=== PATIENT | male | born 1940 | race Caucasian/White ===

== ENCOUNTER → 2019-01-23 17:29 | Outpatient (CLI) | payer MEDICARE, OTHER, SELFPAY ==
--- NOTE | 2019-01-23 17:33 | DI.RAD.S_ITS ---
PROCEDURE: XR CHEST 2V INDICATIONS: cough TECHNIQUE: 2 views of the chest were acquired. COMPARISON: None. FINDINGS: Surgical changes and devices: None. Lungs and pleura: No acute consolidation. Scattered subsegmental atelectasis and/or scarring. No pleural effusions or pneumothorax. Mediastinum: Mediastinal contours are normal. Heart size is normal. Bones and chest wall: No suspicious bony abnormalities. Soft tissues appear unremarkable. IMPRESSION: No acute disease. Dictated by: Keyur Samano M.D. on 01/23/2019 at 17:52 Approved by: Keyur Samano M.D. on 01/23/2019 at 17:52
== END ==
PROVIDERS: PCP Internal Medicine; Visit Provider Physician Assistant
DX: R05 Cough (principal)
CPT/HCPCS: 71046

== ENCOUNTER → 2019-12-10 06:27 | Day surgery (SDC) | payer MEDICARE, OTHER, SELFPAY ==
[2019-12-10] VITALS (8 sets, daily range): BP systolic 114–172; BP diastolic 69–93; PULSE 61–81; RESP 10–18; TEMP 35.7–37.1; O2SAT 93–98; BMI 27.4
--- NOTE | 2019-12-10 | PATH_ITS ---
[facility] Accession Number: [id number] . 01 Material submitted: . neck - LEFT BLADDER NECK . 02 Diagnosis: Left Bladder Neck, Transurethral Resection: Invasive urothelial carcinoma, see Cancer Case Summary. . . CANCER CASE SUMMARY-URINARY BLADDER Procedure: TURP/TURBT. Tumor Site: Bladder neck. Histologic Type: Urothelial carcinoma, invasive. Histologic Grade: High grade. Tumor configuration: Solid/nodular. Muscularis Propria Presence: Muscularis propria present. Lymphovascular Invasion: Present. Tumor Extension: Tumor invades muscularis propria, and urothelial carcinoma invasive into prostatic stroma in prostatic chips. MRV 12/15/2019 1808 Local . 02 Comment: As part of routine director quality systems, Dr. Carter has reviewed this case and agrees with the diagnosis of invasive urothelial carcinoma with muscularis propria invasion, and presence of lymphovascular invasion. The finding of invasive urothelial carcinoma was reported to Dr. Epstein by Dr. Ojeda on 12/15/2019 at 3:15 p.m. . 02 Electronically signed: . Omkar Ojeda MD, PhD, Pathologist NPI- [id number] . 01 Gross description: . LEFT BLADDER NECK: Received in formalin are multiple fragment of underwood soft tissue measuring 3.0 x 2.0 x 0.5 cm. Specimen is submitted in its entirety in 2 cassettes. /[facility] 12/11/2019 0015 Local . 02 Microscopic: . A D2-40 immunohistochemical stain is performed to evaluate for lymphovascular invasion, and highlights lymphatic channels containing nests of neoplastic cells. A control stains shows appropriate reactivity. . * This test was developed and its performance characteristics determined by [employer]. It has not been cleared or approved by the U.S. Food and Drug Administration. The FDA has determined that such clearance or approval is not necessary. This test is used for clinical purposes. It should not be regarded as investigational or for research. . 02 Pathologist provided ICD-10: C67.5 . 02 CPT . 435347, [id number] Performed at: 01 [facility] [address] [id number] MD Marquis Pendleton MD Phone: [phone] Performed at: 02 [place] [id number] [place] [id number] MD Kathy Carter MD Phone: [phone]
[2019-12-10] MEDS: LACTATED RINGERS 1,000 ML 42 ML IV (07:45)
[2019-12-10] MEDS: CEFAZOLIN 2 GM/100 ML FROZ.PIGGY IV (07:46)
--- NOTE | 2019-12-10 07:46 | PM.PREOP ---
Pre-operative Note Interval Note History & Physical reviewed/Exam performed by Physician: Yes Changes to H&P: No H&P completed within 30 days and has changed as indicated here:: There are no changes to the history and physical examination of scanned document.
--- NOTE | 2019-12-10 08:12 | SUR.OPER ---
Lithotomy on padded OR bed, head on pillow, arms secured on padded arm boards at <90 degrees abduction. Legs secured in padded yellow fins stirrups.
[2019-12-10] MEDS: mitoMYcin 20 MG in WATER FOR INJECTION 20 ML 240 ML INTRAVESIC (08:22)
[2019-12-10] MEDS: BELLADONNA/OPIUM SUPPOSITORIES 1 EACH PR (08:25)
[2019-12-10] MEDS: HYDROCODONE/ACET 5/325 TABLET 1 TAB PO (08:59)
--- NOTE | 2019-12-10 10:09 | SUR.PHASEII ---
Dr norris contacted by phone for plavix intructions. per DR. norris patient to restart plavix on friday. patient and given those instructions verbally and written on discharge instructions.
--- NOTE | 2019-12-10 10:11 | SUR.PHASEII ---
pt and given detailed instructions on how to care for gunderson catheter. Written information given to both pt and . Pt states he is comfortable. Denies pain . at bedside. Pt requesting prescription for pain medication will talk to Dr. Evans when he is out of surgery.
--- NOTE | 2019-12-10 10:59 | SUR.PHASEII ---
Connected pt to bag and let it drain. Disposed of bag in chemo bin. Detailed catheter care given. Pt awaiting prescription for pain medication. Pt states he feels much better. No complaints at present time. at bedside. Pt states he feels much better.
--- NOTE | 2020-02-04 09:13 | P.OP_ITS ---
Operative Date/Time/Diagnoses Date of procedure: 12/10/19 Time of procedure: 10:00 Pre-op diagnosis: 1. Malignant neoplasm left bladder neck/prostate Post-op diagnosis: same Procedure & Clinicians Procedure: 1. Transurethral resection of bladder tumor. 2. Transurethral resection of prostate. 3. Installation mitomycin C (20 mg). Same procedure as scheduled: Yes Indications: 1. Malignant neoplasm at interface of left bladder neck and proximal prostatic fossa. Surgeon: Ritesh Epstein Click Yes if Unassisted: Yes Anesthesia Type: General Operative Notes Findings: 1. Malignant neoplasm at left bladder neck and proximal left prostatic fossa interface. Closure Type: not applicable Specimen(s): other (Urothelial neoplasm.) Applied: catheter (20 Cambodian Delcid catheter) Estimated Blood Loss (mL): 5 Blood products transfused: none Tourniquet time (min): 0 Procedure in detail: The patient was positioned supine and administered general anesthesia. He was then repositioned in semi lithotomy and the lower abdomen genitalia and groin were prepped and draped in sterile fashion. The resectoscope was then passed into the urethra under direct visualization with the findings as described above. The resectoscope was then fitted with the resection loop. Transurethral resection of the index tumor was then conducted at the posterior bladder neck prostatic fossa interface. The tissue was labeled as to the site of its procurement and submitted to pathology for routine gross and microscopic examination. Hemostasis was attained with electric cautery. The bladder was then filled partially and the resectoscope was removed. A 20 Camb[place] Delcid catheter was then inserted, and the balloon inflated to 10 cc. Bladder contents were then drained. A solution of 20 cc containing 20 mg mitomycin C were then instilled into the bladder via the catheter for anticipated to our postoperative retention. Patient was then repositioned supine, awakened and transferred to a gurney in stable condition. Complications: none Post-operative Condition: stable Disposition: PACU Plan for aftercare: Discharge home
== END | disposition home or self-care (01) ==
PROVIDERS: Referring Provider Specialist; Visit Provider Specialist
PROC: 0TBB8ZZ Excision of Bladder, Via Natural or Artificial Opening Endoscopic (ICD-10-PCS; CPT 52235; principal; 2019-12-10 07:45)
DX: C67.5 Malignant neoplasm of bladder neck (principal); I25.10 Atherosclerotic heart disease of native coronary artery without angina pectoris; I10 Essential (primary) hypertension; E78.5 Hyperlipidemia, unspecified; J44.9 Chronic obstructive pulmonary disease, unspecified
CPT/HCPCS: 52235; 87086; J0690; J2704; J3010; J9280

== ENCOUNTER → 2019-12-22 10:53 | Outpatient (CLI) | payer MEDICARE, OTHER, SELFPAY ==
[2019-12-22 11:52] LABS: BUN Creatinine Ratio 26.7 (6-22); Blood Urea Nitrogen 32 mg/dL (9-20); Calcium 10.1 mg/dL (8.4-10.2); Carbon Dioxide 29 mmol/L (22-32); Chloride 102 mmol/L (98-107); Estimated Glomerular Filt Rate 58.1 mL/min (>60); Glucose 115 mg/dL (80-110); HEMOLYSIS < 15 (0-50); Potassium 5.4 mmol/L (3.4-5.1); Sodium 141 mmol/L (137-145)
--- NOTE | 2019-12-22 12:10 | DI.CT.S_ITS ---
PROCEDURE: CT CHEST ABD PEL W CON INDICATIONS: Malignant neoplasm of bladder, unspecified TECHNIQUE: After the administration of oral and intravenous contrast, 5 mm thick sections acquired from the lung apices to the symphysis. 5 mm coronal and sagittal reformats were performed, with additional 7 mm coronal MIP reformats through the lungs. For radiation dose reduction, the following was used: automated exposure control, adjustment of mA and/or kV according to patient size. COMPARISON: [facility], CT, CT-IVP, 05/01/2012, 8:50. [facility], CT, IVP (ABD & PEL WWO CONTRAST), 04/10/2015, 9:15. FINDINGS: Image quality: Excellent. CHEST: Lungs and pleura: No acute airspace opacities. No pleural effusions or pneumothorax. Central and peripheral airways appear patent and normal in caliber. Mediastinum: Heart size is normal. No pericardial effusion. No mediastinal or hilar adenopathy by size criteria. Thoracic aorta and central pulmonary arteries are normal in size. Esophagus is normal in caliber. No hiatal hernia. Chest wall: No axillary or supraclavicular adenopathy by size criteria. Thyroid gland appears normal where well seen. ABDOMEN: Solid organs: Liver is normal in size and enhancement. Gallbladder appears normal. Biliary system is non dilated. Pancreas enhances normally. Spleen is normal in size and enhancement. No adrenal nodules. Kidneys demonstrate normal size and enhancement, with symmetric bilateral mild to moderate hydronephrosis and hydroureter extending into the pelvis. Peritoneum and bowel: Bowel loops demonstrate normal wall thickness and caliber. No free fluid or air. Nodes and vessels: No retroperitoneal or mesenteric adenopathy by size criteria. Aorta and inferior vena cava are well seen and the IVC is in size. The distal abdominal aorta contains a fusiform aneurysm with maximal AP and transverse dimensions of 4.9 x 4.7 cm. Prior maximal AP dimension of the aorta 04/10/15 was 4.3 cm. Miscellaneous: No ventral hernias. PELVIS: Genitourinary: Bladder wall morphology is somewhat lobulated, possibly associated with a neobladder augmentation. The bilateral hydroureter extends to this area of lobulation. No residual bladder mass is seen. Miscellaneous: No inguinal hernias or adenopathy. Extensive sigmoid diverticulosis, no definite acute diverticulitis. Bones: No suspicious bony lesions. No vertebral body compression fractures. IMPRESSION: 1. No metastatic disease seen. 2. Lobulation of the bladder margin posteriorly, with associated bilateral hydronephrosis and hydroureter that is mild to moderate in severity. The appearance may be secondary to neobladder augmentation or other operative intervention without a visualized mass as the underlying cause. 3. Abdominal aortic aneurysm has mildly worsened from the comparison CT scan 04/10/15 when maximal axial dimension of the distal aorta was 4.3 cm and now is 4.9 cm. 4. Extensive sigmoid diverticulosis, without acute diverticulitis. Dictated by: Juvenal Vaughn M.D. on 12/22/2019 at 15:29 Approved by: Juvenal Vaughn M.D. on 12/22/2019 at 15:52
== END ==
PROVIDERS: PCP Internal Medicine; Referring Provider Internal Medicine; Visit Provider Specialist
DX: C67.9 Malignant neoplasm of bladder, unspecified (principal); C61 Malignant neoplasm of prostate; N13.30 Unspecified hydronephrosis; I71.4 Abdominal aortic aneurysm, without rupture; K57.30 Diverticulosis of large intestine without perforation or abscess without bleeding
CPT/HCPCS: 36415; 71260; 74177; 80048; Q9967

== ENCOUNTER → 2019-12-23 10:52 | Outpatient (CLI) | payer MEDICARE, OTHER, SELFPAY ==
--- NOTE | 2019-12-23 10:56 | DI.NM.S_ITS ---
PROCEDURE: NM BONE SCAN WHOLE BODY RADIOPHARMACEUTICAL: 21.2 mCi Tc-99m MDP IV. INDICATIONS: Malignant neoplasm of bladder, unspecified TECHNIQUE: Delayed whole-body scintigrams were obtained approximately 3-4 hours after intravenous injection of radiotracer. Anterior and posterior views were acquired from vertex to feet. Additional left and right oblique views of the abdomen/pelvis were obtained. COMPARISON: [facility], CT, CT CHEST ABD PEL W CON, 12/22/2019, 12:05. FINDINGS: Bilateral hydronephrosis and inferior leads inferiorly to the bladder level, corresponding to the findings from CT scan in 12/22/19. There appears to have been some form of surgery at the bladder level, possibly with a bladder augmentation procedure, and subsequently bilateral hydronephrosis and hydroureter have been found. Etiology beyond is surgical intervention is not identified. No osseous metastatic disease is found related to prior report of bladder carcinoma. At the T9-T10 intervertebral region prominent anterior osteophytic spurring and degenerative disc disease is noted on CT scanning from yesterday, from the sagittal reformatio imaging. Currently the nuclear medicine bone scan shows a thin band of elevated isotope deposition exactly at that site. Degenerative osteoarthritic change and disc disease is noted at the low cervical spine. No area of marrow space metastasis is suspected. IMPRESSION: 1. The prior CT scanning from one day ago had shown prominent anterior projecting osteophytic spurring, at T9-T10, where the current bone scan shows a thin band of elevated isotope deposition. This does not represent evidence of a compression fracture or metastatic disease at that site with reference to the prior CT scan. 2. Through the axial and appendicular skeleton visualized no osseous metastatic disease is seen. Degenerative changes are relatively prominent at each shoulder and the low cervical spine. 3. The CT from one day ago has documented bilateral postoperative hydronephrosis and hydroureter, related to ureteral insertion into what appears to be a surgically modified bladder. Ureteral reimplantation frequently is associated with such findings and the degree of hydronephrosis and hydroureter acceptable would be best evaluated by the urology surgical staff. Dictated by: Juvenal Vaughn M.D. on 12/23/2019 at 16:49 Approved by: Juvenal Vaughn M.D. on 12/23/2019 at 16:56
--- NOTE | 2020-01-04 15:50 | ONC.MSW ---
Description: New Referral Navigation T/C Reason for Referral: Bladder Cancer Activity: Pt referred for newly diagnosed bladder cancer, Dr. Evans pt. Discussed the ongoing availability of assistance, support and resources through navigator, their current treatment/surgery schedule, and confirmed their appt. time for this , 01/05 at 2:00pm, 1:40pm check-in time. Pt is already scheduled for his next surgery for 01/16.
== END ==
PROVIDERS: PCP Internal Medicine; Referring Provider Specialist; Visit Provider Specialist
DX: C67.9 Malignant neoplasm of bladder, unspecified (principal); M47.812 Spondylosis without myelopathy or radiculopathy, cervical region; N13.30 Unspecified hydronephrosis
CPT/HCPCS: 78306; A9503

== ENCOUNTER → 2020-01-05 12:59 | Outpatient (CLI) | payer MEDICARE, OTHER, SELFPAY ==
--- NOTE | 2020-01-05 | DI.NM.S_ITS ---
PROCEDURE: NM RENAL FUNCTION W LASIX RADIOPHARMACEUTICAL: 9.7 mCi Tc-99m MAG3 IV and 40 mg furosemide IV. INDICATIONS: Malignant neoplasm of urinary organ, unspecified TECHNIQUE: The patient was hydrated orally before the examination was begun. After intravenous administration of Tc-99m MAG3, posterior abdominal radionuclide angiogram and sequential (1 minute each frame) renal images were obtained. A time-activity curve for each kidney was generated and analyzed. To evaluate for obstruction, the patient was given 40 mg furosemide via slow intravenous injection after the start of the examination. Sequential images were obtained for up to an additional 20 minutes. COMPARISON: [facility], CT, IVP (ABD & PEL WWO CONTRAST), 04/10/2015, 9:15. [facility], CT, CT CHEST ABD PEL W CON, 12/22/2019, 12:05. FINDINGS: Perfusion: There is normal vascular flow to both kidneys. Morphology: Both kidneys are normal in size and shape. Thecollecting systems are nondilated bilaterally. The ureters and bladder fill with tracer, and appear normal. Function: Both kidneys demonstrate delayed cortical tracer uptake, with peak activity > 15 minutes. The right kidney contributes 42.5% of total renal function. The left kidney contributes 57.5% of total renal function. Lasix stimulation: After diuretic administration, there is prompt clearance of tracer activity from the renal collecting systems in both kidneys. The half-time of emptying of tracer activity from the right pelvicaliceal system is <10 minutes. The half-time of emptying from the left pelvicaliceal system is <10 minutes. Normal emptying half-times are less than 10 minutes; borderline ranges are from 10 to 20 minutes. IMPRESSION: 1. Bilateral hydronephrosis and hydroureter but no renal obstructions. 2. Decreased renal function bilaterally. 3. Right kidney contributes 42.5% and left kidney 57.5% of total renal function. Dictated by: Kvng Garcia M.D. on 01/05/2020 at 14:55 Approved by: Kvng Garcia M.D. on 01/05/2020 at 17:27
== END ==
PROVIDERS: PCP Internal Medicine; Referring Provider Specialist; Visit Provider Specialist
DX: C68.9 Malignant neoplasm of urinary organ, unspecified (principal); N13.30 Unspecified hydronephrosis
CPT/HCPCS: 78708; A9562

== ENCOUNTER → 2020-01-06 13:30 | Oncology outpatient (ONC) | payer MEDICARE, OTHER, SELFPAY ==
[2020-01-06 14:31] VITALS: BP 117/68; PULSE 80; RESP 18; TEMP 36.9; O2SAT 94
--- NOTE | 2020-01-06 14:43 | P.CONONC_ITS ---
History of Present Illness - Data of Consult Patient: new to practice Consult date: 01/06/20 Requesting Physician: Lul Choi MD Primary Care Provider: Lul Choi MD - Consult Narrative Reason for consult: Muscle invasive urothelial carcinoma of the bladder Narrative: Balaji Delacruz is a 79 year old male. He presented with hematuria about in 2006. That prompted him to see followed by Dr. Galvez and then Dr. Lala, and then Dr. Hurst. Patient has had multiple trans urethral resection of the bladder tumor. The pathology has always been nonmuscle invasive. Patient also has had 2 courses of treatment with BCG. On 12/10/2019, patient underwent trans urethral resection of left bladder tumor. The pathology showed invasive urothelial carcinoma, located at bladder neck, high grade, lymphovascular invasion present, muscle invasion positive, prostate stroma invasion positive. He was treated with bladder infusion of chemotherapy (?mitomycin C) per patient. On 12/22/2019, patient underwent CT chest abdomen pelvis that showed no metastatic disease, lobulation of the bladder margin posteriorly with associated bilateral hydronephrosis and hydroureter that is [id number] in severity, abdominal aortic aneurysm and extensive sigmoid diverticulosis without diverticulitis. On December the , patient underwent renal function studies that showed bilateral hydronephrosis and hydroureter but no renal obstructions. Decreased renal function bilaterally. Patient also underwent bone scan on 12/23/2019, no bone metastasis was recorded. He denies any pain. He has appropriate energy. No SOB. No cp. No abd signs or symptoms. No blood in the urine. normal BM. Weight has been stable. CC: Theron Earl MD Home Medications and Allergies Home Medications Medication Instructions Recorded Confirmed Type Centrum Silver 1 tab PO DAILY #0 cap 06/25/13 12/10/19 History aspirin 81 mg PO QDAY #0 06/25/13 12/10/19 History clopidogrel [Plavix] 75 mg PO QDAY #0 tab 06/25/13 12/10/19 History lisinopril [Zestril] 2.5 mg PO QDAY #0 06/25/13 01/06/20 History metformin [Glucophage XR] 1,000 mg PO BID #0 06/25/13 01/06/20 History Lantus U-100 Insulin 30 unit SQ HS #0 11/12/16 01/06/20 History albuterol sulfate [Ventolin HFA] 2 puff INH Q4HP PRN #0 11/12/16 01/06/20 History atorvastatin [Lipitor] 40 mg PO HS #0 11/12/16 12/10/19 History finasteride 5 mg PO QDAY #0 11/12/16 01/06/20 History fluticasone propionate [Flonase 1 spray INTRANASAL QDAYP PRN #0 11/12/16 01/06/20 History Allergy Relief] ferrous sulfate 325 mg (65 mg 325 mg PO DAILY tab 01/23/19 12/10/19 History iron) tablet linagliptin 5 mg tablet 5 mg PO DAILY 01/23/19 01/06/20 History Allergies Allergy/AdvReac Type Severity Reaction Status Date / Time amoxicillin [AMOXICILLIN] Allergy Severe hives Verified 12/10/19 07:13 penicillin V [PENICILLIN V] Allergy Unknown RASH Verified 12/10/19 07:13 tuberculin,PPD,multi-puncture AdvReac Severe swelling, Verified 12/10/19 07:13 [TUBERCULIN,PPD,MULTI-PUNCTURE] redness, scab Medical History - Medical, Surgical, Family History Medical History: Medical History (Last Updated 12/08/19 @ 15:31 by Farida Downey RN) AAA (abdominal aortic aneurysm) Bladder cancer BPH (benign prostatic hyperplasia) CAD (coronary artery disease) COPD (chronic obstructive pulmonary disease) CVA (cerebral vascular accident) Onset Date: 2011 Diabetes Former smoker HLD (hyperlipidemia) HTN (hypertension) Left carotid artery occlusion Mild chronic anemia Peripheral neuropathy Surgical History: Surgical History (Last Updated 12/08/19 @ 15:31 by Farida Downey RN) History of colonoscopy History of surgery on arm Hx of bilateral cataract extraction Hx of cystoscopy Hx of transurethral destruction of bladder lesion - Social History Smoking Status: Former smoker Review of Systems - Patient Self-Reported Symptoms SR respiratory issues: Mucous SR Genitourinary issues: Frequent urination, Sexual difficulties SR Neuro issues: Numbness or tingling Exam Vital signs: Vital Signs Temp Pulse Resp BP Pulse Ox 01/06/20 14:31 98.4 F 80 18 117/68 94 Intake and Output 01/05/20 01/06/20 01/06/20 23:59 07:59 15:59 Other: Weight 93.3 kg Patient Weight 01/06/20 23:59 Weight 93.3 kg Narrative: ECOG 1 Gen: WDWN, NAD, pleasant and cooperative. HEENT: NCAT, EOMI, PERRLA, anicteric sclera. Neck: Supple, No palpable thyromegaly or lymphadenopathy. Respiratory: CTAB, no wheezes audible. No JVD Cardiovascular: RRR, S1 and S2 normal, no M/G/R. Abdomen: Soft, NTND, BS normal, no palpable organomegaly Extremities: No LE pitting edema. Lymphatic: no palpable lymph nodes in the neck, axillae, or groins. Neurological: AOx3, CN II-XII grossly intact. No focal motor or sensory deficit. Psychiatric: Normal affect, appropriate mood, no depression, no anxiety. Results - Labs Reviewed - Imaging Additional studies: Procedures Insertion of intraocular lens prosthesis at time of cataract extraction, one- stage (08/07/10) Other transurethral excision or destruction of lesion or tissue of bladder (06/25/13) Phacoemulsification and aspiration of cataract (08/07/10) Removal of implanted lens (07/24/10) Secondary insertion of intraocular lens prosthesis (07/24/10) Assessment and Plan (1) Urothelial carcinoma of bladder with invasion of muscle Overview: 79-year-old gentleman with previous history of apparently non-muscle invasive urothelial tumor status post multiple TURBTs and BCG treatments. Now most recent TURBT identified muscle invasive urothelial carcinoma of the bladder neck with prostate stroma invasion. Staging studies including bone scan and CT chest abdomen and pelvis did not show any apparent distant metastasis. Assessment: Today I reviewed the pathology results, and the imaging study results with the patient. I explained to the patient that he has a muscle invasive urothelial carcinoma the bladder without apparent evidence of distant metastasis. I talked about possible pelvic MRI to evaluate the pelvic and lymph nodes. I talked with him that the generally we would recommend pre-operative chemotherapy with united [place] containing agents. After the chemotherapy patient then will need radical cystectomy. Based on the surgical pathology findings, patient may need more chemotherapy. Other options including concurrent chemo-radiotherapy or radiation therapy alone. Patient has follow up appointment with Dr. Evans next Friday. Surgery has already been scheduled for 01/17/2020. I talked with the patient that I will seem him after the surgery. However if Dr. Evans thinks that the patient need preoperative chemotherapy, I will see the patient sooner. Plan: Visit with Dr. Evans as scheduled for next Friday RTC in one month
== END ==
PROVIDERS: Family Provider Internal Medicine; PCP Internal Medicine; Referring Provider Specialist; Visit Provider Internal Medicine Hematology & Oncology
DX: C67.5 Malignant neoplasm of bladder neck (principal); N40.0 Benign prostatic hyperplasia without lower urinary tract symptoms; I10 Essential (primary) hypertension; E11.9 Type 2 diabetes mellitus without complications; E78.5 Hyperlipidemia, unspecified; I65.22 Occlusion and stenosis of left carotid artery; I71.4 Abdominal aortic aneurysm, without rupture; I25.10 Atherosclerotic heart disease of native coronary artery without angina pectoris; J44.9 Chronic obstructive pulmonary disease, unspecified; D64.9 Anemia, unspecified; G62.9 Polyneuropathy, unspecified; Z79.84 Long term (current) use of oral hypoglycemic drugs; Z86.73 Personal history of transient ischemic attack (TIA), and cerebral infarction without residual deficits; Z87.891 Personal history of nicotine dependence
CPT/HCPCS: 99204; 99214

== ENCOUNTER → 2020-01-12 13:26 | Outpatient (CLI) | payer MEDICARE, OTHER, SELFPAY ==
--- NOTE | 2020-01-12 | DI.MRI.S_ITS ---
PROCEDURE: MR PELIS WO/W CON INDICATIONS: Malignant neoplasm of bladder, unspecified TECHNIQUE: Noncontrast coronal T1 spin echo and STIR, sagittal T1 spin echo with fat saturation and STIR, axial T1 spin echo and T2 fast spin echo with fat saturation. After the administration of contrast, axial/sagittal/coronal T1 spin echo with fat saturation through the pelvis. . COMPARISON: [facility], CT, CT CHEST ABD PEL W CON, 12/22/2019, 12:05. [facility], CT, CT-IVP, 05/01/2012, 8:50. [facility], CR, CHEST 2VW, 04/29/2012, 11:27. [facility], US, RENAL OR RETROPERITONEAL LIMIT, 07/10/2012, 12:56. [facility], CT, IVP (ABD & PEL WWO CONTRAST), 04/10/2015, 9:15. [facility], NM, NM BONE SCAN WHOLE BODY, 12/23/2019, 14:19. FINDINGS: Image quality: Excellent. Bones: The visualized bone marrow demonstrates normal signal on all sequences. The overlying cortex appears intact. No abnormal intraosseous enhancement. Soft tissues: No soft tissue masses are visualized. The scanned muscles demonstrate normal overall bulk and internal signal. Subcutaneous tissues appear normal as well. No abnormal soft tissue enhancement. The prostate gland appears diminutive, with a TURP defect configuration at its upper border. The clinical history provided indicates prior malignant bladder neoplasm, and the bladder area itself is distorted with bilateral hilar ureter extending to the bladder margin, and a waisting of the bladder morphology at its middle third, below the level of the ureteral insertions. At the ureteral insertions themselves, best seen on postcontrast fat-suppressed T1 imaging centered on series 34, image 113 and immediately above and below the ureters can be seen to taper to a normal caliber without polypoid or sessile mass impinging on their far distal margin. It is unclear whether the hydroureter and morphology of the bladder could represent a manifestation of post radiation fibrotic change, surgical intervention, and a discrete identifiable mass is not found as the cause. There is very slight asymmetric thickening of the midline and left posterior bladder wall, without surface irregularity, for example seen on axial postcontrast series 34 image 128 from approximately the 2:00 position to the 7:00 position. This is a subtle finding, and is not likely to represent a manifestation of sessile neoplasm by appearance. IMPRESSION: 1. Unusual morphology of the bladder margins, with a middle third waist narrowing the bladder lumen in that area. As noted, this might reflect prior bladder surgery related to a reported prior malignant neoplasm of bladder. 2. Bilateral hydronephrosis and hydroureter recently documented by CT scanning and nuclear medicine bone scanning is not associated with an identifiable mass at the bladder wall or the distal ureters. 3. The prostate gland itself morphologically is relatively small, and has a superior ureteral margin suggestive of TURP defect. 4. Throughout the pelvic node chains and marrow space no metastatic disease is found. 5. Distal abdominal aortic aneurysm, better seen by CT scanning 12/23/19, has not changed. Dictated by: Juvenal Vaughn M.D. on 01/14/2020 at 15:27 Approved by: Juvenal Vaughn M.D. on 01/14/2020 at 15:42
== END ==
PROVIDERS: Family Provider Internal Medicine; PCP Internal Medicine; Referring Provider Specialist; Visit Provider Specialist
DX: C67.9 Malignant neoplasm of bladder, unspecified (principal); D40.0 Neoplasm of uncertain behavior of prostate; I71.4 Abdominal aortic aneurysm, without rupture
CPT/HCPCS: 72197; A9579

== ENCOUNTER → 2020-05-02 10:20 | Outpatient (CLI) | payer MEDICARE, OTHER, SELFPAY ==
[2020-05-02 10:46] LABS: Add Manual Diff / Slide Review NO; Basophils Absolute Auto 0 /uL (0-100); Eosinophils Absolute Auto 200 /uL (0-450); Eosinophils Percent Auto 4.8 % (2-4); Hematocrit 27.2 % (41-53); Hemoglobin 9.1 g/dL (13.5-17.5); Lymphocytes Absolute Auto 400 /uL (1100-4500); Lymphocytes Percent Auto 7.9 % (25-40); Mean Corpuscular HGB Conc 33.4 % (30-36); Mean Corpuscular Hemoglobin 34.3 PG (26-34); Mean Corpuscular Volume 102.5 fL (80-100); Monocytes Absolute Auto 600 /uL (0-900); Monocytes Percent Auto 14.1 % (3-14); Neutrophils Absolute Auto 3300 /uL (1500-7000); Neutrophils Percent Auto 72.2 % (50-75); Platelet Count 394 X10^3/uL (150-400); Red Blood Cell Count 2.65 X10^6/uL (4.5-5.9); Red Cell Distribution Width 23.5 % (11.6-14.8); White Blood Cell Count 4.6 X10^3/uL (4.5-11.0)
[2020-05-02 10:58] LABS: BUN Creatinine Ratio 19.1 (6-22); Blood Urea Nitrogen 21 mg/dL (9-20); Calcium 9.3 mg/dL (8.4-10.2); Carbon Dioxide 24 mmol/L (22-32); Chloride 109 mmol/L (98-107); Estimated Glomerular Filt Rate > 60.0 mL/min (>60); Glucose 124 mg/dL (80-110); HEMOLYSIS < 15 (0-50); Potassium 4.9 mmol/L (3.4-5.1); Sodium 139 mmol/L (137-145)
[2020-05-02 11:03] LABS: Anisocytosis 2+
--- NOTE | 2020-05-02 11:35 | DI.CT.S_ITS ---
PROCEDURE: CT CHEST ABD PEL W CON INDICATIONS: prostate cancer TECHNIQUE: After the administration of oral and intravenous contrast, 5 mm thick sections acquired from the lung apices to the symphysis. 5 mm coronal and sagittal reformats were performed, with additional 7 mm coronal MIP reformats through the lungs. For radiation dose reduction, the following was used: automated exposure control, adjustment of mA and/or kV according to patient size. COMPARISON: [facility], CT, CT CHEST ABD PEL W CON, 12/22/2019, 12:05. FINDINGS: Image quality: Excellent. CHEST: Lungs and pleura: Moderate centrilobular emphysematous changes. No new nodules. No acute airspace opacities. No pleural effusions or pneumothorax. Mucus present in the trachea. Central and peripheral airways appear otherwise patent and normal in caliber. Mediastinum: Heart size is normal. Dense coronary artery calcification. No pericardial effusion. No mediastinal or hilar adenopathy by size criteria. Thoracic aorta and central pulmonary arteries are normal in size. Esophagus is normal in caliber. No hiatal hernia. Chest wall: Right chest MediPort. No axillary or supraclavicular adenopathy by size criteria. Thyroid gland is normal . ABDOMEN: Solid organs: Mild hepatic enlargement and left lobe hypertrophy. No focal liver lesions. Gallbladder is unremarkable . Biliary system is non dilated. Pancreas enhances normally. Spleen is normal in size and enhancement. The left adrenal gland contains a sub cm low-density nodule too small to characterize arising from the body. No right adrenal nodule.. Kidneys demonstrate normal size and enhancement. Mild bilateral hydronephrosis and proximal hydroureter. Mid to distal ureters are symmetrically enlarged to the level of the urinary bladder. No urinary calcifications. Peritoneum and bowel: The stomach and small bowel are filled with oral contrast. No evidence of bowel obstruction. Solid stool is present in the colon. There is extensive sigmoid diverticulosis. No free fluid or air. Nodes and vessels: No retroperitoneal or mesenteric adenopathy by size criteria. 4.9 x 5.0 cm partially thrombosed abdominal aortic aneurysm in the mid to distal portion. Miscellaneous: No ventral hernias. PELVIS: Genitourinary: The prostate gland is diminutive with possible surgical changes of TURP and morphologic change of the posterior left lateral diverticulum with mild urothelial enhancement. The urinary bladder overall is diminutive with wall thickening. Miscellaneous: No inguinal hernias or adenopathy. Bones: Diffuse demineralization. Ankylosis of sacroiliac joints. Prominent anterior bridging osteophytes in the thoracic and lumbar spine. There is superior endplate depression centrally of L3. This is new since the prior study. No suspicious bony lesions. No vertebral body compression fractures. IMPRESSION: 1. Moderate emphysema. 2. No metastatic disease in the chest. 3. Decreased severity of bilateral hydronephrosis with persistent hydroureter to the level of the urinary bladder. There may be a partially obstructing bladder diverticulum or other bladder outlet obstruction. 4. Mild hepatomegaly. 5. A 5 cm abdominal aortic aneurysm. Vascular consultation is recommended. 6. New central superior endplate compression fracture of L3 vertebral body, likely osteoporotic. 7. Severe diverticulosis without acute diverticulitis of the sigmoid colon. Dictated by: Tiffanie Sweet M.D. on 05/02/2020 at 17:04 Approved by: Tiffanie Sweet M.D. on 05/02/2020 at 17:20
[2020-05-02 23:32] LABS: Hemoglobin A1C% w Est Avg Glu 5.3 % (4.0-6.0)
== END ==
PROVIDERS: Family Provider Internal Medicine; PCP Internal Medicine; Referring Provider Specialist; Visit Provider Specialist
DX: C61 Malignant neoplasm of prostate (principal); N28.9 Disorder of kidney and ureter, unspecified; N13.30 Unspecified hydronephrosis; J43.9 Emphysema, unspecified; R16.0 Hepatomegaly, not elsewhere classified; I71.4 Abdominal aortic aneurysm, without rupture; K57.30 Diverticulosis of large intestine without perforation or abscess without bleeding; M48.56XA Collapsed vertebra, not elsewhere classified, lumbar region, initial encounter for fracture; I25.10 Atherosclerotic heart disease of native coronary artery without angina pectoris; Z95.828 Presence of other vascular implants and grafts; Z85.51 Personal history of malignant neoplasm of bladder
CPT/HCPCS: 36415; 71260; 74177; 80048; 83036; 85025; Q9967

== ENCOUNTER → 2020-05-15 11:43 | Outpatient (CLI) | payer MEDICARE, OTHER, SELFPAY ==
[2020-05-15 12:27] LABS: Appearance Urine UA CLEAR; Bilirubin Urine UA NEGATIVE (NEGATIVE); Color Urine UA YELLOW; Glucose Urine UA NEGATIVE (Negative); Ketones Urine UA NEGATIVE (NEGATIVE); Leukocyte Esterase Urine UA TRACE (NEGATIVE); Nitrite Urine UA POSITIVE (Negative); Occult Blood Urine UA 3+ (Negative); Protein Urine UA TRACE (Negative); Specific Gravity Urine UA 1.015 (1.000-1.035); Urobilinogen Urine UA 0.2 E.U./dL (0.2); pH Urine UA 5.5 (4.5-8.0)
[2020-05-15 12:33] LABS: Bacteria Urine None Seen
[2020-05-15 12:38] LABS: Culture Indicated Urine Specimen Cultured; RBC Urine 10-30/HPF (0-5/HPF); WBC Urine 5-10/HPF (0-5/HPF)
== END ==
PROVIDERS: Family Provider Internal Medicine; PCP Internal Medicine; Referring Provider Internal Medicine; Visit Provider Specialist
DX: R30.0 Dysuria (principal)
CPT/HCPCS: 81003; 81015; 87086

== ENCOUNTER → 2020-05-24 14:37 | Outpatient (CLI) | payer MEDICARE, OTHER, SELFPAY | PROVIDERS: Family Provider Internal Medicine; PCP Internal Medicine; Visit Provider Specialist | DX: N39.0 Urinary tract infection, site not specified (principal); N18.9 Chronic kidney disease, unspecified; R39.9 Unspecified symptoms and signs involving the genitourinary system; Z85.51 Personal history of malignant neoplasm of bladder | CPT/HCPCS: 52000; 81002; 87086; 99213 ==

== ENCOUNTER → 2020-08-01 12:28 | Outpatient (CLI) | payer MEDICARE, OTHER, SELFPAY ==
[2020-08-01 13:43] LABS: Alanine Aminotransferase 37 IU/L (<50); Albumin 4.1 g/dL (3.5-5.0); Albumin Globulin Ratio 1.5 (1.0-2.8); Alkaline Phosphatase 121 U/L (38-126); Aspartate Aminotransferase 40 IU/L (17-59); BUN Creatinine Ratio 23.4 (6-22); Bilirubin Total 0.5 mg/dL (0.2-1.3); Blood Urea Nitrogen 32 mg/dL (9-20); Calcium 9.4 mg/dL (8.4-10.2); Carbon Dioxide 25 mmol/L (22-32); Chloride 105 mmol/L (98-107); Estimated Glomerular Filt Rate 49.7 mL/min (>60); Globulin 2.7 g/dL (1.7-4.1); Glucose 92 mg/dL (80-110); HEMOLYSIS < 15 (0-50); Potassium 5.3 mmol/L (3.4-5.1); Sodium 138 mmol/L (137-145); Total Protein 6.8 g/dL (6.3-8.2)
--- NOTE | 2020-08-01 13:47 | DI.CT.S_ITS ---
PROCEDURE: CT CHEST ABD PEL W CON INDICATIONS: Malignant neoplasm of bladder, unspecified/ lab TECHNIQUE: After the administration of oral and intravenous contrast, 5 mm thick sections acquired from the lung apices to the symphysis. 5 mm coronal and sagittal reformats were performed, with additional 7 mm coronal MIP reformats through the lungs. For radiation dose reduction, the following was used: automated exposure control, adjustment of mA and/or kV according to patient size. COMPARISON: [facility], CT, CT CHEST ABD PEL W CON, 12/22/2019, 12:05. [facility], CT, IVP (ABD & PEL WWO CONTRAST), 04/10/2015, 9:15. [facility], CT, CT CHEST ABD PEL W CON, 05/02/2020, 11:34. FINDINGS: Image quality: Excellent. CHEST: Lungs and pleura: Moderate emphysematous change. Mild thickening along the right major fissure. Calcified granuloma. A few punctate pulmonary nodules. No acute airspace opacities. No pleural effusions or pneumothorax. Trace secretions or web in the lower trachea. Mediastinum: Right-sided port with the catheter tip at the cavoatrial junction. Heart size is normal. Coronary artery calcifications. No pericardial effusion. No mediastinal or hilar adenopathy by size criteria. Small mediastinal lymph nodes are unchanged. Thoracic aorta and central pulmonary arteries are normal in size. Esophagus is normal in caliber. No hiatal hernia. Chest wall: Bilateral gynecomastia. No axillary or supraclavicular adenopathy by size criteria. Thyroid gland is unremarkable. ABDOMEN: Solid organs: Liver is unchanged. No focal lesion. Gallbladder is unremarkable. Biliary system is non dilated. Pancreas enhances normally. Spleen is normal in size and enhancement. Thickening of the left adrenal gland, unchanged. Kidneys demonstrate normal size and enhancement, without hydronephrosis. Peritoneum and bowel: No small bowel obstruction. Colonic diverticulosis. Minimal stranding in the mesorectal fat, unchanged. The appendix is mildly dilated. There is air within the appendiceal lumen. Nodes and vessels: No retroperitoneal or mesenteric adenopathy by size criteria. Infrarenal abdominal aortic aneurysm measuring 4.9 cm, (5), unchanged, and more remotely 4 cm on 04/10/2015. Miscellaneous: No ventral hernias. PELVIS: Genitourinary: Bladder is mostly decompressed. There is mild diffuse thickening. Miscellaneous: No inguinal hernias or adenopathy. Bones: No suspicious bony lesions. Large anterior vertebral body osteophytes. L3 compression fracture unchanged. IMPRESSION: 1. Mildly diffuse thickening of the urinary bladder similar to the prior exam. No enlarged adenopathy. 2. Ureters are within normal limits. No hydronephrosis. 3. Stable L3 compression fracture. 4. A stable infrarenal abdominal aortic aneurysm measuring 4.9 cm. This is increased in size compared to 2015 where it measured 4 cm. 5. Moderate emphysematous change. 6. Diverticulosis. Dictated by: Luis Alberto Hernandez M.D. on 08/01/2020 at 16:21 Approved by: Luis Alberto Hernandez M.D. on 08/01/2020 at 16:44
== END ==
PROVIDERS: Family Provider Internal Medicine; PCP Internal Medicine; Referring Provider Internal Medicine; Visit Provider Internal Medicine Medical Oncology
DX: C67.8 Malignant neoplasm of overlapping sites of bladder (principal); I71.4 Abdominal aortic aneurysm, without rupture; K57.90 Diverticulosis of intestine, part unspecified, without perforation or abscess without bleeding; M48.56XS Collapsed vertebra, not elsewhere classified, lumbar region, sequela of fracture
CPT/HCPCS: 36415; 71260; 74177; 80053; Q9967

== ENCOUNTER → 2020-08-30 12:02 | Outpatient (CLI) | payer MEDICARE, OTHER, SELFPAY ==
[2020-08-30 14:51] LABS: Prostate Specific Antigen < 0.064 ng/mL (0.10-4.00)
== END ==
PROVIDERS: Family Provider Internal Medicine; PCP Internal Medicine; Referring Provider Specialist; Visit Provider Specialist
DX: R97.20 Elevated prostate specific antigen [PSA] (principal); R39.9 Unspecified symptoms and signs involving the genitourinary system; Z85.51 Personal history of malignant neoplasm of bladder
CPT/HCPCS: 36415; 51798; 52000; 81002; 84153; 99213

== ENCOUNTER → 2021-01-22 12:21 | Outpatient (CLI) | payer MEDICARE, OTHER, SELFPAY ==
[2021-01-22 13:22] LABS: Add Manual Diff / Slide Review NO; Basophils Absolute Auto 0 /uL (0-100); Basophils Percent Auto 0.7 % (0-2); Eosinophils Absolute Auto 200 /uL (0-450); Eosinophils Percent Auto 4.1 % (2-4); Hematocrit 33.6 % (41-53); Lymphocytes Absolute Auto 1000 /uL (1100-4500); Lymphocytes Percent Auto 18.4 % (25-40); Mean Corpuscular HGB Conc 32.7 % (30-36); Mean Corpuscular Hemoglobin 31.7 PG (26-34); Mean Corpuscular Volume 96.9 fL (80-100); Monocytes Absolute Auto 700 /uL (0-900); Monocytes Percent Auto 12.8 % (3-14); Neutrophils Absolute Auto 3600 /uL (1500-7000); Platelet Count 202 X10^3/uL (150-400); Red Blood Cell Count 3.47 X10^6/uL (4.5-5.9); White Blood Cell Count 5.5 X10^3/uL (4.5-11.0)
[2021-01-22 15:55] LABS: Alanine Aminotransferase 35 IU/L (<50); Albumin 4.2 g/dL (3.5-5.0); Albumin Globulin Ratio 1.6 (1.0-2.8); Alkaline Phosphatase 117 U/L (38-126); Aspartate Aminotransferase 62 IU/L (17-59); BUN Creatinine Ratio 27.7 (6-22); Bilirubin Total 0.5 mg/dL (0.2-1.3); Blood Urea Nitrogen 36 mg/dL (9-20); Calcium 9.7 mg/dL (8.4-10.2); Carbon Dioxide 27 mmol/L (22-32); Chloride 104 mmol/L (98-107); Estimated Glomerular Filt Rate 52.9 mL/min (>60); Globulin 2.7 g/dL (1.7-4.1); Glucose 111 mg/dL (80-110); HEMOLYSIS < 15 (0-50); Potassium 4.8 mmol/L (3.4-5.1); Sodium 140 mmol/L (137-145); Total Protein 6.9 g/dL (6.3-8.2)
== END ==
PROVIDERS: Family Provider Internal Medicine; PCP Internal Medicine; Referring Provider Internal Medicine; Visit Provider Internal Medicine
DX: C67.9 Malignant neoplasm of bladder, unspecified (principal)
CPT/HCPCS: 36415; 80053; 85025

== ENCOUNTER → 2021-01-23 09:52 | Outpatient (CLI) | payer MEDICARE, OTHER, SELFPAY ==
--- NOTE | 2021-01-23 10:58 | DI.CT.S_ITS ---
PROCEDURE: CT CHEST ABD PEL W CON INDICATIONS: Bladder cancer TECHNIQUE: After the administration of oral and intravenous contrast, 5 mm thick sections acquired from the lung apices to the symphysis. 5 mm coronal and sagittal reformats were performed, with additional 7 mm coronal MIP reformats through the lungs. For radiation dose reduction, the following was used: automated exposure control, adjustment of mA and/or kV according to patient size. COMPARISON: [facility], CT, IVP (ABD & PEL WWO CONTRAST), 04/10/2015, 9:15. [facility], CT, CT CHEST ABD PEL W CON, 12/22/2019, 12:05. [facility], CT, CT CHEST ABD PEL W CON, 08/01/2020, 13:48. [facility], CT, CT CHEST ABD PEL W CON, 05/02/2020, 11:34. FINDINGS: Image quality: Excellent. CHEST: Lungs and pleura: No acute airspace opacities. There is mild chronic appearing linear scarring within the lung parenchyma bilaterally. Centrilobular emphysema is present, best seen at the upper lungs. Longstanding smoking history is presumed. No pleural effusions or pneumothorax. Central and peripheral airways appear patent and normal in caliber. Mediastinum: Heart size is normal. No pericardial effusion. No mediastinal or hilar adenopathy by size criteria. Thoracic aorta and central pulmonary arteries are normal in size. Esophagus is normal in caliber. No hiatal hernia. Chest wall: No axillary or supraclavicular adenopathy by size criteria. Thyroid gland appears normal where well seen. Degenerative changes along the low cervical and thoracic spine appear chronic, with no evidence of osteolytic or blastic disease.. ABDOMEN: Solid organs: Liver is normal in size and enhancement. Gallbladder appears normal . Biliary system is non dilated. Pancreas enhances normally. Spleen is normal in size and enhancement. No adrenal nodules. Kidneys demonstrate normal size and enhancement, with only a small degree of stable appearing mild hydronephrosis and hydroureter, expected after neobladder formation or ureteral reimplantation. Peritoneum and bowel: Bowel loops demonstrate normal wall thickness and caliber. No free fluid or air. Nodes and vessels: No retroperitoneal or mesenteric adenopathy by size criteria. Aorta and inferior vena cava are normal in size. Miscellaneous: No ventral hernias. PELVIS: Genitourinary: Bladder morphology has not changed, with an appearance likely representing neobladder formation. Miscellaneous: No inguinal hernias or adenopathy. 5.2 cm mid to distal abdominal aortic aneurysm, fusiform, involving the origin of the inferior mesenteric artery area. Extensive diverticulosis without acute diverticulitis at this time. Bones: No suspicious bony lesions. No new vertebral body compression fractures in this patient with a superior L3 endplate mild impaction fracture previously. No osteolytic or blastic lesions are found.. IMPRESSION: 1. Centrilobular emphysema. Presumed longstanding smoking history. No pulmonary mass lesion found. 2. The kidneys and ureters appear free of evidence of neoplasm. Marcel small degree of stable appearing hydronephrosis and hydroureter is present, expected in this patient with presumed postsurgical change at the bladder level. 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 3. The morphology of the bladder suggest neobladder formation and there is no evidence of recurrent mass lesion in this region or immediately adjacent. No adenopathy is found, no osseous metastatic disease is seen. 4. Chronic superior endplate presumed osteoporotic or traumatic compression fracture, no sign of osteolytic or blastic lesion associated with this finding. 5. 5.2 cm maximal axial dimension mid to distal abdominal aortic aneurysm, which measured 4.3 cm in March of 2015. Given this enlargement over time yearly ultrasound screening for further enlargement of aortic aneurysm is recommended. Elective surgical consultation may be warranted. Dictated by: Juvenal Vaughn M.D. on 01/23/2021 at 14:39 Approved by: Juvenal Vaughn M.D. on 01/23/2021 at 14:55
== END ==
PROVIDERS: Family Provider Internal Medicine; PCP Internal Medicine; Referring Provider Internal Medicine; Visit Provider Internal Medicine
DX: C67.9 Malignant neoplasm of bladder, unspecified (principal); Z85.51 Personal history of malignant neoplasm of bladder
CPT/HCPCS: 71260; 74177; Q9967

== ENCOUNTER → 2021-07-23 11:19 | Outpatient (CLI) | payer MEDICARE, OTHER, SELFPAY ==
--- NOTE | 2021-07-23 | DI.CT.S_ITS ---
PROCEDURE: CT CHEST ABD PEL W CON INDICATIONS: Asymptomatic 81-year-old male with history of bladder cancer TECHNIQUE: After the administration of oral and intravenous contrast, axial sections acquired from the supraclavicular neck to the pubic symphysis. Coronal and sagittal reformats were performed. For radiation dose reduction, the following was used: automated exposure control, adjustment of mA and/or kV according to patient size. COMPARISON:[facility], MR, MR PELVIS WO/W CON, 01/12/2020, 14:21. [facility], CT, CT CHEST ABD PEL W CON, 01/23/2021, 10:49. FINDINGS: Chest: Cardiovascular: Heart size is normal. No evidence of pulmonary embolism, aortic aneurysm or dissection. Aortic atherosclerotic vascular calcification. Coronary artery vascular calcification noted. Lungs and pleural spaces: The lung obrien are clear without nodule, infiltrate or interstitial prominence. Pleural spaces show no effusion or pneumothorax. Apically predominant mild pulmonary emphysema noted. Lymph nodes: No mediastinal, hilar or axillary adenopathy. Mediastinum: Unremarkable. No hiatal hernia. Thyroid within normal limits. Chest Wall and Bones: Unremarkable. No acute fracture. Lower thoracic spine degenerative changes noted. No lytic or blastic lesion. Abdomen and Pelvis: Liver: Normal in size and attenuation. No contour deformity present. Biliary system: No calcified cholelithiasis or pericholecystic inflammation. No intra or extrahepatic bile duct dilatation. Pancreas: Unremarkable without mass or inflammation evident. Spleen: Normal in size and density. Adrenals: Normal morphology and density. Reproductive system: Atrophic prostate and probable TURP defect. Urinary system: Mild bilateral hydronephrosis and hydroureter is stable from the prior exams. No renal calculi present. Bladder is small shows multiple diverticula, similar in configuration to the prior exam. Gastrointestinal system: The bowel appears unremarkable with no evidence of bowel obstruction or inflammation. The stomach appears unremarkable. No findings to suggest acute appendicitis. Multiple diverticula arise from the sigmoid and left colon without evidence of diverticulitis. Peritoneal spaces: No intra- or retroperitoneal adenopathy. No free air. Small amount of free fluid noted in the pelvis, nonspecific. Vasculature: 4.9 cm infrarenal abdominal aortic aneurysm is similar prior exam. Atherosclerotic vascular calcification noted. Musculoskeletal: Normal bone mineralization. No acute fractures. Abdominal wall intact without evidence of ventral or inguinal hernias. Multilevel degenerative disc disease and arthropathy present in the lower lumbar spine. Large Schmorl's node noted in the superior endplate of L3, stable. IMPRESSION: 1. Stable exam. Mild bilateral hydronephrosis and hydroureter without obstructing lesion associated with stable small bladder diverticuli, unchanged from the prior exam. 2. Colonic diverticulosis without evidence of diverticulitis. 3. Infrarenal 4.9 cm abdominal aortic aneurysm, stable. 4. Pulmonary emphysema and thoracolumbar degenerative disc disease Approved by: Jerman Zhu M.D. on 07/23/2021 at 14:07
[2021-07-23 12:04] LABS: BUN Creatinine Ratio 22.6 (6-22); Blood Urea Nitrogen 26 mg/dL (9-20); Calcium 9.7 mg/dL (8.4-10.2); Carbon Dioxide 29 mmol/L (22-32); Chloride 103 mmol/L (98-107); Estimated Glomerular Filt Rate > 60.0 mL/min (>60); Glucose 101 mg/dL (80-110); HEMOLYSIS < 15 (0-50); Potassium 5.1 mmol/L (3.4-5.1); Sodium 139 mmol/L (137-145)
== END ==
PROVIDERS: Family Provider Internal Medicine; PCP Internal Medicine; Referring Provider Internal Medicine; Visit Provider Internal Medicine
DX: C67.9 Malignant neoplasm of bladder, unspecified (principal); N13.30 Unspecified hydronephrosis; N32.3 Diverticulum of bladder; K57.30 Diverticulosis of large intestine without perforation or abscess without bleeding; I71.4 Abdominal aortic aneurysm, without rupture; M51.35 Other intervertebral disc degeneration, thoracolumbar region; J43.9 Emphysema, unspecified
CPT/HCPCS: 36415; 71260; 74177; 80048

== ENCOUNTER → 2022-02-04 12:25 | Outpatient (CLI) | payer MEDICARE, OTHER, SELFPAY ==
[2022-02-04 13:08] LABS: Add Manual Diff / Slide Review NO; Basophils Absolute Auto 0 /uL (0-100); Basophils Percent Auto 0.6 % (0-2); Eosinophils Absolute Auto 200 /uL (0-450); Eosinophils Percent Auto 4.3 % (2-4); Hematocrit 34.3 % (41-53); Hemoglobin 11.7 g/dL (13.5-17.5); Lymphocytes Absolute Auto 1000 /uL (1100-4500); Lymphocytes Percent Auto 19.7 % (25-40); Mean Corpuscular HGB Conc 34.1 % (30-36); Mean Corpuscular Volume 96.7 fL (80-100); Monocytes Absolute Auto 600 /uL (0-900); Monocytes Percent Auto 11.2 % (3-14); Neutrophils Absolute Auto 3300 /uL (1500-7000); Neutrophils Percent Auto 64.2 % (50-75); Platelet Count 196 X10^3/uL (150-400); Red Blood Cell Count 3.55 X10^6/uL (4.5-5.9); Red Cell Distribution Width 15.1 % (11.6-14.8); White Blood Cell Count 5.1 X10^3/uL (4.5-11.0)
[2022-02-04 13:51] LABS: BUN Creatinine Ratio 19.7 (6-22); Blood Urea Nitrogen 24 mg/dL (9-20); Calcium 9.6 mg/dL (8.4-10.2); Carbon Dioxide 27 mmol/L (22-32); Chloride 105 mmol/L (98-107); Estimated Glomerular Filt Rate 59 mL/min (>60); Glucose 209 mg/dL (80-110); HEMOLYSIS < 15 (0-50); Potassium 4.7 mmol/L (3.4-5.1); Sodium 139 mmol/L (137-145)
== END ==
PROVIDERS: Family Provider Internal Medicine; PCP Internal Medicine; Referring Provider Internal Medicine; Visit Provider Internal Medicine
DX: C67.9 Malignant neoplasm of bladder, unspecified (principal)
CPT/HCPCS: 36415; 80048; 85025

== ENCOUNTER → 2022-02-06 09:20 | Outpatient (CLI) | payer MEDICARE, OTHER, SELFPAY ==
--- NOTE | 2022-02-06 | DI.CT.S_ITS ---
PROCEDURE: CT CHEST ABD PEL W CON INDICATIONS: Malignant neoplasm of bladder, unspecified TECHNIQUE: After the administration of oral and intravenous contrast, axial sections acquired from the supraclavicular neck to the pubic symphysis. Coronal and sagittal reformats were performed. For radiation dose reduction, the following was used: automated exposure control, adjustment of mA and/or kV according to patient size. COMPARISON:[facility], CT, CT CHEST ABD PEL W CON, 12/22/2019, 12:05. CT, CT CHEST ABD PEL W CON, 05/02/2020, 11:34. [facility], CT, CT CHEST ABD PEL W CON, 01/23/2021, 10:49. [facility], CT, CT CHEST ABD PEL W CON, 08/01/2020, 13:48. [facility], CT, CT CHEST ABD PEL W CON, 07/23/2021, 12:40. FINDINGS: Image quality: Excellent. CHEST: Lower Neck: No enlarged lymph nodes. Thyroid: Within normal limits. Axillae: No enlarged lymph nodes. Chest Wall: Unremarkable. There is gynecomastia. Lungs and Airways: Moderate to severe emphysema. Subpleural scars and atelectasis in right middle lobe and lingula. There is a calcified granuloma in the right upper lobe. No consolidation or suspicious nodules. Pleura: No pneumothorax or pleural effusions. Heart: Heart size is normal. No pericardial effusion. Severe coronary artery calcification. Thoracic Vessels: The aorta and pulmonary arteries demonstrate normal size. Mediastinum and Estela: No enlarged lymph nodes. Esophagus: No wall thickening. Small hiatal hernia. ABDOMEN: Liver: Normal size. Mild hepatic steatosis. Gallbladder: Unremarkable. Biliary ducts: Unremarkable. Pancreas: Unremarkable. Spleen: Unremarkable. Adrenal Glands: Bilateral adrenal thickening. Kidneys and Ureters: Kidneys are normal in size and demonstrate symmetrical enhancement. There is a 0.7 cm exophytic cortical nodule in the posterior cortex of the right kidney, unchanged in size and appearance. [id number] hydronephrosis bilaterall, unchanged. Stomach and Bowel: Stomach, small bowel loops, and colon are normal in caliber. There is gastric antral thickening. Diverticulosis without diverticulitis. Rectum is thickened concentrically. Peritoneum: No abnormal intraperitoneal fluid. No free air. Ventral Wall: No hernia. Abdominal Nodes: No retroperitoneal or mesenteric adenopathy by size criteria. Vessels: Infrarenal abdominal aortic aneurysm measuring 5.2 cm AP and 5.0 cm transverse, slightly enlarged since the last exam (previously 4.8 x 4.6 cm. Moderate to severe atherosclerotic calcifications are present PELVIS: Pelvic Organs: Unremarkable. Bladder: Bladder is irregular, suspicious for cystectomy and neobladder. Hydroureter is bilaterally to the level of UVJs. Central lucency in the prostatic urethra, likely related to TURP. Pelvic Nodes: No enlarged lymph nodes. Miscellaneous: Small fat containing inguinal hernias are seen. Bones: Stable chronic moderate compression fracture of L3. Degenerative changes are noted in thoracic and lumbar spine. IMPRESSION: 1. Irregular appearance of urinary bladder is likely related cystectomy and neobladder. Recommend clinical correlation. 2. Stable [id number] hydronephrosis and hydroureter bilaterally. 3. A 0.7 cm exophytic nodule in the posterior cortex of the right kidney, unchanged. 4. No definitive findings to suggest metastatic disease. 5. Diverticulosis without diverticulitis. 6. There is concentric thickening of the rectum. 7. Thickening of gastric antrum. 8. Infrarenal abdominal aortic aneurysm measuring 5.2 x 5.0 cm, slightly enlarged since the last exam. 9. Moderate atherosclerotic calcification of coronary artery and aorta. 10. Stable chronic compression fracture of L3. Dictated by: Kvng Garcia M.D. on 02/06/2022 at 15:11 Approved by: Kvng Garcia M.D. on 02/06/2022 at 15:26
== END ==
PROVIDERS: Family Provider Internal Medicine; PCP Internal Medicine; Referring Provider Internal Medicine; Visit Provider Internal Medicine
DX: C67.9 Malignant neoplasm of bladder, unspecified (principal); N13.30 Unspecified hydronephrosis; N28.9 Disorder of kidney and ureter, unspecified; K57.90 Diverticulosis of intestine, part unspecified, without perforation or abscess without bleeding; I71.4 Abdominal aortic aneurysm, without rupture; I25.10 Atherosclerotic heart disease of native coronary artery without angina pectoris; I70.0 Atherosclerosis of aorta; M48.56XS Collapsed vertebra, not elsewhere classified, lumbar region, sequela of fracture
CPT/HCPCS: 71260; 74177; Q9967

== ENCOUNTER → 2022-04-08 11:25 | Outpatient (CLI) | payer MEDICARE, OTHER, SELFPAY ==
[2022-04-08 12:34] LABS: Hemoglobin A1C% w Est Avg Glu 7.2 % (4.0-6.0)
[2022-04-08 12:40] LABS: Cholesterol 159 mg/dL (140-199); HDL Cholesterol 49 mg/dL (40-60); LDL Cholesterol Calculated 79 mg/dL (<100); Triglycerides 153 mg/dL (35-150)
[2022-04-08 13:09] LABS: TSH w/ Reflex to FT4 1.58 uIU/mL (0.47-4.68)
[2022-04-08 15:39] LABS: Creatinine Urine Random 59.1 mg/dL
[2022-04-08 15:44] LABS: Microalbumi Creatinin Ratio Ur 50.7 ug/mg CR (<30)
== END ==
PROVIDERS: Family Provider Internal Medicine; PCP Internal Medicine; Referring Provider Internal Medicine; Visit Provider Internal Medicine
DX: E11.42 Type 2 diabetes mellitus with diabetic polyneuropathy (principal); E78.2 Mixed hyperlipidemia
CPT/HCPCS: 36415; 80061; 82043; 82570; 83036; 84443

== ENCOUNTER → 2022-09-23 12:04 | Outpatient (CLI) | payer MEDICARE, OTHER, SELFPAY ==
[2022-09-23 13:36] LABS: Blood Urea Nitrogen 24 mg/dL (9-20); Calcium 9.2 mg/dL (8.4-10.2); Carbon Dioxide 27 mmol/L (22-32); Chloride 105 mmol/L (98-107); Estimated Glomerular Filt Rate 56 mL/min (>60); Glucose 114 mg/dL (80-110); HEMOLYSIS < 15 (0-50); Sodium 138 mmol/L (137-145)
[2022-09-24 17:58] LABS: Hemoglobin A1C% w Est Avg Glu 6.6 % (4.0-6.0)
== END ==
PROVIDERS: Family Provider Internal Medicine; PCP Internal Medicine; Referring Provider Internal Medicine; Visit Provider Internal Medicine
DX: E11.42 Type 2 diabetes mellitus with diabetic polyneuropathy (principal); I10 Essential (primary) hypertension
CPT/HCPCS: 36415; 80048; 83036

== ENCOUNTER → 2022-10-18 14:44 | Outpatient (CLI) | payer MEDICARE, OTHER, SELFPAY ==
[2022-10-18 17:12] LABS: Influenza A - CEPHEID Flu A NEGATIVE (NEGATIVE); Influenza B - CEPHEID Flu B NEGATIVE (NEGATIVE); Respiratory Syncytial Virus Negative (Negative)
[2022-10-18 17:26] LABS: COVID-19 CEPHEID 4-PLEX PCR Negative (Negative)
== END ==
PROVIDERS: Family Provider Internal Medicine; PCP Internal Medicine; Visit Provider Family Medicine
DX: J06.9 Acute upper respiratory infection, unspecified (principal); J44.9 Chronic obstructive pulmonary disease, unspecified
CPT/HCPCS: 0241U

== ENCOUNTER → 2023-01-06 13:15 | Outpatient (CLI) | payer MEDICARE, OTHER, SELFPAY ==
[2023-01-06 13:59] LABS: Add Manual Diff / Slide Review NO; Basophils Absolute Auto 0 /uL (0-100); Basophils Percent Auto 0.6 % (0-2); Eosinophils Absolute Auto 200 /uL (0-450); Eosinophils Percent Auto 3.1 % (2-4); Hemoglobin 11.2 g/dL (13.5-17.5); Lymphocytes Absolute Auto 1100 /uL (1100-4500); Lymphocytes Percent Auto 16.2 % (25-40); Mean Corpuscular HGB Conc 32.9 % (30-36); Mean Corpuscular Hemoglobin 32.3 PG (26-34); Mean Corpuscular Volume 98.1 fL (80-100); Monocytes Absolute Auto 700 /uL (0-900); Neutrophils Absolute Auto 4700 /uL (1500-7000); Neutrophils Percent Auto 69.1 % (50-75); Platelet Count 212 X10^3/uL (150-400); Red Blood Cell Count 3.47 X10^6/uL (4.5-5.9); Red Cell Distribution Width 15.5 % (11.6-14.8); White Blood Cell Count 6.8 X10^3/uL (4.5-11.0)
[2023-01-06 14:11] LABS: Alanine Aminotransferase 39 IU/L (<50); Albumin 4.1 g/dL (3.5-5.0); Albumin Globulin Ratio 1.4 (1.0-2.8); Alkaline Phosphatase 160 U/L (38-126); Aspartate Aminotransferase 44 IU/L (17-59); BUN Creatinine Ratio 23.4 (6-22); Bilirubin Total 0.8 mg/dL (0.2-1.3); Blood Urea Nitrogen 26 mg/dL (9-20); Calcium 9.4 mg/dL (8.4-10.2); Carbon Dioxide 28 mmol/L (22-32); Chloride 102 mmol/L (98-107); Estimated Glomerular Filt Rate > 60 mL/min (>60); Globulin 2.9 g/dL (1.7-4.1); Glucose 122 mg/dL (80-110); HEMOLYSIS < 15 (0-50); Potassium 4.9 mmol/L (3.4-5.1); Sodium 139 mmol/L (137-145)
== END ==
PROVIDERS: Family Provider Internal Medicine; PCP Internal Medicine; Referring Provider Internal Medicine; Visit Provider Internal Medicine
DX: Z85.51 Personal history of malignant neoplasm of bladder (principal)
CPT/HCPCS: 36415; 80053; 85025

== ENCOUNTER → 2023-01-07 11:43 | Outpatient (CLI) | payer MEDICARE, OTHER, SELFPAY ==
--- NOTE | 2023-01-07 11:47 | DI.CT.S_ITS ---
PROCEDURE: CT CHEST ABD PEL W CON INDICATIONS: R/O metastatic of history of bladder cancer. TECHNIQUE: After the administration of oral and intravenous contrast, axial sections acquired from the supraclavicular neck to the pubic symphysis. Coronal and sagittal reformats were performed. For radiation dose reduction, the following was used: automated exposure control, adjustment of mA and/or kV according to patient size. COMPARISON: [facility], CT, CT CHEST ABD PEL W CON, 07/23/2021, 12:40. [facility], CT, CT CHEST ABD PEL W CON, 02/06/2022, 10:15. FINDINGS: Image quality: Excellent. CHEST: Lower Neck: No enlarged lymph nodes. Thyroid: Within normal limits. Axillae: No enlarged lymph nodes. Chest Wall: Gynecomastia. Lungs and Airways: Patchy opacity at the right lower lobe, (5/273), new. Nodular opacity at the right lateral lung base. This could be more of the patchy opacity seen more medially. Right upper lobe calcified granuloma. Severe emphysematous change. Secretions in the upper trachea. Pleura: No pneumothorax or pleural effusions. Heart: Heart size is normal. Moderate calcified plaque at the aortic valve. Three-vessel coronary artery calcifications. No pericardial effusion. Thoracic Vessels: The aorta and pulmonary arteries demonstrate normal size. Mediastinum and Estela: No enlarged lymph nodes. Esophagus: No wall thickening. Small paraseptal varices. No hiatal hernia. ABDOMEN: Liver: Somewhat heterogeneous appearance. No focal lesion is seen. Concern for recannulization of the periumbilical vein. Gallbladder: Unremarkable. Biliary ducts: Unremarkable. Pancreas: Unremarkable. Spleen: Unremarkable. Adrenal Glands: Unremarkable. Kidneys and Ureters: Moderate bilateral hydronephrosis, unchanged. Obstruction at the level of the urinary bladder. Possible thickening adjacent to the right kidney is unchanged. Low-density cyst at the anterior right kidney is unchanged. Stomach and Bowel: Stomach is not distended. No small bowel obstruction. Extensive diverticulosis. The appendix is not dilated. Peritoneum: No abnormal intraperitoneal fluid. No free air. Ventral Wall: No hernia. Abdominal Nodes: No retroperitoneal or mesenteric adenopathy by size criteria. Vessels: Infrarenal abdominal aortic aneurysm measuring 5.1 cm, (3/37), previously 5.3 cm. Ectasia of the common iliac arteries. PELVIS: Pelvic Organs: Prior TURP. Bladder: Irregular appearance of the urinary bladder is unchanged. Pelvic Nodes: No enlarged lymph nodes. Miscellaneous: No inguinal hernias are seen. Bones: No suspicious lesion. IMPRESSION: 1. No metastatic disease identified. Stable appearance of the postoperative bladder. 2. Patchy opacity in the right lower lobe. Secretions in the upper trachea. Suspect pneumonia or aspiration pneumonia. 3. Moderate bilateral hydronephrosis. Level of obstruction at the urinary bladder. 4. Infrarenal AAA measuring 5.1 cm. 5. Small upper abdominal varices. Dictated by: Luis Alberto Hernandez M.D. on 01/07/2023 at 14:53 Approved by: Luis Alberto Hernandez M.D. on 01/07/2023 at 15:13
== END ==
PROVIDERS: Family Provider Internal Medicine; PCP Internal Medicine; Referring Provider Internal Medicine; Visit Provider Internal Medicine
DX: Z85.51 Personal history of malignant neoplasm of bladder (principal); Z08 Encounter for follow-up examination after completed treatment for malignant neoplasm; I71.40 Abdominal aortic aneurysm, without rupture, unspecified; N13.30 Unspecified hydronephrosis; I86.8 Varicose veins of other specified sites; N62 Hypertrophy of breast; I25.10 Atherosclerotic heart disease of native coronary artery without angina pectoris
CPT/HCPCS: 71260; 74177; Q9967

== ENCOUNTER → 2023-02-27 16:57 | Outpatient (CLI) | payer MEDICARE, OTHER, SELFPAY ==
[2023-02-27 19:37] LABS: BUN Creatinine Ratio 20.3 (6-22); Blood Urea Nitrogen 28 mg/dL (9-20); Calcium 9.5 mg/dL (8.4-10.2); Carbon Dioxide 25 mmol/L (22-32); Chloride 105 mmol/L (98-107); Estimated Glomerular Filt Rate 50 mL/min (>60); Glucose 106 mg/dL (80-110); HEMOLYSIS < 15 (0-50); Potassium 5.1 mmol/L (3.4-5.1); Sodium 139 mmol/L (137-145)
[2023-03-01 00:30] LABS: Labcorp Hemoglobin (Hb) A1c 6.4 % (4.8-5.6)
== END ==
PROVIDERS: Family Provider Internal Medicine; PCP Internal Medicine; Referring Provider Internal Medicine; Visit Provider Internal Medicine
DX: E11.42 Type 2 diabetes mellitus with diabetic polyneuropathy (principal)
CPT/HCPCS: 36415; 80048; 83036

== ENCOUNTER → 2023-06-02 15:13 | Outpatient (CLI) | payer MEDICARE, OTHER, SELFPAY ==
[2023-06-02 16:48] LABS: Appearance Urine UA TURBID; Bilirubin Urine UA NEGATIVE (NEGATIVE); Color Urine UA YELLOW; Glucose Urine UA NEGATIVE (Negative); Ketones Urine UA NEGATIVE (NEGATIVE); Leukocyte Esterase Urine UA 1+ (NEGATIVE); Nitrite Urine UA NEGATIVE (Negative); Occult Blood Urine UA 3+ (Negative); Protein Urine UA 3+ (Negative); Specific Gravity Urine UA 1.025 (1.000-1.035); pH Urine UA 5.5 (4.5-8.0)
[2023-06-02 16:57] LABS: RBC Urine >100/HPF (0-5/HPF); WBC Urine 10-30/HPF (0-5/HPF)
[2023-06-02 16:58] LABS: Bacteria Urine Many (>30); Culture Indicated Urine Specimen Cultured; Squamous Epithelial Cell Urine None Seen (0-5/HPF)
== END ==
PROVIDERS: Family Provider Internal Medicine; PCP Internal Medicine; Referring Provider Internal Medicine; Visit Provider Internal Medicine
DX: Z00.00 Encounter for general adult medical examination without abnormal findings (principal); R30.0 Dysuria; R35.0 Frequency of micturition
CPT/HCPCS: 81001; 87077; 87086

== ENCOUNTER 2023-06-02 22:19 | Inpatient (IN) | payer MEDICARE, OTHER, SELFPAY ==
[2023-06-02] VITALS (8 sets, daily range): BP systolic 101–142; BP diastolic 52–77; PULSE 104–142; RESP 21–29; TEMP 38.3; O2SAT 91–93; BMI 25.0
--- NOTE | 2023-06-02 22:22 | ED_ITS ---
HPI - General Adult General Chief complaint: Urogenital-Male Stated complaint: feels bad UTI dx this am on ABX Time Seen by Provider: 06/02/23 22:22 History of Present Illness HPI narrative: 83-year-old male former smoker is a DNR with history of cerebrovascular disease, COPD, AAA, hyperlipidemia, hypertension, type 2 diabetes, bladder cancer presents by EMS for evaluation of fever and chills and generally feeling unwell over the course of the day. He states he saw his primary care doctor earlier in the day was told he has a urinary tract infection and was started on an antibiot ic, which he can not remember. He denies headache, runny nose, sore throat or cough. He has no chest pain or shortness of breath. He has some nausea but denies any vomiting or diarrhea. He denies any other change in his medications or diet. He has a left eye cancer with recent skin graft on his lower lid without any pain, redness or drainage. Related Data Home Medications Medication Instructions Recorded Confirmed aspirin 81 mg tablet,delayed 81 mg PO QDAY ##0 06/25/13 05/22/23 release multivit with min-folic 1 tab PO DAILY #0 caps 06/25/13 05/22/23 acid-lutein 400 mcg-250 mcg chewable tablet (Centrum Silver) ferrous sulfate 325 mg (65 mg 325 mg PO DAILY 01/23/19 05/22/23 iron) tablet cholecalciferol (vitamin D3) 25 25 mcg PO DAILY 04/08/22 05/22/23 mcg (1,000 unit) capsule cyanocobalamin (vitamin B-12) 1,000 mcg PO DAILY 04/08/22 05/22/23 1,000 mcg tablet (Vitamin B-12) albuterol sulfate 90 mcg/actuation 2 inh inhalation Q4-6H PRN COPD 09/23/22 05/22/23 breath activated powder inhaler,sensor fluticasone 250 mcg-salmeterol 50 1 inh inhalation Q12H PRN 09/23/22 05/22/23 mcg/dose blistr powdr for inhalation (Advair Diskus) alpha lipoic acid 100 mg capsule 200 mg PO DAILY Neuropathy 02/27/23 05/22/23 Previous Rx's Medication Instructions Recorded lisinopril 2.5 mg tablet 2.5 mg PO DAILY #90 tabs 05/06/22 metformin 1,000 mg tablet 1,000 mg PO BID #180 tabs 05/06/22 clopidogrel 75 mg tablet (Plavix) 75 mg PO QDAY #90 tabs 06/17/22 gabapentin 300 mg capsule 600 mg PO DAILY #180 caps 09/23/22 finasteride 5 mg tablet 5 mg PO QDAY #90 tabs 05/30/23 atorvastatin 40 mg tablet (Lipitor) 40 mg PO HS #90 tabs 06/02/23 sulfamethoxazole 800 1 tab PO BID #14 tabs 06/02/23 mg-trimethoprim 160 mg tablet Allergies Allergy/AdvReac Type Severity Reaction Status Date / Time amoxicillin [AMOXICILLIN] Allergy Severe hives Verified 05/22/23 10:54 penicillin V [PENICILLIN V] Allergy Unknown RASH Verified 05/22/23 10:54 tuberculin,PPD,multi-puncture AdvReac Severe swelling, Verified 05/22/23 10:54 [TUBERCULIN,PPD,MULTI-PUNCTURE] redness, scab Review of Systems Review of Systems Narrative: GENERAL: See HPI HEENT: Denies sinus pain, ear pain, sore throat, difficulty swallowing, dizziness. RESPIRATORY: Denies dyspnea, cough, wheezing, hemoptysis, sputum. CARDIOVASCULAR: Denies chest pain, palpitations, orthopnea, edema, GASTROINTESTINAL: Denies nausea, vomiting, abdominal pain, diarrhea, constipation, melena. : Denies dysuria, frequency, incontinence, hematuria, urinary retention. MUSCULOSKELETAL: denies weakness, joint pain, or bony pain SKIN: Denies rash, skin lesions, or other NEUROLOGIC: Denies weakness, headache, numbness, change in speech, confusion, seizures, incoordination. PSYCHIATRIC: No concerning psychosocial issues. 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 Well-developed patient, in mild distress. HEAD: Atraumatic. Normocephalic. EYES: Pupils equal round and reactive. Extraocular motions intact. No scleral icterus. No injection or drainage. Left lower lid with sutures in place from recent skin graft, no swelling or redness, no drainage or dehiscence ENT: Nose without bleeding, purulent drainage. Throat without erythema, tonsillar hypertrophy or exudate. Airway patent. NECK: Trachea midline. Non tender CARDIOVASCULAR: Tachycardic and regular rhythm without murmurs, gallops, or rubs. RESPIRATORY: Clear to auscultation. Breath sounds equal bilaterally. No wheezes, rales, or rhonchi. GASTROINTESTINAL: Abdomen soft, non-tender, nondistended. EXTREMITIES: No edema or joint tenderness. BACK: Nontender without deformity or crepitance. No flank tenderness. NEURO: AOx3. SKIN: No rash or erythema of visible areas Initial Vital Signs Initial Vital Signs: Vital Signs Temperature 100.9 F H 06/02/23 22:25 Pulse Rate 142 H 06/02/23 22:25 Respiratory Rate 22 06/02/23 22:25 Blood Pressure 142/77 H 06/02/23 22:25 Pulse Oximetry 92 06/02/23 22:25 Oxygen Delivery Method Room Air 06/02/23 22:25 Procedures Central Line Placement Right IJ: Time Out Performed: Yes Patient Placed on Monitor/Pulse Ox: Yes MD Prep: mask, gown and gloves Central Line Prep: Chlorhexidine scrub and sterile drapes applied Local Anesthetic: lidocaine 2% Amount of anesthesia used (mL): 3 Ultrasound Used for Placement: Yes Central Line Lumen Inserted: triple Post Procedure: good blood return, all ports aspirated, flushed, capped, sterile dressing applied and line stabilization device Post Procedure X-Ray: tip of catheter in good position and no pneumothorax seen Patient Tolerated Procedure: Well Complications: none Additional Comments: prior attempt at [facility], patient experienced pain, perhaps due to proximity to skin graft site, had to abort when he was in desperate need of a urinal Course Orders Ordered: ED Orders 06/02/23 22:33 EKG-12 Lead Stat 06/02/23 22:43 Complete Blood Count AUTO DIFF Stat Comprehensive Metabolic Panel Stat Lactate (Lactic Acid) Stat Lipase Stat Magnesium Stat NT-proBNP (BNP-Adult 18+) Stat Procalcitonin Stat Troponin & CK Cardiac Panel Stat 06/02/23 22:50 Blood Culture Stat 06/02/23 23:03 Respiratory Panel (Film Array) Stat 06/02/23 23:16 Urinalysis and Microscopic Stat Urine Culture Stat 06/03/23 03:19 Chest [XR chest 1V] Stat NOREPINEPHRINE BITARTRATE/D5W (Levophed) 4 mg in 250 mls @ 31.468 mls/hr IV TITRATE SERAFIN; Protocol Last Admin: 06/03/23 03:43 Dose: 0.1 mcg/kg/min, 31.468 mls/hr Documented By: GC Discontinued Medications Acetaminophen (Acetaminophen 325 Mg Tablet) 975 mg PO NOW ONE Stop: 06/02/23 22:29 Last Admin: 06/02/23 22:54 Dose: 975 mg Documented By: DARLENE Furosemide (Furosemide 40 Mg/4 Ml Vial) 40 mg IV NOW ONE Stop: 06/03/23 00:25 Last Admin: 06/03/23 00:31 Dose: 40 mg Documented By: JUANA Sodium Chloride (Normal Saline 0.9%) 1,000 mls @ 1,000 mls/hr IV BOLUS ONE Stop: 06/02/23 23:22 Last Infusion: 06/02/23 23:55 Dose: 0 mls/hr Documented By: Admin: 06/02/23 22:55 Dose: 1,000 mls/hr Documented By: DARLENE Ceftriaxone Sodium 2,000 mg/ (Sodium Chloride) 100 mls @ 200 mls/hr IV NOW ONE Stop: 06/02/23 22:29 Last Infusion: 06/02/23 23:32 Dose: 0 mls/hr Documented By: Admin: 06/02/23 22:55 Dose: 200 mls/hr Documented By: DARLENE Magnesium Sulfate (Magnesium Sulfate) 2 gm in 50 mls @ 25 mls/hr IV NOW ONE Stop: 06/03/23 01:23 Last Infusion: 06/03/23 01:14 Dose: 0 mls/hr Documented By: JUANA Co-signed By: CHARLES Admin: 06/02/23 23:28 Dose: 25 mls/hr Documented By: JUANA Co-signed By: DARLENE Sodium Chloride (Normal Saline 0.9%) 2,328 mls @ 776 mls/hr 30 ml/kg infuse over 3 hr (2328 ml) IV NOW ONE Stop: 06/03/23 03:23 Last Infusion: 06/03/23 03:31 Dose: 0 mls/hr Documented By: Admin: 06/03/23 00:31 Dose: 776 mls/hr Documented By: JUANA Vital Signs Vital signs: Vital Signs - 8 hr 06/02/23 22:25 06/02/23 22:54 06/02/23 22:34 Temperature 100.9 F H 100.9 F H Pulse Rate 142 H 138 H Respiratory Rate 22 29 H Blood Pressure 142/77 H Pulse Oximetry 92 91 Oxygen Delivery Method Room Air 06/02/23 22:52 06/02/23 22:52 06/02/23 23:00 Temperature Pulse Rate 135 H Respiratory Rate 29 H Blood Pressure 135/66 118/55 L Pulse Oximetry 93 Oxygen Delivery Method Room Air 06/02/23 23:00 06/02/23 23:15 06/02/23 23:15 Temperature Pulse Rate 119 H 112 H Respiratory Rate 26 H 24 Blood Pressure 107/57 L Pulse Oximetry 92 92 Oxygen Delivery Method 06/02/23 23:30 06/02/23 23:30 06/02/23 23:45 Temperature Pulse Rate 108 H 104 H Respiratory Rate 21 21 Blood Pressure 108/58 L Pulse Oximetry 92 92 Oxygen Delivery Method 06/02/23 23:45 06/03/23 00:00 06/03/23 00:00 Temperature Pulse Rate 102 H Respiratory Rate 20 Blood Pressure 101/52 L 98/52 L Pulse Oximetry 91 Oxygen Delivery Method 06/03/23 00:15 06/03/23 00:15 06/03/23 00:16 Temperature Pulse Rate 98 H 99 H Respiratory Rate 18 22 Blood Pressure 81/43 L Pulse Oximetry 91 92 Oxygen Delivery Method 06/03/23 00:16 06/03/23 00:17 06/03/23 00:17 Temperature Pulse Rate 100 H Respiratory Rate 23 Blood Pressure 80/48 L 95/51 L Pulse Oximetry 92 Oxygen Delivery Method 06/03/23 00:30 06/03/23 00:30 06/03/23 00:45 Temperature Pulse Rate 95 H 95 H Respiratory Rate 17 16 Blood Pressure 85/48 L Pulse Oximetry 91 Oxygen Delivery Method 06/03/23 00:45 06/03/23 00:47 06/03/23 00:47 Temperature Pulse Rate 95 H Respiratory Rate 17 Blood Pressure 84/51 L 86/52 L Pulse Oximetry 91 Oxygen Delivery Method 06/03/23 00:49 06/03/23 00:49 06/03/23 00:50 Temperature Pulse Rate 97 H 96 H Respiratory Rate 17 17 Blood Pressure 89/50 L Pulse Oximetry 91 91 Oxygen Delivery Method 06/03/23 00:50 06/03/23 01:00 06/03/23 01:00 Temperature Pulse Rate 101 H Respiratory Rate 21 Blood Pressure 91/51 L 123/59 L Pulse Oximetry 94 Oxygen Delivery Method 06/03/23 01:15 06/03/23 01:15 06/03/23 01:30 Temperature Pulse Rate 96 H Respiratory Rate 17 Blood Pressure 94/55 L 92/50 L Pulse Oximetry 93 Oxygen Delivery Method 06/03/23 01:30 06/03/23 01:45 06/03/23 01:45 Temperature Pulse Rate 95 H 93 H Respiratory Rate 18 16 Blood Pressure 89/55 L Pulse Oximetry 93 93 Oxygen Delivery Method 06/03/23 02:00 06/03/23 02:30 06/03/23 03:00 Temperature Pulse Rate 96 H 91 H 91 H Respiratory Rate 26 H 16 14 Blood Pressure Pulse Oximetry 93 95 94 Oxygen Delivery Method 06/03/23 03:30 06/03/23 03:32 06/03/23 03:32 Temperature Pulse Rate 93 H 93 H Respiratory Rate 17 17 Blood Pressure 99/60 Pulse Oximetry 95 96 Oxygen Delivery Method 06/03/23 03:45 06/03/23 03:45 06/03/23 04:00 Temperature Pulse Rate 90 Respiratory Rate 15 Blood Pressure 115/69 118/69 Pulse Oximetry 96 Oxygen Delivery Method 06/03/23 04:00 06/03/23 02:00 Temperature 98.1 F Pulse Rate 86 Respiratory Rate 17 Blood Pressure Pulse Oximetry 95 Oxygen Delivery Method Medical Decision Making Lab Data 06/02/23 22:43 06/02/23 22:43 Labs: Lab Results 06/02/23 06/02/23 06/02/23 Range/Units 22:43 22:43 22:43 WBC 14.1 H (4.5-11.0) X10^3/uL RBC 3.54 L (4.5-5.9) X10^6/uL Hgb 11.5 L (13.5-17.5) g/dL Hct 34.4 L (41-53) % MCV 97.2 (80-100) fL MCH 32.5 (26-34) PG MCHC 33.5 (30-36) % RDW 15.1 H (11.6-14.8) % Plt Count 201 (150-400) X10^3/uL Neut % (Auto) 89.2 H (50-75) % Lymph % (Auto) 5.4 L (25-40) % [place] % (Auto) 4.4 (3-14) % Eos % (Auto) 0.7 L (2-4) % Baso % (Auto) 0.3 (0-2) % Neut # (Auto) 84720 H (3036-5667) /uL Lymph # (Auto) 800 L (5685-9526) /uL Bradley # (Auto) 600 (0-900) /uL Eos # (Auto) 100 (0-450) /uL Baso # (Auto) 0 (0-100) /uL Sodium 135 L (137-145) mmol/L Potassium 4.4 (3.4-5.1) mmol/L Chloride 101 (98-107) mmol/L Carbon Dioxide 20 L (22-32) mmol/L BUN 26 H (9-20) mg/dL Creatinine 1.10 (0.66-1.25) mg/dL Estimated GFR > 60 (>60) mL/min BUN/Creatinine Ratio 23.6 H (6-22) Glucose 207 H (80-110) mg/dL Lactate 3.7 H (0.7-2.1) mmol/L Calcium 9.1 (8.4-10.2) mg/dL Magnesium 0.8 L* (1.6-2.3) mg/dL Total Bilirubin 1.3 (0.2-1.3) mg/dL AST 58 (17-59) IU/L ALT 43 (<50) IU/L Alkaline Phosphatase 177 H (38-126) U/L Total Creatine Kinase 35 L (55-170) U/L Troponin I 0.039 H (0.01-0.034) ng/mL NT-Pro-B Natriuret Pep 3450 H (<450) pg/mL Total Protein 7.1 (6.3-8.2) g/dL Albumin 4.1 (3.5-5.0) g/dL Globulin 3.0 (1.7-4.1) g/dL Albumin/Globulin Ratio 1.4 (1.0-2.8) Lipase 76 (23-300) U/L Procalcitonin 0.21 (<0.5) ng/mL Urine Color Urine Appearance Urine pH (4.5-8.0) Ur Specific [place] (1.000-1.035) Urine Protein (Negative) Urine Glucose (UA) (Negative) g/dL Urine Ketones (NEGATIVE) Urine Occult Blood (Negative) Urine Nitrate (Negative) Urine Bilirubin (NEGATIVE) Urine Urobilinogen (0.2) E.U./dL Ur Leukocyte Esterase (NEGATIVE) Urine RBC (0-5/HPF) Urine WBC (0-5/HPF) Ur Squamous Epith Cells (0-5/HPF) Urine Bacteria (None) Ur Culture Indicated? Chlamy pneumoniae PCR (Not Detect) Adenovirus (PCR) (Not Detect) B. pertussis DNA (PCR) (Not Detecte) B.parapertussis DNA PCR (Not Detecte) Coronavirus OC43 (PCR) (Not Detect) Coronavirus HKU1 (PCR) (Not Detect) Coronavirus 229E (PCR) (Not Detect) SARS-CoV-2 (PCR) (Not Detecte) Coronavirus NL63 (PCR) (Not Detect) Human Metapneumovir PCR (Not Detect) Influenza Type A (PCR) (Not Detect) Influenza Type B (PCR) (Not Detect) M. pneumoniae (PCR) (Not Detect) Parainfluenza 1 (PCR) (Not Detect) Parainfluenza 2 (PCR) (Not Detect) Parainfluenza 3 (PCR) (Not Detect) Parainfluenza 4 (PCR) (Not Detect) RSV (PCR) (Not Detect) Entero/Rhino (PCR) (Not Detect) 06/02/23 06/02/23 06/03/23 Range/Units 23:03 23:16 00:59 WBC (4.5-11.0) X10^3/uL RBC (4.5-5.9) X10^6/uL Hgb (13.5-17.5) g/dL Hct (41-53) % MCV (80-100) fL MCH (26-34) PG MCHC (30-36) % RDW (11.6-14.8) % Plt Count (150-400) X10^3/uL Neut % (Auto) (50-75) % Lymph % (Auto) (25-40) % Bradley % (Auto) (3-14) % Eos % (Auto) (2-4) % Baso % (Auto) (0-2) % Neut # (Auto) (4461-1514) /uL Lymph # (Auto) (0766-4560) /uL Bradley # (Auto) (0-900) /uL Eos # (Auto) (0-450) /uL Baso # (Auto) (0-100) /uL Sodium (137-145) mmol/L Potassium (3.4-5.1) mmol/L Chloride (98-107) mmol/L Carbon Dioxide (22-32) mmol/L BUN (9-20) mg/dL Creatinine (0.66-1.25) mg/dL Estimated GFR (>60) mL/min BUN/Creatinine Ratio (6-22) Glucose (80-110) mg/dL Lactate 2.7 H (0.7-2.1) mmol/L Calcium (8.4-10.2) mg/dL Magnesium (1.6-2.3) mg/dL Total Bilirubin (0.2-1.3) mg/dL AST (17-59) IU/L ALT (<50) IU/L Alkaline Phosphatase (38-126) U/L Total Creatine Kinase (55-170) U/L Troponin I (0.01-0.034) ng/mL NT-Pro-B Natriuret Pep (<450) pg/mL Total Protein (6.3-8.2) g/dL Albumin (3.5-5.0) g/dL Globulin (1.7-4.1) g/dL Albumin/Globulin Ratio (1.0-2.8) Lipase (23-300) U/L Procalcitonin (<0.5) ng/mL Urine Color [place] Urine Appearance Sl cloudy Urine pH 5.5 (4.5-8.0) Ur Specific [place] 1.020 (1.000-1.035) Urine Protein 3+ H (Negative) Urine Glucose (UA) Negative (Negative) g/dL Urine Ketones Negative (NEGATIVE) Urine Occult Blood 3+ H (Negative) Urine Nitrate Positive H (Negative) Urine Bilirubin Negative (NEGATIVE) Urine Urobilinogen 2.0 H (0.2) E.U./dL Ur Leukocyte Esterase 2+ H (NEGATIVE) Urine RBC 10-30/hpf H (0-5/HPF) Urine WBC 30-100/hpf H (0-5/HPF) Ur Squamous Epith Cells None seen (0-5/HPF) Urine Bacteria Many (>30) H (None) Ur Culture Indicated? Specimen cultured Chlamy pneumoniae PCR Not detected (Not Detect) Adenovirus (PCR) Not detected (Not Detect) B. pertussis DNA (PCR) Not detected (Not Detecte) B.parapertussis DNA PCR Not detected (Not Detecte) Coronavirus OC43 (PCR) Not detected (Not Detect) Coronavirus HKU1 (PCR) Not detected (Not Detect) Coronavirus 229E (PCR) Not detected (Not Detect) SARS-CoV-2 (PCR) Not detected (Not Detecte) Coronavirus NL63 (PCR) Not detected (Not Detect) Human Metapneumovir PCR Not detected (Not Detect) Influenza Type A (PCR) Not detected (Not Detect) Influenza Type B (PCR) Not detected (Not Detect) M. pneumoniae (PCR) Not detected (Not Detect) Parainfluenza 1 (PCR) Not detected (Not Detect) Parainfluenza 2 (PCR) Not detected (Not Detect) Parainfluenza 3 (PCR) Not detected (Not Detect) Parainfluenza 4 (PCR) Not detected (Not Detect) RSV (PCR) Not detected (Not Detect) Entero/Rhino (PCR) Not detected (Not Detect) Urine Dip Bedside Urine Glucose Negative Bedside Urine Bilirubin + 1 Bedside Urine Ketone - Negative Urine Specific [place] 1.020 Bedside Urine Occult Blood +++ Bedside Urine pH 6.0 Bedside Urine Protein +++ 300 Bedside Urine Urobilinogen - Negative Bedside Urine Nitrite + Positive Bedside Urine Leukocytes +++ 500 Esterase Point of care testing: Urine Dip Bedside Urine Glucose Negative Bedside Urine Bilirubin + 1 Bedside Urine Ketone - Negative Urine Specific [place] 1.020 Bedside Urine Occult Blood +++ Bedside Urine pH 6.0 Bedside Urine Protein +++ 300 Bedside Urine Urobilinogen - Negative Bedside Urine Nitrite + Positive Bedside Urine Leukocytes +++ 500 Esterase MDM Narrative Medical decision making narrative: 83-year-old male presents stating he does not feel well, he states he was diagnosed with a UTI earlier today and has taken a few doses of antibiotics, he is found to be septic on arrival and septic pathway including IV fluids at 30 cc/kilogram of actual body weight, blood cultures, lactate, antibiotics ordered. Urine suspected as source and confirmed upon receipt of urine. He is found to have leukocytosis with left shift. Primary electrolytes and renal function at normal, initial lactate 3.7 which improved to 2.7 after initial round of treatments. Magnesium initially 0.8, upon receipt of this abnormal finding a magnesium rider 2 g is ordered over the visit BP became soft despite fluid administration, central line placed, levo started call to production planning supervisor child care associate teacher, happy to act as testing consultant call to hospitalist, happy to admit Discharge Plan Departure Patient Disposition: Admitted As Inpatient Clinical Impression: Septic shock, Acute UTI, Hypomagnesemia Admit Date/Time: 06/03/23 04:11 Admit Provider: Gerald Day
[2023-06-02 22:54] LABS: Add Manual Diff / Slide Review NO; Basophils Absolute Auto 0 /uL (0-100); Basophils Percent Auto 0.3 % (0-2); Eosinophils Absolute Auto 100 /uL (0-450); Eosinophils Percent Auto 0.7 % (2-4); Hematocrit 34.4 % (41-53); Hemoglobin 11.5 g/dL (13.5-17.5); Lymphocytes Absolute Auto 800 /uL (1100-4500); Lymphocytes Percent Auto 5.4 % (25-40); Mean Corpuscular HGB Conc 33.5 % (30-36); Mean Corpuscular Hemoglobin 32.5 PG (26-34); Mean Corpuscular Volume 97.2 fL (80-100); Monocytes Absolute Auto 600 /uL (0-900); Monocytes Percent Auto 4.4 % (3-14); Neutrophils Absolute Auto 12600 /uL (1500-7000); Neutrophils Percent Auto 89.2 % (50-75); Platelet Count 201 X10^3/uL (150-400); Red Blood Cell Count 3.54 X10^6/uL (4.5-5.9); Red Cell Distribution Width 15.1 % (11.6-14.8); White Blood Cell Count 14.1 X10^3/uL (4.5-11.0)
[2023-06-02] MEDS: ACETAMINOPHEN 325 MG TABLET 975 MG PO (22:54)
[2023-06-02] MEDS: SODIUM CHLORIDE 0.9% 1,000 ML 1000 ML IV (22:55)
[2023-06-02] MEDS: cefTRIAXone 2,000 MG in SODIUM CHLORIDE 0.9% 100 ML 200 MG IV (22:55)
[2023-06-02 23:03] LABS: Lactate (Lactic Acid) 3.7 mmol/L (0.7-2.1)
[2023-06-02 23:05] LABS: Alanine Aminotransferase 43 IU/L (<50); Albumin 4.1 g/dL (3.5-5.0); Albumin Globulin Ratio 1.4 (1.0-2.8); Alkaline Phosphatase 177 U/L (38-126); Aspartate Aminotransferase 58 IU/L (17-59); BUN Creatinine Ratio 23.6 (6-22); Bilirubin Total 1.3 mg/dL (0.2-1.3); Blood Urea Nitrogen 26 mg/dL (9-20); Calcium 9.1 mg/dL (8.4-10.2); Carbon Dioxide 20 mmol/L (22-32); Chloride 101 mmol/L (98-107); Creatine Kinase 35 U/L (55-170); Estimated Glomerular Filt Rate > 60 mL/min (>60); Glucose 207 mg/dL (80-110); HEMOLYSIS < 15 (0-50); Lipase 76 U/L (23-300); Potassium 4.4 mmol/L (3.4-5.1); Sodium 135 mmol/L (137-145); Total Protein 7.1 g/dL (6.3-8.2)
--- NOTE | 2023-06-02 23:11 | PC.NURSE ---
Patient was prescribed bactrim and pyridium from provider over the phone today.
[2023-06-02 23:16] LABS: NT-proBNP (BNP-Adult 18+) 3450 pg/mL (<450); Troponin I 0.039 ng/mL (0.01-0.034)
[2023-06-02 23:18] LABS: Magnesium 0.8 mg/dL (1.6-2.3)
[2023-06-02 23:21] LABS: Procalcitonin 0.21 ng/mL (<0.5)
[2023-06-02] MEDS: MAGNESIUM SULFATE 2 GM/50 ML PIGGYBACK IV (23:28)
[2023-06-02 23:34] LABS: Appearance Urine UA SL CLOUDY; Bilirubin Urine UA NEGATIVE (NEGATIVE); Color Urine UA ORANGE; Glucose Urine UA NEGATIVE (Negative); Ketones Urine UA NEGATIVE (NEGATIVE); Leukocyte Esterase Urine UA 2+ (NEGATIVE); Nitrite Urine UA POSITIVE (Negative); Occult Blood Urine UA 3+ (Negative); Protein Urine UA 3+ (Negative); pH Urine UA 5.5 (4.5-8.0)
[2023-06-02 23:48] LABS: Bacteria Urine Many (>30); Culture Indicated Urine Specimen Cultured; RBC Urine 10-30/HPF (0-5/HPF); Squamous Epithelial Cell Urine None Seen (0-5/HPF); WBC Urine 30-100/HPF (0-5/HPF)
[2023-06-03] VITALS (104 sets, daily range): BP systolic 80–162; BP diastolic 43–81; PULSE 75–102; RESP 14–35; TEMP 36.6–37; O2SAT 73–100; BMI 23.3
[2023-06-03 00:07] LABS: Adenovirus Not Detected (Not Detect); B. parapertussis Not Detected (Not Detecte); Bordetella pertussis Not Detected (Not Detecte); Chlamydophila pneumoniae Not Detected (Not Detect); Coronavirus 229E Not Detected (Not Detect); Coronavirus HKU1 Not Detected (Not Detect); Coronavirus NL 63 Not Detected (Not Detect); Coronavirus OC43 Not Detected (Not Detect); Human Metapneumovirus Not Detected (Not Detect); Human Rhinovirus/Enterovirus Not Detected (Not Detect); Influenza A Not Detected (Not Detect); Influenza B Not Detected (Not Detect); Mycoplasma pneumoniae Not Detected (Not Detect); Parainfluenza Virus 1 Not Detected (Not Detect); Parainfluenza Virus 2 Not Detected (Not Detect); Parainfluenza Virus 3 Not Detected (Not Detect); Parainfluenza Virus 4 Not Detected (Not Detect); Respiratory Syncytial Virus Not Detected (Not Detect); SARS- CoV-2 Not Detected (Not Detecte)
[2023-06-03] MEDS: SODIUM CHLORIDE 0.9% 2,328 ML 776 ML IV (00:31)
[2023-06-03] MEDS: FUROSEMIDE 40 MG/4 ML VIAL IV (00:31)
[2023-06-03 00:47] LABS: Reflexed Lactate in 2 Hours Y
[2023-06-03 01:19] LABS: Lactate 2HR (Lactic Acid Rflx) 2.7 mmol/L (0.7-2.1)
--- NOTE | 2023-06-03 03:19 | DI.RAD.S_ITS ---
PROCEDURE: XR CHEST 1V INDICATIONS: central line placement TECHNIQUE: One view of the chest was acquired. COMPARISON: [facility], CT, CT CHEST ABD PEL W CON, 01/07/2023, 13:30. FINDINGS: Surgical changes and devices: Right internal jugular catheter is seen with tip projecting over the superior vena cava. Surgical clips are seen in the right neck. Lungs and pleura: Lungs are clear. No pleural effusions or pneumothorax. Mediastinum: Mediastinal contours appear normal. Heart size is normal. Bones and chest wall: No suspicious bony lesions. Overlying soft tissues appear unremarkable. IMPRESSION: Right internal jugular catheter is seen in satisfactory position. There is no significant discrepancy when compared to the overnight preliminary report. Approved by: Anuel Chand M.D. on 06/03/2023 at 8:25
[2023-06-03] MEDS: NOREPINEPHRINE BITARTRATE/D5W 4 MG/250 ML PLAST..BAG 31.468 MG IV (03:43)
--- NOTE | 2023-06-03 05:06 | P.HP_ITS ---
History of Present Illness History of Present Illness Date Patient Seen: 06/03/23 Time Patient Seen: 05:06 Date of Onset of Symptoms: 06/02/23 Chief complaint: feels bad UTI dx this am on ABX Narrative: 84 y/o M presented to ED with fever and chills. He saw his PCP yesterday and was told he has UTI and given antibiotics but his chills worsened and he also developed nausea. In the ED he was found to have fever and subsequently became hypotensive which responded to ivf and levaphed and his condition improved. He was also found to have leukocytosis with left-shift and elevated lactic acid as well as abnormal U/a. There is no reported diarrhea or n/v or chest pain. 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 Surgical History H/O lithotripsy H/O transurethral resection of prostate H/O vasectomy History of colonoscopy History of surgery on arm Hx of bilateral cataract extraction Hx of cystoscopy Hx of transurethral destruction of bladder lesion Social History household members: spouse Smoking Status: Former smoker alcohol intake: current Meds Home Medications and Allergies Home Medications Medication Instructions Recorded Confirmed Type aspirin 81 mg tablet,delayed 81 mg PO QDAY ##0 06/25/13 05/22/23 History release multivit with min-folic 1 tab PO DAILY #0 caps 06/25/13 05/22/23 History acid-lutein 400 mcg-250 mcg chewable tablet (Centrum Silver) ferrous sulfate 325 mg (65 mg 325 mg PO DAILY 01/23/19 05/22/23 History iron) tablet cholecalciferol (vitamin D3) 25 25 mcg PO DAILY 04/08/22 05/22/23 History mcg (1,000 unit) capsule cyanocobalamin (vitamin B-12) 1,000 mcg PO DAILY 04/08/22 05/22/23 History 1,000 mcg tablet (Vitamin B-12) lisinopril 2.5 mg tablet 2.5 mg PO DAILY #90 tabs 05/06/22 05/22/23 Rx metformin 1,000 mg tablet 1,000 mg PO BID #180 tabs 05/06/22 05/22/23 Rx clopidogrel 75 mg tablet (Plavix) 75 mg PO QDAY #90 tabs 06/17/22 05/22/23 Rx albuterol sulfate 90 mcg/actuation 2 inh inhalation Q4-6H PRN COPD 09/23/22 05/22/23 History breath activated powder inhaler,sensor fluticasone 250 mcg-salmeterol 50 1 inh inhalation Q12H PRN 09/23/22 05/22/23 History mcg/dose blistr powdr for inhalation (Advair Diskus) gabapentin 300 mg capsule 600 mg PO DAILY #180 caps 09/23/22 05/22/23 Rx alpha lipoic acid 100 mg capsule 200 mg PO DAILY Neuropathy 02/27/23 05/22/23 History finasteride 5 mg tablet 5 mg PO QDAY #90 tabs 05/30/23 Rx atorvastatin 40 mg tablet (Lipitor) 40 mg PO HS #90 tabs 06/02/23 Rx sulfamethoxazole 800 1 tab PO BID #14 tabs 06/02/23 Rx mg-trimethoprim 160 mg tablet Allergies Allergy/AdvReac Type Severity Reaction Status Date / Time amoxicillin [AMOXICILLIN] Allergy Severe hives Verified 05/22/23 10:54 penicillin V [PENICILLIN V] Allergy Unknown RASH Verified 05/22/23 10:54 tuberculin,PPD,multi-puncture AdvReac Severe swelling, Verified 05/22/23 10:54 [TUBERCULIN,PPD,MULTI-PUNCTURE] redness, scab Review of Systems Constitutional Constitutional: Reports as per HPI Comments: negative except what was mentioned in the HPI Exam Vital Signs (past 8 hours): - 06/02/23 22:25 06/02/23 22:54 06/02/23 22:34 Temperature 100.9 F H 100.9 F H Pulse Rate 142 H 138 H Respiratory Rate 22 29 H Blood Pressure 142/77 H Pulse Oximetry 92 91 Oxygen Delivery Method Room Air 06/02/23 22:52 06/02/23 22:52 06/02/23 23:00 Temperature Pulse Rate 135 H Respiratory Rate 29 H Blood Pressure 135/66 118/55 L Pulse Oximetry 93 Oxygen Delivery Method Room Air 06/02/23 23:00 06/02/23 23:15 06/02/23 23:15 Temperature Pulse Rate 119 H 112 H Respiratory Rate 26 H 24 Blood Pressure 107/57 L Pulse Oximetry 92 92 Oxygen Delivery Method 06/02/23 23:30 06/02/23 23:30 06/02/23 23:45 Temperature Pulse Rate 108 H 104 H Respiratory Rate 21 21 Blood Pressure 108/58 L Pulse Oximetry 92 92 Oxygen Delivery Method 06/02/23 23:45 06/03/23 00:00 06/03/23 00:00 Temperature Pulse Rate 102 H Respiratory Rate 20 Blood Pressure 101/52 L 98/52 L Pulse Oximetry 91 Oxygen Delivery Method 06/03/23 00:15 06/03/23 00:15 06/03/23 00:16 Temperature Pulse Rate 98 H 99 H Respiratory Rate 18 22 Blood Pressure 81/43 L Pulse Oximetry 91 92 Oxygen Delivery Method 06/03/23 00:16 06/03/23 00:17 06/03/23 00:17 Temperature Pulse Rate 100 H Respiratory Rate 23 Blood Pressure 80/48 L 95/51 L Pulse Oximetry 92 Oxygen Delivery Method 06/03/23 00:30 06/03/23 00:30 06/03/23 00:45 Temperature Pulse Rate 95 H 95 H Respiratory Rate 17 16 Blood Pressure 85/48 L Pulse Oximetry 91 Oxygen Delivery Method 06/03/23 00:45 06/03/23 00:47 06/03/23 00:47 Temperature Pulse Rate 95 H Respiratory Rate 17 Blood Pressure 84/51 L 86/52 L Pulse Oximetry 91 Oxygen Delivery Method 06/03/23 00:49 06/03/23 00:49 06/03/23 00:50 Temperature Pulse Rate 97 H 96 H Respiratory Rate 17 17 Blood Pressure 89/50 L Pulse Oximetry 91 91 Oxygen Delivery Method 06/03/23 00:50 06/03/23 01:00 06/03/23 01:00 Temperature Pulse Rate 101 H Respiratory Rate 21 Blood Pressure 91/51 L 123/59 L Pulse Oximetry 94 Oxygen Delivery Method 06/03/23 01:15 06/03/23 01:15 06/03/23 01:30 Temperature Pulse Rate 96 H Respiratory Rate 17 Blood Pressure 94/55 L 92/50 L Pulse Oximetry 93 Oxygen Delivery Method 06/03/23 01:30 06/03/23 01:45 06/03/23 01:45 Temperature Pulse Rate 95 H 93 H Respiratory Rate 18 16 Blood Pressure 89/55 L Pulse Oximetry 93 93 Oxygen Delivery Method 06/03/23 02:00 06/03/23 02:30 06/03/23 03:00 Temperature Pulse Rate 96 H 91 H 91 H Respiratory Rate 26 H 16 14 Blood Pressure Pulse Oximetry 93 95 94 Oxygen Delivery Method 06/03/23 03:30 06/03/23 03:32 06/03/23 03:32 Temperature Pulse Rate 93 H 93 H Respiratory Rate 17 17 Blood Pressure 99/60 Pulse Oximetry 95 96 Oxygen Delivery Method 06/03/23 03:45 06/03/23 03:45 06/03/23 04:00 Temperature Pulse Rate 90 Respiratory Rate 15 Blood Pressure 115/69 118/69 Pulse Oximetry 96 Oxygen Delivery Method 06/03/23 04:00 Temperature Pulse Rate 86 Respiratory Rate 17 Blood Pressure Pulse Oximetry 95 Oxygen Delivery Method Oxygen Delivery Method Room Air Const General: comfortable Neck Neck: normal visual inspection Resp Effort & Inspection: normal respiratory effort Cardio Rate: regular rate Rhythm: regular rhythm GI Inspection: normal to inspection Neuro General: patient alert and patient oriented x3 Objective ECG Impression: no acute ischemic changes Labs 06/02/23 22:43 06/02/23 22:43 Labs: Laboratory Results - last 24 hr 06/02/23 06/02/23 06/02/23 22:43 22:43 22:43 WBC 14.1 H RBC 3.54 L Hgb 11.5 L Hct 34.4 L MCV 97.2 MCH 32.5 MCHC 33.5 RDW 15.1 H Plt Count 201 Neut % (Auto) 89.2 H Lymph % (Auto) 5.4 L [place] % (Auto) 4.4 Eos % (Auto) 0.7 L Baso % (Auto) 0.3 Neut # (Auto) 47737 H Lymph # (Auto) 800 L [place] # (Auto) 600 Eos # (Auto) 100 Baso # (Auto) 0 Sodium 135 L Potassium 4.4 Chloride 101 Carbon Dioxide 20 L BUN 26 H Creatinine 1.10 Estimated GFR > 60 BUN/Creatinine Ratio 23.6 H Glucose 207 H Lactate 3.7 H Calcium 9.1 Magnesium 0.8 L* Total Bilirubin 1.3 AST 58 ALT 43 Alkaline Phosphatase 177 H Total Creatine Kinase 35 L Troponin I 0.039 H NT-Pro-B Natriuret Pep 3450 H Total Protein 7.1 Albumin 4.1 Globulin 3.0 Albumin/Globulin Ratio 1.4 Lipase 76 Procalcitonin 0.21 Urine Color Urine Appearance Urine pH Ur Specific [place] Urine Protein Urine Glucose (UA) Urine Ketones Urine Occult Blood Urine Nitrate Urine Bilirubin Urine Urobilinogen Ur Leukocyte Esterase Urine RBC Urine WBC Ur Squamous Epith Cells Urine Bacteria Ur Culture Indicated? Chlamy pneumoniae PCR Adenovirus (PCR) B. pertussis DNA (PCR) B.parapertussis DNA PCR Coronavirus OC43 (PCR) Coronavirus HKU1 (PCR) Coronavirus 229E (PCR) SARS-CoV-2 (PCR) Coronavirus NL63 (PCR) Human Metapneumovir PCR Influenza Type A (PCR) Influenza Type B (PCR) M. pneumoniae (PCR) Parainfluenza 1 (PCR) Parainfluenza 2 (PCR) Parainfluenza 3 (PCR) Parainfluenza 4 (PCR) RSV (PCR) Entero/Rhino (PCR) 06/02/23 06/02/23 06/03/23 23:03 23:16 00:59 WBC RBC Hgb Hct MCV MCH MCHC RDW Plt Count Neut % (Auto) Lymph % (Auto) [place] % (Auto) Eos % (Auto) Baso % (Auto) Neut # (Auto) Lymph # (Auto) [place] # (Auto) Eos # (Auto) Baso # (Auto) Sodium Potassium Chloride Carbon Dioxide BUN Creatinine Estimated GFR BUN/Creatinine Ratio Glucose Lactate 2.7 H Calcium Magnesium Total Bilirubin AST ALT Alkaline Phosphatase Total Creatine Kinase Troponin I NT-Pro-B Natriuret Pep Total Protein Albumin Globulin Albumin/Globulin Ratio Lipase Procalcitonin Urine Color [place] Urine Appearance Sl cloudy Urine pH 5.5 Ur Specific [place] 1.020 Urine Protein 3+ H Urine Glucose (UA) Negative Urine Ketones Negative Urine Occult Blood 3+ H Urine Nitrate Positive H Urine Bilirubin Negative Urine Urobilinogen 2.0 H Ur Leukocyte Esterase 2+ H Urine RBC 10-30/hpf H Urine WBC 30-100/hpf H Ur Squamous Epith Cells None seen Urine Bacteria Many (>30) H Ur Culture Indicated? Specimen cultured Chlamy pneumoniae PCR Not detected Adenovirus (PCR) Not detected B. pertussis DNA (PCR) Not detected B.parapertussis DNA PCR Not detected Coronavirus OC43 (PCR) Not detected Coronavirus HKU1 (PCR) Not detected Coronavirus 229E (PCR) Not detected SARS-CoV-2 (PCR) Not detected Coronavirus NL63 (PCR) Not detected Human Metapneumovir PCR Not detected Influenza Type A (PCR) Not detected Influenza Type B (PCR) Not detected M. 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
[2023-06-03 05:49] LABS: Add Manual Diff / Slide Review NO; Basophils Absolute Auto 100 /uL (0-100); Basophils Percent Auto 0.5 % (0-2); Eosinophils Absolute Auto 0 /uL (0-450); Eosinophils Percent Auto 0.1 % (2-4); Hematocrit 32.5 % (41-53); Lymphocytes Absolute Auto 1100 /uL (1100-4500); Lymphocytes Percent Auto 5.4 % (25-40); Mean Corpuscular HGB Conc 33.8 % (30-36); Mean Corpuscular Hemoglobin 32.8 PG (26-34); Mean Corpuscular Volume 96.8 fL (80-100); Monocytes Absolute Auto 1600 /uL (0-900); Neutrophils Absolute Auto 17600 /uL (1500-7000); Platelet Count 207 X10^3/uL (150-400); Red Blood Cell Count 3.36 X10^6/uL (4.5-5.9); Red Cell Distribution Width 15.1 % (11.6-14.8); White Blood Cell Count 20.4 X10^3/uL (4.5-11.0)
[2023-06-03 05:53] LABS: Magnesium 1.5 mg/dL (1.6-2.3)
[2023-06-03 05:54] LABS: BUN Creatinine Ratio 21.8 (6-22); Blood Urea Nitrogen 26 mg/dL (9-20); Calcium 8.5 mg/dL (8.4-10.2); Carbon Dioxide 21 mmol/L (22-32); Chloride 104 mmol/L (98-107); Estimated Glomerular Filt Rate 60 mL/min (>60); Glucose 218 mg/dL (80-110); HEMOLYSIS < 15 (0-50); Potassium 4.1 mmol/L (3.4-5.1); Sodium 137 mmol/L (137-145)
[2023-06-03 06:05] LABS: NT-proBNP (BNP-Adult 18+) 8920 pg/mL (<450)
[2023-06-03 06:30] LABS: Troponin I 0.456 ng/mL (0.01-0.034)
[2023-06-03] MEDS: SODIUM CHLORIDE 0.9% 1,000 ML 75 ML IV (06:35)
[2023-06-03 07:04] LABS: MRSA (Nasal) PCR Not Detected (Not Detect)
--- NOTE | 2023-06-03 07:41 | DI.ECHO.S_ITS ---
[facility]---------+ [facility] +---------+ : : [address] [place] : : : : [id number] : : : : Phone: [phone]+ Echocardiogram Report + + :Name: SAV VAZQUEZ Study Date: 06/03/2023 Height: 72 in : :[facility] ReadingLocation: Weight: 171 lb : : Gender: Male BSA: 2.0 m2 : :: 1940 Age: 83 yrs BP: 122/59 mmHg: :Reason For Study: NSTEMI : :Ordering Physician: MARC, : :JAN Performed By: Oksana Spring : :Referring: JAN TRAN : + + Interpretation Summary The left ventricle is mildly dilated. Left ventricular ejection fraction is estimated to be 30%. There is moderate to severe global hypokinesis of the left ventricle. There is grade II-III diastolic dysfunction. The right ventricle is normal in size and function. The right ventricular systolic pressure is estimated to be at least 41 mmHg based on an estimated right atrial pressure of 15 mm Hg. The left atrium is borderline dilated. Right atrial size is normal. There is mild mitral regurgitation. There is mild to moderate aortic stenosis. There is no other significant valvular heart disease. The aortic root is normal size. Procedure: A two-dimensional transthoracic echocardiogram with color flow and Doppler was performed. The study quality was technically adequate. The patient had an echocardiogram, but there is no comparison study available. The patient was in sinus rhythm with heart rates between 86-93 bpm during the exam. Left Ventricle: The left ventricle is mildly dilated. Left ventricular ejection fraction is estimated to be 30%. There is moderate to severe global hypokinesis of the left ventricle. Right Ventricle: The right ventricle is normal in size and function. Atria: The left atrium is borderline dilated. Right atrial size is normal. There is no Doppler evidence for an interatrial shunt. Mitral Valve: There is mild mitral annular calcification. The mitral valve leaflets appear mildly thickened, but open well. There is mild mitral regurgitation. Aortic Valve: The aortic valve is mildly calcified. There is mild to moderate aortic stenosis. No aortic regurgitation is present. Tricuspid Valve: The tricuspid valve is normal in structure and function. There is mild tricuspid regurgitation. The right ventricular systolic pressure is estimated to be at least 41 mmHg based on an estimated right atrial pressure of 15 mm Hg. Pulmonic Valve: The pulmonic valve is not well visualized. There is no pulmonic valvular regurgitation. There is no other significant valvular heart disease. Great Vessels: The aortic root is normal size. The dimensions of the ascending aorta are normal. The IVC is dilated (diameter is greater than 2.1 cm) and it collapses less than 50% with a sniff. This suggests a high right atrial pressure of 15 mm Hg. Pericardium/ Pleura There is no pericardial effusion. There is no pleural effusion. MMode/2D Measurements & Calculations LVIDd: 5.8 cm LVOT diam: 2.0 cm LVIDs: 5.1 cm Ao root diam: 3.2 cm FS: 13.5 % asc Aorta Diam: 2.9 cm EPSS: 1.6 cm IVSd: 0.71 cm LVPWd: 0.68 cm LV cheng. diameter/BSA (cm/m^2): 2.9 LV sys. diameter/BSA (cm/m^2): 2.5 LA A2 area: 21.0 cm2 RA long axis: 5.3 cm LA A4 area: 25.0 cm2 RA area: 19.9 cm2 LA length (vol): 6.5 cm RA vol: 63.2 ml LA vol: 68.5 ml RA : 31.7 ml/m2 LA vol index: 34.3 ml/m2 IVC diam: 2.7 cm RVD1 (basal): 3.4 cm RVD2 (mid): 3.3 cm TAPSE: 2.2 cm Doppler Measurements & Calculations Ao V2 max: 253.4 cm/sec LVOT Max Gwyn: 89.8 cm/sec Ao V2 mean: 190.2 cm/sec LV V1 max P.2 mmHg Ao max P.7 mmHg LV V1 VTI: 14.3 cm Ao mean P.8 mmHg MILEY(I,D): 1.1 cm2 Ao V2 VTI: 41.3 cm MILEY(V,D): 1.1 cm2 sev ratio: 0.35 MILEY indexed to BSA (cm^2/m^2): 0.54 MV E max gwyn: 71.7 cm/sec TR max gwyn: 252.3 cm/sec MV A max gwyn: 37.5 cm/sec TR max P.8 mmHg MV E/A: 1.9 PA V2 max: 81.9 cm/sec Med Peak E' Gwyn: 3.2 cm/sec PA V2 mean: 59.6 cm/sec E/E' med: 22.3 PA mean P.5 mmHg Lat Peak E' Gwyn: 8.5 cm/sec PA pr(Accel): 36.2 mmHg E/E' lat: 8.5 E/e' average: 15.4 MV dec time: 0.18 sec SV(LVOT): 44.2 ml Reading Physician:03:03 PM
[2023-06-03 07:43] LABS: Reflexed Lactate in 2 Hours Y
--- NOTE | 2023-06-03 07:49 | PC.NURSE ---
0530: Pt admitted to Room 228 for UTI sepsis. Pt is alert and oriented follows commands, on room air. lungs clear. Pt with sepsis protocol followed with required Levophed gtt infusing. Nurse is able to start titrating gtt down. BP is stable at this time. Pt afebrile at this time. HOB must be elevated 45 degrees at all times for Lt eye surgery. Labs sent for repeat of Magnesium and lactate. Md notified of pt condition and admit to room.
[2023-06-03] MEDS: MAGNESIUM SULFATE 2 GM/50 ML PIGGYBACK IV ×2 (08:11→18:16)
[2023-06-03] MEDS: NOREPINEPHRINE BITARTRATE/D5W 4 MG/250 ML PLAST..BAG 7.313 MG IV (08:12)
[2023-06-03 08:19] LABS: Lactate 2HR (Lactic Acid Rflx) 2.4 mmol/L (0.7-2.1)
--- NOTE | 2023-06-03 08:19 | PM.CN.EICU ---
History of Present Illness Consult details IF CAMERA ACTIVATED, patient seen via real-time interactive audiovisual communication: Camera activated (sound malfunction, phone used for communication) Date Patient Seen: 06/03/23 Chief complaint: feels bad UTI dx this am on ABX Reason for consult: septic shock, requirng vasopresors Consent obtained for tele-nuclear engineer care: Yes Patient Location: ICU Provider location (State): [place] Other participants/roles: bedside RN Narrative: 83 yo M with h/o COPD, CVA, urothelial carcinoma of bladder neck, s/p TURBT/TURP in 2019 s/p chemo radiation. Recent surveillance cysto on 05/22/2023, with clear UA at that time. P/w to PCP feeling unwell- diagnosed with UTI started on oral ABX. Continued to have fever, chills nausea, and went to ED- Found to have UTI- + UA, elevated WBC, elevated LA - Still hypotensive after fluids, requiring levophed. Also noted to have elevated trop, despite non ischemic appearing EKG. Code status DNR, ok for vasopressors. 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 Surgical History H/O lithotripsy H/O transurethral resection of prostate H/O vasectomy History of colonoscopy History of surgery on arm Hx of bilateral cataract extraction Hx of cystoscopy Hx of transurethral destruction of bladder lesion Social History household members: spouse Smoking Status: Former smoker alcohol intake: former Current Medications Current Medications Medications: Home Medications aspirin 81 mg tablet,delayed release 81 mg PO QDAY ##0 06/25/13 [History Confirmed 05/22/23] multivit with min-folic acid-lutein 400 mcg-250 mcg chewable tablet (Centrum Silver) 1 tab PO DAILY #0 caps 06/25/13 [History Confirmed 05/22/23] ferrous sulfate 325 mg (65 mg iron) tablet 325 mg PO DAILY 01/23/19 [History Confirmed 05/22/23] cholecalciferol (vitamin D3) 25 mcg (1,000 unit) capsule 25 mcg PO DAILY 04/08/22 [History Confirmed 05/22/23] cyanocobalamin (vitamin B-12) 1,000 mcg tablet (Vitamin B-12) 1,000 mcg PO DAILY 04/08/22 [History Confirmed 05/22/23] lisinopril 2.5 mg tablet 2.5 mg PO DAILY #90 tabs 05/06/22 [Rx Confirmed 05/22/23] metformin 1,000 mg tablet 1,000 mg PO BID #180 tabs 05/06/22 [Rx Confirmed 05/22/23] clopidogrel 75 mg tablet (Plavix) 75 mg PO QDAY #90 tabs 06/17/22 [Rx Confirmed 05/22/23] albuterol sulfate 90 mcg/actuation breath activated powder inhaler,sensor 2 inh inhalation Q4-6H PRN COPD 09/23/22 [History Confirmed 05/22/23] fluticasone 250 mcg-salmeterol 50 mcg/dose blistr powdr for inhalation (Advair Diskus) 1 inh inhalation Q12H PRN 09/23/22 [History Confirmed 05/22/23] gabapentin 300 mg capsule 600 mg PO DAILY #180 caps 09/23/22 [Rx Confirmed 05/22/23] alpha lipoic acid 100 mg capsule 200 mg PO DAILY Neuropathy 02/27/23 [History Confirmed 05/22/23] finasteride 5 mg tablet 5 mg PO QDAY #90 tabs 05/30/23 [Rx] atorvastatin 40 mg tablet (Lipitor) 40 mg PO HS #90 tabs 06/02/23 [Rx] sulfamethoxazole 800 mg-trimethoprim 160 mg tablet 1 tab PO BID #14 tabs 06/02/23 [Rx] Visit Medications (administered) Generic Name Dose Route Start Last Admin Trade Name Freq PRN Reason Stop Dose Admin Sodium Chloride 1,000 mls @ 75 mls/hr 06/03/23 05:30 06/03/23 06:35 Normal Saline 0.9% IV 75 mls/hr CONT SERAFIN Administration NOREPINEPHRINE BITARTRATE/D5W 4 mg in 250 mls @ 29.25 mls/hr 06/03/23 06:36 06/03/23 08:12 Levophed IV 0.025 mcg/kg/min TITRATE SERAFIN 7.313 mls/hr Administration Protocol 0.1 MCG/KG/MIN Magnesium Sulfate 2 gm in 50 mls @ 25 mls/hr 06/03/23 07:24 06/03/23 08:11 Magnesium Sulfate IV 06/03/23 09:23 25 mls/hr NOW ONE Administration Review of Systems Constitutional Constitutional: Reports as per HPI Comments: negative except what was mentioned in the HPI Exam Vital Signs (past 8 hours): - 06/03/23 00:30 06/03/23 00:30 06/03/23 00:45 Temperature Pulse Rate 95 H 95 H Respiratory Rate 17 16 Blood Pressure 85/48 L Pulse Oximetry 91 Oxygen Delivery Method 06/03/23 00:45 06/03/23 00:47 06/03/23 00:47 Temperature Pulse Rate 95 H Respiratory Rate 17 Blood Pressure 84/51 L 86/52 L Pulse Oximetry 91 Oxygen Delivery Method 06/03/23 00:49 06/03/23 00:49 06/03/23 00:50 Temperature Pulse Rate 97 H 96 H Respiratory Rate 17 17 Blood Pressure 89/50 L Pulse Oximetry 91 91 Oxygen Delivery Method 06/03/23 00:50 06/03/23 01:00 06/03/23 01:00 Temperature Pulse Rate 101 H Respiratory Rate 21 Blood Pressure 91/51 L 123/59 L Pulse Oximetry 94 Oxygen Delivery Method 06/03/23 01:15 06/03/23 01:15 06/03/23 01:30 Temperature Pulse Rate 96 H Respiratory Rate 17 Blood Pressure 94/55 L 92/50 L Pulse Oximetry 93 Oxygen Delivery Method 06/03/23 01:30 06/03/23 01:45 06/03/23 01:45 Temperature Pulse Rate 95 H 93 H Respiratory Rate 18 16 Blood Pressure 89/55 L Pulse Oximetry 93 93 Oxygen Delivery Method 06/03/23 02:00 06/03/23 02:30 06/03/23 03:00 Temperature Pulse Rate 96 H 91 H 91 H Respiratory Rate 26 H 16 14 Blood Pressure Pulse Oximetry 93 95 94 Oxygen Delivery Method 06/03/23 03:30 06/03/23 03:32 06/03/23 03:32 Temperature Pulse Rate 93 H 93 H Respiratory Rate 17 17 Blood Pressure 99/60 Pulse Oximetry 95 96 Oxygen Delivery Method 06/03/23 03:45 06/03/23 03:45 06/03/23 04:00 Temperature Pulse Rate 90 Respiratory Rate 15 Blood Pressure 115/69 118/69 Pulse Oximetry 96 Oxygen Delivery Method 06/03/23 04:00 06/03/23 02:00 06/03/23 04:15 Temperature 98.1 F Pulse Rate 86 Respiratory Rate 17 Blood Pressure 132/71 Pulse Oximetry 95 Oxygen Delivery Method 06/03/23 04:15 06/03/23 04:30 06/03/23 04:31 Temperature Pulse Rate 86 93 H 88 Respiratory Rate 15 18 18 Blood Pressure Pulse Oximetry 95 93 94 Oxygen Delivery Method 06/03/23 04:31 06/03/23 04:45 06/03/23 04:45 Temperature Pulse Rate 87 Respiratory Rate 14 Blood Pressure 135/63 139/65 Pulse Oximetry 95 Oxygen Delivery Method 06/03/23 05:00 06/03/23 05:00 06/03/23 05:15 Temperature 98.3 F Pulse Rate 94 H Respiratory Rate 22 Blood Pressure 144/66 H Pulse Oximetry 94 Oxygen Delivery Method 06/03/23 05:22 06/03/23 05:15 06/03/23 05:15 Temperature 98.1 F Pulse Rate 91 H 96 H Respiratory Rate 17 Blood Pressure 161/73 H 161/73 H Pulse Oximetry 97 94 Oxygen Delivery Method 06/03/23 05:16 06/03/23 05:16 06/03/23 05:37 Temperature Pulse Rate 96 H 78 Respiratory Rate 15 Blood Pressure 154/73 H Pulse Oximetry 95 95 Oxygen Delivery Method 06/03/23 04:36 06/03/23 05:45 06/03/23 05:37 Temperature 98.1 F Pulse Rate Respiratory Rate Blood Pressure 106/63 Pulse Oximetry Oxygen Delivery Method Room Air 06/03/23 05:45 06/03/23 05:45 06/03/23 06:00 Temperature Pulse Rate 80 81 Respiratory Rate 21 19 Blood Pressure 123/63 Pulse Oximetry 95 95 Oxygen Delivery Method 06/03/23 06:00 06/03/23 06:15 06/03/23 06:15 Temperature Pulse Rate 80 Respiratory Rate 24 Blood Pressure 119/59 L 111/61 Pulse Oximetry 95 Oxygen Delivery Method 06/03/23 06:30 06/03/23 06:30 06/03/23 06:45 Temperature Pulse Rate 80 Respiratory Rate 19 Blood Pressure 124/60 119/69 Pulse Oximetry 95 Oxygen Delivery Method 06/03/23 06:45 06/03/23 06:57 06/03/23 05:30 Temperature Pulse Rate 80 75 90 Respiratory Rate 24 15 18 Blood Pressure Pulse Oximetry 95 94 96 Oxygen Delivery Method 06/03/23 07:00 06/03/23 07:00 06/03/23 07:15 Temperature Pulse Rate 75 81 Respiratory Rate 16 17 Blood Pressure 109/62 Pulse Oximetry 94 94 Oxygen Delivery Method 06/03/23 07:15 Temperature Pulse Rate Respiratory Rate Blood Pressure 117/69 Pulse Oximetry Oxygen Delivery Method Oxygen Delivery Method Room Air Narrative Exam Narrative: alert and oriented. No distress Resp Other: normal rate and effort Cardio Other: SR on tele Objective ECG Impression: Awaiting upload of EKG done in ED. Reviewed by ED MD, reported as non ischemic. Repeat EKG ordered Labs 06/03/23 05:30 06/03/23 05:30 Labs: Laboratory Results - last 24 hr 06/02/23 06/02/23 06/02/23 22:43 22:43 22:43 WBC 14.1 H RBC 3.54 L Hgb 11.5 L Hct 34.4 L MCV 97.2 MCH 32.5 MCHC 33.5 RDW 15.1 H Plt Count 201 Neut % (Auto) 89.2 H Lymph % (Auto) 5.4 L [place] % (Auto) 4.4 Eos % (Auto) 0.7 L Baso % (Auto) 0.3 Neut # (Auto) 19546 H Lymph # (Auto) 800 L [place] # (Auto) 600 Eos # (Auto) 100 Baso # (Auto) 0 Sodium 135 L Potassium 4.4 Chloride 101 Carbon Dioxide 20 L BUN 26 H Creatinine 1.10 Estimated GFR > 60 BUN/Creatinine Ratio 23.6 H Glucose 207 H Lactate 3.7 H Calcium 9.1 Magnesium 0.8 L* Total Bilirubin 1.3 AST 58 ALT 43 Alkaline Phosphatase 177 H Total Creatine Kinase 35 L Troponin I 0.039 H NT-Pro-B Natriuret Pep 3450 H Total Protein 7.1 Albumin 4.1 Globulin 3.0 Albumin/Globulin Ratio 1.4 Lipase 76 Procalcitonin 0.21 Urine Color Urine Appearance Urine pH Ur Specific Ward Urine Protein Urine Glucose (UA) Urine Ketones Urine Occult Blood Urine Nitrate Urine Bilirubin Urine Urobilinogen Ur Leukocyte Esterase Urine RBC Urine WBC Ur Squamous Epith Cells Urine Bacteria Ur Culture Indicated? Nasal Screen MRSA (PCR) Chlamy pneumoniae PCR Adenovirus (PCR) B. pertussis DNA (PCR) B.parapertussis DNA PCR Coronavirus OC43 (PCR) Coronavirus HKU1 (PCR) Coronavirus 229E (PCR) SARS-CoV-2 (PCR) Coronavirus NL63 (PCR) Human Metapneumovir PCR Influenza Type A (PCR) Influenza Type B (PCR) M. pneumoniae (PCR) Parainfluenza 1 (PCR) Parainfluenza 2 (PCR) Parainfluenza 3 (PCR) Parainfluenza 4 (PCR) RSV (PCR) Entero/Rhino (PCR) 06/02/23 06/02/23 06/03/23 23:03 23:16 00:59 WBC RBC Hgb Hct MCV MCH MCHC RDW Plt Count Neut % (Auto) Lymph % (Auto) [place] % (Auto) Eos % (Auto) Baso % (Auto) Neut # (Auto) Lymph # (Auto) [place] # (Auto) Eos # (Auto) Baso # (Auto) Sodium Potassium Chloride Carbon Dioxide BUN Creatinine Estimated GFR BUN/Creatinine Ratio Glucose Lactate 2.7 H Calcium Magnesium Total Bilirubin AST ALT Alkaline Phosphatase Total Creatine Kinase Troponin I NT-Pro-B Natriuret Pep Total Protein Albumin Globulin Albumin/Globulin Ratio Lipase Procalcitonin Urine Color Saunders Urine Appearance Sl cloudy Urine pH 5.5 Ur Specific Ward 1.020 Urine Protein 3+ H Urine Glucose (UA) Negative Urine Ketones Negative Urine Occult Blood 3+ H Urine Nitrate Positive H Urine Bilirubin Negative Urine Urobilinogen 2.0 H Ur Leukocyte Esterase 2+ H Urine RBC 10-30/hpf H Urine WBC 30-100/hpf H Ur Squamous Epith Cells None seen Urine Bacteria Many (>30) H Ur Culture Indicated? Specimen cultured Nasal Screen MRSA (PCR) Chlamy pneumoniae PCR Not detected Adenovirus (PCR) Not detected B. pertussis DNA (PCR) Not detected B.parapertussis DNA PCR Not detected Coronavirus OC43 (PCR) Not detected Coronavirus HKU1 (PCR) Not detected Coronavirus 229E (PCR) Not detected SARS-CoV-2 (PCR) Not detected Coronavirus NL63 (PCR) Not detected Human Metapneumovir PCR Not detected Influenza Type A (PCR) Not detected Influenza Type B (PCR) Not detected M. pneumoniae (PCR) Not detected Parainfluenza 1 (PCR) Not detected Parainfluenza 2 (PCR) Not detected Parainfluenza 3 (PCR) Not detected Parainfluenza 4 (PCR) Not detected RSV (PCR) Not detected Entero/Rhino (PCR) Not detected 06/03/23 06/03/23 06/03/23 05:15 05:30 05:30 WBC 20.4 H RBC 3.36 L Hgb 11.0 L Hct 32.5 L MCV 96.8 MCH 32.8 MCHC 33.8 RDW 15.1 H Plt Count 207 Neut % (Auto) 86.0 H Lymph % (Auto) 5.4 L [place] % (Auto) 8.0 Eos % (Auto) 0.1 L Baso % (Auto) 0.5 Neut # (Auto) 55908 H Lymph # (Auto) 1100 [place] # (Auto) 1600 H Eos # (Auto) 0 Baso # (Auto) 100 Sodium 137 Potassium 4.1 Chloride 104 Carbon Dioxide 21 L BUN 26 H Creatinine 1.19 Estimated GFR 60 BUN/Creatinine Ratio 21.8 Glucose 218 H Lactate Calcium 8.5 Magnesium Total Bilirubin AST ALT Alkaline Phosphatase Total Creatine Kinase Troponin I NT-Pro-B Natriuret Pep Total Protein Albumin Globulin Albumin/Globulin Ratio Lipase Procalcitonin Urine Color Urine Appearance Urine pH Ur Specific Ward Urine Protein Urine Glucose (UA) Urine Ketones Urine Occult Blood Urine Nitrate Urine Bilirubin Urine Urobilinogen Ur Leukocyte Esterase Urine RBC Urine WBC Ur Squamous Epith Cells Urine Bacteria Ur Culture Indicated? Nasal Screen MRSA (PCR) Not detected Chlamy pneumoniae PCR Adenovirus (PCR) B. pertussis DNA (PCR) B.parapertussis DNA PCR Coronavirus OC43 (PCR) Coronavirus HKU1 (PCR) Coronavirus 229E (PCR) SARS-CoV-2 (PCR) Coronavirus NL63 (PCR) Human Metapneumovir PCR Influenza Type A (PCR) Influenza Type B (PCR) M. pneumoniae (PCR) Parainfluenza 1 (PCR) Parainfluenza 2 (PCR) Parainfluenza 3 (PCR) Parainfluenza 4 (PCR) RSV (PCR) Entero/Rhino (PCR) 06/03/23 06/03/23 05:30 05:30 WBC RBC Hgb Hct MCV MCH MCHC RDW Plt Count Neut % (Auto) Lymph % (Auto) [place] % (Auto) Eos % (Auto) Baso % (Auto) Neut # (Auto) Lymph # (Auto) [place] # (Auto) Eos # (Auto) Baso # (Auto) Sodium Potassium Chloride Carbon Dioxide BUN Creatinine Estimated GFR BUN/Creatinine Ratio Glucose Lactate 3.0 H Calcium Magnesium 1.5 L Total Bilirubin AST ALT Alkaline Phosphatase Total Creatine Kinase Troponin I 0.456 H* NT-Pro-B Natriuret Pep 8920 H Total Protein Albumin Globulin Albumin/Globulin Ratio Lipase Procalcitonin Urine Color Urine Appearance Urine pH Ur Specific Ward Urine Protein Urine Glucose (UA) Urine Ketones Urine Occult Blood Urine Nitrate Urine Bilirubin Urine Urobilinogen Ur Leukocyte Esterase Urine RBC Urine WBC Ur Squamous Epith Cells Urine Bacteria Ur Culture Indicated? Nasal Screen MRSA (PCR) Chlamy pneumoniae PCR Adenovirus (PCR) B. pertussis DNA (PCR) B.parapertussis DNA PCR Coronavirus OC43 (PCR) Coronavirus HKU1 (PCR) Coronavirus 229E (PCR) SARS-CoV-2 (PCR) Coronavirus NL63 (PCR) Human Metapneumovir PCR Influenza Type A (PCR) Influenza Type B (PCR) M. pneumoniae (PCR) Parainfluenza 1 (PCR) Parainfluenza 2 (PCR) Parainfluenza 3 (PCR) Parainfluenza 4 (PCR) RSV (PCR) Entero/Rhino (PCR) Assessment & Plan Assessment and plan (1) Septic shock: Status: Acute (2) Acute UTI: Status: Acute (3) Hypomagnesemia: Status: Acute (4) Do not resuscitate: Status: Acute (5) Cerebrovascular disease: Status: Acute (6) COPD (chronic obstructive pulmonary disease): Qualifiers: COPD type: unspecified COPD Qualified Code(s): J44.9 - Chronic obstructive pulmonary disease, unspecified Status: Acute (7) Mixed hyperlipidemia: Status: Acute (8) AAA (abdominal aortic aneurysm): Qualifiers: Presence of rupture: without rupture Qualified Code(s): I71.4 - Abdominal aortic aneurysm, without rupture Status: Acute (9) BPH w urinary obs/LUTS: Status: Acute (10) Elevated troponin: Status: Acute Assessment & Plan narrative: Urinary tract infection with septic shock gram stain- gram negative bacilli MRSA swab negative Continue meropnem follow up blood, urine cx Continue levophed to maintain map >65 trend LA Elevated trop Likely demand in setting of septic shock will trend trop, obtain echo BNP elevated. if LA WNL, will hold additional iv fluids as patient is eating/drinking well and UOP has been robust Repeat EKG - initial EKG in ED reportedly non ischemic He denies any chest pain or SOB Hold antihypertensives Continue ASA/plavix, lipitor Continue inhalers for COPD Replace electrolytes repeat Mag this am after replacement monitor Cr, UOP DM, not on insulin at home. carb controlled diet goal bg <180, if uncontrolled will need SSI PPX: heparin SQ, pepcid Code status DNR Time Spent With Patient Time with patient: 30 to 49 minutes with 50% spent counseling/coordinating care (34 min critical care time.)
--- NOTE | 2023-06-03 08:56 | CM.DANOTE ---
Addendum entered by Michelle Hartman R.N. 06/03/23 15:31: Looked at labs, and today's notes from hospitalist. Notes positive blood cultures, PICC line will be placed. It is unclear as to how long he will need to be on IV abo, but went ahead and called Chad at [facility] and left a message. It is unclear as to if his secondary insurance would cover this. Faxed Chad over the referral so he can review. If his secondary provides no coverage, will most likely need to come in for infusions through his Medicare at the infusion clinic. Original Note: DCP: Case received, EMR reviewed and met with patient. Introduced self and role. Was able to obtain information regarding patient's baseline activity level at home prior to admission. DCP assessment completed with information currently available. Patient is an 83 year old male who admitted early this morning to the care of the hospitalist team. PCP: Dr. Choi. Payer: confirmed: Medicare/[employer]. Patient came to the hospital via ambulance secondary to having weakness, not feeling well. Notes indicated alyse patient had seen his PCP yesterday, and was told he had with UTI, took a few doses of ABO, was noted to be septic on arrival to the hospital, decreased blood pressure, central line was put in. Patient was diagnosed with sepsis, UTI. Met with patient in his room. Patient sitting up in bed, alert. Confirmed that he resides in [place] with spouse, Ruth. 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 P: DCP to continue to follow. Patient should be able to go home when deemed medically stable. Michelle Hartley RN/Market Research Coordinator Discharge Planning/Care Management CM Discharge Assessment Start: 06/03/23 08:55 Freq: Status: Active Protocol: Document 06/03/23 08:55 (Rec: 06/03/23 08:56 [id number]) Discharge Planning Assessment Assigned Comic Book Writer Michelle Hartman RN/Market Research Coordinator Advance Directives? Yes Advance Directives on File No History Provided By Patient,Medical Record Prior Living Arrangements House Household Members spouse Type of transporation used prior to Relies on Others admit Comment Patient is blind in left eye. Independent with ADL's Yes Is patient alert and oriented? Yes Caregiver for Another No Barriers to Discharge No Discharge Plan Home Transportation Arrangement Spouse Referrals Initiated None needed Whiteboard Updated in Patient Room with Yes name and ext. # of Comic Book Writer Review Status In Process Next Review Type Continued Stay Review
[2023-06-03] MEDS: MEROPENEM 2 GM in SODIUM CHLORIDE 0.9% 100 ML IV ×2 (09:03→16:21)
[2023-06-03] MEDS: HEPARIN 5,000 UNIT/ML VIAL 5000 UNIT SUBCUT ×2 (09:04→21:53)
[2023-06-03] MEDS: FAMOTIDINE 20 MG/2 ML VIAL IV (09:04)
[2023-06-03] MEDS: ASPIRIN EC 81 MG TABLET PO (09:04)
[2023-06-03] MEDS: CLOPIDOGREL 75 MG TABLET PO (09:04)
[2023-06-03] MEDS: BUDESONIDE 0.5 MG/2 ML NEB INH ×2 (10:05→20:38)
[2023-06-03] MEDS: ALBUTEROL 2.5 MG/3 ML NEB (ADULT) INH ×3 (10:05→20:38)
[2023-06-03 11:11] LABS: Lactate (Lactic Acid) 2.1 mmol/L (0.7-2.1)
[2023-06-03 11:29] LABS: Troponin I 0.592 ng/mL (0.01-0.034)
--- NOTE | 2023-06-03 12:02 | PC.NURSE ---
Addendum entered by Crhistine Arriaza R.N. 06/03/23 18:08: Spoke with tele-ICU regarding pt's updated lactate, troponin, electrolytes, fluid status, EKG, and echo results. Informed provider that 2G Mg was given this am and redraw Mg level was 2.0 after replenishment. Provider ordered another 2G Mg and verified that provider wanted the additional 2G. Addendum entered by Christine Arriaza R.N. 06/03/23 17:03: Called tele-ICU provider to update on recent lab results and Echo result. Phone went straight to voicemail. Left message. Addendum entered by Christine Arriaza R.N. 06/03/23 16:04: Spoke with provider about critical troponin at 1600 after receiving word from lab. Addendum entered by Christine Arriaza R.N. 06/03/23 13:08: RN received call back and reported critical lab result. Addendum entered by Christine Arriaza R.N. 06/03/23 13:06: Around 1300 received a critical lab result of Gram (-) bacilli blood cultures Pos for E. coli and ESBL. Called hospitalist's office, walked to office, walked around unit and called cell phone and was unable to reach provider to report critical result. Left message to call RN back. Addendum entered by Christine Arriaza R.N. 06/03/23 12:34: RN called tele-central supply technician provider at am shift change to report critical troponin lab and to ask about repeat lactates. At that time RN reported that norepinephrine was being weaned per protocol and patient's SBP and MAP. RN informed tele-central supply technician that [facility] blood glucose orders were in, but no insulin sliding scale orders were given. Provider said to trend blood glucose and a sliding scale may be added if blood sugars rise > 180. Blood glucose levels have been 160s for 0800 and 1200. Once SBP had been over 110/120 for over an hour (with MAP ove 65), RN turned off norepinephrine and informed provider at 0930 rounds. RN continued to monitor pt's BP. Mid morning, after receiving lactate result around 1135, RN informed provider that patient was eating and drinking and provider said to turn off NS while waiting for echo to result. Original Note: Received call from lab at 1135 for elevated troponin critical lab. Called tele-ICU provider to relay critical lab result. No new orders given - waiting for echocardiogram result.
[2023-06-03 12:51] LABS: CTX-M Resistance DETECTED (Not Detect); Enterococcus faecalis Not Detected (Not Detect); Enterococcus faecium Not Detected (Not Detect); IMP Resistance Not Detected (Not Detect); KPC Resistance Not Detected (Not Detect); NDM Resistance Not Detected (Not Detect); OXA-48-like Resistance Not Detected (Not Detect); VIM Resistance Not Detected (Not Detect); mcr-1 Resistance Not Detected (Not Detect)
[2023-06-03 12:52] LABS: Acinetobacter calcoa-baumannii Not Detected (Not Detect); Bacteroides fragilis Not Detected (Not Detect); Candida albicans Not Detected (Not Detect); Candida auris Not Detected (Not Detect); Candida glabrata Not Detected (Not Detect); Candida krusei Not Detected (Not Detect); Candida parapsilosis Not Detected (Not Detect); Candida tropicalis Not Detected (Not Detect); Cryptococcus neoformans/gatti Not Detected (Not Detect); Enterobacter cloacae complex Not Detected (Not Detect); Enterobacterales DETECTED (Not Detect); Haemophilus influenzae Not Detected (Not Detect); Klebsiella aerogenes Not Detected (Not Detect); Listeria monocytogenes Not Detected (Not Detect); Neisseria meningitidis Not Detected (Not Detect); Proteus species Not Detected (Not Detect); Pseudomonas aeruginosa Not Detected (Not Detect); Salmonella species Not Detected (Not Detect); Serratia marcescens Not Detected (Not Detect); Staphylococcus epidermidis Not Detected (Not Detect); Staphylococcus lugdunensis Not Detected (Not Detect); Staphylococcus species Not Detected (Not Detect); Stenotrophomonas maltophilia Not Detected (Not Detect); Streptococcus agalactiae (Gr B Not Detected (Not Detect); Streptococcus pneumonia Not Detected (Not Detect); Streptococcus pyogenes (Gr A) Not Detected (Not Detect); Streptococcus species Not Detected (Not Detect)
[2023-06-03 13:03] LABS: Reflexed Lactate in 2 Hours Y
--- NOTE | 2023-06-03 14:33 | PM.PN.1 ---
Subjective Subjective Interval history: He feels well. He has no pain. His says his mentation is back to normal. His levophed was just shut off by the RN. He has no chest pain or shortness of breath. Exam Vital Signs (past 8 hours): - 06/03/23 06:45 06/03/23 06:45 06/03/23 06:57 Temperature Pulse Rate 80 75 Respiratory Rate 24 15 Blood Pressure 119/69 Pulse Oximetry 95 94 Oxygen Delivery Method 06/03/23 07:00 06/03/23 07:00 06/03/23 07:15 Temperature Pulse Rate 75 81 Respiratory Rate 16 17 Blood Pressure 109/62 Pulse Oximetry 94 94 Oxygen Delivery Method 06/03/23 07:15 06/03/23 10:06 06/03/23 07:30 Temperature Pulse Rate 80 Respiratory Rate 20 Blood Pressure 117/69 116/64 Pulse Oximetry 98 Oxygen Delivery Method Room Air 06/03/23 07:30 06/03/23 07:45 06/03/23 07:45 Temperature Pulse Rate 78 85 Respiratory Rate 22 21 Blood Pressure 113/70 Pulse Oximetry 96 95 Oxygen Delivery Method 06/03/23 08:00 06/03/23 08:00 06/03/23 08:15 Temperature Pulse Rate 78 Respiratory Rate 15 Blood Pressure 114/73 112/73 Pulse Oximetry 97 Oxygen Delivery Method 06/03/23 08:15 06/03/23 08:30 06/03/23 08:30 Temperature Pulse Rate 79 82 Respiratory Rate 17 26 H Blood Pressure 124/75 Pulse Oximetry 97 95 Oxygen Delivery Method 06/03/23 08:45 06/03/23 08:45 06/03/23 09:00 Temperature Pulse Rate 87 Respiratory Rate 23 Blood Pressure 124/72 127/70 Pulse Oximetry 98 Oxygen Delivery Method 06/03/23 09:00 06/03/23 09:15 06/03/23 09:15 Temperature Pulse Rate 83 86 Respiratory Rate 19 19 Blood Pressure 148/81 H Pulse Oximetry 97 97 Oxygen Delivery Method 06/03/23 09:35 06/03/23 09:37 06/03/23 09:37 Temperature Pulse Rate 99 H 96 H Respiratory Rate 25 H Blood Pressure 115/64 Pulse Oximetry 92 92 Oxygen Delivery Method 06/03/23 09:45 06/03/23 09:45 06/03/23 10:00 Temperature Pulse Rate 84 Respiratory Rate 19 Blood Pressure 112/59 L 95/50 L Pulse Oximetry 97 Oxygen Delivery Method 06/03/23 10:00 06/03/23 07:00 06/03/23 10:15 Temperature Pulse Rate 93 H Respiratory Rate 25 H Blood Pressure 120/57 L Pulse Oximetry 83 L Oxygen Delivery Method Room Air 06/03/23 10:15 06/03/23 10:30 06/03/23 10:30 Temperature Pulse Rate 80 83 Respiratory Rate 20 19 Blood Pressure 116/58 L Pulse Oximetry 100 95 Oxygen Delivery Method 06/03/23 10:45 06/03/23 10:45 06/03/23 11:00 Temperature Pulse Rate 84 Respiratory Rate 23 Blood Pressure 122/59 L 124/63 Pulse Oximetry 95 Oxygen Delivery Method 06/03/23 11:00 06/03/23 10:48 06/03/23 13:16 Temperature Pulse Rate 85 81 Respiratory Rate 19 18 Blood Pressure Pulse Oximetry 96 97 Oxygen Delivery Method Room Air Room Air 06/03/23 11:15 06/03/23 11:15 06/03/23 11:30 Temperature Pulse Rate 91 H Respiratory Rate Blood Pressure 129/70 122/61 Pulse Oximetry 97 Oxygen Delivery Method 06/03/23 11:30 06/03/23 11:45 06/03/23 11:45 Temperature Pulse Rate 85 85 Respiratory Rate Blood Pressure 129/65 Pulse Oximetry 93 96 Oxygen Delivery Method 06/03/23 12:00 06/03/23 12:00 06/03/23 12:15 Temperature Pulse Rate 87 Respiratory Rate 20 Blood Pressure 129/70 112/60 Pulse Oximetry 97 Oxygen Delivery Method 06/03/23 12:15 06/03/23 12:30 06/03/23 12:30 Temperature Pulse Rate 80 79 Respiratory Rate 18 18 Blood Pressure 112/62 Pulse Oximetry 95 94 Oxygen Delivery Method 06/03/23 12:45 06/03/23 12:45 06/03/23 13:00 Temperature Pulse Rate 87 Respiratory Rate 19 Blood Pressure 125/66 126/71 Pulse Oximetry 95 Oxygen Delivery Method 06/03/23 13:00 06/03/23 13:15 06/03/23 13:15 Temperature 98.2 F Pulse Rate 89 81 Respiratory Rate 21 18 Blood Pressure 124/74 Pulse Oximetry 96 96 Oxygen Delivery Method Oxygen Delivery Method Room Air Narrative Exam Narrative: GEN: no acute distress, left eye swollen shut from recent OR CV: regular rate and rhythm, no murmurs PULM: clear bilaterally, no wheezes, rhonchi, rales ABD: soft, nontender, nondistended, no organomegaly EXT: warm and well perfused with no edema NEURO: awake, alert, oriented Objective Labs 06/03/23 05:30 06/03/23 05:30 Labs: Laboratory Results - last 24 hr 06/02/23 06/02/23 06/02/23 22:43 22:43 22:43 WBC 14.1 H RBC 3.54 L Hgb 11.5 L Hct 34.4 L MCV 97.2 MCH 32.5 MCHC 33.5 RDW 15.1 H Plt Count 201 Neut % (Auto) 89.2 H Lymph % (Auto) 5.4 L Gibson % (Auto) 4.4 Eos % (Auto) 0.7 L Baso % (Auto) 0.3 Neut # (Auto) 84621 H Lymph # (Auto) 800 L Gibson # (Auto) 600 Eos # (Auto) 100 Baso # (Auto) 0 Sodium 135 L Potassium 4.4 Chloride 101 Carbon Dioxide 20 L BUN 26 H Creatinine 1.10 Estimated GFR > 60 BUN/Creatinine Ratio 23.6 H Glucose 207 H Lactate 3.7 H Calcium 9.1 Magnesium 0.8 L* Total Bilirubin 1.3 AST 58 ALT 43 Alkaline Phosphatase 177 H Total Creatine Kinase 35 L Troponin I 0.039 H NT-Pro-B Natriuret Pep 3450 H Total Protein 7.1 Albumin 4.1 Globulin 3.0 Albumin/Globulin Ratio 1.4 Lipase 76 Procalcitonin 0.21 Urine Color Urine Appearance Urine pH Ur Specific [place] Urine Protein Urine Glucose (UA) Urine Ketones Urine Occult Blood Urine Nitrate Urine Bilirubin Urine Urobilinogen Ur Leukocyte Esterase Urine RBC Urine WBC Ur Squamous Epith Cells Urine Bacteria Ur Culture Indicated? Nasal Screen MRSA (PCR) A.calcoaceticus-baumannii cmplx PCR Chlamy pneumoniae PCR Adenovirus (PCR) Bacteroides fragilis B. pertussis DNA (PCR) B.parapertussis DNA PCR Herminia albicans (PCR) Herminia auris (PCR) C. glabrata (PCR) C. krusei (PCR) C. parapsilosis (PCR) C. tropicalis (PCR) Coronavirus OC43 (PCR) Coronavirus HKU1 (PCR) Coronavirus 229E (PCR) SARS-CoV-2 (PCR) Coronavirus NL63 (PCR) C. neoform/gattii (PCR) Enterobacterales (PCR) E. cloacae complex PCR Enterococc faecalis PCR Enterococc faecium PCR E. coli (PCR) H. influenzae (PCR) Human Metapneumovir PCR Influenza Type A (PCR) Influenza Type B (PCR) Klebsiella aerogenes (PCR) Klebsiella oxytoca PCR Klebsiella pneumoniae List. monocytogenes PCR M. pneumoniae (PCR) N. meningitidis (PCR) Parainfluenza 1 (PCR) Parainfluenza 2 (PCR) Parainfluenza 3 (PCR) Parainfluenza 4 (PCR) Proteus species (PCR) RSV (PCR) Entero/Rhino (PCR) Salmonella spp. (PCR) Serratia marcescens PCR Staphylococcus sp PCR Staph aureus (PCR) mcr-1 Colistin Res Gene PCR Staph epidermidis (PCR) Staph lugdunensis PCR S. maltophilia (PCR) Streptococcus sp PCR Group A Strep (PCR) Strep agalactiae (PCR) Strep pneumoniae (PCR) P. aeruginosa (PCR) blaIMP Car res Gene PCR KPC-Carbap Res Gene PCR blaNDM Car Res Gene PCR OXA-48 Carbapenem Resis Gene (PCR) blaVIM Car Res Gene PCR CTX-M Gene Resistance (PCR) 06/02/23 06/02/23 06/02/23 22:43 23:03 23:16 WBC RBC Hgb Hct MCV MCH MCHC RDW Plt Count Neut % (Auto) Lymph % (Auto) Gibson % (Auto) Eos % (Auto) Baso % (Auto) Neut # (Auto) Lymph # (Auto) Gibson # (Auto) Eos # (Auto) Baso # (Auto) Sodium Potassium Chloride Carbon Dioxide BUN Creatinine Estimated GFR BUN/Creatinine Ratio Glucose Lactate Calcium Magnesium Total Bilirubin AST ALT Alkaline Phosphatase Total Creatine Kinase Troponin I NT-Pro-B Natriuret Pep Total Protein Albumin Globulin Albumin/Globulin Ratio Lipase Procalcitonin Urine Color [place] Urine Appearance Sl cloudy Urine pH 5.5 Ur Specific [place] 1.020 Urine Protein 3+ H Urine Glucose (UA) Negative Urine Ketones Negative Urine Occult Blood 3+ H Urine Nitrate Positive H Urine Bilirubin Negative Urine Urobilinogen 2.0 H Ur Leukocyte Esterase 2+ H Urine RBC 10-30/hpf H Urine WBC 30-100/hpf H Ur Squamous Epith Cells None seen Urine Bacteria Many (>30) H Ur Culture Indicated? Specimen cultured Nasal Screen MRSA (PCR) A.calcoaceticus-baumannii cmplx PCR Not detected Chlamy pneumoniae PCR Not detected Adenovirus (PCR) Not detected Bacteroides fragilis Not detected B. pertussis DNA (PCR) Not detected B.parapertussis DNA PCR Not detected Herminia albicans (PCR) Not detected Herminia auris (PCR) Not detected C. glabrata (PCR) Not detected C. krusei (PCR) Not detected C. parapsilosis (PCR) Not detected C. tropicalis (PCR) Not detected Coronavirus OC43 (PCR) Not detected Coronavirus HKU1 (PCR) Not detected Coronavirus 229E (PCR) Not detected SARS-CoV-2 (PCR) Not detected Coronavirus NL63 (PCR) Not detected C. neoform/gattii (PCR) Not detected Enterobacterales (PCR) Detected H E. cloacae complex PCR Not detected Enterococc faecalis PCR Not detected Enterococc faecium PCR Not detected E. coli (PCR) Detected H H. influenzae (PCR) Not detected Human Metapneumovir PCR Not detected Influenza Type A (PCR) Not detected Influenza Type B (PCR) Not detected Klebsiella aerogenes (PCR) Not detected Klebsiella oxytoca PCR Not detected Klebsiella pneumoniae Not detected List. monocytogenes PCR Not detected M. pneumoniae (PCR) Not detected N. meningitidis (PCR) Not detected Parainfluenza 1 (PCR) Not detected Parainfluenza 2 (PCR) Not detected Parainfluenza 3 (PCR) Not detected Parainfluenza 4 (PCR) Not detected Proteus species (PCR) Not detected RSV (PCR) Not detected Entero/Rhino (PCR) Not detected Salmonella spp. (PCR) Not detected Serratia marcescens PCR Not detected Staphylococcus sp PCR Not detected Staph aureus (PCR) Not detected mcr-1 Colistin Res Gene PCR Not detected Staph epidermidis (PCR) Not detected Staph lugdunensis PCR Not detected S. maltophilia (PCR) Not detected Streptococcus sp PCR Not detected Group A Strep (PCR) Not detected Strep agalactiae (PCR) Not detected Strep pneumoniae (PCR) Not detected P. aeruginosa (PCR) Not detected blaIMP Car res Gene PCR Not detected KPC-Carbap Res Gene PCR Not detected blaNDM Car Res Gene PCR Not detected OXA-48 Carbapenem Resis Gene (PCR) Not detected blaVIM Car Res Gene PCR Not detected CTX-M Gene Resistance (PCR) Detected H 06/03/23 06/03/23 06/03/23 00:59 05:15 05:30 WBC 20.4 H RBC 3.36 L Hgb 11.0 L Hct 32.5 L MCV 96.8 MCH 32.8 MCHC 33.8 RDW 15.1 H Plt Count 207 Neut % (Auto) 86.0 H Lymph % (Auto) 5.4 L Gibson % (Auto) 8.0 Eos % (Auto) 0.1 L Baso % (Auto) 0.5 Neut # (Auto) 61788 H Lymph # (Auto) 1100 Gibson # (Auto) 1600 H Eos # (Auto) 0 Baso # (Auto) 100 Sodium Potassium Chloride Carbon Dioxide BUN Creatinine Estimated GFR BUN/Creatinine Ratio Glucose Lactate 2.7 H Calcium Magnesium Total Bilirubin AST ALT Alkaline Phosphatase Total Creatine Kinase Troponin I NT-Pro-B Natriuret Pep Total Protein Albumin Globulin Albumin/Globulin Ratio Lipase Procalcitonin Urine Color Urine Appearance Urine pH Ur Specific [place] Urine Protein Urine Glucose (UA) Urine Ketones Urine Occult Blood Urine Nitrate Urine Bilirubin Urine Urobilinogen Ur Leukocyte Esterase Urine RBC Urine WBC Ur Squamous Epith Cells Urine Bacteria Ur Culture Indicated? Nasal Screen MRSA (PCR) Not detected A.calcoaceticus-baumannii cmplx PCR Chlamy pneumoniae PCR Adenovirus (PCR) Bacteroides fragilis B. pertussis DNA (PCR) B.parapertussis DNA PCR Herminia albicans (PCR) Herminia auris (PCR) C. glabrata (PCR) C. krusei (PCR) C. parapsilosis (PCR) C. tropicalis (PCR) Coronavirus OC43 (PCR) Coronavirus HKU1 (PCR) Coronavirus 229E (PCR) SARS-CoV-2 (PCR) Coronavirus NL63 (PCR) C. neoform/gattii (PCR) Enterobacterales (PCR) E. cloacae complex PCR Enterococc faecalis PCR Enterococc faecium PCR E. coli (PCR) H. influenzae (PCR) Human Metapneumovir PCR Influenza Type A (PCR) Influenza Type B (PCR) Klebsiella aerogenes (PCR) Klebsiella oxytoca PCR Klebsiella pneumoniae List. monocytogenes PCR M. pneumoniae (PCR) N. meningitidis (PCR) Parainfluenza 1 (PCR) Parainfluenza 2 (PCR) Parainfluenza 3 (PCR) Parainfluenza 4 (PCR) Proteus species (PCR) RSV (PCR) Entero/Rhino (PCR) Salmonella spp. (PCR) Serratia marcescens PCR Staphylococcus sp PCR Staph aureus (PCR) mcr-1 Colistin Res Gene PCR Staph epidermidis (PCR) Staph lugdunensis PCR S. maltophilia (PCR) Streptococcus sp PCR Group A Strep (PCR) Strep agalactiae (PCR) Strep pneumoniae (PCR) P. aeruginosa (PCR) blaIMP Car res Gene PCR KPC-Carbap Res Gene PCR blaNDM Car Res Gene PCR OXA-48 Carbapenem Resis Gene (PCR) blaVIM Car Res Gene PCR CTX-M Gene Resistance (PCR) 06/03/23 06/03/23 06/03/23 05:30 05:30 05:30 WBC RBC Hgb Hct MCV MCH MCHC RDW Plt Count Neut % (Auto) Lymph % (Auto) [place] % (Auto) Eos % (Auto) Baso % (Auto) Neut # (Auto) Lymph # (Auto) Gibson # (Auto) Eos # (Auto) Baso # (Auto) Sodium 137 Potassium 4.1 Chloride 104 Carbon Dioxide 21 L BUN 26 H Creatinine 1.19 Estimated GFR 60 BUN/Creatinine Ratio 21.8 Glucose 218 H Lactate 3.0 H Calcium 8.5 Magnesium 1.5 L Total Bilirubin AST ALT Alkaline Phosphatase Total Creatine Kinase Troponin I 0.456 H* NT-Pro-B Natriuret Pep 8920 H Total Protein Albumin Globulin Albumin/Globulin Ratio Lipase Procalcitonin Urine Color Urine Appearance Urine pH Ur Specific [place] Urine Protein Urine Glucose (UA) Urine Ketones Urine Occult Blood Urine Nitrate Urine Bilirubin Urine Urobilinogen Ur Leukocyte Esterase Urine RBC Urine WBC Ur Squamous Epith Cells Urine Bacteria Ur Culture Indicated? Nasal Screen MRSA (PCR) A.calcoaceticus-baumannii cmplx PCR Chlamy pneumoniae PCR Adenovirus (PCR) Bacteroides fragilis B. pertussis DNA (PCR) B.parapertussis DNA PCR Herminia albicans (PCR) Herminia auris (PCR) C. glabrata (PCR) C. krusei (PCR) C. parapsilosis (PCR) C. tropicalis (PCR) Coronavirus OC43 (PCR) Coronavirus HKU1 (PCR) Coronavirus 229E (PCR) SARS-CoV-2 (PCR) Coronavirus NL63 (PCR) C. neoform/gattii (PCR) Enterobacterales (PCR) E. cloacae complex PCR Enterococc faecalis PCR Enterococc faecium PCR E. coli (PCR) H. influenzae (PCR) Human Metapneumovir PCR Influenza Type A (PCR) Influenza Type B (PCR) Klebsiella aerogenes (PCR) Klebsiella oxytoca PCR Klebsiella pneumoniae List. monocytogenes PCR M. pneumoniae (PCR) N. meningitidis (PCR) Parainfluenza 1 (PCR) Parainfluenza 2 (PCR) Parainfluenza 3 (PCR) Parainfluenza 4 (PCR) Proteus species (PCR) RSV (PCR) Entero/Rhino (PCR) Salmonella spp. (PCR) Serratia marcescens PCR Staphylococcus sp PCR Staph aureus (PCR) mcr-1 Colistin Res Gene PCR Staph epidermidis (PCR) Staph lugdunensis PCR S. maltophilia (PCR) Streptococcus sp PCR Group A Strep (PCR) Strep agalactiae (PCR) Strep pneumoniae (PCR) P. aeruginosa (PCR) blaIMP Car res Gene PCR KPC-Carbap Res Gene PCR blaNDM Car Res Gene PCR OXA-48 Carbapenem Resis Gene (PCR) blaVIM Car Res Gene PCR CTX-M Gene Resistance (PCR) 06/03/23 06/03/23 06/03/23 08:00 11:03 11:03 WBC RBC Hgb Hct MCV MCH MCHC RDW Plt Count Neut % (Auto) Lymph % (Auto) [place] % (Auto) Eos % (Auto) Baso % (Auto) Neut # (Auto) Lymph # (Auto) [place] # (Auto) Eos # (Auto) Baso # (Auto) Sodium Potassium Chloride Carbon Dioxide BUN Creatinine Estimated GFR BUN/Creatinine Ratio Glucose Lactate 2.4 H Calcium Magnesium 2.0 Total Bilirubin AST ALT Alkaline Phosphatase Total Creatine Kinase Troponin I 0.592 H* NT-Pro-B Natriuret Pep Total Protein Albumin Globulin Albumin/Globulin Ratio Lipase Procalcitonin Urine Color Urine Appearance Urine pH Ur Specific [place] Urine Protein Urine Glucose (UA) Urine Ketones Urine Occult Blood Urine Nitrate Urine Bilirubin Urine Urobilinogen Ur Leukocyte Esterase Urine RBC Urine WBC Ur Squamous Epith Cells Urine Bacteria Ur Culture Indicated? Nasal Screen MRSA (PCR) A.calcoaceticus-baumannii cmplx PCR Chlamy pneumoniae PCR Adenovirus (PCR) Bacteroides fragilis B. pertussis DNA (PCR) B.parapertussis DNA PCR Herminia albicans (PCR) Herminia auris (PCR) C. glabrata (PCR) C. krusei (PCR) C. parapsilosis (PCR) C. tropicalis (PCR) Coronavirus OC43 (PCR) Coronavirus HKU1 (PCR) Coronavirus 229E (PCR) SARS-CoV-2 (PCR) Coronavirus NL63 (PCR) C. neoform/gattii (PCR) Enterobacterales (PCR) E. cloacae complex PCR Enterococc faecalis PCR Enterococc faecium PCR E. coli (PCR) H. influenzae (PCR) Human Metapneumovir PCR Influenza Type A (PCR) Influenza Type B (PCR) Klebsiella aerogenes (PCR) Klebsiella oxytoca PCR Klebsiella pneumoniae List. monocytogenes PCR M. pneumoniae (PCR) N. meningitidis (PCR) Parainfluenza 1 (PCR) Parainfluenza 2 (PCR) Parainfluenza 3 (PCR) Parainfluenza 4 (PCR) Proteus species (PCR) RSV (PCR) Entero/Rhino (PCR) Salmonella spp. (PCR) Serratia marcescens PCR Staphylococcus sp PCR Staph aureus (PCR) mcr-1 Colistin Res Gene PCR Staph epidermidis (PCR) Staph lugdunensis PCR S. maltophilia (PCR) Streptococcus sp PCR Group A Strep (PCR) Strep agalactiae (PCR) Strep pneumoniae (PCR) P. aeruginosa (PCR) blaIMP Car res Gene PCR KPC-Carbap Res Gene PCR blaNDM Car Res Gene PCR OXA-48 Carbapenem Resis Gene (PCR) blaVIM Car Res Gene PCR CTX-M Gene Resistance (PCR) 06/03/23 11:03 WBC RBC Hgb Hct MCV MCH MCHC RDW Plt Count Neut % (Auto) Lymph % (Auto) [place] % (Auto) Eos % (Auto) Baso % (Auto) Neut # (Auto) Lymph # (Auto) Gibson # (Auto) Eos # (Auto) Baso # (Auto) Sodium Potassium Chloride Carbon Dioxide BUN Creatinine Estimated GFR BUN/Creatinine Ratio Glucose Lactate 2.1 Calcium Magnesium Total Bilirubin AST ALT Alkaline Phosphatase Total Creatine Kinase Troponin I NT-Pro-B Natriuret Pep Total Protein Albumin Globulin Albumin/Globulin Ratio Lipase Procalcitonin Urine Color Urine Appearance Urine pH Ur Specific [place] Urine Protein Urine Glucose (UA) Urine Ketones Urine Occult Blood Urine Nitrate Urine Bilirubin Urine Urobilinogen Ur Leukocyte Esterase Urine RBC Urine WBC Ur Squamous Epith Cells Urine Bacteria Ur Culture Indicated? Nasal Screen MRSA (PCR) A.calcoaceticus-baumannii cmplx PCR Chlamy pneumoniae PCR Adenovirus (PCR) Bacteroides fragilis B. pertussis DNA (PCR) B.parapertussis DNA PCR Herminia albicans (PCR) Herminia auris (PCR) C. glabrata (PCR) C. krusei (PCR) C. parapsilosis (PCR) C. tropicalis (PCR) Coronavirus OC43 (PCR) Coronavirus HKU1 (PCR) Coronavirus 229E (PCR) SARS-CoV-2 (PCR) Coronavirus NL63 (PCR) C. neoform/gattii (PCR) Enterobacterales (PCR) E. cloacae complex PCR Enterococc faecalis PCR Enterococc faecium PCR E. coli (PCR) H. influenzae (PCR) Human Metapneumovir PCR Influenza Type A (PCR) Influenza Type B (PCR) Klebsiella aerogenes (PCR) Klebsiella oxytoca PCR Klebsiella pneumoniae List. monocytogenes PCR M. pneumoniae (PCR) N. meningitidis (PCR) Parainfluenza 1 (PCR) Parainfluenza 2 (PCR) Parainfluenza 3 (PCR) Parainfluenza 4 (PCR) Proteus species (PCR) RSV (PCR) Entero/Rhino (PCR) Salmonella spp. (PCR) Serratia marcescens PCR Staphylococcus sp PCR Staph aureus (PCR) mcr-1 Colistin Res Gene PCR Staph epidermidis (PCR) Staph lugdunensis PCR S. maltophilia (PCR) Streptococcus sp PCR Group A Strep (PCR) Strep agalactiae (PCR) Strep pneumoniae (PCR) P. aeruginosa (PCR) blaIMP Car res Gene PCR KPC-Carbap Res Gene PCR blaNDM Car Res Gene PCR OXA-48 Carbapenem Resis Gene (PCR) blaVIM Car Res Gene PCR CTX-M Gene Resistance (PCR) PFSH Medical History AAA (abdominal aortic aneurysm) BPH (benign prostatic hyperplasia) BPH w urinary obs/LUTS Cerebrovascular disease COPD (chronic obstructive pulmonary disease) Do not resuscitate Essential hypertension Former smoker History of malignant neoplasm of bladder History of urinary calculi Hx: UTI (urinary tract infection) Left carotid artery occlusion Mild chronic anemia Mixed hyperlipidemia Neoplasm of uncertain behavior of prostate Peripheral neuropathy Polyneuropathy, unspecified 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 Septic shock from ESBL UTI/bacteremia with history of BPH and bladder cancer -patient with positive urine, and blood cultures -PCR concerning for positive expression of ESBL gene -for now continue on IV meropenem -will repeat one blood culture today -for now has access through CVL, but once clinically improved may need PICC for IV abx 2. Cardiac demand ischemia -troponin elevated, but no chest pain or shortness of breath -suspect secondary to septic shock -already on antiplatelet agents due to hx of CVA -for now will not order heparin -ordered for ECHO, if concerning can consider heparin and/or stress test for further evaluation -trend trop to peak 3. HIstory of COPD -home meds ordered, not in exacerbation 4. Hypomagnesemia -resolved with IV mag CODE: DNR Quality VTE Deep Vein Thrombosis/Pulmonary Embolism Present on Admission: No
[2023-06-03 15:13] LABS: Add Manual Diff / Slide Review NO; Basophils Absolute Auto 0 /uL (0-100); Basophils Percent Auto 0.2 % (0-2); Eosinophils Absolute Auto 0 /uL (0-450); Eosinophils Percent Auto 0.1 % (2-4); Hemoglobin 10.2 g/dL (13.5-17.5); Lymphocytes Absolute Auto 500 /uL (1100-4500); Lymphocytes Percent Auto 3.6 % (25-40); Mean Corpuscular HGB Conc 34.1 % (30-36); Mean Corpuscular Hemoglobin 33.1 PG (26-34); Monocytes Absolute Auto 1300 /uL (0-900); Monocytes Percent Auto 8.8 % (3-14); Neutrophils Absolute Auto 12900 /uL (1500-7000); Neutrophils Percent Auto 87.3 % (50-75); Platelet Count 148 X10^3/uL (150-400); Red Blood Cell Count 3.09 X10^6/uL (4.5-5.9); Red Cell Distribution Width 15.3 % (11.6-14.8); White Blood Cell Count 14.8 X10^3/uL (4.5-11.0)
[2023-06-03 15:28] LABS: Lactate 2HR (Lactic Acid Rflx) 2.7 mmol/L (0.7-2.1)
[2023-06-03 15:29] LABS: BUN Creatinine Ratio 22.1 (6-22); Blood Urea Nitrogen 27 mg/dL (9-20); Calcium 8.3 mg/dL (8.4-10.2); Carbon Dioxide 22 mmol/L (22-32); Chloride 103 mmol/L (98-107); Estimated Glomerular Filt Rate 58 mL/min (>60); Glucose 221 mg/dL (80-110); HEMOLYSIS < 15 (0-50); Potassium 3.7 mmol/L (3.4-5.1); Sodium 135 mmol/L (137-145)
[2023-06-03 15:54] LABS: Troponin I 0.705 ng/mL (0.01-0.034)
[2023-06-03] MEDS: SODIUM CHLORIDE 0.9% 500 ML 1000 ML IV (18:16)
[2023-06-03] MEDS: ATORVASTATIN 20 MG TABLET 40 MG PO (21:53)
[2023-06-03] MEDS: ACETAMINOPHEN 325 MG TABLET 650 MG PO (21:54)
[2023-06-03 22:28] LABS: Lactate (Lactic Acid) 1.9 mmol/L (0.7-2.1)
[2023-06-03 22:42] LABS: Troponin I 0.692 ng/mL (0.01-0.034)
[2023-06-04] VITALS (31 sets, daily range): BP systolic 118–154; BP diastolic 58–98; PULSE 65–104; RESP 14–33; TEMP 36.2–37; O2SAT 91–97
[2023-06-04] MEDS: MEROPENEM 2 GM in SODIUM CHLORIDE 0.9% 100 ML IV ×4 (00:20→23:15)
[2023-06-04 05:30] LABS: Hemoglobin 9.5 g/dL (13.5-17.5); Mean Corpuscular HGB Conc 33.7 % (30-36); Mean Corpuscular Hemoglobin 32.7 PG (26-34); Mean Corpuscular Volume 96.9 fL (80-100); Platelet Count 126 X10^3/uL (150-400); Red Blood Cell Count 2.89 X10^6/uL (4.5-5.9); Red Cell Distribution Width 14.8 % (11.6-14.8); White Blood Cell Count 11.6 X10^3/uL (4.5-11.0)
[2023-06-04 05:38] LABS: BUN Creatinine Ratio 24.3 (6-22); Blood Urea Nitrogen 27 mg/dL (9-20); Carbon Dioxide 26 mmol/L (22-32); Chloride 103 mmol/L (98-107); Estimated Glomerular Filt Rate > 60 mL/min (>60); Glucose 169 mg/dL (80-110); HEMOLYSIS < 15 (0-50); Sodium 135 mmol/L (137-145)
[2023-06-04 05:48] LABS: NT-proBNP (BNP-Adult 18+) 16700 pg/mL (<450)
[2023-06-04 06:00] LABS: Troponin I 0.951 ng/mL (0.01-0.034)
[2023-06-04 06:41] LABS: Magnesium 2.2 mg/dL (1.6-2.3)
[2023-06-04] MEDS: BUDESONIDE 0.5 MG/2 ML NEB INH ×2 (08:23→19:32)
[2023-06-04] MEDS: ALBUTEROL 2.5 MG/3 ML NEB (ADULT) INH ×4 (08:23→19:31)
[2023-06-04] MEDS: FAMOTIDINE 20 MG/2 ML VIAL IV (08:39)
[2023-06-04] MEDS: CLOPIDOGREL 75 MG TABLET PO (08:39)
[2023-06-04] MEDS: HEPARIN 5,000 UNIT/ML VIAL 5000 UNIT SUBCUT (08:39)
[2023-06-04] MEDS: ASPIRIN EC 81 MG TABLET PO (08:39)
--- NOTE | 2023-06-04 09:41 | PM.PN.EICU ---
Subjective Subjective IF CAMERA ACTIVATED, patient seen via real-time interactive audiovisual communication: Camera activated Consent obtained for tele-territory business manager care: Yes Patient Location: ICU Provider location (State): [place] Other participants/roles: Bedside RN, ICU charge nurse, Hospitalist (over the phone) Interval history: The patient was examined using two-way interactive audiovisual equipment. 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 Initial 12 lead EKG with no acute ischemic changes per ED. While in the ED, became hypotensive despite receiving IV fluid resuscitation, required to be started on vasopressors and admitted to ICU for further management. Code status is DNR but OK with vasopressors. Past 24 hours / Subjective: While in the ICU, required low-dose norepinephrine gtt. to maintain MAP>65.? On RA. Per RN, the Levophed has just been turned off.? Mental status intact.? More stable from respiratory and hemodynamic standpoint.?Tolerating PO diet. Has decent urine output. Denies any fever, chills, nausea/vomiting, chest pain, shortness of breath. Most recent Labs / Imaging: WBC down to 11.6, Hb 9.5, Platelets 126, Sodium 135, Glu 169, uptrending Trop 0.951, elevated NT-Pro-BNP of 16,700, Lactic acid down to 1.9.? TTE 06/03/2023: LVEF 30%, moderate to severe global hypokinesis of the LV, grade III diastolic CHF, RVSP 41 mmHg. CXR: Lungs clear with no pleural effusion or pneumothorax. Blood cultures x 2 and Urine culture on admission (06/02) with gram negative bacilli. Currently on Meropenem. ASSESSMENT: # Septic shock, presumed source UTI.? Urine culture positive for gram-negative bacilli # Bacteremia with gram-negative bacilli # Elevated troponin, demand ischemia (from sepsis) vs ACS (moderate to severe global hypokinesis on TTE) # HFrEF (TTE with LVEF 30%).? Most likely acute.? No known history of CHF # Lactic acidosis, from poor tissue perfusion due to septic shock.? Now improving. # H/o COPD, not in exacerbation. 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 Now weaned off vasopressors.? Hemodynamically more stable. - Lactate down to 1.9.? Has adequate urine output.? Mentation intact.? Continue monitor markers of tissue perfusion ?(lactate clearance, base deficit, mental status, urine out). - Continue broad-spectrum IV antibiotics of meropenem pending final cultures.? Repeat blood cultures pending and so far negative. - Would avoid any further IV fluid resuscitation as patient appears to be in CHF/fluid overload (elevated NT-Pro-BNP of 16,700, TTE with LVEF 30%). - If becomes hypotensive again, would avoid crystalloid boluses and restart vasopressors (Norepinephrine) instead to keep MAP > 65. ? - Given his current hemodynamic stability, recommend to start gentle diuresis (Lasix 40 g IV daily and adjust the dose as needed).? Goal to keep net fluid balance -500 cc to -1 L/day.? Monitor strict input output and daily weight. -Although elevated troponin are more likely to be from demand ischemia, his uptrending troponin, TTE findings of new onset CHF and moderate to severe global hypokinesis of LV are concerning for ACS.? Strongly recommend to consult cardiology and initiate heparin drip pending further evaluation. C/w DAPT (aspirin, plavix) and statins. I personally called primary hospitalist and communicated my recommendations to him. - Respiratory status stable.? Noted COPD exacerbation.? Continue DuoNebs every 2 hours as needed for wheezing/shortness of breath. ICU Bundle: # FEN: Heart Healthy diet, # Glucose: fairly controlled. C/w Accu checks before meals and at bedtime and SSI. BG goal 140-180 # Prophylaxis: Heparin subcu + SCDs for DVT prophylaxis, Pepcid for stress ulcer prophylaxis # Lines/tubes: PIV, Delcid, Right IJ CVC # CODE STATUS: DNR but OK with vasopressors. # Disposition: Remains in ICU Above plan was discussed with a rounding team including () hospitalist, and bedside RN during tele-ICU multidisciplinary rounds this morning.? We will continue to follow.? Please call us if you have any additional questions. Current Medications Current Medications Medications: Home Medications aspirin 81 mg tablet,delayed release 81 mg PO QDAY ##0 06/25/13 [History Confirmed 06/03/23] multivit with min-folic acid-lutein 400 mcg-250 mcg chewable tablet (Centrum Silver) 1 tab PO DAILY #0 caps 06/25/13 [History Confirmed 06/03/23] ferrous sulfate 325 mg (65 mg iron) tablet 325 mg PO DAILY 01/23/19 [History Confirmed 06/03/23] cholecalciferol (vitamin D3) 25 mcg (1,000 unit) capsule 25 mcg PO DAILY 04/08/22 [History Confirmed 06/03/23] cyanocobalamin (vitamin B-12) 1,000 mcg tablet (Vitamin B-12) 1,000 mcg PO DAILY 04/08/22 [History Confirmed 06/03/23] lisinopril 2.5 mg tablet 2.5 mg PO DAILY #90 tabs 05/06/22 [Rx Confirmed 06/03/23] metformin 1,000 mg tablet 1,000 mg PO BID #180 tabs 05/06/22 [Rx Confirmed 06/03/23] clopidogrel 75 mg tablet (Plavix) 75 mg PO QDAY #90 tabs 06/17/22 [Rx Confirmed 06/03/23] albuterol sulfate 90 mcg/actuation breath activated powder inhaler,sensor 2 inh inhalation Q4-6H PRN COPD 09/23/22 [History Confirmed 06/03/23] fluticasone 250 mcg-salmeterol 50 mcg/dose blistr powdr for inhalation (Advair Diskus) 1 inh inhalation Q12H PRN Shortness Of Breath Or Wheezing 09/23/22 [History Confirmed 06/03/23] gabapentin 300 mg capsule 600 mg PO DAILY #180 caps 09/23/22 [Rx Confirmed 06/03/23] alpha lipoic acid 100 mg capsule 200 mg PO BID Neuropathy 02/27/23 [History Confirmed 06/03/23] finasteride 5 mg tablet 5 mg PO QDAY #90 tabs 05/30/23 [Rx Confirmed 06/03/23] atorvastatin 40 mg tablet (Lipitor) 40 mg PO HS #90 tabs 06/02/23 [Rx Confirmed 06/03/23] diphenhydramine 25 mg-acetaminophen 500 mg tablet (Tylenol PM Extra Strength) 2 tab DAILY 06/03/23 [History Confirmed 06/03/23] erythromycin 5 mg/gram (0.5 %) eye ointment mg ophthalmic (eye) 3XD eye surgery 06/03/23 [History] Visit Medications (administered) Generic Name Dose Route Start Last Admin Trade Name Freq PRN Reason Stop Dose Admin Acetaminophen 650 mg 06/03/23 05:22 06/03/23 21:54 Acetaminophen 325 Mg Tablet PO 650 mg Q6H PRN Administration Fever/Mild Pain (1-3) Albuterol 2.5 mg 06/03/23 09:00 06/04/23 08:23 Albuterol 2.5 Mg/3 Ml Neb (Adult) INH 2.5 mg Q4HRWA SERAFIN Administration Aspirin 81 mg 06/03/23 09:00 06/04/23 08:39 Aspirin Ec 81 Mg Tablet PO 81 mg DAILY SERAFIN Administration Atorvastatin Calcium 40 mg 06/03/23 21:00 06/03/23 21:53 Atorvastatin 20 Mg Tablet PO 40 mg BEDTIME SERAFIN Administration Budesonide 0.5 mg 06/03/23 08:00 06/04/23 08:23 Budesonide 0.5 Mg/2 Ml Neb INH 0.5 mg RTBID SERAFIN Administration Clopidogrel Bisulfate 75 mg 06/03/23 09:00 06/04/23 08:39 Clopidogrel 75 Mg Tablet PO 75 mg DAILY SERAFIN Administration Famotidine 20 mg 06/04/23 09:00 06/04/23 08:39 Famotidine 20 Mg/2 Ml Vial IV 20 mg DAILY SERAFIN Administration Heparin Sodium (Porcine) 5,000 unit 06/03/23 09:00 06/04/23 08:39 Heparin 5,000 Unit/Ml Vial SUBCUT 5,000 unit BID SERAFIN Administration Sodium Chloride 1,000 mls @ 75 mls/hr 06/03/23 05:30 06/03/23 12:00 Normal Saline 0.9% IV 0 mls/hr CONT SERAFIN Infusion NOREPINEPHRINE BITARTRATE/D5W 4 mg in 250 mls @ 29.25 mls/hr 06/03/23 06:36 06/03/23 09:05 Levophed IV 0 mcg/kg/min TITRATE SERAFIN 0 mls/hr Titration Protocol 0.1 MCG/KG/MIN Meropenem 2 gm/ Sodium 100 mls @ 200 mls/hr 06/03/23 08:00 06/04/23 09:23 Chloride IV 200 mls/hr Q8H SERAFIN Administration Objective Imaging Echo: Radiologist's impression: TTE 06/03/2023: LVEF 30%, moderate to severe global hypokinesis of the LV, grade III diastolic CHF, RVSP 41 mmHg. Chest x-ray: Radiologist's impression: CXR: Lungs clear with no pleural effusion or pneumothorax. Labs 06/04/23 05:15 06/04/23 05:15 Labs: Laboratory Results - last 24 hr 06/02/23 06/03/23 06/03/23 22:43 11:03 11:03 WBC RBC Hgb Hct MCV MCH MCHC RDW Plt Count Neut % (Auto) Lymph % (Auto) Randall % (Auto) Eos % (Auto) Baso % (Auto) Neut # (Auto) Lymph # (Auto) Randall # (Auto) Eos # (Auto) Baso # (Auto) Sodium Potassium Chloride Carbon Dioxide BUN Creatinine Estimated GFR BUN/Creatinine Ratio Glucose Lactate Calcium Magnesium 2.0 Troponin I 0.592 H* NT-Pro-B Natriuret Pep A.calcoaceticus-baumannii cmplx PCR Not detected Bacteroides fragilis Not detected Herminia albicans (PCR) Not detected Herminia auris (PCR) Not detected C. glabrata (PCR) Not detected C. krusei (PCR) Not detected C. parapsilosis (PCR) Not detected C. tropicalis (PCR) Not detected C. neoform/gattii (PCR) Not detected Enterobacterales (PCR) Detected H E. cloacae complex PCR Not detected Enterococc faecalis PCR Not detected Enterococc faecium PCR Not detected E. coli (PCR) Detected H H. influenzae (PCR) Not detected Klebsiella aerogenes (PCR) Not detected Klebsiella oxytoca PCR Not detected Klebsiella pneumoniae Not detected List. monocytogenes PCR Not detected N. meningitidis (PCR) Not detected Proteus species (PCR) Not detected Salmonella spp. (PCR) Not detected Serratia marcescens PCR Not detected Staphylococcus sp PCR Not detected Staph aureus (PCR) Not detected mcr-1 Colistin Res Gene PCR Not detected Staph epidermidis (PCR) Not detected Staph lugdunensis PCR Not detected S. maltophilia (PCR) Not detected Streptococcus sp PCR Not detected Group A Strep (PCR) Not detected Strep agalactiae (PCR) Not detected Strep pneumoniae (PCR) Not detected P. aeruginosa (PCR) Not detected blaIMP Car res Gene PCR Not detected KPC-Carbap Res Gene PCR Not detected blaNDM Car Res Gene PCR Not detected OXA-48 Carbapenem Resis Gene (PCR) Not detected blaVIM Car Res Gene PCR Not detected CTX-M Gene Resistance (PCR) Detected H 06/03/23 06/03/23 06/03/23 11:03 14:55 14:55 WBC RBC Hgb Hct MCV MCH MCHC RDW Plt Count Neut % (Auto) Lymph % (Auto) Randall % (Auto) Eos % (Auto) Baso % (Auto) Neut # (Auto) Lymph # (Auto) Randall # (Auto) Eos # (Auto) Baso # (Auto) Sodium Potassium Chloride Carbon Dioxide BUN Creatinine Estimated GFR BUN/Creatinine Ratio Glucose Lactate 2.1 2.7 H Calcium Magnesium Troponin I 0.705 H* NT-Pro-B Natriuret Pep A.calcoaceticus-baumannii cmplx PCR Bacteroides fragilis Herminia albicans (PCR) Herminia auris (PCR) C. glabrata (PCR) C. krusei (PCR) C. parapsilosis (PCR) C. tropicalis (PCR) C. neoform/gattii (PCR) Enterobacterales (PCR) E. cloacae complex PCR Enterococc faecalis PCR Enterococc faecium PCR E. coli (PCR) H. influenzae (PCR) Klebsiella aerogenes (PCR) Klebsiella oxytoca PCR Klebsiella pneumoniae List. monocytogenes PCR N. meningitidis (PCR) Proteus species (PCR) Salmonella spp. (PCR) Serratia marcescens PCR Staphylococcus sp PCR Staph aureus (PCR) mcr-1 Colistin Res Gene PCR Staph epidermidis (PCR) Staph lugdunensis PCR S. maltophilia (PCR) Streptococcus sp PCR Group A Strep (PCR) Strep agalactiae (PCR) Strep pneumoniae (PCR) P. aeruginosa (PCR) blaIMP Car res Gene PCR KPC-Carbap Res Gene PCR blaNDM Car Res Gene PCR OXA-48 Carbapenem Resis Gene (PCR) blaVIM Car Res Gene PCR CTX-M Gene Resistance (PCR) 06/03/23 06/03/23 06/03/23 14:55 14:55 22:13 WBC 14.8 H RBC 3.09 L Hgb 10.2 L Hct 30.0 L MCV 97.0 MCH 33.1 MCHC 34.1 RDW 15.3 H Plt Count 148 L Neut % (Auto) 87.3 H Lymph % (Auto) 3.6 L Randall % (Auto) 8.8 Eos % (Auto) 0.1 L Baso % (Auto) 0.2 Neut # (Auto) 98830 H Lymph # (Auto) 500 L Randall # (Auto) 1300 H Eos # (Auto) 0 Baso # (Auto) 0 Sodium 135 L Potassium 3.7 Chloride 103 Carbon Dioxide 22 BUN 27 H Creatinine 1.22 Estimated GFR 58 L BUN/Creatinine Ratio 22.1 H Glucose 221 H Lactate 1.9 Calcium 8.3 L Magnesium Troponin I NT-Pro-B Natriuret Pep A.calcoaceticus-baumannii cmplx PCR Bacteroides fragilis Herminia albicans (PCR) Herminia auris (PCR) C. glabrata (PCR) C. krusei (PCR) C. parapsilosis (PCR) C. tropicalis (PCR) C. neoform/gattii (PCR) Enterobacterales (PCR) E. cloacae complex PCR Enterococc faecalis PCR Enterococc faecium PCR E. coli (PCR) H. influenzae (PCR) Klebsiella aerogenes (PCR) Klebsiella oxytoca PCR Klebsiella pneumoniae List. monocytogenes PCR N. meningitidis (PCR) Proteus species (PCR) Salmonella spp. (PCR) Serratia marcescens PCR Staphylococcus sp PCR Staph aureus (PCR) mcr-1 Colistin Res Gene PCR Staph epidermidis (PCR) Staph lugdunensis PCR S. maltophilia (PCR) Streptococcus sp PCR Group A Strep (PCR) Strep agalactiae (PCR) Strep pneumoniae (PCR) P. aeruginosa (PCR) blaIMP Car res Gene PCR KPC-Carbap Res Gene PCR blaNDM Car Res Gene PCR OXA-48 Carbapenem Resis Gene (PCR) blaVIM Car Res Gene PCR CTX-M Gene Resistance (PCR) 06/03/23 06/04/23 06/04/23 22:13 05:10 05:15 WBC RBC Hgb Hct MCV MCH MCHC RDW Plt Count Neut % (Auto) Lymph % (Auto) Randall % (Auto) Eos % (Auto) Baso % (Auto) Neut # (Auto) Lymph # (Auto) Randall # (Auto) Eos # (Auto) Baso # (Auto) Sodium Potassium Chloride Carbon Dioxide BUN Creatinine Estimated GFR BUN/Creatinine Ratio Glucose Lactate Calcium Magnesium 2.2 Troponin I 0.692 H* NT-Pro-B Natriuret Pep 45155 H A.calcoaceticus-baumannii cmplx PCR Bacteroides fragilis Herminia albicans (PCR) Herminia auris (PCR) C. glabrata (PCR) C. krusei (PCR) C. parapsilosis (PCR) C. tropicalis (PCR) C. neoform/gattii (PCR) Enterobacterales (PCR) E. cloacae complex PCR Enterococc faecalis PCR Enterococc faecium PCR E. coli (PCR) H. influenzae (PCR) Klebsiella aerogenes (PCR) Klebsiella oxytoca PCR Klebsiella pneumoniae List. monocytogenes PCR N. meningitidis (PCR) Proteus species (PCR) Salmonella spp. (PCR) Serratia marcescens PCR Staphylococcus sp PCR Staph aureus (PCR) mcr-1 Colistin Res Gene PCR Staph epidermidis (PCR) Staph lugdunensis PCR S. maltophilia (PCR) Streptococcus sp PCR Group A Strep (PCR) Strep agalactiae (PCR) Strep pneumoniae (PCR) P. aeruginosa (PCR) blaIMP Car res Gene PCR KPC-Carbap Res Gene PCR blaNDM Car Res Gene PCR OXA-48 Carbapenem Resis Gene (PCR) blaVIM Car Res Gene PCR CTX-M Gene Resistance (PCR) 06/04/23 06/04/23 05:15 05:15 WBC 11.6 H RBC 2.89 L Hgb 9.5 L Hct 28.0 L MCV 96.9 MCH 32.7 MCHC 33.7 RDW 14.8 Plt Count 126 L Neut % (Auto) Lymph % (Auto) Randall % (Auto) Eos % (Auto) Baso % (Auto) Neut # (Auto) Lymph # (Auto) Randall # (Auto) Eos # (Auto) Baso # (Auto) Sodium 135 L Potassium 4.0 Chloride 103 Carbon Dioxide 26 BUN 27 H Creatinine 1.11 Estimated GFR > 60 BUN/Creatinine Ratio 24.3 H Glucose 169 H Lactate Calcium 8.0 L Magnesium Troponin I 0.951 H* NT-Pro-B Natriuret Pep A.calcoaceticus-baumannii cmplx PCR Bacteroides fragilis Herminia albicans (PCR) Herminia auris (PCR) C. glabrata (PCR) C. krusei (PCR) C. parapsilosis (PCR) C. tropicalis (PCR) C. neoform/gattii (PCR) Enterobacterales (PCR) E. cloacae complex PCR Enterococc faecalis PCR Enterococc faecium PCR E. coli (PCR) H. influenzae (PCR) Klebsiella aerogenes (PCR) Klebsiella oxytoca PCR Klebsiella pneumoniae List. monocytogenes PCR N. meningitidis (PCR) Proteus species (PCR) Salmonella spp. (PCR) Serratia marcescens PCR Staphylococcus sp PCR Staph aureus (PCR) mcr-1 Colistin Res Gene PCR Staph epidermidis (PCR) Staph lugdunensis PCR S. maltophilia (PCR) Streptococcus sp PCR Group A Strep (PCR) Strep agalactiae (PCR) Strep pneumoniae (PCR) P. aeruginosa (PCR) blaIMP Car res Gene PCR KPC-Carbap Res Gene PCR blaNDM Car Res Gene PCR OXA-48 Carbapenem Resis Gene (PCR) blaVIM Car Res Gene PCR CTX-M Gene Resistance (PCR) Exam Vital Signs (past 8 hours): - 06/04/23 02:00 06/04/23 02:00 06/04/23 02:00 Temperature Pulse Rate 73 Respiratory Rate 17 Blood Pressure 129/60 Pulse Oximetry 95 Oxygen Delivery Method Nasal Cannula Oxygen Flow Rate 2 06/04/23 03:00 06/04/23 03:00 06/04/23 03:59 Temperature Pulse Rate 69 Respiratory Rate 15 Blood Pressure 123/58 L Pulse Oximetry 96 Oxygen Delivery Method Oxygen Flow Rate 2 2 06/04/23 04:00 06/04/23 04:00 06/04/23 05:00 Temperature 97.4 F L Pulse Rate 68 Respiratory Rate 15 Blood Pressure 126/66 118/58 L Pulse Oximetry 96 Oxygen Delivery Method Oxygen Flow Rate 0 06/04/23 05:00 06/04/23 05:59 06/04/23 06:00 Temperature Pulse Rate 65 Respiratory Rate 14 Blood Pressure 131/65 Pulse Oximetry 96 Oxygen Delivery Method Nasal Cannula Oxygen Flow Rate 0 06/04/23 06:00 06/04/23 08:23 Temperature Pulse Rate 65 84 Respiratory Rate 15 14 Blood Pressure Pulse Oximetry 96 96 Oxygen Delivery Method Room Air Oxygen Flow Rate 2 Oxygen Delivery Method Room Air Oxygen Flow Rate 2 Narrative Exam Narrative: Sitting up comfortably in chair at bedside, Awake, oreinted x 3, in no distress. Speaking in full sentences. On RA. Family is at bedside. Chest Other: Not using accessory muscles. Cardio Other: NSR on the monitor. Neuro Other: No gross focal deficits. Moving all extremities spontaneously and purposefully. Quality TeleICU VTE Deep Vein Thrombosis/Pulmonary Embolism Present on Admission: No Stress Ulcer Stress ulcer prophylaxis: yes and on full treatment dose
[2023-06-04] MEDS: HEPARIN 5,000 UNIT/ML VIAL 4000 UNIT IV (10:54)
[2023-06-04] MEDS: HEPARIN DRIP 25,000 UNIT/500 ML IV.SOLN 18.72 UNIT IV (10:54)
[2023-06-04 11:53] LABS: PTT Partial Thromboplastin Tim 35 SECONDS (26-36)
--- NOTE | 2023-06-04 14:53 | PM.PN.1 ---
Subjective Subjective Interval history: The patient feels better. No chest pain or dyspnea. Exam Vital Signs (past 8 hours): - 06/05/23 12:28 06/05/23 12:45 Temperature 98.6 F Pulse Rate 77 Respiratory Rate 16 Blood Pressure 91/47 L 124/67 Pulse Oximetry 93 Oxygen Flow Rate 0 Fraction of Inspired Oxygen 21 SaO2/FiO2 Ratio 442 Oxygen Delivery Method Room Air Oxygen Flow Rate 0 Narrative Exam Narrative: NAD, alert Lungs clear Heart regular and no murmur Abdomen soft No leg edema Objective Labs 06/05/23 19:57 06/05/23 19:57 Labs: Laboratory Results - last 24 hr 06/04/23 06/04/23 06/04/23 10:51 16:32 22:40 Hgb Hct Plt Count APTT 35 89 H* D 76 H* Troponin I 06/05/23 06/05/23 06/05/23 04:30 04:30 04:30 Hgb 10.2 L Hct 29.7 L Plt Count 143 L APTT 63 H D Troponin I 1.890 H* 06/05/23 06/05/23 06/05/23 10:46 10:46 16:42 Hgb Hct Plt Count APTT 59 H Troponin I 1.950 H* 1.330 H* PFSH Medical History AAA (abdominal aortic aneurysm) BPH (benign prostatic hyperplasia) BPH w urinary obs/LUTS Cerebrovascular disease COPD (chronic obstructive pulmonary disease) Do not resuscitate Essential hypertension Former smoker History of malignant neoplasm of bladder History of urinary calculi Hx: UTI (urinary tract infection) Left carotid artery occlusion Mild chronic anemia Mixed hyperlipidemia Neoplasm of uncertain behavior of prostate Peripheral neuropathy Polyneuropathy, unspecified 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 Septic shock, POA and resolved. 2. UTI and ESBL bacteremia. 3. Demand ischemia vs NSTEMI. 4. Acute vs chronic systolic heart failure, POA andd stable. 5. H/O bladder CA. Stable. Plan: -Cont Ertapenem for 14 days. -plan for home IV Abx. -continue cardiac medications and add heparin drip for 48 hours. Time Spent With Patient Time with patient: 30 to 49 minutes with 50% spent counseling/coordinating care Quality VTE Deep Vein Thrombosis/Pulmonary Embolism Present on Admission: No
--- NOTE | 2023-06-04 16:38 | CM.DPC ---
Addendum entered by TEGAN Jean 06/04/23 16:42: Edit: provider not consulting ID for patient. Provider is waiting to see on patient's needs for d/c. SL Original Note: DCP Continued: CROZER reviewed EMR. From Chad at [facility], wanted to know what kind of line/what provider following/d/c timeline. Per provider in rounds, likely d/c in 48 hours or so. Provider consulting ID for more information on d/c needs. Plan: pending if patient needs home infusion solutions. Home with when stable. CM team will continue to follow closely/follow up with home infusion needs. TEGAN Jean
--- NOTE | 2023-06-04 16:54 | PC.NURSE ---
Unable to pass PICC line in the left arm. Mechanical occlusion to upper left arm. Dr. Hagen aware and midline placed with no problems.
[2023-06-04 17:35] LABS: PTT Partial Thromboplastin Tim 89 SECONDS (26-36)
--- NOTE | 2023-06-04 21:00 | P.ICUMDRN_ITS ---
- Date Patient Seen: 06/04/23 :: This patient was seen via real time interactive two-way audiovisual telecommunic ation. Note: NO acute issues. Started on heparin gtt per ACS protocol. Lactate cleared this morning. Remains off levophed for over 24 hours. D/w bedside RN.
[2023-06-04] MEDS: ACETAMINOPHEN 325 MG TABLET 650 MG PO (21:47)
[2023-06-04] MEDS: ATORVASTATIN 20 MG TABLET 40 MG PO (21:47)
[2023-06-04 23:03] LABS: PTT Partial Thromboplastin Tim 76 SECONDS (26-36)
[2023-06-05] VITALS (27 sets, daily range): BP systolic 91–195; BP diastolic 47–116; PULSE 39–104; RESP 15–26; TEMP 36.4–37.3; O2SAT 90–100
[2023-06-05 05:03] LABS: Hematocrit 29.7 % (41-53); Hemoglobin 10.2 g/dL (13.5-17.5); Platelet Count 143 X10^3/uL (150-400)
[2023-06-05 05:12] LABS: PTT Partial Thromboplastin Tim 63 SECONDS (26-36)
[2023-06-05] MEDS: CLOPIDOGREL 75 MG TABLET PO (08:26)
[2023-06-05] MEDS: FAMOTIDINE 20 MG/2 ML VIAL IV (08:26)
[2023-06-05] MEDS: ASPIRIN EC 81 MG TABLET PO (08:26)
[2023-06-05] MEDS: MEROPENEM 2 GM in SODIUM CHLORIDE 0.9% 100 ML IV ×2 (08:41→16:19)
--- NOTE | 2023-06-05 08:49 | DI.CT.S_ITS ---
PROCEDURE: CT KIDNEY URETER BLADDER (KUB) INDICATIONS: ESBL UTI and bacteremia, rule out stones/urinary pathology TECHNIQUE: Axial sections were acquired from the lung bases to the pubic symphysis. Coronal and sagittal reformats were performed. For radiation dose reduction, the following was used: automated exposure control, adjustment of mA and/or kV according to patient size. COMPARISON: [facility], CT, CT CHEST ABD PEL W CON, 01/07/2023, 13:30. FINDINGS: Image quality: Excellent. Lung bases: Trace effusions. Heart: Low attenuation of the blood pool relative to the interventricular septum. URINARY: Right Kidney: No stones . Moderate pelvocaliectasis. Right Ureter: Moderate ureterectasis. Left Kidney: No stones. Moderate pelvocaliectasis. Left Ureter: Moderate ureterectasis. Bladder: Between the bladder and the prostate, there is a thick-walled collection measuring 3.8 x 2.4 centimeter (series 2, image 84). On the sagittal view, this appears to be connected to the urinary bladder (series 5, image 45). Findings are unchanged from prior. ABDOMEN: Liver: Nodular contour. Gallbladder: Trace fat stranding around the gallbladder. Biliary ducts: Unremarkable. Pancreas: Unremarkable. Spleen: Unremarkable. Adrenal Glands: Unremarkable. Stomach and Bowel: Stomach, small bowel loops, and colon are unremarkable. Colonic diverticulosis without evidence of diverticulitis. Peritoneum: No abnormal intraperitoneal fluid. No free air. Ventral Wall: No hernia. Abdominal Nodes: No enlarged retroperitoneal or mesenteric lymph nodes. Vessels: Stable infrarenal aortic aneurysm measuring 5.3 centimeter PELVIS: Pelvic Organs: Unremarkable. Pelvic Nodes: Unremarkable. Miscellaneous: No inguinal hernias are seen. Bones: Unremarkable. IMPRESSION: Stable postoperative changes of the urinary bladder, with a thick-walled collection between the urinary bladder and prostate, probably representing a diverticulum or simply representing posttreatment change. Stable moderate ureterectasis and pelvocaliectasis. This finding can be seen in the setting of chronic outlet obstruction. Low attenuation of the blood pool relative to the interventricular septum, suggestive of anemia. Trace fat stranding around the gallbladder. Gallbladder pathology such as cholecystitis is not entirely excluded given this appearance. Consider right upper quadrant ultrasound if there is pain within this region. Stable infrarenal aortic aneurysm measuring 5.3 centimeters. Recommend vascular surgery referral if not already performed. Dictated by: Luke Mora M.D. on 06/05/2023 at 10:24 Approved by: Luke Mora M.D. on 06/05/2023 at 10:30
[2023-06-05] MEDS: ALBUTEROL 2.5 MG/3 ML NEB (ADULT) INH (10:19)
--- NOTE | 2023-06-05 10:28 | PT-IP ANOTE ---
PT order is put in today. Pt is still on heparin drip until the a.m. of 06/06/23. Will hold PT until he is taken off the drip and will make sure that H&H and INR are stable before initiating PT evaluation/OOB with PT.
[2023-06-05 11:09] LABS: PTT Partial Thromboplastin Tim 59 SECONDS (26-36)
[2023-06-05] MEDS: INSULIN LISPRO 100 UNIT/ML 3ML VIAL SUBCUT ×2 (13:05→17:31)
--- NOTE | 2023-06-05 16:10 | CM.DPC ---
DCP Continued: PRINCIPAL SYSTEMS ENGINEER reviewed EMR. Per provider, patient will be here until at least Friday. tropes uptrending. PRINCIPAL SYSTEMS ENGINEER spoke with Leann at [facility]. Updated her on questions. Leann asked if they could get verbal order from hospitalist today. [facility] nurse will come to hospital Friday to do teaching. Leann confirmed his secondary insurance will cover the infusion. Unable to meet with patient today due to triaging needs. Plan: home when stable. [facility] will likely open tomorrow in hospital with patient. CM team will continue to follow closely. TEGAN Jean
--- NOTE | 2023-06-05 17:10 | PM.PN.1 ---
Subjective Subjective Interval history: Patient feels well and has no complaints. [employer] BI ADMINISTRATOR arranging home IV abx. CT KUB without stones. Exam Vital Signs (past 8 hours): - 06/05/23 10:19 06/05/23 12:28 06/05/23 12:45 Temperature 98.6 F Pulse Rate 78 77 Respiratory Rate 16 16 Blood Pressure 91/47 L 124/67 Pulse Oximetry 93 93 Oxygen Delivery Method Room Air Oxygen Flow Rate 0 0 Fraction of Inspired Oxygen 21 Fraction of Inspired Oxygen 21 SaO2/FiO2 Ratio 442 Oxygen Delivery Method Room Air Oxygen Flow Rate 0 Narrative Exam Narrative: GEN: no acute distress, left eye sewn shut from recent eye surgery CV: regular rate and rhythm, no murmurs PULM: clear bilaterally, no wheezes, rhonchi, rales ABD: soft, nontender, nondistended, no organomegaly EXT: warm and well perfused with no edema NEURO: awake, alert, oriented Objective Labs 06/05/23 04:30 06/04/23 05:15 Labs: Laboratory Results - last 24 hr 06/04/23 06/04/23 06/04/23 10:51 16:32 22:40 Hgb Hct Plt Count APTT 35 89 H* D 76 H* Troponin I 06/05/23 06/05/23 06/05/23 04:30 04:30 04:30 Hgb 10.2 L Hct 29.7 L Plt Count 143 L APTT 63 H D Troponin I 1.890 H* 06/05/23 06/05/23 10:46 10:46 Hgb Hct Plt Count APTT 59 H Troponin I 1.950 H* [facility] Medical History AAA (abdominal aortic aneurysm) BPH (benign prostatic hyperplasia) BPH w urinary obs/LUTS Cerebrovascular disease COPD (chronic obstructive pulmonary disease) Do not resuscitate Essential hypertension Former smoker History of malignant neoplasm of bladder History of urinary calculi Hx: UTI (urinary tract infection) Left carotid artery occlusion Mild chronic anemia Mixed hyperlipidemia Neoplasm of uncertain behavior of prostate Peripheral neuropathy Polyneuropathy, unspecified 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 Septic shock from ESBL UTI/bacteremia with history of BPH and bladder cancer -patient with positive urine, and blood cultures -PCR concerning for positive expression of ESBL gene -for now continue on IV meropenem -repeat BC negative -CT KUB without kidney or bladder stones -has PICC, arranging home IV abx -plan for 1g ertapenem daily for 2 weeks 2. Cardiac demand ischemia -troponin elevated, but no chest pain or shortness of breath -suspect secondary to septic shock -already on antiplatelet agents due to hx of CVA -on heparin drip x48 hours -Echo with EF 30%, mod-severe global hypokinesis of LV -trend trop to peak 3. History of COPD -home meds ordered, not in exacerbation 4. Hypomagnesemia -resolved with IV mag CODE: DNR Dispo: Home with IV abx on 06/06. Quality VTE Deep Vein Thrombosis/Pulmonary Embolism Present on Admission: No
[2023-06-05] MEDS: HEPARIN DRIP 25,000 UNIT/500 ML IV.SOLN 15.7 UNIT IV (18:12)
[2023-06-05] MEDS: AMIODARONE 150 MG/100 ML PIGGYBACK 600 MG IV (20:15)
[2023-06-05] MEDS: AMIODARONE 360 MG/200 ML PIGGYBACK 33.3 MG IV (20:15)
[2023-06-05 20:18] LABS: Add Manual Diff / Slide Review NO; Basophils Absolute Auto 0 /uL (0-100); Basophils Percent Auto 0.5 % (0-2); Eosinophils Absolute Auto 0 /uL (0-450); Hematocrit 30.7 % (41-53); Hemoglobin 10.4 g/dL (13.5-17.5); Lymphocytes Absolute Auto 500 /uL (1100-4500); Lymphocytes Percent Auto 7.7 % (25-40); Mean Corpuscular HGB Conc 34.1 % (30-36); Monocytes Absolute Auto 600 /uL (0-900); Monocytes Percent Auto 9.1 % (3-14); Neutrophils Absolute Auto 5100 /uL (1500-7000); Neutrophils Percent Auto 82.7 % (50-75); Platelet Count 154 X10^3/uL (150-400); Red Blood Cell Count 3.16 X10^6/uL (4.5-5.9); Red Cell Distribution Width 15.1 % (11.6-14.8); White Blood Cell Count 6.2 X10^3/uL (4.5-11.0)
[2023-06-05 20:27] LABS: Alanine Aminotransferase 132 IU/L (<50); Albumin 3.5 g/dL (3.5-5.0); Albumin Globulin Ratio 1.2 (1.0-2.8); Alkaline Phosphatase 288 U/L (38-126); Aspartate Aminotransferase 251 IU/L (17-59); BUN Creatinine Ratio 22.4 (6-22); Bilirubin Total 1.1 mg/dL (0.2-1.3); Blood Urea Nitrogen 28 mg/dL (9-20); Calcium 8.5 mg/dL (8.4-10.2); Carbon Dioxide 25 mmol/L (22-32); Chloride 100 mmol/L (98-107); Creatine Kinase 102 U/L (55-170); Estimated Glomerular Filt Rate 56 mL/min (>60); Glucose 172 mg/dL (80-110); HEMOLYSIS < 15 (0-50); Magnesium 1.8 mg/dL (1.6-2.3); Potassium 4.3 mmol/L (3.4-5.1); Sodium 132 mmol/L (137-145); Total Protein 6.5 g/dL (6.3-8.2)
--- NOTE | 2023-06-05 20:51 | PM.PN.EICU ---
Subjective Subjective IF CAMERA ACTIVATED, patient seen via real-time interactive audiovisual communication: Camera activated Consent obtained for tele-friction paint machine tender care: Yes Patient Location: ICU Provider location (State): [place] Other participants/roles: RAJANI Bernal Interval history: Patient is well-known to tele-ICU service. Called by Dr. Day as he was called by ICU nurses due to possible VT. Chart reviewed; including my partners's note (Dr. Morgan/Abby/Laina). Camera activated and spoke w/ RAJANI Bernal. 83 y.o. male with the following active issues: 1) ESBL E.coli UTI/septic shock (shock has resolved) 2) NSTEMI probably due to diagnosis #1 w/ peak troponin - I of 1.95 3) [place] [address] Patient was downgraded to acute care status 06/05. Tonight, he started having ventricular ectopy after change of shift; last serum Mg+2 and K+ reviewed and they were acceptable. Multiple ECGs reviewed by me over camera --> intermittent NSR vs. atrial arrhythmia w/ intermittently wide complex rhythms about 4-6 beats in length on rhythm strip. Patient is hemodynamically stable, on RA and denies palpitations/angina. Amiodarone bolus/infusion protocol initiated; repeat labs are pending. Current Medications Current Medications Medications: Home Medications aspirin 81 mg tablet,delayed release 81 mg PO QDAY ##0 06/25/13 [History Confirmed 06/03/23] multivit with min-folic acid-lutein 400 mcg-250 mcg chewable tablet (Centrum Silver) 1 tab PO DAILY #0 caps 06/25/13 [History Confirmed 06/03/23] ferrous sulfate 325 mg (65 mg iron) tablet 325 mg PO DAILY 01/23/19 [History Confirmed 06/03/23] cholecalciferol (vitamin D3) 25 mcg (1,000 unit) capsule 25 mcg PO DAILY 04/08/22 [History Confirmed 06/03/23] cyanocobalamin (vitamin B-12) 1,000 mcg tablet (Vitamin B-12) 1,000 mcg PO DAILY 04/08/22 [History Confirmed 06/03/23] lisinopril 2.5 mg tablet 2.5 mg PO DAILY #90 tabs 05/06/22 [Rx Confirmed 06/03/23] metformin 1,000 mg tablet 1,000 mg PO BID #180 tabs 05/06/22 [Rx Confirmed 06/03/23] clopidogrel 75 mg tablet (Plavix) 75 mg PO QDAY #90 tabs 06/17/22 [Rx Confirmed 06/03/23] albuterol sulfate 90 mcg/actuation breath activated powder inhaler,sensor 2 inh inhalation Q4-6H PRN COPD 09/23/22 [History Confirmed 06/03/23] fluticasone 250 mcg-salmeterol 50 mcg/dose blistr powdr for inhalation (Advair Diskus) 1 inh inhalation Q12H PRN Shortness Of Breath Or Wheezing 09/23/22 [History Confirmed 06/03/23] gabapentin 300 mg capsule 600 mg PO DAILY #180 caps 09/23/22 [Rx Confirmed 06/03/23] alpha lipoic acid 100 mg capsule 200 mg PO BID Neuropathy 02/27/23 [History Confirmed 06/03/23] finasteride 5 mg tablet 5 mg PO QDAY #90 tabs 05/30/23 [Rx Confirmed 06/03/23] atorvastatin 40 mg tablet (Lipitor) 40 mg PO HS #90 tabs 06/02/23 [Rx Confirmed 06/03/23] diphenhydramine 25 mg-acetaminophen 500 mg tablet (Tylenol PM Extra Strength) 2 tab DAILY 06/03/23 [History Confirmed 06/03/23] erythromycin 5 mg/gram (0.5 %) eye ointment mg ophthalmic (eye) 3XD eye surgery 06/03/23 [History] Visit Medications (administered) Generic Name Dose Route Start Last Admin Trade Name Freq PRN Reason Stop Dose Admin Acetaminophen 650 mg 06/03/23 05:22 06/04/23 21:47 Acetaminophen 325 Mg Tablet PO 650 mg Q6H PRN Administration Fever/Mild Pain (1-3) Aspirin 81 mg 06/03/23 09:00 06/05/23 08:26 Aspirin Ec 81 Mg Tablet PO 81 mg DAILY SERAFIN Administration Atorvastatin Calcium 40 mg 06/03/23 21:00 06/04/23 21:47 Atorvastatin 20 Mg Tablet PO 40 mg BEDTIME SERAFIN Administration Budesonide 0.5 mg 06/03/23 08:00 06/05/23 19:04 Budesonide 0.5 Mg/2 Ml Neb INH Not Given RTBID SERAFIN Clopidogrel Bisulfate 75 mg 06/03/23 09:00 06/05/23 08:26 Clopidogrel 75 Mg Tablet PO 75 mg DAILY SERAFIN Administration Sodium Chloride 1,000 mls @ 75 mls/hr 06/03/23 05:30 06/03/23 12:00 Normal Saline 0.9% IV 0 mls/hr CONT SERAFIN Infusion Meropenem 2 gm/ Sodium 100 mls @ 200 mls/hr 06/03/23 08:00 06/05/23 20:26 Chloride IV Infused Q8H SERAFIN Infusion Heparin Sodium/Dextrose 25,000 unit in 500 mls @ 18.72 mls/hr 06/04/23 10:30 06/05/23 18:12 Heparin Drip IV 06/06/23 10:29 10.06 units/kg/hr CONT SERAFIN 15.7 mls/hr Administration Protocol 12 UNITS/KG/HR Amiodarone HCl/Dextrose 360 mg in 200 mls @ 33.333 mls/hr 06/05/23 20:00 06/05/23 20:29 Nexterone IV 06/06/23 01:59 33.3 ml/hr NOW ONE 33.3 mls/hr Administration Protocol Insulin Human Lispro 0 unit 06/05/23 12:54 06/05/23 17:31 Insulin Lispro 100 Unit/Ml 3ml Vial SUBCUT 1 unit ACHS [facility] Administration Protocol Objective Labs 06/05/23 19:57 06/05/23 19:57 Labs: Laboratory Results - last 24 hr 06/04/23 06/04/23 06/04/23 10:51 16:32 22:40 WBC RBC Hgb Hct MCV MCH MCHC RDW Plt Count Neut % (Auto) Lymph % (Auto) [place] % (Auto) Eos % (Auto) Baso % (Auto) Neut # (Auto) Lymph # (Auto) [place] # (Auto) Eos # (Auto) Baso # (Auto) APTT 35 89 H* D 76 H* Sodium Potassium Chloride Carbon Dioxide BUN Creatinine Estimated GFR BUN/Creatinine Ratio Glucose Calcium Magnesium Total Bilirubin AST ALT Alkaline Phosphatase Total Creatine Kinase Troponin I Total Protein Albumin Globulin Albumin/Globulin Ratio 06/05/23 06/05/23 06/05/23 04:30 04:30 04:30 WBC RBC Hgb 10.2 L Hct 29.7 L MCV MCH MCHC RDW Plt Count 143 L Neut % (Auto) Lymph % (Auto) [place] % (Auto) Eos % (Auto) Baso % (Auto) Neut # (Auto) Lymph # (Auto) [place] # (Auto) Eos # (Auto) Baso # (Auto) APTT 63 H D Sodium Potassium Chloride Carbon Dioxide BUN Creatinine Estimated GFR BUN/Creatinine Ratio Glucose Calcium Magnesium Total Bilirubin AST ALT Alkaline Phosphatase Total Creatine Kinase Troponin I 1.890 H* Total Protein Albumin Globulin Albumin/Globulin Ratio 06/05/23 06/05/23 06/05/23 10:46 10:46 16:42 WBC RBC Hgb Hct MCV MCH MCHC RDW Plt Count Neut % (Auto) Lymph % (Auto) [place] % (Auto) Eos % (Auto) Baso % (Auto) Neut # (Auto) Lymph # (Auto) [place] # (Auto) Eos # (Auto) Baso # (Auto) APTT 59 H Sodium Potassium Chloride Carbon Dioxide BUN Creatinine Estimated GFR BUN/Creatinine Ratio Glucose Calcium Magnesium Total Bilirubin AST ALT Alkaline Phosphatase Total Creatine Kinase Troponin I 1.950 H* 1.330 H* Total Protein Albumin Globulin Albumin/Globulin Ratio 06/05/23 06/05/23 19:57 19:57 WBC 6.2 RBC 3.16 L Hgb 10.4 L Hct 30.7 L MCV 97.0 MCH 33.0 MCHC 34.1 RDW 15.1 H Plt Count 154 Neut % (Auto) 82.7 H Lymph % (Auto) 7.7 L [place] % (Auto) 9.1 Eos % (Auto) 0.0 L Baso % (Auto) 0.5 Neut # (Auto) 5100 Lymph # (Auto) 500 L [place] # (Auto) 600 Eos # (Auto) 0 Baso # (Auto) 0 APTT Sodium 132 L Potassium 4.3 Chloride 100 Carbon Dioxide 25 BUN 28 H Creatinine 1.25 Estimated GFR 56 L BUN/Creatinine Ratio 22.4 H Glucose 172 H Calcium 8.5 Magnesium 1.8 Total Bilirubin 1.1 AST 251 H ALT 132 H Alkaline Phosphatase 288 H D Total Creatine Kinase 102 Troponin I 1.350 H* Total Protein 6.5 Albumin 3.5 Globulin 3.0 Albumin/Globulin Ratio 1.2 Exam Vital Signs (past 8 hours): Fraction of Inspired Oxygen 21 SaO2/FiO2 Ratio 442 Oxygen Delivery Method Room Air Oxygen Flow Rate 0 Const General: cooperative and comfortable Resp Effort & Inspection: normal respiratory effort and able to speak in complete sentences Cardio Rate: tachycardic Rhythm: other (see HPI discussion on ECGs) Neuro General: patient alert, patient awake and moves all extremities Quality TeleICU VTE Deep Vein Thrombosis/Pulmonary Embolism Present on Admission: No Assessment & Plan Assessment and plan (1) NSTEMI (non-ST elevated myocardial infarction): Status: Acute Plan: -Continue IV heparin/ASA/Plavix -Cardiology consult when feasible (2) NSVT (nonsustained ventricular tachycardia): Status: Acute Plan: -See problem #3 (3) Tachycardia: Problem details: Unsure whether this is NSVT or atrial fibrillation w/ aberrancy Status: Acute Plan: -Continue amiodarone -Follow up on troponins, serum electrolytes (4) Atrial fibrillation: Qualifiers: Atrial fibrillation type: unspecified Qualified Code(s): I48.91 - Unspecified atrial fibrillation Status: Acute Plan: -See problem #3 (5) Infection due to ESBL-producing Escherichia coli: Status: Acute Plan: -Continue meropenem (6) Heart failure with reduced ejection fraction: Status: Acute Plan: -Currently on RA; consider diuresis in AM if labs reassuring and no further adverse clinical events overnight Time Spent With Patient Time with patient: less than 30 minutes
[2023-06-05] MEDS: ATORVASTATIN 20 MG TABLET 40 MG PO (22:10)
[2023-06-05] MEDS: MAGNESIUM SULFATE 2 GM/50 ML PIGGYBACK IV (22:45)
[2023-06-06] VITALS (30 sets, daily range): BP systolic 100–137; BP diastolic 56–81; PULSE 48–88; RESP 16–18; TEMP 36.6; O2SAT 88–98
[2023-06-06] MEDS: MEROPENEM 2 GM in SODIUM CHLORIDE 0.9% 100 ML IV ×2 (01:07→07:36)
[2023-06-06] MEDS: AMIODARONE 360 MG/200 ML PIGGYBACK 16.7 MG IV (01:48)
--- NOTE | 2023-06-06 04:33 | PC.NURSE ---
1929- Patient noted to have intermitted runs of VTach. Patient asymptomatic. Reported to Sabrina GERARD. Tele [employer] notified. Labs drawn and EKG done. Orders rec. to start Amiodarone gtt and EICU consulted. Amiodarone started per protocol. Patient upgraded to ICU status. Will monitor.
[2023-06-06 05:10] LABS: Add Manual Diff / Slide Review NO; Basophils Absolute Auto 0 /uL (0-100); Basophils Percent Auto 0.8 % (0-2); Eosinophils Absolute Auto 0 /uL (0-450); Eosinophils Percent Auto 0.1 % (2-4); Hematocrit 28.3 % (41-53); Hemoglobin 9.8 g/dL (13.5-17.5); Lymphocytes Absolute Auto 600 /uL (1100-4500); Lymphocytes Percent Auto 12.5 % (25-40); Mean Corpuscular HGB Conc 34.8 % (30-36); Mean Corpuscular Hemoglobin 33.5 PG (26-34); Mean Corpuscular Volume 96.4 fL (80-100); Monocytes Absolute Auto 600 /uL (0-900); Monocytes Percent Auto 12.3 % (3-14); Neutrophils Absolute Auto 3600 /uL (1500-7000); Neutrophils Percent Auto 74.3 % (50-75); Platelet Count 140 X10^3/uL (150-400); Red Blood Cell Count 2.94 X10^6/uL (4.5-5.9); Red Cell Distribution Width 14.9 % (11.6-14.8); White Blood Cell Count 4.9 X10^3/uL (4.5-11.0)
[2023-06-06 05:25] LABS: BUN Creatinine Ratio 22.2 (6-22); Blood Urea Nitrogen 28 mg/dL (9-20); Calcium 8.2 mg/dL (8.4-10.2); Carbon Dioxide 26 mmol/L (22-32); Chloride 101 mmol/L (98-107); Estimated Glomerular Filt Rate 56 mL/min (>60); Glucose 155 mg/dL (80-110); HEMOLYSIS < 15 (0-50); Potassium 3.9 mmol/L (3.4-5.1); Sodium 133 mmol/L (137-145)
[2023-06-06 05:27] LABS: Albumin 3.2 g/dL (3.5-5.0); BUN Creatinine Ratio 22.2 (6-22); Blood Urea Nitrogen 28 mg/dL (9-20); Calcium 8.1 mg/dL (8.4-10.2); Carbon Dioxide 25 mmol/L (22-32); Chloride 100 mmol/L (98-107); Estimated Glomerular Filt Rate 56 mL/min (>60); Glucose 155 mg/dL (80-110); HEMOLYSIS < 15 (0-50); Magnesium 2.3 mg/dL (1.6-2.3); Phosphorous 2.5 mg/dL (2.3-3.7); Potassium 3.8 mmol/L (3.4-5.1); Sodium 134 mmol/L (137-145)
[2023-06-06 05:46] LABS: PTT Partial Thromboplastin Tim 83 SECONDS (26-36)
[2023-06-06] MEDS: ASPIRIN EC 81 MG TABLET PO (08:22)
[2023-06-06] MEDS: FAMOTIDINE 20 MG TABLET PO (08:22)
[2023-06-06] MEDS: INSULIN LISPRO 100 UNIT/ML 3ML VIAL SUBCUT ×4 (08:22→20:56)
[2023-06-06] MEDS: CLOPIDOGREL 75 MG TABLET PO (08:22)
--- NOTE | 2023-06-06 09:53 | P.TELICUPN_ITS ---
Subjective Subjective IF CAMERA ACTIVATED, patient seen via real-time interactive audiovisual communication: Camera activated Consent obtained for tele-building associate care: Yes Patient Location: ICU Provider location (State): Other participants/roles: RN & pharmacist Interval history: 83 y.o. male with the following active issues: 1) ESBL E.coli UTI/septic shock (shock has resolved) 2) NSTEMI probably due to diagnosis #1 w/ peak troponin - I of 1.95 3) [place]/ [place] [address] Patient was transferred back to ICU for having ventricular ectopy VS AFib with aberrancy , started on Amiodaron drip, currently in NSR vs. atrial arrhythmia w/ intermittently wide complex rhythms about 4-6 beats in length on rhythm strip.? Patient is hemodynamically stable, on RA and denies palpitations/angina. (1) NSTEMI (non-ST elevated myocardial infarction): ?Status:?Acute ?Plan: -Continue IV heparin x 48 hr /ASA/Plavix -Cardiology consult for further work up (2) NSVT (nonsustained ventricular tachycardia): ?Status:?Acute ?Plan: -See problem #3 (3) Tachycardia: ?Problem details: NSVT vs atrial fibrillation w/ aberrancy ?Status:?Acute ?Plan: -Continue amiodarone -Follow up on troponins, serum electrolytes (4) Atrial fibrillation: ?Qualifiers: ?Atrial fibrillation type:?unspecified? Qualified Code(s):?I48.91 - Unspecified atrial fibrillation ?Status:?Acute ?Plan: - Given the history of afib & high Chads score, After 48 hr may switch to Eliquis and Plavix if no CI for AC (5) Infection due to ESBL-producing Escherichia coli: ?Status:?Acute ?Plan: -Continue ertapenem (6) Heart failure with reduced ejection fraction: ?Status:?Acute ?Plan: -Currently on RA; combined systolic & diastolic HF, consider starting Lasix 40 mg daily PO - BMP daily, Keep K 4 & Mg 2 - Cardiology consult Current Medications Current Medications Medications: Home Medications aspirin 81 mg tablet,delayed release 81 mg PO QDAY ##0 06/25/13 [History Confirmed 06/03/23] multivit with min-folic acid-lutein 400 mcg-250 mcg chewable tablet (Centrum Silver) 1 tab PO DAILY #0 caps 06/25/13 [History Confirmed 06/03/23] ferrous sulfate 325 mg (65 mg iron) tablet 325 mg PO DAILY 01/23/19 [History Confirmed 06/03/23] cholecalciferol (vitamin D3) 25 mcg (1,000 unit) capsule 25 mcg PO DAILY 04/08/22 [History Confirmed 06/03/23] cyanocobalamin (vitamin B-12) 1,000 mcg tablet (Vitamin B-12) 1,000 mcg PO DAILY 04/08/22 [History Confirmed 06/03/23] lisinopril 2.5 mg tablet 2.5 mg PO DAILY #90 tabs 05/06/22 [Rx Confirmed 06/03/23] metformin 1,000 mg tablet 1,000 mg PO BID #180 tabs 05/06/22 [Rx Confirmed 06/03/23] clopidogrel 75 mg tablet (Plavix) 75 mg PO QDAY #90 tabs 06/17/22 [Rx Confirmed 06/03/23] albuterol sulfate 90 mcg/actuation breath activated powder inhaler,sensor 2 inh inhalation Q4-6H PRN COPD 09/23/22 [History Confirmed 06/03/23] fluticasone 250 mcg-salmeterol 50 mcg/dose blistr powdr for inhalation (Advair Diskus) 1 inh inhalation Q12H PRN Shortness Of Breath Or Wheezing 09/23/22 [History Confirmed 06/03/23] gabapentin 300 mg capsule 600 mg PO DAILY #180 caps 09/23/22 [Rx Confirmed 06/03/23] alpha lipoic acid 100 mg capsule 200 mg PO BID Neuropathy 02/27/23 [History Confirmed 06/03/23] finasteride 5 mg tablet 5 mg PO QDAY #90 tabs 05/30/23 [Rx Confirmed 06/03/23] atorvastatin 40 mg tablet (Lipitor) 40 mg PO HS #90 tabs 06/02/23 [Rx Confirmed 06/03/23] diphenhydramine 25 mg-acetaminophen 500 mg tablet (Tylenol PM Extra Strength) 2 tab DAILY 06/03/23 [History Confirmed 06/03/23] erythromycin 5 mg/gram (0.5 %) eye ointment mg ophthalmic (eye) 3XD eye surgery 06/03/23 [History] Visit Medications (administered) Generic Name Dose Route Start Last Admin Trade Name Fito PRN Reason Stop Dose Admin Acetaminophen 650 mg 06/03/23 05:22 06/04/23 21:47 Acetaminophen 325 Mg Tablet PO 650 mg Q6H PRN Administration Fever/Mild Pain (1-3) Aspirin 81 mg 06/03/23 09:00 06/06/23 08:22 Aspirin Ec 81 Mg Tablet PO 81 mg DAILY SERAFIN Administration Atorvastatin Calcium 40 mg 06/03/23 21:00 06/05/23 22:10 Atorvastatin 20 Mg Tablet PO 40 mg BEDTIME SERAFIN Administration Budesonide 0.5 mg 06/03/23 08:00 06/05/23 19:04 Budesonide 0.5 Mg/2 Ml Neb INH Not Given RTBID SERAFIN Clopidogrel Bisulfate 75 mg 06/03/23 09:00 06/06/23 08:22 Clopidogrel 75 Mg Tablet PO 75 mg DAILY SERAFIN Administration Famotidine 20 mg 06/06/23 09:00 06/06/23 08:22 Famotidine 20 Mg Tablet PO 20 mg DAILY SERAFIN Administration Sodium Chloride 1,000 mls @ 75 mls/hr 06/03/23 05:30 06/03/23 12:00 Normal Saline 0.9% IV 0 mls/hr CONT SERAFIN Infusion Heparin Sodium/Dextrose 25,000 unit in 500 mls @ 18.72 mls/hr 06/04/23 10:30 06/05/23 18:12 Heparin Drip IV 06/06/23 10:29 10.06 units/kg/hr CONT SERAFIN 15.7 mls/hr Administration Protocol 12 UNITS/KG/HR Amiodarone HCl/Dextrose 360 mg in 200 mls @ 16.7 mls/hr 06/06/23 02:00 06/06/23 01:48 Nexterone IV 06/06/23 13:59 16.7 ml/hr CONT SERAFIN 16.7 mls/hr Administration Protocol Insulin Human Lispro 0 unit 06/05/23 12:54 06/06/23 08:22 Insulin Lispro 100 Unit/Ml 3ml Vial SUBCUT 1 unit ACHS SERAFIN Administration Protocol Objective Labs 06/06/23 04:20 06/06/23 04:20 Labs: Laboratory Results - last 24 hr 06/05/23 06/05/23 06/05/23 10:46 10:46 16:42 WBC RBC Hgb Hct MCV MCH MCHC RDW Plt Count Neut % (Auto) Lymph % (Auto) [place] % (Auto) Eos % (Auto) Baso % (Auto) Neut # (Auto) Lymph # (Auto) [place] # (Auto) Eos # (Auto) Baso # (Auto) APTT 59 H Sodium Potassium Chloride Carbon Dioxide BUN Creatinine Estimated GFR BUN/Creatinine Ratio Glucose Calcium Phosphorus Magnesium Total Bilirubin AST ALT Alkaline Phosphatase Total Creatine Kinase Troponin I 1.950 H* 1.330 H* Total Protein Albumin Globulin Albumin/Globulin Ratio 06/05/23 06/05/23 06/06/23 19:57 19:57 04:20 WBC 6.2 4.9 RBC 3.16 L 2.94 L Hgb 10.4 L 9.8 L Hct 30.7 L 28.3 L MCV 97.0 96.4 MCH 33.0 33.5 MCHC 34.1 34.8 RDW 15.1 H 14.9 H Plt Count 154 140 L Neut % (Auto) 82.7 H 74.3 Lymph % (Auto) 7.7 L 12.5 L [place] % (Auto) 9.1 12.3 Eos % (Auto) 0.0 L 0.1 L Baso % (Auto) 0.5 0.8 Neut # (Auto) 5100 3600 Lymph # (Auto) 500 L 600 L [place] # (Auto) 600 600 Eos # (Auto) 0 0 Baso # (Auto) 0 0 APTT Sodium 132 L Potassium 4.3 Chloride 100 Carbon Dioxide 25 BUN 28 H Creatinine 1.25 Estimated GFR 56 L BUN/Creatinine Ratio 22.4 H Glucose 172 H Calcium 8.5 Phosphorus Magnesium 1.8 Total Bilirubin 1.1 AST 251 H ALT 132 H Alkaline Phosphatase 288 H D Total Creatine Kinase 102 Troponin I 1.350 H* Total Protein 6.5 Albumin 3.5 Globulin 3.0 Albumin/Globulin Ratio 1.2 06/06/23 06/06/23 06/06/23 04:20 04:20 04:20 WBC RBC Hgb Hct MCV MCH MCHC RDW Plt Count Neut % (Auto) Lymph % (Auto) [place] % (Auto) Eos % (Auto) Baso % (Auto) Neut # (Auto) Lymph # (Auto) [place] # (Auto) Eos # (Auto) Baso # (Auto) APTT 83 H* D Sodium 133 L 134 L Potassium 3.9 3.8 Chloride 101 100 Carbon Dioxide 26 25 BUN 28 H 28 H Creatinine 1.26 H 1.26 H Estimated GFR 56 L 56 L BUN/Creatinine Ratio 22.2 H 22.2 H Glucose 155 H 155 H Calcium 8.2 L 8.1 L Phosphorus 2.5 Magnesium 2.3 Total Bilirubin AST ALT Alkaline Phosphatase Total Creatine Kinase Troponin I Total Protein Albumin 3.2 L Globulin Albumin/Globulin Ratio Exam Vital Signs (past 8 hours): - 06/06/23 02:00 06/06/23 02:00 06/06/23 03:00 Temperature Pulse Rate 81 Respiratory Rate Blood Pressure 132/81 114/65 Pulse Oximetry 97 Oxygen Delivery Method Oxygen Flow Rate 06/06/23 03:00 06/06/23 04:00 06/06/23 04:00 Temperature Pulse Rate 76 76 Respiratory Rate Blood Pressure 116/71 Pulse Oximetry 92 97 Oxygen Delivery Method Oxygen Flow Rate 06/06/23 05:00 06/06/23 05:00 06/06/23 06:00 Temperature Pulse Rate 75 Respiratory Rate Blood Pressure 121/71 113/68 Pulse Oximetry 98 Oxygen Delivery Method Oxygen Flow Rate 06/06/23 06:00 06/06/23 07:00 06/06/23 08:47 Temperature 98 F Pulse Rate 71 76 Respiratory Rate 18 Blood Pressure 121/71 Pulse Oximetry 98 98 Oxygen Delivery Method Room Air Oxygen Flow Rate 0 06/06/23 07:00 06/06/23 07:00 06/06/23 08:00 Temperature Pulse Rate 76 Respiratory Rate Blood Pressure 122/69 121/71 Pulse Oximetry 98 Oxygen Delivery Method Oxygen Flow Rate 06/06/23 08:00 Temperature Pulse Rate 74 Respiratory Rate Blood Pressure Pulse Oximetry 97 Oxygen Delivery Method Oxygen Flow Rate Fraction of Inspired Oxygen 21 SaO2/FiO2 Ratio 442 Oxygen Delivery Method Room Air Oxygen Flow Rate 0 Quality TeleICU VTE Deep Vein Thrombosis/Pulmonary Embolism Present on Admission: No
[2023-06-06] MEDS: BUDESONIDE 0.5 MG/2 ML NEB INH ×3 (10:04→19:50)
--- NOTE | 2023-06-06 10:35 | PT-IP ANOTE ---
Pt on hold from PT yesterday. Per hospitalist during interdisciplinary rounds meeting: Pt continues to have episodes for v-tach and is receiving amiodarone and PT to hold at this time per hospitalist.
[2023-06-06] MEDS: FUROSEMIDE 40 MG TABLET PO (10:38)
[2023-06-06 12:54] LABS: PTT Partial Thromboplastin Tim 65 SECONDS (26-36)
[2023-06-06] MEDS: AMIODARONE 180 MG/100 ML PIGGYBACK 16.7 MG IV (13:07)
--- NOTE | 2023-06-06 14:57 | CM.DPC ---
DCP Cont: Per MD, pt had a run of VTACH and now currently to have two doses of Amio drip with plan of transition to orals on Sat and then likely can d/c on Sat if remains medically stable. DAYO called [facility] and updated on above and faxed midline insertion note, MD orders/script, progress note to review. [facility] confirms plan is if pt discharges Sat to get his IV-Abx dose at the hospital and then [facility] RN will meet at pt's home and provide supplies, teaching, and next IV-Abx dose on Friday. Plan: SW to follow closely with pt/spouse if medically stable to d/c tomorrow Sat after IV-Abx dose and update [facility] so they can meet in pt's home on Fri for next abx dose and will need to fax d/c summary to [facility] at discharge. Emely Blackman MSW
[2023-06-06] MEDS: ERTAPENEM 1 GM in SODIUM CHLORIDE 0.9% 100 ML IV (15:17)
--- NOTE | 2023-06-06 17:20 | PM.PN.1 ---
Subjective Subjective Interval history: Patient overnight at runs of [facility] so moved to ICU and placed on amio drip. HR now stable in 80's. Patient otherwise feels fine. at bedside and questions were answered. Exam Vital Signs (past 8 hours): - 06/06/23 10:14 06/06/23 10:00 06/06/23 10:00 Temperature Pulse Rate 80 83 Respiratory Rate 16 Blood Pressure 104/57 L Pulse Oximetry 97 96 Oxygen Delivery Method Room Air Fraction of Inspired Oxygen 21 06/06/23 11:00 06/06/23 11:00 06/06/23 12:00 Temperature Pulse Rate 78 Respiratory Rate Blood Pressure 100/60 137/69 Pulse Oximetry 96 Oxygen Delivery Method Fraction of Inspired Oxygen 06/06/23 12:00 06/06/23 13:00 06/06/23 13:00 Temperature 98 F Pulse Rate 78 77 Respiratory Rate 18 Blood Pressure 117/61 Pulse Oximetry 97 96 Oxygen Delivery Method Fraction of Inspired Oxygen 06/06/23 11:55 06/06/23 14:00 06/06/23 14:00 Temperature Pulse Rate 78 Respiratory Rate Blood Pressure 112/59 L Pulse Oximetry 96 Oxygen Delivery Method Room Air Fraction of Inspired Oxygen 06/06/23 15:00 06/06/23 15:00 06/06/23 15:00 Temperature Pulse Rate 77 Respiratory Rate Blood Pressure 116/70 Pulse Oximetry 96 Oxygen Delivery Method Room Air Fraction of Inspired Oxygen 06/06/23 16:04 06/06/23 16:05 06/06/23 16:05 Temperature 98 F Pulse Rate 74 83 Respiratory Rate 18 Blood Pressure 129/72 Pulse Oximetry 88 L 98 Oxygen Delivery Method Fraction of Inspired Oxygen Fraction of Inspired Oxygen 21 SaO2/FiO2 Ratio 461 Oxygen Delivery Method Room Air Oxygen Flow Rate 0 Narrative Exam Narrative: GEN: no acute distress, left eye sewn shut from recent eye surgery CV: regular rate and rhythm, no murmurs PULM: clear bilaterally, no wheezes, rhonchi, rales ABD: soft, nontender, nondistended, no organomegaly EXT: warm and well perfused with no edema NEURO: awake, alert, oriented Objective Labs 06/06/23 04:20 06/06/23 04:20 Labs: Laboratory Results - last 24 hr 06/05/23 06/05/23 06/05/23 16:42 19:57 19:57 WBC 6.2 RBC 3.16 L Hgb 10.4 L Hct 30.7 L MCV 97.0 MCH 33.0 MCHC 34.1 RDW 15.1 H Plt Count 154 Neut % (Auto) 82.7 H Lymph % (Auto) 7.7 L Sutter % (Auto) 9.1 Eos % (Auto) 0.0 L Baso % (Auto) 0.5 Neut # (Auto) 5100 Lymph # (Auto) 500 L Sutter # (Auto) 600 Eos # (Auto) 0 Baso # (Auto) 0 APTT Sodium 132 L Potassium 4.3 Chloride 100 Carbon Dioxide 25 BUN 28 H Creatinine 1.25 Estimated GFR 56 L BUN/Creatinine Ratio 22.4 H Glucose 172 H Calcium 8.5 Phosphorus Magnesium 1.8 Total Bilirubin 1.1 AST 251 H ALT 132 H Alkaline Phosphatase 288 H D Total Creatine Kinase 102 Troponin I 1.330 H* 1.350 H* Total Protein 6.5 Albumin 3.5 Globulin 3.0 Albumin/Globulin Ratio 1.2 06/06/23 06/06/23 06/06/23 04:20 04:20 04:20 WBC 4.9 RBC 2.94 L Hgb 9.8 L Hct 28.3 L MCV 96.4 MCH 33.5 MCHC 34.8 RDW 14.9 H Plt Count 140 L Neut % (Auto) 74.3 Lymph % (Auto) 12.5 L Sutter % (Auto) 12.3 Eos % (Auto) 0.1 L Baso % (Auto) 0.8 Neut # (Auto) 3600 Lymph # (Auto) 600 L Sutter # (Auto) 600 Eos # (Auto) 0 Baso # (Auto) 0 APTT Sodium 133 L 134 L Potassium 3.9 3.8 Chloride 101 100 Carbon Dioxide 26 25 BUN 28 H 28 H Creatinine 1.26 H 1.26 H Estimated GFR 56 L 56 L BUN/Creatinine Ratio 22.2 H 22.2 H Glucose 155 H 155 H Calcium 8.2 L 8.1 L Phosphorus 2.5 Magnesium 2.3 Total Bilirubin AST ALT Alkaline Phosphatase Total Creatine Kinase Troponin I Total Protein Albumin 3.2 L Globulin Albumin/Globulin Ratio 06/06/23 06/06/23 04:20 12:35 WBC RBC Hgb Hct MCV MCH MCHC RDW Plt Count Neut % (Auto) Lymph % (Auto) Sutter % (Auto) Eos % (Auto) Baso % (Auto) Neut # (Auto) Lymph # (Auto) Sutter # (Auto) Eos # (Auto) Baso # (Auto) APTT 83 H* D 65 H D Sodium Potassium Chloride Carbon Dioxide BUN Creatinine Estimated GFR BUN/Creatinine Ratio Glucose Calcium Phosphorus Magnesium Total Bilirubin AST ALT Alkaline Phosphatase Total Creatine Kinase Troponin I Total Protein Albumin Globulin Albumin/Globulin Ratio PFSH Medical History AAA (abdominal aortic aneurysm) BPH (benign prostatic hyperplasia) BPH w urinary obs/LUTS Cerebrovascular disease COPD (chronic obstructive pulmonary disease) Do not resuscitate Essential hypertension Former smoker History of malignant neoplasm of bladder History of urinary calculi Hx: UTI (urinary tract infection) Left carotid artery occlusion Mild chronic anemia Mixed hyperlipidemia Neoplasm of uncertain behavior of prostate Peripheral neuropathy Polyneuropathy, unspecified 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 Septic shock from ESBL UTI/bacteremia with history of BPH and bladder cancer -patient with positive urine, and blood cultures -PCR concerning for positive expression of ESBL gene -changed to ertapenem from meropenem -repeat BC negative -CT KUB without kidney or bladder stones -has PICC, home IV abx already arranged. Will f/u with Dr. Ram ID in clinic. -plan for 1g ertapenem daily for 2 weeks 2. Cardiac demand ischemia -troponin elevated, but no chest pain or shortness of breath -suspect secondary to septic shock -already on antiplatelet agents due to hx of CVA -on heparin drip x48 hours to finish on -Echo with EF 30%, mod-severe global hypokinesis of LV -trended trop to peak and now downtrending -outpatient cardiology referral placed to [facility] 3. History of COPD -home meds ordered, not in exacerbation 4. Hypomagnesemia -resolved with IV mag 5. VTach -overnight on 06/06 had runs of VT, placed on amio drip -continue 24 hour infusion then transition to po amio -f/u with cards as above CODE: DNR Dispo: Home with IV abx on 06/07 pending no recurrent VT. Quality VTE Deep Vein Thrombosis/Pulmonary Embolism Present on Admission: No
[2023-06-06] MEDS: AMIODARONE 200 MG TABLET 400 MG PO (19:12)
--- NOTE | 2023-06-06 20:11 | PM.ICURNDS ---
- :: This patient was seen via real time interactive two-way audiovisual telecommunication. Note: Patient was evaluated by two way audio-visual pathway. He was transferred back to ICU for having ventricular ectopy vs AFib with aberrancy, was started on Amiodaron drip, currently in NSR.? Patient is hemodynamically stable, on RA and denies palpitations/angina. Amiodarone gtt now discontinued. He is on Heparin gtt and heparin subcu. Requested RN to discontinue heparin subcu.
[2023-06-06] MEDS: ATORVASTATIN 20 MG TABLET 40 MG PO (20:56)
[2023-06-07] VITALS (11 sets, daily range): BP systolic 112–119; BP diastolic 62–80; PULSE 67–79; O2SAT 95–97
[2023-06-07 04:28] LABS: PTT Partial Thromboplastin Tim 56 SECONDS (26-36)
[2023-06-07 04:29] LABS: Blood Urea Nitrogen 31 mg/dL (9-20); Calcium 8.3 mg/dL (8.4-10.2); Carbon Dioxide 31 mmol/L (22-32); Chloride 98 mmol/L (98-107); Estimated Glomerular Filt Rate 49 mL/min (>60); Glucose 142 mg/dL (80-110); HEMOLYSIS < 15 (0-50); Potassium 3.4 mmol/L (3.4-5.1); Sodium 134 mmol/L (137-145)
[2023-06-07 04:48] LABS: Hematocrit 30.4 % (41-53); Hemoglobin 10.4 g/dL (13.5-17.5); Mean Corpuscular HGB Conc 34.3 % (30-36); Mean Corpuscular Hemoglobin 32.9 PG (26-34); Platelet Count 146 X10^3/uL (150-400); Red Blood Cell Count 3.17 X10^6/uL (4.5-5.9); Red Cell Distribution Width 14.9 % (11.6-14.8); White Blood Cell Count 5.7 X10^3/uL (4.5-11.0)
[2023-06-07 05:00] LABS: Add Manual Diff / Slide Review YES
[2023-06-07 05:20] LABS: Neutrophils Absolute Manual 4218 /uL (3000-5900); Total Cells Counted 100
[2023-06-07 05:21] LABS: RBC Morphology Normal Morphology
[2023-06-07] MEDS: CLOPIDOGREL 75 MG TABLET PO (08:01)
[2023-06-07] MEDS: AMIODARONE 200 MG TABLET 400 MG PO (08:01)
[2023-06-07] MEDS: FUROSEMIDE 40 MG TABLET PO (08:01)
[2023-06-07] MEDS: FAMOTIDINE 20 MG TABLET PO (08:01)
[2023-06-07] MEDS: POTASSIUM CHLORIDE 20 MEQ TAB 40 MEQ PO (08:01)
[2023-06-07] MEDS: ASPIRIN EC 81 MG TABLET PO (08:01)
[2023-06-07] MEDS: HEPARIN 5,000 UNIT/ML VIAL 5000 UNIT SUBCUT (08:02)
[2023-06-07] MEDS: INSULIN LISPRO 100 UNIT/ML 3ML VIAL SUBCUT (08:02)
[2023-06-07] MEDS: ERTAPENEM 1 GM in SODIUM CHLORIDE 0.9% 100 ML IV (09:48)
--- NOTE | 2023-06-07 10:42 | PT.IIE ---
Current Diagnoses Sepsis, unspecified organism (06/03/23) Other bacterial infections of unspecified site (06/03/23) Mixed hyperlipidemia (06/03/23) Hypomagnesemia (06/03/23) Non-ST elevation (NSTEMI) myocardial infarction (06/03/23) Other ventricular tachycardia (06/03/23) Unspecified atrial fibrillation (06/03/23) Unspecified systolic (congestive) heart failure (06/03/23) Cerebrovascular disease, unspecified (06/03/23) Abdominal aortic aneurysm, without rupture (06/03/23) Chronic obstructive pulmonary disease, unspecified (06/03/23) Other obstructive and reflux uropathy (06/03/23) Urinary tract infection, site not specified (06/03/23) Benign prostatic hyperplasia with lower urinary tract symptoms (06/03/23) Tachycardia, unspecified (06/03/23) Severe sepsis with septic shock (06/03/23) Other specified abnormalities of plasma proteins (06/03/23) Extended spectrum beta lactamase (ESBL) resistance (06/03/23) Do not resuscitate (06/03/23) Surgical History (Last Reviewed 06/03/23 @ 08:20 by Emmie Marina MD) H/O lithotripsy H/O transurethral resection of prostate H/O vasectomy History of colonoscopy History of surgery on arm Hx of bilateral cataract extraction Hx of cystoscopy Hx of transurethral destruction of bladder lesion Medical History (Last Reviewed 06/03/23 @ 08:20 by Emmie Marina MD) AAA (abdominal aortic aneurysm) BPH (benign prostatic hyperplasia) BPH w urinary obs/LUTS Cerebrovascular disease COPD (chronic obstructive pulmonary disease) Do not resuscitate Essential hypertension Former smoker History of malignant neoplasm of bladder History of urinary calculi Hx: UTI (urinary tract infection) Left carotid artery occlusion Mild chronic anemia Mixed hyperlipidemia Neoplasm of uncertain behavior of prostate Peripheral neuropathy Polyneuropathy, unspecified 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 Physical Therapy Inpatient Evaluation/Re-Eval M1 PT/OT-IP Prior Functional Status Start: 06/07/23 10:45 Freq: NEEDED Status: Active Protocol: Document 06/07/23 10:42 DLM (Rec: 06/07/23 11:12 DLM [id number]) Medical Review Prior Functional Status Medical History Reviewed Yes Diet/Fluid Consistency Regular Communication left eye sewn closed from procedure Mobility and Gait Independent without a device, ambulates community distances, active Activities of Daily Living and IADL's Independent Social History Household Members spouse Living Arrangements House Number of Floors (Floors) One Floor Number of Stairs To Enter/Railing? 5 with rail Home Environment Standard Height Toilet Home Equipment Front Wheel Walker,Raised Toilet Seat w/Armrests,Shower Seat with Backrest,Grab Bars In Shower Employment Status Retired Additional Social History Comment His picked up equipment from [employer] yesterday M2 PT-IP Current Condition Start: 06/07/23 10:45 Freq: NEEDED Status: Active Protocol: Document 06/07/23 10:42 DLM (Rec: 06/07/23 11:10 DLM [id number]) Physical Therapy Current Condition Current Condition Evaluation Date 06/07/23 Treatment Diagnosis weakness, impaired gait, Septic Onset Date 06/03/23 M3 PT-IP Subjective Start: 06/07/23 10:45 Freq: NEEDED Status: Active Protocol: Document 06/07/23 10:42 DLM (Rec: 06/07/23 11:10 DLM [id number]) Subjective Physical Therapy Visit Type Type Initial Evaluation Visit Start Time 10:15 Visit Stop Time 10:42 Total Visit Minutes 27 Number of ENTERPRISE INTEGRATION DEVELOPER Visits 0 Physical Therapy Visit Comments Patient Comments He reports he feels better and is ready to go home. His is able to assist him at home . His picked up equipment at [employer] yesterday to help at home at discharge. Patient Goals Discharge home Therapy Pain Assessment Pain When Pain Assessed During Mobility Pain Present Pain Present Denied Pain M4 PT-IP Mobility and Gait Start: 06/07/23 10:45 Freq: NEEDED Status: Active Protocol: Document 06/07/23 10:42 DLM (Rec: 06/07/23 11:10 DLM [id number]) PT-Bed Mobility Assessment Rolling Level of Assist Independent Supine to Sit Supine to Sit Independent Scooting Scooting to Edge of Bed Independent PT-Transfer Assessment Sit to and From Stand Sit to and from Stand Independent,Use of Upper Extremities Equipment Transfer Assistive Device Gait Belt,Front Wheeled Walker Transfers Transfer Destination Bed,Chair Transfer Technique Stand Step Pivot Transfer Ability Level of Assist Standby Assistance,Use of Upper Extremities Comments Mobility Comments slow pace gettting up but functional, decreased standing balance that he manages with UE support on the FWW or IV pole Gait Assessment Gait Gait Assistance Required: Standby Assistance Distance (Feet) 100 Assistive Devices Assistive Device Gait Belt,Front Wheeled Walker Gait Deviations General Gait Pattern Decreased Stride Length Factors Limiting Gait Function Factors Limiting Gait Function Decreased Activity Tolerance, Poor Balance Comments Gait Comments he is not safe taking steps without UE support, he used either the IV pole or the FWW, recommend he use the FWW for home Stair Climbing Assessment Comments Stair Climbing Comments pt declined the need to do stair training PT-Balance Assessment Sitting Balance and Reactions Static Sitting Balance Ability Normal Dynamic Sitting Balance Ability Good Standing Balance and Reactions Static Standing Balance Ability Fair Dynamic Standing Balance Ability Fair Device Used better with FWW Balance Tests Single Limb Standing unable Romberg unsteady Tandem Standing unable M5 PT-IP Objective Assessments Start: 06/07/23 10:45 Freq: NEEDED Status: Active Protocol: Document 06/07/23 10:42 DLM (Rec: 06/07/23 11:10 [facility] [id number]) Orientation Orientation/Cognition Level of Alertness Alert Orientation Name,Age,Birthday,Month,Date, Year,Day of Week,Place, Situation Language Function Ability No Deficits Noted Safety Awareness Understands Safety Issues Memory Description No Deficits Noted Comments left eye sewn closed Gross Range of Motion Upper Extremity ROM Assessment Right Impaired Impairments right shoulder elevation to 90 degrees which pt reports is baseline Lower Extremity ROM Assessment Within Functional Limits Strength Upper Extremity Strength Assessment Within Functional Limits Lower Extremity Strength Assessment Within Functional Limits Coordination Assessment Gross Coordination Gross Coordination WNL Sensation Assessment Sensation Gross Sensation Right LE Impaired,Left LE Impaired Sensation Description Numbness Comments Sensation Comments hx of neuropathy in his feet, pt reports no changes from baseline Muscle Tone Muscle Tone WNL Yes M6 PT-IP Treatment Start: 06/07/23 10:45 Freq: NEEDED Status: Active Protocol: Document 06/07/23 10:42 DLM (Rec: 06/07/23 11:10 DL [id number]) Physical Therapy Treatment Education Education Provided Safety Other Treatments Other Treatment Performed educated pt and his in safety issues to decrease fall risks including use of FWW at discharge and slowly increasing his activity level at home. M7 PT-IP Assessment and Plan Start: 08/19/23 10:45 Freq: NEEDED Status: Active Protocol: Document 06/07/23 10:42 DLM (Rec: 06/07/23 11:10 DL [id number]) PT Summary Assessment and Plan Potential Rehabilitation Potential Good Status of Condition at Evaluation Evolving Summary Impairments Balance,Transfers,Gait, Activity Tolerance Assessment Summary Balaji is alert and resting in bed today. He reports feeling better. His got equipment to use at home from [employer]. Pt presents with decreased standing balance and decreased activity tolerance today. No light-headedness with activity only fatigue. He will need a FWW for gait to manage his fall risks. He tolerated gait in the dhaliwal and sitting up in the recliner today. He could benefit from home health PT to progress his activity tolerance and balance training. His is able to assist him at discharge. Pt appears safe to discharge home when he is medically cleared. Will continue physical therapy while he is hospitalized to help in his functional recovery. Goals Bed Mobility Goal Independent Transfer Goal Independent,Front Wheeled Walker Gait Goal Independent,Front Wheel Walker Gait Distance 200 feet Other Goals Up/down 5 steps with rail and SBA Days to Meet Goals 2 Frequency of Treatment Frequency Of Treatment Once a Day Treatment Plan Physical Therapy Treatment Plan Bed Mobility Training,Transfer Training,Gait Training, Therapeutic Exercise,Balance Retraining,Discharge Planning, Neuromuscular Re-ed Other Recommendations and Next Treatment continue PT if pt stays in the [facility], safe to go home with his when medically cleared Precautions Other Precautions left eye sewn closed at this time Recommendations To Nursing Amount of Assist Needed Standby Assistance Discharge Recommendations PT Discharge Recommendations Home with Assistance,Home Health Other Discharge Recommendations pt should use FWW for gait at home Transportation Needs at Discharge Private Vehicle
--- NOTE | 2023-06-07 15:43 | CM.DPC ---
DCP Continued: Per provider in rounds, patient will d/c home today with spouse and home infusions. SEC ACCOUNTANT reviewed EMR. SEC ACCOUNTANT spoke with Nadir, pharmacist at [facility]. He reports they have everything they need except a d/c summary. SEC ACCOUNTANT agreed to fax as soon as available. Not available as of 1549. Plan: patient will d/c home today with family and home infusions. CM team will fax d/c summary when available. CM team will continue to follow as needed. TEGAN Jean
--- NOTE | 2023-06-08 18:37 | P.DS_ITS ---
History of Present Illness History of Present Illness Date Patient Seen: 06/03/23 Time Patient Seen: 05:06 Date of Onset of Symptoms: 06/02/23 Chief complaint: feels bad UTI dx this am on ABX Narrative: 84 y/o M presented to ED with fever and chills. He saw his PCP yesterday and was told he has UTI and given antibiotics but his chills worsened and he also developed nausea. In the ED he was found to have fever and subsequently became hypotensive which responded to ivf and levaphed and his condition improved. He was also found to have leukocytosis with left-shift and elevated lactic acid as well as abnormal U/a. There is no reported diarrhea or n/v or chest pain. Discharge Providers Provider Date of admission: 06/03/23 04:11 Discharge Date: 06/07/23 Primary care physician: Lul Choi MD Consults: 06/03/23 07:48 Consult to Tele-ruby on rails web developer Routine Comment: Consulting Provider: [employer] Reason for consultation: Administrative Project Coordinator services 06/05/23 10:21 Consult to Physical Therapy Evaluate & Treat Comment: Physician Instructions: Evaluate and Treat Discharge provider: Eliezer Guadalupe MD Summary Hospital Course Discharge Diagnosis: 1. Septic shock from ESBL UTI/bacteremia 2. BPH 3. History of bladder cancer 4. Cardiac demand ischemia 5. Ventricular tachycardia 6. COPD Hospital Course: Mr. Delacruz was admitted with septic shock from what ultimately resulted as an ESBL UTI and bacteremia. He was placed on meropenem and he improved and came off pressors. He is planned to be on antibiotics through June 16, for a 2 week course. He was referred to infectious disease clinic. He has also found to have cardiac demand ischemia secondary to septic shock. He additionally had runs of ventricular tachycardia and was placed on amiodarone with resolution and is discharged to follow up with cardiology. He should follow up with his PCP within 1-2 weeks. Exam Vital Signs (past 8 hours): Fraction of Inspired Oxygen 21 SaO2/FiO2 Ratio 461 Oxygen Delivery Method Room Air Oxygen Flow Rate 0 Narrative Exam Narrative: GEN: no acute distress, left eye sewn shut from recent eye surgery CV: regular rate and rhythm, no murmurs PULM: clear bilaterally, no wheezes, rhonchi, rales ABD: soft, nontender, nondistended, no organomegaly EXT: warm and well perfused with no edema NEURO: awake, alert, oriented Objective Labs 06/07/23 03:55 06/07/23 03:55 PFSH Medical History AAA (abdominal aortic aneurysm) BPH (benign prostatic hyperplasia) BPH w urinary obs/LUTS Cerebrovascular disease COPD (chronic obstructive pulmonary disease) Do not resuscitate Essential hypertension Former smoker History of malignant neoplasm of bladder History of urinary calculi Hx: UTI (urinary tract infection) Left carotid artery occlusion Mild chronic anemia Mixed hyperlipidemia Neoplasm of uncertain behavior of prostate Peripheral neuropathy Polyneuropathy, unspecified 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 Delacruz was admitted with a urinary infection that also get into his blood. He should be on IV antibiotics for a total of 2 weeks through June 16. He also has a weak heart, possibly from the infec tion, and was started on new meds to protect his heart. He should follow up with cardiology, and had a referral sent. He also had a referral to infectious disease specialist for his infection. Discharge orders & Medications Prescriptions: New amiodarone 200 mg Tablet 200 mg PO BIDWM Qty: 60 0RF ertapenem 1 gram Recon Soln 1 g IV Q24H Qty: 10 0RF metoprolol succinate 25 mg tablet extended release 24 hr 12.5 mg PO DAILY Qty: 30 0RF lisinopril 2.5 mg tablet 2.5 mg PO DAILY Qty: 30 0RF Continued ferrous sulfate 325 mg (65 mg iron) tablet 325 mg PO DAILY aspirin 81 MG tablet,delayed release (DR/EC) 81 mg PO QDAY Qty: 0 Centrum Silver 400-250 mcg Tablet,Chewable 1 tab PO DAILY Qty: 0 lisinopril 2.5 mg tablet 2.5 mg PO DAILY Qty: 90 4RF metformin 1,000 mg tablet 1,000 mg PO BID Qty: 180 4RF clopidogrel [Plavix] 75 mg tablet 75 mg PO QDAY Qty: 90 3RF finasteride 5 mg tablet 5 mg PO QDAY Qty: 90 3RF atorvastatin [Lipitor] 40 mg tablet 40 mg PO HS Qty: 90 3RF albuterol sulfate 90 mcg/actuation aero powdr breath act w/sensor 2 inh inhalation Q4-6H PRN (Reason: COPD) gabapentin 300 mg capsule 600 mg PO DAILY Qty: 180 3RF cholecalciferol (vitamin D3) 25 mcg (1,000 unit) capsule 25 mcg PO DAILY cyanocobalamin (vitamin B-12) [Vitamin B-12] 1,000 mcg tablet 1,000 mcg PO DAILY fluticasone propion-salmeterol [Advair Diskus] 250-50 mcg/dose blister with device 1 inh inhalation Q12H PRN (Reason: Shortness Of Breath Or Wheezing) Rx Instructions: Wixela alpha lipoic acid 100 mg capsule 200 mg PO BID diphenhydramine-acetaminophen [Tylenol PM Extra Strength] 25-500 mg Tablet 2 tab DAILY erythromycin 5 mg/gram (0.5 %) Ointment OPHTHALMIC (EYE) 3XD Rx Instructions: apply small amount to the eyelid three times daily after surgery Follow up/Referrals: Lul Choi MD [Primary Care Provider] - 1 Week (admitted to hospital esbl uti/bacteremia, 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 Discharge Date/Time: 06/07/23 11:30 Quality VTE Deep Vein Thrombosis/Pulmonary Embolism Present on Admission: No
== END 2023-06-07 11:30 | disposition home or self-care (01) | DRG 871 ==
LOC: ED 23:04 → AC 06-03 04:12 → ICU 06-03 05:11
PROVIDERS: Anesthesiology Critical Care Medicine; Family Medicine; Hospitalist; Internal Medicine; Internal Medicine Pulmonary Disease; Student in an Organized Health Care Education/Training Program; Admitting Provider Hospitalist; Emergency Provider Emergency Medicine; Family Provider Internal Medicine; PCP Internal Medicine; Referring Provider Emergency Medicine; Visit Provider Hospitalist
DX: A41.51 Sepsis due to Escherichia coli [E. coli] (principal); R65.21 Severe sepsis with septic shock; N39.0 Urinary tract infection, site not specified; I24.8 Other forms of acute ischemic heart disease; I47.20 Ventricular tachycardia, unspecified; J44.9 Chronic obstructive pulmonary disease, unspecified; E83.42 Hypomagnesemia; I48.91 Unspecified atrial fibrillation; N40.0 Benign prostatic hyperplasia without lower urinary tract symptoms; E11.9 Type 2 diabetes mellitus without complications; E78.2 Mixed hyperlipidemia; B96.20 Unspecified Escherichia coli [E. coli] as the cause of diseases classified elsewhere; I10 Essential (primary) hypertension; Z86.73 Personal history of transient ischemic attack (TIA), and cerebral infarction without residual deficits; Z79.84 Long term (current) use of oral hypoglycemic drugs; Z87.891 Personal history of nicotine dependence; Z66 Do not resuscitate; Z79.02 Long term (current) use of antithrombotics/antiplatelets; Z85.51 Personal history of malignant neoplasm of bladder
CPT/HCPCS: 36415; 36556; 36592; 71045; 74176; 80048; 80053; 80069; 81001; 81003; 82550; 82962; 83605; 83690; 83735; 83880; 84145; 84484; 85007; 85014; 85018; 85025; 85027; 85049; 85730; 87040; 87077; 87086; 87154; 87186; 87633; 87797; 93005; 93306; 94618; 94640; 96365; 96366; 96367; 97162; 99232; 99233; 99284; 99285; 99291; A9270; J0282; J0696; J1335; J1644; J1815; J1940; J2185; J3475; J7613

== ENCOUNTER → 2023-06-11 10:56 | Outpatient (CLI) | payer MEDICARE, OTHER, SELFPAY ==
[2023-06-03 04:36] VITALS: BMI 23.3
[2023-06-11 13:30] LABS: Appearance Urine UA SL CLOUDY; Bilirubin Urine UA NEGATIVE (NEGATIVE); Color Urine UA YELLOW; Glucose Urine UA NEGATIVE (Negative); Ketones Urine UA NEGATIVE (NEGATIVE); Leukocyte Esterase Urine UA TRACE (NEGATIVE); Nitrite Urine UA NEGATIVE (Negative); Occult Blood Urine UA NEGATIVE (Negative); Protein Urine UA TRACE (Negative); Urobilinogen Urine UA 0.2 E.U./dL (0.2)
[2023-06-11 13:41] LABS: Bacteria Urine None Seen; Culture Indicated Urine Specimen Cultured; RBC Urine None Seen (0-5/HPF); Squamous Epithelial Cell Urine 0-1 /HPF (0-5/HPF); WBC Urine 1-5/HPF (0-5/HPF)
[2023-06-11 15:03] LABS: Creatinine Urine Random 83.4 mg/dL
[2023-06-11 15:06] LABS: Microalbumin Urine Random 10.6 mg/dL (0-1.6)
== END ==
PROVIDERS: Family Provider Internal Medicine; PCP Internal Medicine; Visit Provider Internal Medicine
DX: I10 Essential (primary) hypertension (principal); A41.9 Sepsis, unspecified organism; N39.0 Urinary tract infection, site not specified
CPT/HCPCS: 81001; 82043; 82570; 87086

== ENCOUNTER → 2023-06-13 12:11 | Outpatient (CLI) | payer MEDICARE, OTHER, SELFPAY ==
[2023-06-03 04:36] VITALS: BMI 23.3
[2023-06-13 12:55] LABS: Hematocrit 28.6 % (41-53); Hemoglobin 9.9 g/dL (13.5-17.5); Mean Corpuscular HGB Conc 34.6 % (30-36); Mean Corpuscular Hemoglobin 33.9 PG (26-34); Mean Corpuscular Volume 97.9 fL (80-100); Platelet Count 274 X10^3/uL (150-400); Red Blood Cell Count 2.92 X10^6/uL (4.5-5.9); White Blood Cell Count 9.3 X10^3/uL (4.5-11.0)
[2023-06-13 13:48] LABS: Alanine Aminotransferase 102 IU/L (<50); Albumin 3.5 g/dL (3.5-5.0); Albumin Globulin Ratio 1.3 (1.0-2.8); Alkaline Phosphatase 298 U/L (38-126); Aspartate Aminotransferase 94 IU/L (17-59); BUN Creatinine Ratio 19.4 (6-22); Bilirubin Total 0.8 mg/dL (0.2-1.3); Blood Urea Nitrogen 27 mg/dL (9-20); Calcium 8.9 mg/dL (8.4-10.2); Carbon Dioxide 27 mmol/L (22-32); Chloride 102 mmol/L (98-107); Cholesterol 116 mg/dL (140-199); Estimated Glomerular Filt Rate 50 mL/min (>60); Globulin 2.7 g/dL (1.7-4.1); Glucose 97 mg/dL (80-110); HDL Cholesterol 35 mg/dL (40-60); HEMOLYSIS < 15 (0-50); LDL Cholesterol Calculated 51 mg/dL (<100); Sodium 137 mmol/L (137-145); Total Protein 6.2 g/dL (6.3-8.2); Triglycerides 150 mg/dL (35-150)
[2023-06-13 13:50] LABS: Potassium 5.6 mmol/L (3.4-5.1)
== END ==
PROVIDERS: Family Provider Internal Medicine; PCP Internal Medicine; Referring Provider Internal Medicine; Visit Provider Internal Medicine
DX: E11.42 Type 2 diabetes mellitus with diabetic polyneuropathy (principal); A49.8 Other bacterial infections of unspecified site; I50.20 Unspecified systolic (congestive) heart failure; Z16.12 Extended spectrum beta lactamase (ESBL) resistance
CPT/HCPCS: 36415; 80053; 80061; 85027

== ENCOUNTER 2023-06-17 13:54 | Emergency (ER) | payer MEDICARE, OTHER, SELFPAY ==
[2023-06-03 04:36] VITALS: BMI 23.3
[2023-06-17] VITALS (19 sets, daily range): BP systolic 136–183; BP diastolic 65–98; PULSE 61–78; RESP 13–24; TEMP 36.6; O2SAT 93–99; BMI 23.7
--- NOTE | 2023-06-17 14:15 | DI.RAD.S_ITS ---
PROCEDURE: XR HIP W PEL IF DONE LT 2V INDICATIONS: fall with injury TECHNIQUE: AP pelvis with lateral view(s) of the left hip(s). COMPARISON: None. FINDINGS: Bones: No fractures or dislocations. Pelvic ring appears intact. No suspicious bony lesions. Soft tissues: The visualized bowel gas pattern is normal. No suspicious soft tissue calcifications. IMPRESSION: No acute osseous abnormality. If clinical symptoms persist or clinical suspicion for pathology is high, consider cross-sectional imaging such as CT or MRI for further evaluation. Dictated by: Kvng Garcia M.D. on 06/17/2023 at 15:11 Approved by: Kvng Garcia M.D. on 06/17/2023 at 15:13
--- NOTE | 2023-06-17 14:22 | DI.RAD.S_ITS ---
PROCEDURE: XR CHEST 1V INDICATIONS: AMS TECHNIQUE: One view of the chest was acquired. COMPARISON: [facility], CR, XR CHEST 1V, 06/03/2023, 3:13. FINDINGS: Surgical changes and devices: Surgical clips in the right lower neck. Lungs and pleura: Lungs are clear. No pleural effusions or pneumothorax. Mediastinum: Mediastinal contours appear normal. Heart size is normal. Bones and chest wall: No suspicious bony lesions. Overlying soft tissues appear unremarkable. IMPRESSION: No acute cardiopulmonary disease. Dictated by: Kvng Garcia M.D. on 06/17/2023 at 15:09 Approved by: Kvng Garcia M.D. on 06/17/2023 at 15:10
--- NOTE | 2023-06-17 14:29 | ED.LOWEXIN ---
HPI - Extremity Injury (Lower) <Jenniffer Beal MD - Last Filed: 06/22/23 07:04> General Chief Complaint: Extremity Injury, Lower Stated Complaint: Poss hip fx Time Seen by Provider: 06/17/23 14:14 Source: patient and family Mode of arrival: Ambulatory History of Present Illness HPI Narrative: 83-year-old male with history of heart failure on amiodarone, recent sepsis secondary to ESBL E coli UTI, completed IV antibiotics (Merrem) presents by home from private vehicle for fatigue, confusion, generalized weakness. History obtained from patient and at bedside. states that patient was discharged from the hospital 06/08 and he seems to have gradually worsened. He was previously walking with with a cane, however he now has to walk with a walker and does not trust the patient to ambulate on his own due to his weaknes. Patient did fall several days ago onto his L hip. He says he doesn't think he hit his head but isn't sure. Related Data Home Medications Medication Instructions Recorded Confirmed aspirin 81 mg tablet,delayed 81 mg PO QDAY ##0 06/25/13 06/19/23 release multivit with min-folic 1 tab PO DAILY #0 caps 06/25/13 06/19/23 acid-lutein 400 mcg-250 mcg chewable tablet (Centrum Silver) ferrous sulfate 325 mg (65 mg 325 mg PO DAILY 01/23/19 06/19/23 iron) tablet cholecalciferol (vitamin D3) 25 25 mcg PO DAILY 04/08/22 06/19/23 mcg (1,000 unit) capsule cyanocobalamin (vitamin B-12) 1,000 mcg PO DAILY 04/08/22 06/19/23 1,000 mcg tablet (Vitamin B-12) albuterol sulfate 90 mcg/actuation 2 inh inhalation Q4-6H PRN COPD 09/23/22 06/19/23 breath activated powder inhaler,sensor fluticasone 250 mcg-salmeterol 50 1 inh inhalation Q12H PRN 09/23/22 06/19/23 mcg/dose blistr powdr for Shortness Of Breath Or Wheezing inhalation (Advair Diskus) alpha lipoic acid 100 mg capsule 200 mg PO BID Neuropathy 02/27/23 06/19/23 diphenhydramine 25 2 tab DAILY 06/03/23 06/19/23 mg-acetaminophen 500 mg tablet (Tylenol PM Extra Strength) erythromycin 5 mg/gram (0.5 %) eye mg ophthalmic (eye) 3XD eye surgery 06/03/23 06/19/23 ointment Previous Rx's Medication Instructions Recorded metformin 1,000 mg tablet 1,000 mg PO BID #180 tabs 05/06/22 clopidogrel 75 mg tablet (Plavix) 75 mg PO QDAY #90 tabs 06/17/22 gabapentin 300 mg capsule 600 mg PO DAILY #180 caps 09/23/22 finasteride 5 mg tablet 5 mg PO QDAY #90 tabs 05/30/23 atorvastatin 40 mg tablet (Lipitor) 40 mg PO HS #90 tabs 06/02/23 ertapenem 1 gram solution for 1 g IV Q24H #10 ea 06/07/23 injection lisinopril 2.5 mg tablet 2.5 mg PO DAILY #30 tabs 06/07/23 metoprolol succinate 25 mg 12.5 mg PO DAILY #30 tabs 06/07/23 tablet,extended release 24 hr Disabled Parking Permit 1 ea Not Applicable DAILY #1 ea 06/11/23 amiodarone 200 mg tablet 100 mg PO DAILY #60 tabs 06/16/23 Allergies Allergy/AdvReac Type Severity Reaction Status Date / Time amoxicillin [AMOXICILLIN] Allergy Severe hives Verified 06/19/23 07:52 penicillin V [PENICILLIN V] Allergy Unknown RASH Verified 06/19/23 07:52 tuberculin,PPD,multi-puncture AdvReac Severe swelling, Verified 06/19/23 07:52 [TUBERCULIN,PPD,MULTI-PUNCTURE] redness, scab Patient History <Jenniffer Beal MD - Last Filed: 06/22/23 07:04> Medical History AAA (abdominal aortic aneurysm) BPH (benign prostatic hyperplasia) BPH w urinary obs/LUTS Cerebrovascular disease COPD (chronic obstructive pulmonary disease) Do not resuscitate Essential hypertension Former smoker History of malignant neoplasm of bladder History of urinary calculi Hx: UTI (urinary tract infection) Left carotid artery occlusion Mild chronic anemia Mixed hyperlipidemia Neoplasm of uncertain behavior of prostate Peripheral neuropathy Polyneuropathy, unspecified 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 Surgical History H/O lithotripsy H/O transurethral resection of prostate H/O vasectomy History of colonoscopy History of surgery on arm Hx of bilateral cataract extraction Hx of cystoscopy Hx of transurethral destruction of bladder lesion Social History household members: spouse Smoking Status: Former smoker alcohol intake: former Smoking Status: Former smoker alcohol intake frequency: holidays/special occasions only Substance Use Type: does not use Exam <Jenniffer Beal MD - Last Filed: 06/22/23 07:04> Initial Vital Signs Initial Vital Signs: Vital Signs Temperature 97.8 F 06/17/23 14:03 Pulse Rate 61 06/17/23 14:03 Respiratory Rate 18 06/17/23 14:03 Blood Pressure 136/66 06/17/23 14:03 Pulse Oximetry 99 06/17/23 14:03 Oxygen Delivery Method Room Air 06/17/23 14:03 <Eliseo Nixon DO - Last Filed: 06/17/23 18:36> Initial Vital Signs Initial Vital Signs: Vital Signs Temperature 97.8 F 06/17/23 14:03 Pulse Rate 61 06/17/23 14:03 Respiratory Rate 18 06/17/23 14:03 Blood Pressure 136/66 06/17/23 14:03 Pulse Oximetry 99 06/17/23 14:03 Oxygen Delivery Method Room Air 06/17/23 14:03 Course <Jenniffer Beal MD - Last Filed: 06/22/23 07:04> Orders Ordered: ED Orders 06/17/23 14:15 XR hip w pel if done LT 2V Stat 06/17/23 14:22 XR chest 1V Stat 06/17/23 14:38 CT head/brain wo con Stat 06/17/23 15:13 ABG [Arterial Blood Gas] Stat 06/17/23 15:19 Ammonia (NH3) Stat CBC Auto Diff [Complete Blood Count AUTO DIFF] Stat PT [Prothrombin Time INR] Stat PTT Partial Thromboplastin Ruddy Stat TSH [Thyroid Stimulating Hormone] Stat 06/17/23 15:45 Covid-19 + FLU A/B + RSV - PCR Stat 06/17/23 15:56 CMP [Comprehensive Metabolic Panel] Stat Magnesium Stat Troponin & CK Cardiac Panel Stat 06/17/23 16:09 Consult to [facility] Curator Of Education Stat Vital Signs Vital signs: Vital Signs - 8 hr 06/17/23 14:03 06/17/23 14:17 06/17/23 14:17 Temperature 97.8 F Pulse Rate 61 67 Respiratory Rate 18 Blood Pressure 136/66 148/65 H Pulse Oximetry 99 95 Oxygen Delivery Method Room Air 06/17/23 14:39 06/17/23 14:40 06/17/23 14:40 Temperature Pulse Rate 67 67 Respiratory Rate 20 14 Blood Pressure 158/71 H Pulse Oximetry 93 97 Oxygen Delivery Method 06/17/23 15:00 06/17/23 15:28 06/17/23 15:28 Temperature Pulse Rate 63 61 Respiratory Rate 15 16 Blood Pressure 174/82 H Pulse Oximetry 97 97 Oxygen Delivery Method 06/17/23 15:30 06/17/23 15:30 06/17/23 16:00 Temperature Pulse Rate 63 65 Respiratory Rate 15 13 Blood Pressure 151/69 H Pulse Oximetry 97 97 Oxygen Delivery Method 06/17/23 16:01 06/17/23 16:01 06/17/23 16:30 Temperature Pulse Rate 65 72 Respiratory Rate 18 20 Blood Pressure 183/75 H Pulse Oximetry 96 95 Oxygen Delivery Method 06/17/23 16:31 06/17/23 16:31 06/17/23 17:00 Temperature Pulse Rate 67 Respiratory Rate 24 Blood Pressure 160/98 H 174/77 H Pulse Oximetry 95 Oxygen Delivery Method 06/17/23 17:00 06/17/23 17:30 06/17/23 17:31 Temperature Pulse Rate 62 67 68 Respiratory Rate 15 18 Blood Pressure Pulse Oximetry 94 97 96 Oxygen Delivery Method <Eliseo Nixon, DO - Last Filed: 06/17/23 18:36> Orders Ordered: ED Orders 06/17/23 14:15 XR hip w pel if done LT 2V Stat 06/17/23 14:22 XR chest 1V Stat 06/17/23 14:38 CT head/brain wo con Stat 06/17/23 15:13 ABG [Arterial Blood Gas] Stat 06/17/23 15:19 Ammonia (NH3) Stat CBC Auto Diff [Complete Blood Count AUTO DIFF] Stat PT [Prothrombin Time INR] Stat PTT Partial Thromboplastin Ruddy Stat TSH [Thyroid Stimulating Hormone] Stat 06/17/23 15:45 Covid-19 + FLU A/B + RSV - PCR Stat 06/17/23 15:56 CMP [Comprehensive Metabolic Panel] Stat Magnesium Stat Troponin & CK Cardiac Panel Stat 06/17/23 16:09 Consult to [employer] - Curator Of Education Stat Vital Signs Vital signs: Vital Signs - 8 hr 06/17/23 14:03 06/17/23 14:17 06/17/23 14:17 Temperature 97.8 F Pulse Rate 61 67 Respiratory Rate 18 Blood Pressure 136/66 148/65 H Pulse Oximetry 99 95 Oxygen Delivery Method Room Air 06/17/23 14:39 06/17/23 14:40 06/17/23 14:40 Temperature Pulse Rate 67 67 Respiratory Rate 20 14 Blood Pressure 158/71 H Pulse Oximetry 93 97 Oxygen Delivery Method 06/17/23 15:00 06/17/23 15:28 06/17/23 15:28 Temperature Pulse Rate 63 61 Respiratory Rate 15 16 Blood Pressure 174/82 H Pulse Oximetry 97 97 Oxygen Delivery Method 06/17/23 15:30 06/17/23 15:30 06/17/23 16:00 Temperature Pulse Rate 63 65 Respiratory Rate 15 13 Blood Pressure 151/69 H Pulse Oximetry 97 97 Oxygen Delivery Method 06/17/23 16:01 06/17/23 16:01 06/17/23 16:30 Temperature Pulse Rate 65 72 Respiratory Rate 18 20 Blood Pressure 183/75 H Pulse Oximetry 96 95 Oxygen Delivery Method 06/17/23 16:31 06/17/23 16:31 06/17/23 17:00 Temperature Pulse Rate 67 Respiratory Rate 24 Blood Pressure 160/98 H 174/77 H Pulse Oximetry 95 Oxygen Delivery Method 06/17/23 17:00 06/17/23 17:30 06/17/23 17:31 Temperature Pulse Rate 62 67 68 Respiratory Rate 15 18 Blood Pressure Pulse Oximetry 94 97 96 Oxygen Delivery Method MDM - Extremity Injury (Lower) <Jenniffer Beal MD - Last Filed: 06/22/23 07:04> Lab Data 06/17/23 15:19 06/17/23 15:56 Labs: Lab Results 06/17/23 06/17/23 06/17/23 Range/Units 15:13 15:19 15:19 WBC 10.2 (4.5-11.0) X10^3/uL RBC 3.13 L (4.5-5.9) X10^6/uL Hgb 10.3 L (13.5-17.5) g/dL Hct 30.9 L (41-53) % MCV 98.7 (80-100) fL MCH 33.0 (26-34) PG MCHC 33.4 (30-36) % RDW 15.5 H (11.6-14.8) % Plt Count 289 (150-400) X10^3/uL Neut % (Auto) 73.7 (50-75) % Lymph % (Auto) 12.5 L (25-40) % [place] % (Auto) 8.7 (3-14) % Eos % (Auto) 4.4 H (2-4) % Baso % (Auto) 0.7 (0-2) % Neut # (Auto) 7500 H (4665-2103) /uL Lymph # (Auto) 1300 (3535-4899) /uL [place] # (Auto) 900 (0-900) /uL Eos # (Auto) 400 (0-450) /uL Baso # (Auto) 100 (0-100) /uL PT (10.1-12.7) SECONDS INR (0.9-1.3) APTT (26-36) SECONDS ABG pH 7.44 (7.35-7.45) ABG pCO2 42.0 (35-45) mmHg ABG pO2 72 L (80-100) mmHg ABG HCO3 29 H (23-27) mmol/L ABG Total CO2 30 H (23-27) mmol/L ABG O2 Saturation 95 (95-100) % ABG Base Excess 4.0 H (-2-3) mmol/L FiO2 21 Sodium (137-145) mmol/L Potassium (3.4-5.1) mmol/L Chloride (98-107) mmol/L Carbon Dioxide (22-32) mmol/L BUN (9-20) mg/dL Creatinine (0.66-1.25) mg/dL Estimated GFR (>60) mL/min BUN/Creatinine Ratio (6-22) Glucose (80-110) mg/dL Calcium (8.4-10.2) mg/dL Magnesium (1.6-2.3) mg/dL Total Bilirubin (0.2-1.3) mg/dL AST (17-59) IU/L ALT (<50) IU/L Alkaline Phosphatase (38-126) U/L Ammonia < 9 L (9-30) umol/L Total Creatine Kinase (55-170) U/L Troponin I (0.01-0.034) ng/mL Total Protein (6.3-8.2) g/dL Albumin (3.5-5.0) g/dL Globulin (1.7-4.1) g/dL Albumin/Globulin Ratio (1.0-2.8) TSH (0.47-4.68) uIU/mL SARS-CoV-2 (PCR) (Negative) Influenza A (RT-PCR) (NEGATIVE) Influenza B (RT-PCR) (NEGATIVE) RSV (PCR) (Negative) 06/17/23 06/17/23 06/17/23 Range/Units 15:19 15:19 15:45 WBC (4.5-11.0) X10^3/uL RBC (4.5-5.9) X10^6/uL Hgb (13.5-17.5) g/dL Hct (41-53) % MCV (80-100) fL MCH (26-34) PG MCHC (30-36) % RDW (11.6-14.8) % Plt Count (150-400) X10^3/uL Neut % (Auto) (50-75) % Lymph % (Auto) (25-40) % [place] % (Auto) (3-14) % Eos % (Auto) (2-4) % Baso % (Auto) (0-2) % Neut # (Auto) (7425-5928) /uL Lymph # (Auto) (3155-7166) /uL [place] # (Auto) (0-900) /uL Eos # (Auto) (0-450) /uL Baso # (Auto) (0-100) /uL PT 13.2 H (10.1-12.7) SECONDS INR 1.2 (0.9-1.3) APTT 27 (26-36) SECONDS ABG pH (7.35-7.45) ABG pCO2 (35-45) mmHg ABG pO2 (80-100) mmHg ABG HCO3 (23-27) mmol/L ABG Total CO2 (23-27) mmol/L ABG O2 Saturation (95-100) % ABG Base Excess (-2-3) mmol/L FiO2 Sodium (137-145) mmol/L Potassium (3.4-5.1) mmol/L Chloride (98-107) mmol/L Carbon Dioxide (22-32) mmol/L BUN (9-20) mg/dL Creatinine (0.66-1.25) mg/dL Estimated GFR (>60) mL/min BUN/Creatinine Ratio (6-22) Glucose (80-110) mg/dL Calcium (8.4-10.2) mg/dL Magnesium (1.6-2.3) mg/dL Total Bilirubin (0.2-1.3) mg/dL AST (17-59) IU/L ALT (<50) IU/L Alkaline Phosphatase (38-126) U/L Ammonia (9-30) umol/L Total Creatine Kinase (55-170) U/L Troponin I (0.01-0.034) ng/mL Total Protein (6.3-8.2) g/dL Albumin (3.5-5.0) g/dL Globulin (1.7-4.1) g/dL Albumin/Globulin Ratio (1.0-2.8) TSH 2.64 (0.47-4.68) uIU/mL SARS-CoV-2 (PCR) Negative (Negative) Influenza A (RT-PCR) Flu a negative (NEGATIVE) Influenza B (RT-PCR) Flu b negative (NEGATIVE) RSV (PCR) Negative (Negative) 06/17/23 Range/Units 15:56 WBC (4.5-11.0) X10^3/uL RBC (4.5-5.9) X10^6/uL Hgb (13.5-17.5) g/dL Hct (41-53) % MCV (80-100) fL MCH (26-34) PG MCHC (30-36) % RDW (11.6-14.8) % Plt Count (150-400) X10^3/uL Neut % (Auto) (50-75) % Lymph % (Auto) (25-40) % [place] % (Auto) (3-14) % Eos % (Auto) (2-4) % Baso % (Auto) (0-2) % Neut # (Auto) (6393-2275) /uL Lymph # (Auto) (9769-9298) /uL [place] # (Auto) (0-900) /uL Eos # (Auto) (0-450) /uL Baso # (Auto) (0-100) /uL PT (10.1-12.7) SECONDS INR (0.9-1.3) APTT (26-36) SECONDS ABG pH (7.35-7.45) ABG pCO2 (35-45) mmHg ABG pO2 (80-100) mmHg ABG HCO3 (23-27) mmol/L ABG Total CO2 (23-27) mmol/L ABG O2 Saturation (95-100) % ABG Base Excess (-2-3) mmol/L FiO2 Sodium 140 (137-145) mmol/L Potassium 4.8 (3.4-5.1) mmol/L Chloride 106 (98-107) mmol/L Carbon Dioxide 27 (22-32) mmol/L BUN 21 H (9-20) mg/dL Creatinine 1.23 (0.66-1.25) mg/dL Estimated GFR 58 L (>60) mL/min BUN/Creatinine Ratio 17.1 (6-22) Glucose 88 (80-110) mg/dL Calcium 8.6 (8.4-10.2) mg/dL Magnesium 1.3 L (1.6-2.3) mg/dL Total Bilirubin 0.7 (0.2-1.3) mg/dL AST 50 (17-59) IU/L ALT 55 H (<50) IU/L Alkaline Phosphatase 232 H (38-126) U/L Ammonia (9-30) umol/L Total Creatine Kinase 112 (55-170) U/L Troponin I 0.031 (0.01-0.034) ng/mL Total Protein 5.9 L (6.3-8.2) g/dL Albumin 3.2 L (3.5-5.0) g/dL Globulin 2.7 (1.7-4.1) g/dL Albumin/Globulin Ratio 1.2 (1.0-2.8) TSH (0.47-4.68) uIU/mL SARS-CoV-2 (PCR) (Negative) Influenza A (RT-PCR) (NEGATIVE) Influenza B (RT-PCR) (NEGATIVE) RSV (PCR) (Negative) Urine Dip Bedside Urine Glucose Negative Bedside Urine Bilirubin - Negative Bedside Urine Ketone - Negative Urine Specific [place] 1.015 Bedside Urine Occult Blood - Negative Bedside Urine pH 6.0 Bedside Urine Protein - Negative Bedside Urine Urobilinogen - Negative Bedside Urine Nitrite - Negative Bedside Urine Leukocytes - Negative Esterase <Eliseo Nixon DO - Last Filed: 06/17/23 18:36> Lab Data Labs: Lab Results 06/17/23 06/17/23 06/17/23 Range/Units 15:13 15:19 15:19 WBC 10.2 (4.5-11.0) X10^3/uL RBC 3.13 L (4.5-5.9) X10^6/uL Hgb 10.3 L (13.5-17.5) g/dL Hct 30.9 L (41-53) % MCV 98.7 (80-100) fL MCH 33.0 (26-34) PG MCHC 33.4 (30-36) % RDW 15.5 H (11.6-14.8) % Plt Count 289 (150-400) X10^3/uL Neut % (Auto) 73.7 (50-75) % Lymph % (Auto) 12.5 L (25-40) % [place] % (Auto) 8.7 (3-14) % Eos % (Auto) 4.4 H (2-4) % Baso % (Auto) 0.7 (0-2) % Neut # (Auto) 7500 H (7620-8654) /uL Lymph # (Auto) 1300 (6815-6260) /uL [place] # (Auto) 900 (0-900) /uL Eos # (Auto) 400 (0-450) /uL Baso # (Auto) 100 (0-100) /uL PT (10.1-12.7) SECONDS INR (0.9-1.3) APTT (26-36) SECONDS ABG pH 7.44 (7.35-7.45) ABG pCO2 42.0 (35-45) mmHg ABG pO2 72 L (80-100) mmHg ABG HCO3 29 H (23-27) mmol/L ABG Total CO2 30 H (23-27) mmol/L ABG O2 Saturation 95 (95-100) % ABG Base Excess 4.0 H (-2-3) mmol/L FiO2 21 Sodium (137-145) mmol/L Potassium (3.4-5.1) mmol/L Chloride (98-107) mmol/L Carbon Dioxide (22-32) mmol/L BUN (9-20) mg/dL Creatinine (0.66-1.25) mg/dL Estimated GFR (>60) mL/min BUN/Creatinine Ratio (6-22) Glucose (80-110) mg/dL Calcium (8.4-10.2) mg/dL Magnesium (1.6-2.3) mg/dL Total Bilirubin (0.2-1.3) mg/dL AST (17-59) IU/L ALT (<50) IU/L Alkaline Phosphatase (38-126) U/L Ammonia < 9 L (9-30) umol/L Total Creatine Kinase (55-170) U/L Troponin I (0.01-0.034) ng/mL Total Protein (6.3-8.2) g/dL Albumin (3.5-5.0) g/dL Globulin (1.7-4.1) g/dL Albumin/Globulin Ratio (1.0-2.8) TSH (0.47-4.68) uIU/mL SARS-CoV-2 (PCR) (Negative) Influenza A (RT-PCR) (NEGATIVE) Influenza B (RT-PCR) (NEGATIVE) RSV (PCR) (Negative) 06/17/23 06/17/23 06/17/23 Range/Units 15:19 15:19 15:45 WBC (4.5-11.0) X10^3/uL RBC (4.5-5.9) X10^6/uL Hgb (13.5-17.5) g/dL Hct (41-53) % MCV (80-100) fL MCH (26-34) PG MCHC (30-36) % RDW (11.6-14.8) % Plt Count (150-400) X10^3/uL Neut % (Auto) (50-75) % Lymph % (Auto) (25-40) % [place] % (Auto) (3-14) % Eos % (Auto) (2-4) % Baso % (Auto) (0-2) % Neut # (Auto) (0221-2924) /uL Lymph # (Auto) (0098-8826) /uL [place] # (Auto) (0-900) /uL Eos # (Auto) (0-450) /uL Baso # (Auto) (0-100) /uL PT 13.2 H (10.1-12.7) SECONDS INR 1.2 (0.9-1.3) APTT 27 (26-36) SECONDS ABG pH (7.35-7.45) ABG pCO2 (35-45) mmHg ABG pO2 (80-100) mmHg ABG HCO3 (23-27) mmol/L ABG Total CO2 (23-27) mmol/L ABG O2 Saturation (95-100) % ABG Base Excess (-2-3) mmol/L FiO2 Sodium (137-145) mmol/L Potassium (3.4-5.1) mmol/L Chloride (98-107) mmol/L Carbon Dioxide (22-32) mmol/L BUN (9-20) mg/dL Creatinine (0.66-1.25) mg/dL Estimated GFR (>60) mL/min BUN/Creatinine Ratio (6-22) Glucose (80-110) mg/dL Calcium (8.4-10.2) mg/dL Magnesium (1.6-2.3) mg/dL Total Bilirubin (0.2-1.3) mg/dL AST (17-59) IU/L ALT (<50) IU/L Alkaline Phosphatase (38-126) U/L Ammonia (9-30) umol/L Total Creatine Kinase (55-170) U/L Troponin I (0.01-0.034) ng/mL Total Protein (6.3-8.2) g/dL Albumin (3.5-5.0) g/dL Globulin (1.7-4.1) g/dL Albumin/Globulin Ratio (1.0-2.8) TSH 2.64 (0.47-4.68) uIU/mL SARS-CoV-2 (PCR) Negative (Negative) Influenza A (RT-PCR) Flu a negative (NEGATIVE) Influenza B (RT-PCR) Flu b negative (NEGATIVE) RSV (PCR) Negative (Negative) 06/17/23 Range/Units 15:56 WBC (4.5-11.0) X10^3/uL RBC (4.5-5.9) X10^6/uL Hgb (13.5-17.5) g/dL Hct (41-53) % MCV (80-100) fL MCH (26-34) PG MCHC (30-36) % RDW (11.6-14.8) % Plt Count (150-400) X10^3/uL Neut % (Auto) (50-75) % Lymph % (Auto) (25-40) % [place] % (Auto) (3-14) % Eos % (Auto) (2-4) % Baso % (Auto) (0-2) % Neut # (Auto) (5679-7547) /uL Lymph # (Auto) (6726-7129) /uL [place] # (Auto) (0-900) /uL Eos # (Auto) (0-450) /uL Baso # (Auto) (0-100) /uL PT (10.1-12.7) SECONDS INR (0.9-1.3) APTT (26-36) SECONDS ABG pH (7.35-7.45) ABG pCO2 (35-45) mmHg ABG pO2 (80-100) mmHg ABG HCO3 (23-27) mmol/L ABG Total CO2 (23-27) mmol/L ABG O2 Saturation (95-100) % ABG Base Excess (-2-3) mmol/L FiO2 Sodium 140 (137-145) mmol/L Potassium 4.8 (3.4-5.1) mmol/L Chloride 106 (98-107) mmol/L Carbon Dioxide 27 (22-32) mmol/L BUN 21 H (9-20) mg/dL Creatinine 1.23 (0.66-1.25) mg/dL Estimated GFR 58 L (>60) mL/min BUN/Creatinine Ratio 17.1 (6-22) Glucose 88 (80-110) mg/dL Calcium 8.6 (8.4-10.2) mg/dL Magnesium 1.3 L (1.6-2.3) mg/dL Total Bilirubin 0.7 (0.2-1.3) mg/dL AST 50 (17-59) IU/L ALT 55 H (<50) IU/L Alkaline Phosphatase 232 H (38-126) U/L Ammonia (9-30) umol/L Total Creatine Kinase 112 (55-170) U/L Troponin I 0.031 (0.01-0.034) ng/mL Total Protein 5.9 L (6.3-8.2) g/dL Albumin 3.2 L (3.5-5.0) g/dL Globulin 2.7 (1.7-4.1) g/dL Albumin/Globulin Ratio 1.2 (1.0-2.8) TSH (0.47-4.68) uIU/mL SARS-CoV-2 (PCR) (Negative) Influenza A (RT-PCR) (NEGATIVE) Influenza B (RT-PCR) (NEGATIVE) RSV (PCR) (Negative) Urine Dip Bedside Urine Glucose Negative Bedside Urine Bilirubin - Negative Bedside Urine Ketone - Negative Urine Specific [place] 1.015 Bedside Urine Occult Blood - Negative Bedside Urine pH 6.0 Bedside Urine Protein - Negative Bedside Urine Urobilinogen - Negative Bedside Urine Nitrite - Negative Bedside Urine Leukocytes - Negative Esterase MDM Narrative Medical decision making narrative: Dr nixon: Received turned over from Dr Bela. I did review the patient's history and physical exam and workup up to this point. His workup here is fairly unremarkable. I have very low suspicion that there is any new infection. All of his radiologic studies are relatively unremarkable. He ambulated here in the emergency department with a walker. He has home health already ordered by his primary doctor but this is yet to be set up. It appears that the patient has been having hallucinations at home as well. The patient actually denies having hallucinations. He is alert oriented x3 here in the ER. I would a long discussion with the family regarding his symptoms. He is a follow-up with primary provider in the middle of next month. Will discharge patient home to follow-up with his primary doctor. Family was given return precautions. Discharge Plan Departure Patient Disposition: Home Clinical Impression: Weakness, Hallucinations Instructions: How to Prevent Falls Activity Restrictions/Additional Instructions: Continue to take all of your medications as directed. I do recommend you contact your primary doctor for a follow-up. Return to the emergency department for new or worsening symptoms. Prescriptions: No Action ferrous sulfate 325 mg (65 mg iron) tablet 325 mg PO DAILY aspirin 81 MG tablet,delayed release (DR/EC) 81 mg PO QDAY Qty: 0 Centrum Silver 400-250 mcg Tablet,Chewable 1 tab PO DAILY Qty: 0 metformin 1,000 mg tablet 1,000 mg PO BID Qty: 180 4RF clopidogrel [Plavix] 75 mg tablet 75 mg PO QDAY Qty: 90 3RF finasteride 5 mg tablet 5 mg PO QDAY Qty: 90 3RF atorvastatin [Lipitor] 40 mg tablet 40 mg PO HS Qty: 90 3RF amiodarone 200 mg tablet 100 mg PO DAILY Qty: 60 0RF albuterol sulfate 90 mcg/actuation aero powdr breath act w/sensor 2 inh inhalation Q4-6H PRN (Reason: COPD) gabapentin 300 mg capsule 600 mg PO DAILY Qty: 180 3RF cholecalciferol (vitamin D3) 25 mcg (1,000 unit) capsule 25 mcg PO DAILY cyanocobalamin (vitamin B-12) [Vitamin B-12] 1,000 mcg tablet 1,000 mcg PO DAILY fluticasone propion-salmeterol [Advair Diskus] 250-50 mcg/dose blister with device 1 inh inhalation Q12H PRN (Reason: Shortness Of Breath Or Wheezing) Rx Instructions: Wixela alpha lipoic acid 100 mg capsule 200 mg PO BID Disabled Parking Permit 1 ea Not Applicable DAILY Qty: 1 0RF diphenhydramine-acetaminophen [Tylenol PM Extra Strength] 25-500 mg Tablet 2 tab DAILY erythromycin 5 mg/gram (0.5 %) Ointment OPHTHALMIC (EYE) 3XD Rx Instructions: apply small amount to the eyelid three times daily after surgery ertapenem 1 gram Recon Soln 1 g IV Q24H Qty: 10 0RF metoprolol succinate 25 mg tablet extended release 24 hr 12.5 mg PO DAILY Qty: 30 0RF Hold Instructions: due to hypotension lisinopril 2.5 mg tablet 2.5 mg PO DAILY Qty: 30 0RF Referrals: Lul Choi MD [Primary Care Provider] - Stand Alone Forms: Patient Portal/API
--- NOTE | 2023-06-17 14:38 | DI.CT.S_ITS ---
PROCEDURE: CT HEAD/BRAIN WO CON INDICATIONS: AMS TECHNIQUE: Noncontrast 4.5 mm thick angled axial sections acquired from the foramen magnum to the vertex, with coronal and sagittal reformats. For radiation dose reduction, the following was used: automated exposure control, adjustment of mA and/or kV according to patient size. COMPARISON: [facility], MR, STROKE PROTOCOL (PNL), 09/30/2012, 23:17. [facility], CR, XR CHEST 1V, 06/17/2023, 14:31. [facility], CR, XR HIP W PEL IF DONE LT 2V, 06/17/2023, 14:21. [facility], CT, BRAIN W/O CONTRAST, 09/30/2012, 18:42. FINDINGS: Image quality: Excellent. CSF spaces: Basal cisterns are patent. No extra-axial fluid collections. The ventricles are symmetric in size and shape. Brain: No intracranial bleeds or masses. There is cerebral volume loss for age, with resultant ventricular and sulcal prominence. There are periventricular and deep white matter chronic small vessel ischemic changes. There is intracranial internal carotid artery atherosclerosis. Skull and face: Calvarium and visualized facial bones appear intact, without suspicious lesions. Sinuses: Visualized sinuses and mastoids are clear. IMPRESSION: Noncontrast head CT within normal limits for age, without a cause of the patient's presenting history identified. Dictated by: Anup Holland M.D. on 06/17/2023 at 13:44 Approved by: Anup Holland M.D. on 06/17/2023 at 13:46
[2023-06-17 15:36] LABS: Fractionated Inspired Oxygen 21; HCO3 ABG 29 mmol/L (23-27); Oxygen Saturation ABG 95 % (95-100); PO2 ABG 72 mmHg (80-100); TCO2 ABG 30 mmol/L (23-27); pH ABG 7.44 (7.35-7.45)
[2023-06-17 15:40] LABS: Add Manual Diff / Slide Review NO; Basophils Absolute Auto 100 /uL (0-100); Basophils Percent Auto 0.7 % (0-2); Eosinophils Absolute Auto 400 /uL (0-450); Eosinophils Percent Auto 4.4 % (2-4); Hematocrit 30.9 % (41-53); Hemoglobin 10.3 g/dL (13.5-17.5); Lymphocytes Absolute Auto 1300 /uL (1100-4500); Lymphocytes Percent Auto 12.5 % (25-40); Mean Corpuscular HGB Conc 33.4 % (30-36); Mean Corpuscular Volume 98.7 fL (80-100); Monocytes Absolute Auto 900 /uL (0-900); Monocytes Percent Auto 8.7 % (3-14); Neutrophils Absolute Auto 7500 /uL (1500-7000); Neutrophils Percent Auto 73.7 % (50-75); Platelet Count 289 X10^3/uL (150-400); Red Blood Cell Count 3.13 X10^6/uL (4.5-5.9); Red Cell Distribution Width 15.5 % (11.6-14.8); White Blood Cell Count 10.2 X10^3/uL (4.5-11.0)
[2023-06-17 15:42] LABS: INR 1.2 (0.9-1.3); Prothrombin Time 13.2 SECONDS (10.1-12.7)
[2023-06-17 15:44] LABS: PTT Partial Thromboplastin Tim 27 SECONDS (26-36)
[2023-06-17 15:50] LABS: Ammonia (NH3) < 9 umol/L (9-30)
--- NOTE | 2023-06-17 16:21 | PC.NURSE ---
pt states that he has been having slurred speech and hallucinations for a few days. pt also reports that he knows the hallucinations are not real. pt has recent hx of inpt hospital stay and fall.
[2023-06-17 16:22] LABS: Thyroid Stimulating Hormone 2.64 uIU/mL (0.47-4.68)
[2023-06-17 17:06] LABS: Influenza A - CEPHEID Flu A NEGATIVE (NEGATIVE); Influenza B - CEPHEID Flu B NEGATIVE (NEGATIVE); Respiratory Syncytial Virus Negative (Negative)
[2023-06-17 17:11] LABS: COVID-19 CEPHEID 4-PLEX PCR Negative (Negative)
[2023-06-17 17:12] LABS: Troponin I 0.031 ng/mL (0.01-0.034)
[2023-06-17 17:20] LABS: Alanine Aminotransferase 55 IU/L (<50); Albumin 3.2 g/dL (3.5-5.0); Albumin Globulin Ratio 1.2 (1.0-2.8); Alkaline Phosphatase 232 U/L (38-126); Aspartate Aminotransferase 50 IU/L (17-59); BUN Creatinine Ratio 17.1 (6-22); Bilirubin Total 0.7 mg/dL (0.2-1.3); Blood Urea Nitrogen 21 mg/dL (9-20); Calcium 8.6 mg/dL (8.4-10.2); Carbon Dioxide 27 mmol/L (22-32); Chloride 106 mmol/L (98-107); Creatine Kinase 112 U/L (55-170); Estimated Glomerular Filt Rate 58 mL/min (>60); Globulin 2.7 g/dL (1.7-4.1); Glucose 88 mg/dL (80-110); Magnesium 1.3 mg/dL (1.6-2.3); Potassium 4.8 mmol/L (3.4-5.1); Sodium 140 mmol/L (137-145); Total Protein 5.9 g/dL (6.3-8.2)
[2023-06-17 17:22] LABS: HEMOLYSIS < 15 (0-50)
--- NOTE | 2023-06-17 18:49 | CM.SWNOTE ---
ED JIG GRINDER Note Patient is 83 y/o male who presents to ED via POV with spouse due to concern for GLF on Friday and recent hallucinations. Patient had recent ICU stay due to Sepsis from 06/03/23-06/07/23 and was d/c with infusion solutions. Patient had recent PCP visit on 06/11/23 and was referred to Adriana PORTER. Patient has R and Medicare Insurance, Patient's PCP is Dr. Choi. JIG GRINDER is informed about patient's Adriana PORTER referral but services have not started. It is reported that patient's PICC line was removed yesterday by infusion solutions. JIG GRINDER calls Adriana PORTER regarding patient's presentation to the ED and faxes clinicals from this visit, requesting expedited HH services. JIG GRINDER reviews this with spouse, who indicates appreciation. Patient ambulates with FWW with stand by assist as needed but ambulates independently. ED provider reports he contacted PCP regarding patient's ED presentation. Plan: patient to d/c to home upon medical clearance with spouse, Adriana PORTER to f/u with patient. Patient has upcoming PCP appt next month.
== END 2023-06-17 18:53 | disposition home or self-care (01) ==
PROVIDERS: Emergency Medicine; Emergency Provider Emergency Medicine; Family Provider Internal Medicine; PCP Internal Medicine
DX: R44.3 Hallucinations, unspecified (principal); R53.1 Weakness; S79.912A Unspecified injury of left hip, initial encounter; R41.82 Altered mental status, unspecified; W19.XXXA Unspecified fall, initial encounter; Z79.899 Other long term (current) drug therapy; Z20.822 Contact with and (suspected) exposure to COVID-19
CPT/HCPCS: 0241U; 36415; 36600; 70450; 71045; 73502; 80053; 81003; 82140; 82550; 82805; 83735; 84443; 84484; 85025; 85610; 85730; 99284

== ENCOUNTER → 2023-08-05 12:25 | Outpatient (CLI) | payer MEDICARE, OTHER, SELFPAY ==
[2023-06-30 10:14] VITALS: BMI 23.3
[2023-08-05 13:21] LABS: BUN Creatinine Ratio 23.7 (6-22); Blood Urea Nitrogen 33 mg/dL (9-20); Calcium 10.1 mg/dL (8.4-10.2); Carbon Dioxide 26 mmol/L (22-32); Chloride 106 mmol/L (98-107); Estimated Glomerular Filt Rate 50 mL/min (>60); Glucose 85 mg/dL (80-110); HEMOLYSIS < 15 (0-50); Potassium 5.1 mmol/L (3.4-5.1); Sodium 141 mmol/L (137-145)
[2023-08-05 13:40] LABS: Hemoglobin A1C% w Est Avg Glu 6.4 % (4.0-6.0)
== END ==
PROVIDERS: Family Provider Internal Medicine; PCP Internal Medicine; Referring Provider Internal Medicine; Visit Provider Internal Medicine
DX: E11.42 Type 2 diabetes mellitus with diabetic polyneuropathy (principal); I10 Essential (primary) hypertension
CPT/HCPCS: 36415; 80048; 83036

== ENCOUNTER → 2023-08-26 11:37 | Outpatient (CLI) | payer MEDICARE, OTHER, SELFPAY ==
[2023-06-30 10:14] VITALS: BMI 23.3
[2023-08-26 13:00] LABS: Add Manual Diff / Slide Review NO; Basophils Absolute Auto 0 /uL (0-100); Basophils Percent Auto 0.8 % (0-2); Eosinophils Absolute Auto 200 /uL (0-450); Hemoglobin 11.1 g/dL (13.5-17.5); Lymphocytes Absolute Auto 900 /uL (1100-4500); Lymphocytes Percent Auto 15.7 % (25-40); Mean Corpuscular HGB Conc 33.6 % (30-36); Mean Corpuscular Volume 98.2 fL (80-100); Monocytes Absolute Auto 700 /uL (0-900); Monocytes Percent Auto 12.2 % (3-14); Neutrophils Absolute Auto 3700 /uL (1500-7000); Neutrophils Percent Auto 67.3 % (50-75); Platelet Count 199 X10^3/uL (150-400); Red Blood Cell Count 3.36 X10^6/uL (4.5-5.9); Red Cell Distribution Width 16.2 % (11.6-14.8); White Blood Cell Count 5.5 X10^3/uL (4.5-11.0)
[2023-08-26 13:35] LABS: BUN Creatinine Ratio 24.4 (6-22); Blood Urea Nitrogen 33 mg/dL (9-20); Calcium 9.9 mg/dL (8.4-10.2); Carbon Dioxide 26 mmol/L (22-32); Chloride 106 mmol/L (98-107); Estimated Glomerular Filt Rate 51 mL/min (>60); Glucose 111 mg/dL (80-110); HEMOLYSIS < 15 (0-50); Potassium 5.1 mmol/L (3.4-5.1); Sodium 138 mmol/L (137-145)
== END ==
PROVIDERS: Family Provider Internal Medicine; PCP Internal Medicine; Referring Provider Internal Medicine; Visit Provider Internal Medicine
DX: I71.43 Infrarenal abdominal aortic aneurysm, without rupture (principal)
CPT/HCPCS: 36415; 80048; 85025

== ENCOUNTER → 2023-11-18 12:56 | Outpatient (CLI) | payer MEDICARE, OTHER, SELFPAY ==
[2023-06-30 10:14] VITALS: BMI 23.3
[2023-11-18 13:55] LABS: Appearance Urine UA CLEAR; Bilirubin Urine UA NEGATIVE (NEGATIVE); Color Urine UA YELLOW; Glucose Urine UA 3+ g/dL (Negative); Ketones Urine UA TRACE (NEGATIVE); Leukocyte Esterase Urine UA NEGATIVE (NEGATIVE); Nitrite Urine UA NEGATIVE (Negative); Occult Blood Urine UA NEGATIVE (Negative); Protein Urine UA NEGATIVE (Negative); Specific Gravity Urine UA 1.015 (1.000-1.035); Urobilinogen Urine UA 0.2 E.U./dL (0.2)
[2023-11-18 14:11] LABS: Bacteria Urine None Seen; Culture Indicated Urine Cult Not Indicated; RBC Urine None Seen (0-5/HPF); Squamous Epithelial Cell Urine 1-5 /HPF (0-5/HPF); Urine Volume 10mL (spun); WBC Urine 0-1/HPF (0-5/HPF)
== END ==
PROVIDERS: Family Provider Internal Medicine; PCP Internal Medicine; Referring Provider Specialist; Visit Provider Specialist
DX: Z87.440 Personal history of urinary (tract) infections (principal); N40.1 Benign prostatic hyperplasia with lower urinary tract symptoms; N13.8 Other obstructive and reflux uropathy
CPT/HCPCS: 81001

== ENCOUNTER → 2024-01-15 10:35 | Outpatient (CLI) | payer MEDICARE, OTHER, SELFPAY ==
[2023-06-30 10:14] VITALS: BMI 23.3
[2024-01-15 11:44] LABS: Hematocrit 37.1 % (41-53); Hemoglobin 12.2 g/dL (13.5-17.5); Mean Corpuscular Hemoglobin 33.2 PG (26-34); Mean Corpuscular Volume 100.5 fL (80-100); Platelet Count 180 X10^3/uL (150-400); Red Blood Cell Count 3.69 X10^6/uL (4.5-5.9); Red Cell Distribution Width 15.8 % (11.6-14.8); White Blood Cell Count 6.3 X10^3/uL (4.5-11.0)
[2024-01-15 12:15] LABS: Aspartate Aminotransferase 43 IU/L (17-59); BUN Creatinine Ratio 26.6 (6-22); Blood Urea Nitrogen 29 mg/dL (9-20); Carbon Dioxide 26 mmol/L (22-32); Chloride 106 mmol/L (98-107); Cholesterol 158 mg/dL (140-199); Estimated Glomerular Filt Rate > 60 mL/min (>60); Glucose 177 mg/dL (80-110); HDL Cholesterol 49 mg/dL (40-60); LDL Cholesterol Calculated 73 mg/dL (<100); Potassium 4.7 mmol/L (3.4-5.1); Sodium 140 mmol/L (137-145); Triglycerides 178 mg/dL (35-150)
[2024-01-15 12:20] LABS: HEMOLYSIS < 15 (0-50)
[2024-01-15 19:19] LABS: Hemoglobin A1C% w Est Avg Glu 6.5 % (4.0-6.0)
[2024-01-16 01:44] LABS: Prostate Specific Antigen < 0.064 ng/mL (0.10-4.00)
== END ==
PROVIDERS: Family Provider Internal Medicine; PCP Internal Medicine; Referring Provider Internal Medicine; Visit Provider Internal Medicine
DX: E78.2 Mixed hyperlipidemia (principal); E11.42 Type 2 diabetes mellitus with diabetic polyneuropathy; N40.1 Benign prostatic hyperplasia with lower urinary tract symptoms; N13.8 Other obstructive and reflux uropathy; I50.20 Unspecified systolic (congestive) heart failure
CPT/HCPCS: 36415; 80048; 80061; 83036; 84153; 84450; 85027

== ENCOUNTER → 2024-01-27 13:03 | Outpatient (CLI) | payer MEDICARE, OTHER, SELFPAY ==
[2023-06-30 10:14] VITALS: BMI 23.3
[2024-01-27 13:22] LABS: Appearance Urine UA CLEAR; Bilirubin Urine UA NEGATIVE (NEGATIVE); Color Urine UA YELLOW; Glucose Urine UA 3+ g/dL (Negative); Ketones Urine UA NEGATIVE (NEGATIVE); Leukocyte Esterase Urine UA 1+ (NEGATIVE); Nitrite Urine UA POSITIVE (Negative); Occult Blood Urine UA 3+ (Negative); Protein Urine UA 2+ (Negative); Specific Gravity Urine UA 1.015 (1.000-1.035); Urobilinogen Urine UA 0.2 E.U./dL (0.2); pH Urine UA 5.5 (4.5-8.0)
[2024-01-27 13:45] LABS: Bacteria Urine Few (2-10); Culture Indicated Urine Specimen Cultured; RBC Urine >100/HPF (0-5/HPF); Squamous Epithelial Cell Urine None Seen (0-5/HPF); Urine Volume 10mL (spun); WBC Urine 10-30/HPF (0-5/HPF)
== END ==
PROVIDERS: Family Provider Internal Medicine; PCP Internal Medicine; Visit Provider Nurse Practitioner Family
DX: N30.00 Acute cystitis without hematuria (principal)
CPT/HCPCS: 81001; 87077; 87086; 87186

== ENCOUNTER → 2024-02-09 12:42 | Outpatient (CLI) | payer MEDICARE, OTHER, SELFPAY ==
[2023-06-30 10:14] VITALS: BMI 23.3
[2024-02-09 13:05] LABS: Appearance Urine UA SL CLOUDY
[2024-02-09 13:22] LABS: Color Urine UA ORANGE
[2024-02-09 13:24] LABS: Bacteria Urine Few (2-10); RBC Urine 1-5/HPF (0-5/HPF); Squamous Epithelial Cell Urine None Seen (0-5/HPF); Urine Volume 10mL (spun); WBC Urine >100/HPF (0-5/HPF)
== END ==
PROVIDERS: Family Provider Internal Medicine; PCP Internal Medicine; Visit Provider Nurse Practitioner Family
DX: Z87.440 Personal history of urinary (tract) infections (principal)
CPT/HCPCS: 81001; 87077; 87086; 87186

== ENCOUNTER → 2024-04-23 12:49 | Outpatient (CLI) | payer MEDICARE, OTHER, SELFPAY ==
[2023-06-30 10:14] VITALS: BMI 23.3
--- NOTE | 2024-04-23 12:52 | DI.CT.S_ITS ---
PROCEDURE: CT ANGIO ABDOMEN PELVIS INDICATIONS: Infrarenal abdominal aortic aneurysm, without rupture TECHNIQUE: Non-contrast 3 mm thick sections acquired from the diaphragm to the symphysis. After the administration of intravenous contrast, 2.5 mm thick sections acquired from the diaphragm to the symphysis during the arterial and venous phases. 10 mm maximum intensity projection (MIP) reformats were acquired of the arterial phase images. For radiation dose reduction, the following was used: automated exposure control. COMPARISON: [facility], CT, CT CHEST ABD PEL W CON, 02/06/2022, 10:15. FINDINGS: Image Quality: Diagnostic. Abdominal aorta: Infrarenal abdominal aortic aneurysm measures 5.7 x 5.6 cm (), previously Marked calcified and noncalcified atherosclerotic plaque. Bilateral iliac vasculature is patent with [id number] atherosclerotic calcification. Bilateral common femoral and visualized proximal superficial and profundus femoral vasculature is patent with no high-grade stenosis and mild to moderate atherosclerotic plaque. Mesenteric arteries: Celiac artery and SMA origins are patent with no high-grade stenosis. LISA origin is patent with moderate stenosis (). [id number] atherosclerotic calcification. Renal arteries: Patent without hemodynamically significant stenosis. Cwep-[id number] atherosclerotic calcification. OTHER: Lower Chest: No suspicious pulmonary nodule or consolidation. Bilateral lower lobe atelectasis. Partially visualized coronary vessel calcifications. Liver: No arterially enhancing mass. Nodular liver contour. Gallbladder: No radiopaque gallstones or wall thickening. Biliary ducts: No biliary dilation. Pancreas: No ductal dilation. Spleen: Size is within normal limits. Adrenal Glands: No adrenal nodules. Kidneys and Ureters: Bilateral kidneys are atrophic with areas of cortical thinning. No hydronephrosis. No solid mass. Bilateral subcentimeter cortical hypodensities are too small to characterize, statistically cysts. No complex renal cystic lesion which requires follow up. Stomach and Bowel: No hiatal hernia. Stomach is decompressed, limiting evaluation, but appears grossly normal. Small and large bowel is normal in caliber, without obstruction. Extensive sigmoid and colonic diverticulosis, without diverticulitis. Circumferential wall thickening in the rectum with mild perirectal soft tissue stranding. Peritoneum: No abnormal intraperitoneal fluid. No free air. Ventral Wall: No hernia. Abdominal Nodes: No retroperitoneal or mesenteric adenopathy by size criteria. Vessels: Inferior vena cava is normal in size. Paraesophageal venous collaterals (4/18). PELVIS: Pelvic Organs: Postsurgical changes of the prostate. Bladder: Multiple bladder diverticuli. Pelvic Nodes: No enlarged lymph nodes. Miscellaneous: Small bilateral fat containing inguinal hernias. Bones: No aggressive osseous abnormality. No acute fracture. Diffuse osseous demineralization. Severe multilevel degenerative changes of the spine. IMPRESSION: Dictated by: Shilpa Morales M.D. on 04/23/2024 at 16:24 Approved by: Shilpa Morales M.D. on 04/24/2024 at 14:35
[2024-04-23 13:25] LABS: Estimated Glomerular Filt Rate > 60 mL/min (>60)
== END ==
LOC: CT 12:51
PROVIDERS: Radiology Diagnostic Radiology; Family Provider Internal Medicine; PCP Internal Medicine; Referring Provider Surgery; Visit Provider Surgery
DX: I71.43 Infrarenal abdominal aortic aneurysm, without rupture (principal); K57.30 Diverticulosis of large intestine without perforation or abscess without bleeding; N32.3 Diverticulum of bladder; N13.4 Hydroureter; K40.20 Bilateral inguinal hernia, without obstruction or gangrene, not specified as recurrent
CPT/HCPCS: 36415; 74174; 82565; Q9967

== ENCOUNTER → 2024-07-26 14:22 | Outpatient (CLI) | payer MEDICARE, OTHER, SELFPAY ==
[2023-06-30 10:14] VITALS: BMI 23.3
[2024-07-26 15:43] LABS: Hemoglobin A1C% w Est Avg Glu 6.1 % (4.0-6.0)
[2024-07-26 15:47] LABS: Hematocrit 32.1 % (41-53); Hemoglobin 10.8 g/dL (13.5-17.5); Mean Corpuscular HGB Conc 33.4 % (30-36); Mean Corpuscular Hemoglobin 33.8 PG (26-34); Mean Corpuscular Volume 101.2 fL (80-100); Platelet Count 188 X10^3/uL (150-400); Red Blood Cell Count 3.18 X10^6/uL (4.5-5.9); Red Cell Distribution Width 16.1 % (11.6-14.8)
[2024-07-26 15:58] LABS: Alanine Aminotransferase 52 IU/L (<50); Albumin 3.6 g/dL (3.5-5.0); Albumin Globulin Ratio 1.3 (1.0-2.8); Alkaline Phosphatase 203 U/L (38-126); Aspartate Aminotransferase 67 IU/L (17-59); BUN Creatinine Ratio 27.8 (6-22); Bilirubin Total 0.8 mg/dL (0.2-1.3); Blood Urea Nitrogen 32 mg/dL (9-20); Calcium 9.8 mg/dL (8.4-10.2); Carbon Dioxide 25 mmol/L (22-32); Chloride 106 mmol/L (98-107); Cholesterol 141 mg/dL (140-199); Estimated Glomerular Filt Rate > 60 mL/min (>60); Globulin 2.8 g/dL (1.7-4.1); Glucose 128 mg/dL (80-110); HDL Cholesterol 43 mg/dL (40-60); HEMOLYSIS < 15 (0-50); LDL Cholesterol Calculated 61 mg/dL (<100); Potassium 4.9 mmol/L (3.4-5.1); Sodium 137 mmol/L (137-145); Total Protein 6.4 g/dL (6.3-8.2); Triglycerides 187 mg/dL (35-150)
== END ==
PROVIDERS: Family Provider Internal Medicine; PCP Internal Medicine; Referring Provider Internal Medicine; Visit Provider Internal Medicine
DX: E78.2 Mixed hyperlipidemia (principal); E11.42 Type 2 diabetes mellitus with diabetic polyneuropathy; I10 Essential (primary) hypertension
CPT/HCPCS: 36415; 80053; 80061; 83036; 85027

== ENCOUNTER 2024-08-29 11:43 | Inpatient (IN) | payer MEDICARE, OTHER, SELFPAY ==
[2023-06-30 10:14] VITALS: BMI 23.3
[2024-08-29] VITALS (18 sets, daily range): BP systolic 116–170; BP diastolic 60–88; PULSE 65–84; RESP 15–18; TEMP 36.6–36.8; O2SAT 91–100; BMI 23.7
--- NOTE | 2024-08-29 11:53 | EKG_ITS ---
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
--- NOTE | 2024-08-29 11:53 | ED.WEAKNESS ---
HPI - Weakness General Chief complaint: Weakness Stated complaint: Weakness, COVID+ Time Seen by Provider: 08/29/24 11:53 History of Present Illness HPI Narrative: Patient is an 84-year-old male with history of coronary artery disease including 2 stents last 1 in 2022, ventricular tachycardia, congestive heart failure followed by Dr. Nava, diabetes, peripheral neuropathy, hypertension hyperlipidemia and AAA with stent in May 2024 presents today with increasing weakness diarrhea. He is force that he has known COVID he tested positive 5 days ago. Says every time he eats he has a lot of diarrhea he is generally feeling weak. He is decreased appetite and oral intake secondary to diarrhea. No significant abdominal pain. Denies any sort of shortness of breath. He was noted to be 90% on room air but is in no respiratory distress. He denies any chest pain. He is reporting of some sacral pain. He says he fell many weeks ago and still has not quite recovered. His also has COVID but is covering well. Related Data Home Medications Medication Instructions Recorded Confirmed aspirin 81 mg tablet,delayed 81 mg PO QDAY ##0 06/25/13 07/26/24 release multivit with min-folic 1 tab PO DAILY #0 caps 06/25/13 07/26/24 acid-lutein 400 mcg-250 mcg chewable tablet (Centrum Silver) ferrous sulfate 325 mg (65 mg 325 mg PO DAILY 01/23/19 07/26/24 iron) tablet cholecalciferol (vitamin D3) 25 25 mcg PO DAILY 04/08/22 07/26/24 mcg (1,000 unit) capsule cyanocobalamin (vitamin B-12) 1,000 mcg PO DAILY 04/08/22 07/26/24 1,000 mcg tablet (Vitamin B-12) alpha lipoic acid 100 mg capsule 200 mg PO BID Neuropathy 02/27/23 07/26/24 empagliflozin 10 mg tablet 10 mg PO DAILY 07/07/23 07/26/24 (Jardiance) metoprolol succinate 25 mg 25 mg PO DAILY 01/15/24 07/26/24 tablet,extended release 24 hr Previous Rx's Medication Instructions Recorded Disabled Parking Permit 1 ea Not Applicable DAILY #1 ea 06/11/23 metformin 1,000 mg tablet 1,000 mg PO BID #180 tabs 08/21/23 gabapentin 300 mg capsule 600 mg (2 x 300 mg) PO DAILY #180 11/17/23 caps fluticasone 250 mcg-salmeterol 50 1 inh inhalation Q12H PRN 01/29/24 mcg/dose blistr powdr for Shortness Of Breath Or Wheezing inhalation (Advair Diskus) #60 ea atorvastatin 40 mg tablet (Lipitor) 40 mg PO HS #90 tabs 05/10/24 finasteride 5 mg tablet 5 mg PO QDAY #90 tabs 05/10/24 clopidogrel 75 mg tablet (Plavix) 75 mg PO QDAY #90 tabs 06/28/24 albuterol sulfate 90 mcg/actuation 2 puff PO Q4-6H PRN for wheezing 08/23/24 aerosol inhaler #18 grams benzonatate 200 mg capsule 200 mg PO TID PRN cough #30 caps 08/27/24 Allergies Allergy/AdvReac Type Severity Reaction Status Date / Time fosfomycin Allergy Severe Rash Verified 07/26/24 13:57 tuberculin,PPD,multi-puncture AdvReac Severe swelling, Verified 07/26/24 13:57 [TUBERCULIN,PPD,MULTI-PUNCTURE] redness, scab ertapenem AdvReac Intermediate hallucinati Verified 07/26/24 13:57 ons Patient History Medical History Osteoarthritis of left hip Recurrent UTI History of recurrent UTI (urinary tract infection) Candidal balanitis Coronary artery disease Do not resuscitate Cerebrovascular disease BPH w urinary obs/LUTS Polyneuropathy, unspecified Primary osteoarthritis involving multiple joints Mixed hyperlipidemia Essential hypertension 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 History of urinary calculi Neoplasm of uncertain behavior of prostate Mild chronic anemia BPH (benign prostatic hyperplasia) AAA (abdominal aortic aneurysm) Left carotid artery occlusion Former smoker COPD (chronic obstructive pulmonary disease) Peripheral neuropathy Surgical History H/O vasectomy H/O transurethral resection of prostate H/O lithotripsy History of surgery on arm History of colonoscopy Hx of bilateral cataract extraction Hx of cystoscopy Hx of transurethral destruction of bladder lesion Social History household members: spouse Smoking Status: Former smoker alcohol intake: former Smoking Status: Former smoker alcohol intake frequency: holidays/special occasions only Substance Use Type: does not use Exam Initial Vital Signs Initial Vital Signs: Vital Signs Blood Pressure 128/60 08/29/24 11:45 GENERAL: Alert 84-year-old male and in no acute distress. HEENT: Head atraumatic,EOMI, pupils reactive, face symmetric, moist mucous membranes CARDIOVASCULAR: Regular rate and rhythm without murmurs, rubs or gallops. RESPIRATORY: Breath sounds equal bilaterally, no wheezes rales or rhonchi. ABDOMEN: Soft, nontender. Normoactive bowel sounds all 4 quadrants. No guarding or rebound. EXTREMITIES: Normal range of motion, no clubbing or edema. Neurovascularly intact pelvis stable no hip pain mild tenderness over sacrum NEUROLOGICAL: Alert and oriented x4.Normal gait and speech. SKIN: Warm, dry, no laceration, no petechiae, no rashes or lesions. Course Orders Ordered: ED Orders 08/29/24 11:50 Complete Blood Count AUTO DIFF Stat Comprehensive Metabolic Panel Stat D Dimer Stat Lactate (Lactic Acid) Stat Lipase Stat NT-proBNP (BNP-Adult 18+) Stat PTT Partial Thromboplastin Ruddy Stat Prothrombin Time INR Stat Troponin & CK Cardiac Panel Stat 08/29/24 12:02 XR chest 1V Stat EKG-12 Lead Stat 08/29/24 13:23 CT angio chest PE protocol Stat Discontinued Medications Dexamethasone (Dexamethasone 10 Mg/Ml Vial) 6 mg IV NOW ONE Stop: 08/29/24 14:48 Last Admin: 08/29/24 14:54 Dose: 6 mg Documented By: MPO Remdesivir 200 mg/ Sodium (Chloride) 250 mls @ 250 mls/hr IV NOW ONE Stop: 08/29/24 15:46 Vital Signs Vital signs: Vital Signs - 8 hr 08/29/24 11:45 08/29/24 11:46 08/29/24 11:53 Temperature 98 F Pulse Rate 71 69 Respiratory Rate 16 Blood Pressure 128/60 128/60 Pulse Oximetry 91 100 Oxygen Delivery Method Nasal Cannula Room Air Oxygen Flow Rate 2 08/29/24 12:00 08/29/24 12:00 08/29/24 12:30 Temperature Pulse Rate 70 Respiratory Rate Blood Pressure 119/61 132/60 Pulse Oximetry 96 Oxygen Delivery Method Oxygen Flow Rate 08/29/24 12:30 08/29/24 13:00 08/29/24 13:01 Temperature Pulse Rate 67 65 69 Respiratory Rate Blood Pressure Pulse Oximetry 99 97 97 Oxygen Delivery Method Oxygen Flow Rate 08/29/24 13:01 08/29/24 13:30 08/29/24 13:31 Temperature Pulse Rate 70 79 Respiratory Rate Blood Pressure 157/67 H Pulse Oximetry 91 91 Oxygen Delivery Method Oxygen Flow Rate 08/29/24 13:31 08/29/24 14:03 08/29/24 14:04 Temperature Pulse Rate 84 Respiratory Rate Blood Pressure 164/67 H 116/65 Pulse Oximetry 92 Oxygen Delivery Method Oxygen Flow Rate 08/29/24 14:04 08/29/24 14:05 08/29/24 14:05 Temperature Pulse Rate 84 82 Respiratory Rate Blood Pressure 129/76 Pulse Oximetry 93 94 Oxygen Delivery Method Nasal Cannula Oxygen Flow Rate 1 08/29/24 14:06 08/29/24 14:06 08/29/24 14:30 Temperature Pulse Rate 81 69 Respiratory Rate 15 Blood Pressure 162/78 H Pulse Oximetry 92 98 Oxygen Delivery Method Oxygen Flow Rate MDM - Weakness Lab Data 08/29/24 11:50 08/29/24 11:50 Labs: Lab Results 08/29/24 Range/Units 11:50 WBC 6.7 (4.5-11.0) X10^3/uL RBC 3.37 L (4.5-5.9) X10^6/uL Hgb 11.2 L (13.5-17.5) g/dL Hct 34.0 L (41-53) % MCV 100.8 H (80-100) fL MCH 33.2 (26-34) PG MCHC 32.9 (30-36) % RDW 15.2 H (11.6-14.8) % Plt Count 219 (150-400) X10^3/uL Neut % (Auto) 77.5 H (50-75) % Lymph % (Auto) 11.6 L (25-40) % [place] % (Auto) 10.6 (3-14) % Eos % (Auto) 0.1 L (2-4) % Baso % (Auto) 0.2 (0-2) % Neut # (Auto) 5200 (0693-7862) /uL Lymph # (Auto) 800 L (4274-3553) /uL [place] # (Auto) 700 (0-900) /uL Eos # (Auto) 0 (0-450) /uL Baso # (Auto) 0 (0-100) /uL PT 12.1 (9.4-12.5) SECONDS INR 1.1 (0.9-1.3) APTT 35 (25.1-36.5) SECONDS D-Dimer 1907 H (<500) ng/ml Sodium 137 (137-145) mmol/L Potassium 4.1 (3.4-5.1) mmol/L Chloride 106 (98-107) mmol/L Carbon Dioxide 24 (22-32) mmol/L BUN 26 H (9-20) mg/dL Creatinine 1.05 (0.66-1.25) mg/dL Estimated GFR > 60 (>60) mL/min BUN/Creatinine Ratio 24.8 H (6-22) Glucose 142 H (80-110) mg/dL Lactate 1.3 (0.7-2.1) mmol/L Calcium 9.0 (8.4-10.2) mg/dL Total Bilirubin 0.7 (0.2-1.3) mg/dL AST 44 (17-59) IU/L ALT 32 (<50) IU/L Alkaline Phosphatase 220 H (38-126) U/L Total Creatine Kinase 26 L (55-170) U/L Troponin I 0.015 (0.01-0.034) ng/mL NT-Pro-B Natriuret Pep 879 H (<450) pg/mL Total Protein 6.4 (6.3-8.2) g/dL Albumin 3.6 (3.5-5.0) g/dL Globulin 2.8 (1.7-4.1) g/dL Albumin/Globulin Ratio 1.3 (1.0-2.8) Lipase 56 (23-300) U/L Imaging Data Chest x-ray: Radiologist Impression: PROCEDURE: XR CHEST 1V INDICATIONS: chest pain TECHNIQUE: One view of the chest was acquired. COMPARISON: [facility], , XR CHEST 1V, 06/17/2023, 14:31. [facility], , XR CHEST 1V, 06/03/2023, 3:13. FINDINGS: Surgical changes and devices: None. Lungs and pleura: Lungs are clear. No pleural effusions or pneumothorax. Mediastinum: Mediastinal contours appear normal. Heart size is normal. Bones and chest wall: No suspicious bony lesions. Overlying soft tissues appear unremarkable. IMPRESSION: No acute cardiopulmonary abnormality is seen. Dictated by: Gris Lacey M.D. on 08/29/2024 at 11:57 CT scan - chest: Radiologist Impression: PROCEDURE: CT ANGIO CHEST PE PROTOCOL INDICATIONS: covid hypoxia hi dimer TECHNIQUE: After the administration of intravenous contrast, 2 mm thick sections acquired from the pulmonary apices to the posterior costophrenic angles. 3-dimensional maximum intensity projection (MIP) coronal and sagittal reformats were then acquired through the thorax. For radiation dose reduction, the following was used: automated exposure control, adjustment of mA and/or kV according to patient size. COMPARISON: None. FINDINGS: Image quality: Diagnostic. Pulmonary arteries: Pulmonary arteries are normal in size, and demonstrate no intraluminal filling defects to suggest central pulmonary embolism. Lower Neck: No enlarged lymph nodes. Thyroid: No thyroid nodules which require sonographic follow up, per consensus guidelines. Axillae: No enlarged lymph nodes. Chest Wall: Unremarkable. Bones: Unremarkable. Lungs and Pleura: No pneumothorax or pleural effusions. There is mild consolidation within the right middle lobe and dependently within the right lower lobe. There is no significant interlobular septal thickening and no effusion. Heart: Heart size is normal. No pericardial effusion. Thoracic Vessels: No aortic aneurysm. Mediastinum and Estela: No enlarged lymph nodes. Esophagus: No wall thickening. No hiatal hernia. Upper Abdomen: Visible portions of the upper abdomen show bilateral hydronephrosis without other acute abnormality. IMPRESSION: No pulmonary embolus. Small pulmonary consolidations consistent with the given history of covid infection. Dictated by: Gris Lacey M.D. on 08/29/2024 at 13:17 ECG Data Attestation: I personally reviewed and interpreted this ECG as follows: Prior ECG tracings: available for review Interpretation: Normal sinus rhythm rate 72 NE interval 164 QRS 1 8 QTC 431 PVC noted no ischemia, improved from prior MDM Narrative Medical decision making narrative: MDM CC: Weakness diarrhea Complicating co-morbidities: Coronary artery disease with stent,AAA also with repair, diabetes Data collected from: Daughter and EMS Medical records reviewed: Prior PCP note Differential considered: Dehydration COVID pulmonary embolism Exam documented above, pertinent findings include: Generally weak evidence of fluid overload no respiratory distress abdomen is soft Lab Test results independently reviewed as above. Pertinent findings: D-dimer 1907 CBC WBC is 6.7 hemoglobin 11.2 hematocrit 34, no leukocytosis or anemia CMP 137 potassium 4.1 chloride 106 carbon dioxide 24 BUN 26 creatinine 1.05, creatinine is stable from previous no significant electrolyte abnormality Troponin is negative Independently reviewed EKG as above: PVC no ischemia improved from prior Imaging studies independently reviewed: No pneumonia or pulmonary embolism found on CT or chest x-ray CT does show small pulmonary consolidations consistent with COVID infection Consultations: Dr. Hieu christine for remdesivir and dexamethasone Treatments: 500 cc bolus from EMS Re-evaluations: While lying in bed oxygen level did go to 90%. He then stood up and oxygen level dropped to 85%. Discussion: Patient is a 84-year-old male with positive home COVID test presenting today with increasing weakness. He was having some diarrhea he has not eating or drinking much due to diarrhea. Blood work does not show any significant evidence of dehydration although he apparently had some positive orthostatics initially. He is requiring 1-2 L of oxygen for some mild hypoxia. No evidence pulmonary embolism or pneumonia. Discharge Plan Departure Patient Disposition: Admitted As Inpatient Clinical Impression: COVID-19, Oxygen desaturation, Osteoarthritis of left hip Admit Date/Time: 08/29/24 14:48 Admit Provider: Dung Hagen
--- NOTE | 2024-08-29 12:02 | DI.RAD.S_ITS ---
PROCEDURE: XR CHEST 1V INDICATIONS: chest pain TECHNIQUE: One view of the chest was acquired. COMPARISON: [facility], CR, XR CHEST 1V, 06/17/2023, 14:31. [facility], CR, XR CHEST 1V, 06/03/2023, 3:13. FINDINGS: Surgical changes and devices: None. Lungs and pleura: Lungs are clear. No pleural effusions or pneumothorax. Mediastinum: Mediastinal contours appear normal. Heart size is normal. Bones and chest wall: No suspicious bony lesions. Overlying soft tissues appear unremarkable. IMPRESSION: No acute cardiopulmonary abnormality is seen. Dictated by: Gris Laecy M.D. on 08/29/2024 at 11:57 Approved by: Gris Lacey M.D. on 08/29/2024 at 11:57
[2024-08-29 12:32] LABS: Add Manual Diff / Slide Review NO; Basophils Absolute Auto 0 /uL (0-100); Basophils Percent Auto 0.2 % (0-2); Eosinophils Absolute Auto 0 /uL (0-450); Eosinophils Percent Auto 0.1 % (2-4); Hemoglobin 11.2 g/dL (13.5-17.5); Lymphocytes Absolute Auto 800 /uL (1100-4500); Lymphocytes Percent Auto 11.6 % (25-40); Mean Corpuscular HGB Conc 32.9 % (30-36); Mean Corpuscular Hemoglobin 33.2 PG (26-34); Mean Corpuscular Volume 100.8 fL (80-100); Monocytes Absolute Auto 700 /uL (0-900); Monocytes Percent Auto 10.6 % (3-14); Neutrophils Absolute Auto 5200 /uL (1500-7000); Neutrophils Percent Auto 77.5 % (50-75); Platelet Count 219 X10^3/uL (150-400); Red Blood Cell Count 3.37 X10^6/uL (4.5-5.9); Red Cell Distribution Width 15.2 % (11.6-14.8); White Blood Cell Count 6.7 X10^3/uL (4.5-11.0)
[2024-08-29 12:33] LABS: INR 1.1 (0.9-1.3); Prothrombin Time 12.1 SECONDS (9.4-12.5)
[2024-08-29 12:35] LABS: D Dimer 1907 ng/ml (<500)
[2024-08-29 12:36] LABS: PTT Partial Thromboplastin Tim 35 SECONDS (25.1-36.5)
[2024-08-29 12:37] LABS: Alanine Aminotransferase 32 IU/L (<50); Albumin 3.6 g/dL (3.5-5.0); Albumin Globulin Ratio 1.3 (1.0-2.8); Alkaline Phosphatase 220 U/L (38-126); Aspartate Aminotransferase 44 IU/L (17-59); BUN Creatinine Ratio 24.8 (6-22); Bilirubin Total 0.7 mg/dL (0.2-1.3); Blood Urea Nitrogen 26 mg/dL (9-20); Carbon Dioxide 24 mmol/L (22-32); Chloride 106 mmol/L (98-107); Creatine Kinase 26 U/L (55-170); Estimated Glomerular Filt Rate > 60 mL/min (>60); Globulin 2.8 g/dL (1.7-4.1); Glucose 142 mg/dL (80-110); HEMOLYSIS < 15 (0-50); Lactate (Lactic Acid) 1.3 mmol/L (0.7-2.1); Lipase 56 U/L (23-300); Potassium 4.1 mmol/L (3.4-5.1); Sodium 137 mmol/L (137-145); Total Protein 6.4 g/dL (6.3-8.2)
[2024-08-29 12:49] LABS: Troponin I 0.015 ng/mL (0.01-0.034)
[2024-08-29 13:12] LABS: NT-proBNP (BNP-Adult 18+) 879 pg/mL (<450)
--- NOTE | 2024-08-29 13:23 | DI.CT.S_ITS ---
PROCEDURE: CT ANGIO CHEST PE PROTOCOL INDICATIONS: covid hypoxia hi dimer TECHNIQUE: After the administration of intravenous contrast, 2 mm thick sections acquired from the pulmonary apices to the posterior costophrenic angles. 3-dimensional maximum intensity projection (MIP) coronal and sagittal reformats were then acquired through the thorax. For radiation dose reduction, the following was used: automated exposure control, adjustment of mA and/or kV according to patient size. COMPARISON: None. FINDINGS: Image quality: Diagnostic. Pulmonary arteries: Pulmonary arteries are normal in size, and demonstrate no intraluminal filling defects to suggest central pulmonary embolism. Lower Neck: No enlarged lymph nodes. Thyroid: No thyroid nodules which require sonographic follow up, per consensus guidelines. Axillae: No enlarged lymph nodes. Chest Wall: Unremarkable. Bones: Unremarkable. Lungs and Pleura: No pneumothorax or pleural effusions. There is mild consolidation within the right middle lobe and dependently within the right lower lobe. There is no significant interlobular septal thickening and no effusion. Heart: Heart size is normal. No pericardial effusion. Thoracic Vessels: No aortic aneurysm. Mediastinum and Estela: No enlarged lymph nodes. Esophagus: No wall thickening. No hiatal hernia. Upper Abdomen: Visible portions of the upper abdomen show bilateral hydronephrosis without other acute abnormality. IMPRESSION: No pulmonary embolus. Small pulmonary consolidations consistent with the given history of covid infection. Dictated by: Gris Lacey M.D. on 08/29/2024 at 13:17 Approved by: Gris Lacey M.D. on 08/29/2024 at 13:21
--- NOTE | 2024-08-29 14:14 | PC.NURSE ---
RN assisted pt with urinal. Prior to standing orthostatic vital signs obtained and WNL, during that time of standing pts O2 saturations fell to 85%. Pt did not report any symptoms. Pt placed back on 2L NC and O2>90%. Dr. Alvarez updated.
[2024-08-29] MEDS: DEXAMETHASONE 10 MG/ML VIAL 6 MG IV (14:54)
[2024-08-29] MEDS: REMDESIVIR 200 MG in SODIUM CHLORIDE 0.9% 250 ML 250 MG IV (16:12)
--- NOTE | 2024-08-29 16:22 | PM.HP.1 ---
History of Present Illness History of Present Illness Date Patient Seen: 08/29/24 Time Patient Seen: 16:22 Chief complaint: Weakness, COVID+ Narrative: The patient was a 58-year-old male who presents with upper respiratory symptoms including rhinorrhea, and a cough. He was also had nausea, anorexia, and diarrhea for about 1 week. He was found to be COVID positive and hypoxemic in the emergency department. He was started on dexamethasone and remdesivir. He was DNR, this is well established. I discussed this with him in his daughter. The patient denies any fevers, or chills in the last several days but did have these about a week ago. He lives in [place] with his . 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 He does have a history of CAD and multiple stents, ventricular tachycardia, congestive heart failure, diabetes mellitus 2, hypertension, hyperlipidemia, and peripheral neuropathy as well as a AAA and aortic stenting. He denies recent chest pain or new symptoms with his legs. He does have a chronic, progressive neuropathy of his hands and feet. 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 History of urinary calculi Neoplasm of uncertain behavior of prostate Mild chronic anemia BPH (benign prostatic hyperplasia) AAA (abdominal aortic aneurysm) Left carotid artery occlusion Former smoker COPD (chronic obstructive pulmonary disease) Peripheral neuropathy Surgical History H/O vasectomy H/O transurethral resection of prostate H/O lithotripsy History of surgery on arm History of colonoscopy Hx of bilateral cataract extraction Hx of cystoscopy Hx of transurethral destruction of bladder lesion Social History household members: spouse Smoking Status: Former smoker alcohol intake: former Meds Home Medications and Allergies Home Medications Medication Instructions Recorded Confirmed Type aspirin 81 mg tablet,delayed 81 mg PO QDAY ##0 06/25/13 07/26/24 History release multivit with min-folic 1 tab PO DAILY #0 caps 06/25/13 07/26/24 History acid-lutein 400 mcg-250 mcg chewable tablet (Centrum Silver) ferrous sulfate 325 mg (65 mg 325 mg PO DAILY 01/23/19 07/26/24 History iron) tablet cholecalciferol (vitamin D3) 25 25 mcg PO DAILY 04/08/22 07/26/24 History mcg (1,000 unit) capsule cyanocobalamin (vitamin B-12) 1,000 mcg PO DAILY 04/08/22 07/26/24 History 1,000 mcg tablet (Vitamin B-12) alpha lipoic acid 100 mg capsule 200 mg PO BID Neuropathy 02/27/23 07/26/24 History Disabled Parking Permit 1 ea Not Applicable DAILY #1 ea 06/11/23 07/26/24 Rx empagliflozin 10 mg tablet 10 mg PO DAILY 07/07/23 07/26/24 History (Jardiance) metformin 1,000 mg tablet 1,000 mg PO BID #180 tabs 08/21/23 07/26/24 Rx gabapentin 300 mg capsule 600 mg (2 x 300 mg) PO DAILY #180 11/17/23 07/26/24 Rx caps metoprolol succinate 25 mg 25 mg PO DAILY 01/15/24 07/26/24 History tablet,extended release 24 hr fluticasone 250 mcg-salmeterol 50 1 inh inhalation Q12H PRN 01/29/24 07/26/24 Rx mcg/dose blistr powdr for Shortness Of Breath Or Wheezing inhalation (Advair Diskus) #60 ea atorvastatin 40 mg tablet (Lipitor) 40 mg PO HS #90 tabs 05/10/24 07/26/24 Rx finasteride 5 mg tablet 5 mg PO QDAY #90 tabs 05/10/24 07/26/24 Rx clopidogrel 75 mg tablet (Plavix) 75 mg PO QDAY #90 tabs 06/28/24 07/26/24 Rx albuterol sulfate 90 mcg/actuation 2 puff PO Q4-6H PRN for wheezing 08/23/24 Rx aerosol inhaler #18 grams benzonatate 200 mg capsule 200 mg PO TID PRN cough #30 caps 08/27/24 Rx Allergies Allergy/AdvReac Type Severity Reaction Status Date / Time fosfomycin Allergy Severe Rash Verified 07/26/24 13:57 tuberculin,PPD,multi-puncture AdvReac Severe swelling, Verified 07/26/24 13:57 [TUBERCULIN,PPD,MULTI-PUNCTURE] redness, scab ertapenem AdvReac Intermediate hallucinati Verified 07/26/24 13:57 ons Review of Systems Review of Systems Narrative: All else reviewed and otherwise unremarkable except as noted in the history and physical. Exam Vital Signs (past 8 hours): - 08/29/24 11:45 08/29/24 11:46 08/29/24 11:53 Temperature 98 F Pulse Rate 71 69 Respiratory Rate 16 Blood Pressure 128/60 128/60 Pulse Oximetry 91 100 Oxygen Delivery Method Nasal Cannula Room Air Oxygen Flow Rate 2 08/29/24 12:00 08/29/24 12:00 08/29/24 12:30 Temperature Pulse Rate 70 Respiratory Rate Blood Pressure 119/61 132/60 Pulse Oximetry 96 Oxygen Delivery Method Oxygen Flow Rate 08/29/24 12:30 08/29/24 13:00 08/29/24 13:01 Temperature Pulse Rate 67 65 69 Respiratory Rate Blood Pressure Pulse Oximetry 99 97 97 Oxygen Delivery Method Oxygen Flow Rate 08/29/24 13:01 08/29/24 13:30 08/29/24 13:31 Temperature Pulse Rate 70 79 Respiratory Rate Blood Pressure 157/67 H Pulse Oximetry 91 91 Oxygen Delivery Method Oxygen Flow Rate 08/29/24 13:31 08/29/24 14:03 08/29/24 14:04 Temperature Pulse Rate 84 Respiratory Rate Blood Pressure 164/67 H 116/65 Pulse Oximetry 92 Oxygen Delivery Method Oxygen Flow Rate 08/29/24 14:04 08/29/24 14:05 08/29/24 14:05 Temperature Pulse Rate 84 82 Respiratory Rate Blood Pressure 129/76 Pulse Oximetry 93 94 Oxygen Delivery Method Nasal Cannula Oxygen Flow Rate 1 08/29/24 14:06 08/29/24 14:06 08/29/24 14:30 Temperature Pulse Rate 81 69 Respiratory Rate 15 Blood Pressure 162/78 H Pulse Oximetry 92 98 Oxygen Delivery Method Oxygen Flow Rate 08/29/24 15:00 Temperature Pulse Rate 70 Respiratory Rate 18 Blood Pressure Pulse Oximetry 96 Oxygen Delivery Method Oxygen Flow Rate Oxygen Delivery Method Nasal Cannula Oxygen Flow Rate 1 Narrative Exam Narrative: NAD, alert and oriented, fluent speech, calm. 2 L O2 Normocephalic skull, EOMI, anicteric sclera, symmetric pupils. Oropharynx unremarkable, no droop. Neck supple, midline trachea, no adenopathy. Lungs clear, normal rate and effort. Heart regular, no murmur gallop or rub. Abdomen is soft, non distended and non tender. Extremities are free of edema. Skin is free of rash or lesions. Joints are not swollen or deformed. Judgment appears to be normal. Objective Imaging Chest x-ray: Radiologist's impression: No acute cardiopulmonary abnormality is seen. CT scan - chest: Radiologist's impression: No pulmonary embolus. Small pulmonary consolidations consistent with the given history of covid infection. Labs 08/29/24 11:50 08/29/24 11:50 Labs: Laboratory Results - last 24 hr 08/29/24 11:50 WBC 6.7 RBC 3.37 L Hgb 11.2 L Hct 34.0 L MCV 100.8 H MCH 33.2 MCHC 32.9 RDW 15.2 H Plt Count 219 Neut % (Auto) 77.5 H Lymph % (Auto) 11.6 L [place] % (Auto) 10.6 Eos % (Auto) 0.1 L Baso % (Auto) 0.2 Neut # (Auto) 5200 Lymph # (Auto) 800 L [place]ts # (Auto) 700 Eos # (Auto) 0 Baso # (Auto) 0 PT 12.1 INR 1.1 APTT 35 D-Dimer 1907 H Sodium 137 Potassium 4.1 Chloride 106 Carbon Dioxide 24 BUN 26 H Creatinine 1.05 Estimated GFR > 60 BUN/Creatinine Ratio 24.8 H Glucose 142 H Lactate 1.3 Calcium 9.0 Total Bilirubin 0.7 AST 44 ALT 32 Alkaline Phosphatase 220 H Total Creatine Kinase 26 L Troponin I 0.015 NT-Pro-B Natriuret Pep 879 H Total Protein 6.4 Albumin 3.6 Globulin 2.8 Albumin/Globulin Ratio 1.3 Lipase 56 Assessment & Plan Assessment & Plan narrative: 1. COVID pneumonia, present on admission and active. 2. Acute hypoxic respiratory failure, present on admission and active. 3. CAD, present on admission and stable. 4. Aortic stenting for AA, present on admission and stable. 5. DM 2, present on admission and stable. 6. HLD, present on admission and stable. 7. Diabetic neuropathy, present on admission and active. PLAN: Oxygen, wean as able. Dexamethasone and remdesivir daily COVID isolation IV fluids Continue all chronic medications Insulin correctional with low-dose glargine DNR, confirmed today. Anticipate 2 midnights of hospital care being needed. Inpatient status. CHEMA: 07/31 Time-Based Coding :: 35 min spent with patient and on the chart (including review of chart, obtaining history, exam, reviewing outside data, placing orders, documenting exam and treatment plan, and counseling patient) on 08/29. Quality MIPS - Admit I confirm the patient?s Advance Care Plan is present, Code status is documented, Surrogate decision maker is in patient?s record [If Yes, STOP here]: Yes MIPS - Meds 'Current medications' to include all prescriptions, [id number] products, herbals, cannabis/cannabidiol products, and vitamin/mineral/dietary (nutritional) supplements. I have utilized all available resources to obtain, update, or review the patient?s current medications. [If Yes, STOP here]: Yes
[2024-08-29] MEDS: GABAPENTIN 300 MG CAPSULE 600 MG PO (21:29)
[2024-08-29] MEDS: ACETAMINOPHEN 325 MG TABLET 650 MG PO (21:29)
[2024-08-29] MEDS: ATORVASTATIN 20 MG TABLET 40 MG PO (21:29)
[2024-08-29] MEDS: BENZONATATE 100 MG CAPSULE PO (21:29)
[2024-08-30 03:00] VITALS: BP 112/62; PULSE 69; RESP 18; TEMP 36.2; O2SAT 94
[2024-08-30 05:16] LABS: Add Manual Diff / Slide Review NO; Basophils Absolute Auto 0 /uL (0-100); Basophils Percent Auto 0.1 % (0-2); Eosinophils Absolute Auto 0 /uL (0-450); Hematocrit 33.7 % (41-53); Hemoglobin 11.2 g/dL (13.5-17.5); Lymphocytes Absolute Auto 600 /uL (1100-4500); Lymphocytes Percent Auto 10.8 % (25-40); Mean Corpuscular HGB Conc 33.1 % (30-36); Mean Corpuscular Hemoglobin 33.1 PG (26-34); Monocytes Absolute Auto 400 /uL (0-900); Monocytes Percent Auto 8.4 % (3-14); Neutrophils Absolute Auto 4300 /uL (1500-7000); Neutrophils Percent Auto 80.7 % (50-75); Platelet Count 223 X10^3/uL (150-400); Red Blood Cell Count 3.37 X10^6/uL (4.5-5.9); Red Cell Distribution Width 15.5 % (11.6-14.8); White Blood Cell Count 5.4 X10^3/uL (4.5-11.0)
[2024-08-30 05:35] LABS: Blood Urea Nitrogen 27 mg/dL (9-20); Calcium 8.9 mg/dL (8.4-10.2); Carbon Dioxide 23 mmol/L (22-32); Chloride 107 mmol/L (98-107); Estimated Glomerular Filt Rate > 60 mL/min (>60); Glucose 143 mg/dL (80-110); HEMOLYSIS < 15 (0-50); Potassium 4.5 mmol/L (3.4-5.1); Sodium 139 mmol/L (137-145)
[2024-08-30 07:00] VITALS: BP 163/89; PULSE 71; PULSE 87; RESP 18; TEMP 36.2; O2SAT 93
--- NOTE | 2024-08-30 07:55 | P.PN_ITS ---
Subjective Subjective Interval history: Admitted with Covid pneumonia and hypoxemia. S: He feels a bit better today, the cough is improved but still productive. He was less hypoxemic was able to turn down from 7 L to 2 L of oxygen. He denies any chest pain. He was having diarrhea which is controlled with Imodium. Exam Vital Signs (past 8 hours): - 08/30/24 03:00 08/30/24 07:00 Temperature 97.2 F L Pulse Rate 69 71 Respiratory Rate 18 Blood Pressure 112/62 Pulse Oximetry 94 93 Oxygen Delivery Method Nasal Cannula Oxygen Flow Rate 6 4.5 Oxygen Delivery Method Nasal Cannula Oxygen Flow Rate 4.5 Narrative Exam Narrative: NAD, alert and oriented. Fluent speech. Oxygen nasal cannula. Lungs are clear, normal rate and effort. Heart is regular, no murmur gallop or rub. Abdomen is soft, non distended. Extremities are free of edema. Objective Labs 08/30/24 04:50 08/30/24 04:50 Labs: Laboratory Results - last 24 hr 08/29/24 08/30/24 11:50 04:50 WBC 6.7 5.4 RBC 3.37 L 3.37 L Hgb 11.2 L 11.2 L Hct 34.0 L 33.7 L MCV 100.8 H 100.0 MCH 33.2 33.1 MCHC 32.9 33.1 RDW 15.2 H 15.5 H Plt Count 219 223 Neut % (Auto) 77.5 H 80.7 H Lymph % (Auto) 11.6 L 10.8 L [place] % (Auto) 10.6 8.4 Eos % (Auto) 0.1 L 0.0 L Baso % (Auto) 0.2 0.1 Neut # (Auto) 5200 4300 Lymph # (Auto) 800 L 600 L [place] # (Auto) 700 400 Eos # (Auto) 0 0 Baso # (Auto) 0 0 PT 12.1 INR 1.1 APTT 35 D-Dimer 1907 H Sodium 137 139 Potassium 4.1 4.5 Chloride 106 107 Carbon Dioxide 24 23 BUN 26 H 27 H Creatinine 1.05 0.87 Estimated GFR > 60 > 60 BUN/Creatinine Ratio 24.8 H 31.0 H Glucose 142 H 143 H Lactate 1.3 Calcium 9.0 8.9 Total Bilirubin 0.7 AST 44 ALT 32 Alkaline Phosphatase 220 H Total Creatine Kinase 26 L Troponin I 0.015 NT-Pro-B Natriuret Pep 879 H Total Protein 6.4 Albumin 3.6 Globulin 2.8 Albumin/Globulin Ratio 1.3 Lipase 56 PFSH Medical History Osteoarthritis of left hip Recurrent UTI History of recurrent UTI (urinary tract infection) Candidal balanitis Coronary artery disease Do not resuscitate Cerebrovascular disease BPH w urinary obs/LUTS Polyneuropathy, unspecified Primary osteoarthritis involving multiple joints Mixed hyperlipidemia Essential hypertension 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 History of urinary calculi Neoplasm of uncertain behavior of prostate Mild chronic anemia BPH (benign prostatic hyperplasia) AAA (abdominal aortic aneurysm) Left carotid artery occlusion Former smoker COPD (chronic obstructive pulmonary disease) Peripheral neuropathy Surgical History H/O vasectomy H/O transurethral resection of prostate H/O lithotripsy History of surgery on arm History of colonoscopy Hx of bilateral cataract extraction Hx of cystoscopy Hx of transurethral destruction of bladder lesion Social History household members: spouse Smoking Status: Former smoker alcohol intake: former Assessment & Plan Assessment & Plan narrative: 1. COVID pneumonia, present on admission and active. 2. Acute hypoxic respiratory failure, present on admission and active. 3. CAD, present on admission and stable. 4. Aortic stenting for AAA, present on admission and stable. 5. DM 2, present on admission and stable. 6. HLD, present on admission and stable. 7. Diabetic neuropathy, present on admission and active. PLAN: Oxygen, wean as able. He was able to turn from 05/10 today. Continue Dexamethasone and remdesivir daily Continue COVID isolation . IV fluids Continue all chronic medications Insulin correctional with low-dose glargine He requires an additional night of hospital care for persistent hypoxemia from COVID. DNR, confirmed today. Anticipate 2 midnights of hospital care being needed. Inpatient status. CHEMA: 07/31 Time-Based Coding :: [TOTAL MINUTES] spent with patient and on the chart (including review of chart, obtaining history, exam, reviewing outside data, placing orders, documenting exam and treatment plan, and counseling patient) on [DATE].
[2024-08-30] MEDS: DEXAMETHASONE 10 MG/ML VIAL 6 MG IV (08:16)
[2024-08-30] MEDS: FINASTERIDE 5 MG TABLET PO (08:16)
[2024-08-30] MEDS: ASPIRIN EC 81 MG TABLET PO (08:16)
[2024-08-30] MEDS: CLOPIDOGREL 75 MG TABLET PO (08:16)
[2024-08-30] MEDS: ENOXAPARIN 40 MG/0.4 ML SYRINGE SUBCUT (08:17)
[2024-08-30 11:00] VITALS: BP 140/86; PULSE 72; RESP 16; TEMP 36.7; O2SAT 92
--- NOTE | 2024-08-30 12:13 | OT.IP.EVAL ---
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 Peripheral neuropathy Polyneuropathy, unspecified Primary osteoarthritis involving multiple joints Recurrent UTI Type 2 diabetes mellitus with polyneuropathy Surgical History (Last Reviewed 08/29/24 @ 16:24 by Dung Hagen MD) H/O lithotripsy H/O transurethral resection of prostate H/O vasectomy History of colonoscopy History of surgery on arm Hx of bilateral cataract extraction Hx of cystoscopy Hx of transurethral destruction of bladder lesion Occupational Therapy Inpatient Evaluation/Re-Eval M1 PT/OT-IP Prior Functional Status Start: 08/30/24 11:36 Freq: NEEDED Status: Active Protocol: Document 08/30/24 12:15 CGR (Rec: 08/30/24 12:23 CGR [id number]) Medical Review Prior Functional Status Medical History Reviewed Yes Communication Pt is an effective verbal communicator Mobility and Gait IND at baseline, sometimes uses SPC Activities of Daily Living and IADL's IND for all ADLs Social History Household Members spouse Living Arrangements House Number of Floors (Floors) One Floor Number of Stairs To Enter/Railing? 5 steps with R rail to enter Home Environment High Toilet,Walk in Shower, Built-In Shower Seat Home Equipment Front Wheel Walker,Straight Cane,Hand Held Shower,Grab Bars Near Toilet,Grab Bars In Shower Employment Status Retired Additional Social History Comment Pt is retired M2 OT-IP Current Condition Start: 08/30/24 12:14 Freq: Status: Active Protocol: Document 08/30/24 12:15 CGR (Rec: 08/30/24 12:23 CGR [id number]) Occupational Therapy Current Condition Current Condition Evaluation Date 08/30/24 Treatment Diagnosis COVID PNA Diagnosis Onset Date 08/29/24 M3 OT- IP Subjective and Pain Start: 08/30/24 12:14 Freq: Status: Active Protocol: Document 08/30/24 12:15 CGR (Rec: 08/30/24 12:23 CGR [id number]) OT- Subjective Occupational Therapy Visit Type Type Initial Evaluation Visit Start Time 12:01 Visit Stop Time 12:13 Notes co-eval with P.T. OT Pain Assessment Pain When Pain Assessed At Rest Pain Present Pain Present Denied Pain M4 OT- IP ADL's Start: 08/30/24 12:14 Freq: Status: Active Protocol: Document 08/30/24 12:15 CGR (Rec: 08/30/24 12:23 CGR [id number]) OT [id number] General Evaluation Self-Feeding Ability Independent Comments OT Self-Feeding Comments lunch OT ADL-Grooming Comments OT Grooming Comments pt declined, already performed OT ADL-Oral Care Comments Oral Care Comments pt declined, already performed OT ADL-Dressing General Eval Upper Body Dressing Ability Independent Comments OT Dressing Comments hospital gown OT ADL-Toileting General Evaluation Toileting Ability Standby Assistance Comments OT Toileting Comments simulated by sitting on the toielt OT ADL-Bathing Comments OT Bathing Comments not performed M5 OT- IP IADL's Start: 08/30/24 12:14 Freq: Status: Active Protocol: Document 08/30/24 12:15 CGR (Rec: 08/30/24 12:23 CGR [id number]) OT-Instrumental Activities of Daily Living Deficits IADL Deficits Identified No Deficits Home Safety Awareness Awareness of Need for Assistance at Home Good Awareness Ability to Problem Solve Emergency Able to Problem Solve Situations Medication Management Medication Management No Deficits Identified Money Management Money Management No Deficits Identified Meal Preparation Meal Preparation No Deficits Identified Profiling Machine Set Up Operator Tool Profiling Machine Set Up Operator Tool No Deficits Identified Driving Driving Comments 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 OT- IP Functional Cognition Start: 08/30/24 12:14 Freq: Status: Active Protocol: Document 08/30/24 12:15 CGR (Rec: 08/30/24 12:23 CGR [id number]) Cognitive Factors Limiting Selfcare Function Cognitive Ability Level of Alertness Alert Patient Orientation Name,Age,Birthday,Month,Year, Place,Situation Attention Span Ability Capable of Focused Attention, Capable of Sustained Attention Ability to Follow Commands Able to Follow Multi-Step Commands OT- Vision and Hearing OT- Hearing Assessment OT- Hearing Assessment WFL OT- Vision Assessment Visual Acuity WFL Visual Attentiveness WFL Occular Pursuits WFL Visual Convergence WFL M7 OT- IP Mobility and Balance Start: 08/30/24 12:14 Freq: Status: Active Protocol: Document 08/30/24 12:15 CGR (Rec: 08/30/24 12:23 CGR [id number]) OT-Transfer Assessment Sit to and From Stand Sit to and from Stand Contact Guard Assistance Transfers Transfer Ability Contact Guard Assistance Technique Transfer Destination Bed,Chair,Toilet Transfer Technique Stand Step Pivot Devices Transfer Assistive Devices Gait Belt Comments Mobility Comments Pt reaches for furniture as he walks. OT- Balance Assessment Sitting Balance and Reactions Static Sitting Balance Ability Normal Dynamic Sitting Balance Ability Normal M8 OT- IP Objective Assessments Start: 08/30/24 12:14 Freq: Status: Active Protocol: Document 08/30/24 12:15 CGR (Rec: 08/30/24 12:23 CGR [id number]) OT Gross Range of Motion Upper Extremity Range of Motion Assessment Within Functional Limits OT Strength Upper Extremity Strength Assessment Within Functional Limits OT- Coordination Assessment Upper Extremity Finger to Nose Test Within Functional Limits Finger Tapping Test Within Functional Limits OT-Muscle Tone Assessment Muscle Tone WNL Yes OT Sensation Assessment Edema Edema Absent M9 OT- IP Assessment and Plan Start: 08/30/24 12:14 Freq: Status: Active Protocol: Document 08/30/24 12:15 CGR (Rec: 08/30/24 12:23 CGR [id number]) OT Summary Assessment and Plan Potential Rehabilitation Potential Excellent Analytic Complexity at Evaluation Low Summary OT Impairments Balance,Functional Mobility, Dressing,Toileting,Bathing, Toilet Transfers,Shower Transfers,Activity Tolerance Progress Towards Goals Progressing Toward Goals Assessment Summary Pt presents as a low complexity evaluation s/p admit for COVID +. Pt is moving well and may benefit from 1-2 more sessions with OT as pt continues to feel better. Pt is likley to be a safe discharge home with his (who also has COVID). Goals Grooming Goal Independent Dressing Goal Independent Toileting Goal Independent Bathing Goal Independent Toilet Transfer Goal Independent Shower Transfer Goal Independent Days to Meet Goals 3 Frequency of Treatment Other frequency 5x per week Treatment Plan OT Treatment Plan ADL Training,Functional Mobility,Patient/Family Education,Discharge Planning Other Treatment Recommendations and Next shower if energy allows Treatment Focus Discharge Recommendations OT Discharge Recommendations Home with Assistance Transportation Needs at Discharge Private Vehicle
--- NOTE | 2024-08-30 12:22 | PT.IIE ---
Current Diagnoses COVID-19 (08/29/24) Surgical History (Last Reviewed 08/29/24 @ 16:24 by Dung Hagen MD) H/O lithotripsy H/O transurethral resection of prostate H/O vasectomy History of colonoscopy History of surgery on arm Hx of bilateral cataract extraction Hx of cystoscopy Hx of transurethral destruction of bladder lesion Medical History (Last Reviewed 08/29/24 @ 16:24 by Dung Hagen MD) AAA (abdominal aortic aneurysm) BPH (benign prostatic hyperplasia) BPH w urinary obs/LUTS Candidal balanitis Cerebrovascular disease COPD (chronic obstructive pulmonary disease) Coronary artery disease Do not resuscitate Essential hypertension Former smoker History of malignant neoplasm of bladder History of recurrent UTI (urinary tract infection) History of urinary calculi Left carotid artery occlusion Mild chronic anemia Mixed hyperlipidemia 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 Peripheral neuropathy Polyneuropathy, unspecified Primary osteoarthritis involving multiple joints Recurrent UTI Type 2 diabetes mellitus with polyneuropathy Physical Therapy Inpatient Evaluation/Re-Eval M1 PT/OT-IP Prior Functional Status Start: 08/30/24 11:36 Freq: NEEDED Status: Active Protocol: Document 08/30/24 12:01 MB (Rec: 08/30/24 12:21 MB [id number]) Medical Review Prior Functional Status Medical History Reviewed Yes Diet/Fluid Consistency Regular Communication WNLs Mobility and Gait Mod I with SPC, drives Social History Household Members spouse Living Arrangements House Number of Floors (Floors) One Floor Number of Stairs To Enter/Railing? 5 steps with right rail ascend Home Environment High Toilet,Walk in Shower, Built-In Shower Seat Home Equipment Front Wheel Walker,Straight Cane,Hand Held Shower,Grab Bars Near Toilet,Grab Bars In Shower Employment Status Retired M2 PT-IP Current Condition Start: 08/30/24 11:36 Freq: NEEDED Status: Active Protocol: Document 08/30/24 12:01 MB (Rec: 08/30/24 12:21 MB [id number]) Physical Therapy Current Condition Current Condition Evaluation Date 08/30/24 Treatment Diagnosis COVID M3 PT-IP Subjective Start: 08/30/24 11:36 Freq: NEEDED Status: Active Protocol: Document 08/30/24 12:01 MB (Rec: 08/30/24 12:21 MB [id number]) Subjective Physical Therapy Visit Type Type Initial Evaluation Visit Start Time 12:01 Visit Stop Time 12:13 Number of NUT CULLER Visits 0 Physical Therapy Visit Comments Patient Comments Pt states he has a couple of questions for nsg as far as his talking to nsg and need for anti-diarrhea medication. Therapy Pain Assessment Pain When Pain Assessed At Rest Pain Present Pain Present Denied Pain M4 PT-IP Mobility and Gait Start: 08/30/24 11:36 Freq: NEEDED Status: Active Protocol: Document 08/30/24 12:01 MB (Rec: 08/30/24 12:21 [id number]) PT-Transfer Assessment Sit to and From Stand Sit to and from Stand Minimal Assistance,1 Person Assistance Equipment Transfer Assistive Device Gait Belt Orthotic/Prosthetic Devices or Brace: No Transfers Transfer Technique Ambulation Transfer Ability Level of Assist Minimal Assistance Comments Mobility Comments Pt already sitting EOB upon PT arrival. Pt on 4L O2 and only noticeably dyspneic (1/4 Dyspnea Scale) with mobility. Pt provides support at gait belt and RIM TURNING FINISHER for min A for transfer and gait Gait Assessment Gait Gait Assistance Required: Minimum Assistance Distance (Feet) 20 Able to Maintain Weight Bearing Status Yes During Gait Assistive Devices Assistive Device Gait Belt Orthotic/Prosthetic Devices or Brace: No Gait Deviations General Gait Pattern Decreased Stride Length,Flexed Trunk,Narrow Based Gait,Step- to Gait Factors Limiting Gait Function Factors Limiting Gait Function Decreased Activity Tolerance, Poor Balance,Poor Safety Awareness Comments Gait Comments Pt reaches for bed and doorway of bathroom for gait training , reaches back for commode and is CGA to min A for toilet and chair transfers today PT-Balance Assessment Sitting Balance and Reactions Static Sitting Balance Ability Good Dynamic Sitting Balance Ability Fair Standing Balance and Reactions Static Standing Balance Ability Fair Dynamic Standing Balance Ability Fair Device Used RIM TURNING FINISHER and support about waist at gait belt M5 PT-IP Objective Assessments Start: 08/30/24 11:36 Freq: NEEDED Status: Active Protocol: Document 08/30/24 12:01 MB (Rec: 08/30/24 12:21 MB [id number]) Orientation Orientation/Cognition Level of Alertness Alert Orientation Name,Age,Birthday,Month,Year, Place,Situation Language Function Ability No Deficits Noted Safety Awareness Decreased Safety Awareness Memory Description No Deficits Noted Gross Range of Motion Upper Extremity ROM Impairments Defer to OT Lower Extremity ROM Assessment Within Functional Limits Strength Lower Extremity Strength Assessment Within Functional Limits Coordination Assessment Assessment Coordination Comments NT Sensation Assessment Comments Sensation Comments NT Muscle Tone Muscle Tone WNL Yes M6 PT-IP Treatment Start: 08/30/24 11:36 Freq: NEEDED Status: Active Protocol: Document 08/30/24 12:01 MB (Rec: 08/30/24 12:21 MB [id number]) Physical Therapy Treatment Education Education Provided Safety M7 PT-IP Assessment and Plan Start: 08/30/24 11:36 Freq: NEEDED Status: Active Protocol: Document 08/30/24 12:01 MB (Rec: 08/30/24 12:21 MB [id number]) PT Summary Assessment and Plan Potential Rehabilitation Potential Good Status of Condition at Evaluation Evolving Summary Impairments Balance,Bed Mobility,Transfers ,Gait,Activity Tolerance Progress Towards Goals Slow Progress due to Activity Tolerance Assessment Summary Pt is an 84 y/o with acute COVID who is currently on 4L O2. He is CGA to min A to move in the room. Anticipate he will walk better once acute illness is better. As appropriate in setting of COVID and requiring O2, will advance gait with cane, stair training and balance training. Goals Bed Mobility Goal Independent Transfer Goal Independent,Cane Gait Goal Independent,Cane Gait Distance 100 Other Goals Pt will ascend and descend 3 steps with right rail ascend to prepare for safe home entrance. Days to Meet Goals 5 Frequency of Treatment Frequency Of Treatment Once a Day Treatment Plan Physical Therapy Treatment Plan Bed Mobility Training,Transfer Training,Gait Training, Therapeutic Exercise,Balance Retraining,Post Op Education, Hot or Cold Pack,Neuromuscular Re-ed,Coordination Retraining ,Manual Therapy Recommendations To Nursing Amount of Assist Needed 1 Person Assist Discharge Recommendations PT Discharge Recommendations Home with Assistance Transportation Needs at Discharge Private Vehicle
[2024-08-30] MEDS: LOPERAMIDE 2 MG CAPSULE PO ×2 (13:11→18:22)
[2024-08-30] MEDS: REMDESIVIR 100 MG in SODIUM CHLORIDE 0.9% 250 ML 250 MG IV (13:11)
[2024-08-30 15:00] VITALS: BP 163/83; PULSE 70; RESP 12; TEMP 36.6; O2SAT 95
[2024-08-30] MEDS: BENZONATATE 100 MG CAPSULE PO ×2 (15:01→21:32)
--- NOTE | 2024-08-30 16:04 | CM.DANOTE ---
B DCP Assessment Note pt is an 84yo M here with COVID/pneumonia/hypoxia. PCP [employer] Payer Medicare and [employer] LEAN MANUFACTURING COORDINATOR reviewed EMR. per chart, pt lives in [place] with spouse Ruth. pt is indep at baseline. Currently at 4ltrs O2. per hospitalist, plan to dc home when off O2, likely tomorrow. Per PT/OT, rec home with assistance. pt has walker/cane at home. LEAN MANUFACTURING COORDINATOR did not meet with pt due to pos COVID diagnosis. P: anticipate home with spouse support when medically stable/able to be weaned off oxygen. no identified barriers to safe dc home at this time. CM team will continue to follow in case any DCP needs arise. TEGAN Jean Discharge Planning/Care Management CM Discharge Assessment Start: 08/30/24 16:01 Freq: Status: Active Protocol: Document 08/30/24 16:02 (Rec: 08/30/24 16:04 [id number]) Discharge Planning Assessment Assigned Manufacturing Business Analyst TEGAN Elizalde DPOA/Assigned Designee Name Ruth, spouse Contact Information [phone] Advance Directives? Yes; POLST Advance Directives on File No History Provided By Patient,Medical Record Prior Living Arrangements House Household Members spouse Independent with ADL's Yes Is patient alert and oriented? Yes DME Already Rented / Owned FWW / Walker,Cane Discharge Plan Home Transportation Arrangement Spouse Referrals Initiated None needed Review Status In Process Please Provide Date Initial DC 08/30/24 Assessment Was Performed Next Review Type Continued Stay Review
[2024-08-30] MEDS: ACETAMINOPHEN 325 MG TABLET 650 MG PO (18:22)
[2024-08-30 20:00] VITALS: BP 159/82; PULSE 63; RESP 16; TEMP 36.4; O2SAT 95
[2024-08-30] MEDS: GABAPENTIN 300 MG CAPSULE 600 MG PO (21:32)
[2024-08-30] MEDS: ATORVASTATIN 20 MG TABLET 40 MG PO (21:32)
[2024-08-30] MEDS: SODIUM CHLORIDE 0.9% FLUSH 10 ML IV (21:57)
[2024-08-30 22:55] VITALS: O2SAT 95
[2024-08-31] VITALS: BP 158/88; PULSE 60; TEMP 36.4; O2SAT 96
[2024-08-31 04:00] VITALS: BP 139/70; PULSE 52; RESP 16; TEMP 36.3; O2SAT 93
[2024-08-31 06:27] LABS: Add Manual Diff / Slide Review NO; Basophils Absolute Auto 0 /uL (0-100); Basophils Percent Auto 0.2 % (0-2); Eosinophils Absolute Auto 0 /uL (0-450); Hematocrit 34.7 % (41-53); Hemoglobin 11.6 g/dL (13.5-17.5); Lymphocytes Absolute Auto 800 /uL (1100-4500); Lymphocytes Percent Auto 8.7 % (25-40); Mean Corpuscular HGB Conc 33.3 % (30-36); Mean Corpuscular Volume 99.1 fL (80-100); Monocytes Absolute Auto 800 /uL (0-900); Monocytes Percent Auto 8.2 % (3-14); Neutrophils Absolute Auto 7700 /uL (1500-7000); Neutrophils Percent Auto 82.9 % (50-75); Platelet Count 272 X10^3/uL (150-400); Red Cell Distribution Width 15.2 % (11.6-14.8); White Blood Cell Count 9.2 X10^3/uL (4.5-11.0)
[2024-08-31 06:38] LABS: BUN Creatinine Ratio 39.6 (6-22); Blood Urea Nitrogen 36 mg/dL (9-20); Carbon Dioxide 25 mmol/L (22-32); Chloride 104 mmol/L (98-107); Estimated Glomerular Filt Rate > 60 mL/min (>60); Glucose 149 mg/dL (80-110); HEMOLYSIS < 15 (0-50); Potassium 4.2 mmol/L (3.4-5.1); Sodium 137 mmol/L (137-145)
[2024-08-31 08:00] VITALS: BP 120/69; RESP 18; TEMP 35.9; O2SAT 93
[2024-08-31] MEDS: FINASTERIDE 5 MG TABLET PO (08:55)
[2024-08-31] MEDS: ASPIRIN EC 81 MG TABLET PO (08:55)
[2024-08-31] MEDS: ENOXAPARIN 40 MG/0.4 ML SYRINGE SUBCUT (08:55)
[2024-08-31] MEDS: CLOPIDOGREL 75 MG TABLET PO (08:55)
[2024-08-31] MEDS: DEXAMETHASONE 10 MG/ML VIAL 6 MG IV (08:56)
[2024-08-31] MEDS: SODIUM CHLORIDE 0.9% FLUSH 10 ML IV (09:03)
[2024-08-31] MEDS: REMDESIVIR 100 MG in SODIUM CHLORIDE 0.9% 250 ML 250 MG IV (09:07)
--- NOTE | 2024-08-31 09:33 | PT.IPTN ---
Current Diagnoses COVID-19 (08/29/24) Physical Therapy Treatment Note M2 PT-IP Current Condition Start: 08/30/24 11:36 Freq: NEEDED Status: Active Protocol: Document 08/30/24 12:01 MB (Rec: 08/30/24 12:21 MB [id number]) Physical Therapy Current Condition Current Condition Evaluation Date 08/30/24 Treatment Diagnosis COVID M3 PT-IP Subjective Start: 08/30/24 11:36 Freq: NEEDED Status: Active Protocol: Document 08/31/24 10:12 TS (Rec: 08/31/24 10:22 TS [id number]) Subjective Physical Therapy Visit Type Type Treatment Note Visit Start Time 09:33 Visit Stop Time 09:58 Number of ELDERLY COMPANION Visits 1 Physical Therapy Visit Comments Patient Comments Pt reports feeling weak but getting better. He is agreeable to PT. M4 PT-IP Mobility and Gait Start: 08/30/24 11:36 Freq: NEEDED Status: Active Protocol: Document 08/31/24 10:12 TS (Rec: 08/31/24 10:22 TS [id number]) PT-Bed Mobility Assessment Supine to Sit Supine to Sit Standby Assistance Sit to Supine Sit to Supine Standby Assistance Scooting Scooting to Edge of Bed Standby Assistance PT-Transfer Assessment Sit to and From Stand Sit to and from Stand Standby Assistance,Contact Guard Assistance Equipment Transfer Assistive Device Gait Belt,Front Wheeled Walker Comments Mobility Comments Pt resting on 2 L's o2 at 94%, pt taken off of o2 for session. Supine to sit SBA with HOB elevated. STS with FWW SBA/CGA. Pt ambulates ~60' in the room SBA. Pt sits on EOB, Spo2 88% on RA, increases to 91% after ~30secs. Pt performs stairs x5 SBA with single rail. Spo2 desats to 88 % on RA, increases 90-91% after ~30 secs. Pt was left in bed, nursing notified of o2 saturation. Gait Assessment Gait Gait Assistance Required: Standby Assistance Distance (Feet) 60 Assistive Devices Assistive Device Gait Belt,Front Wheeled Walker Gait Deviations General Gait Pattern Decreased Stride Length,Flexed Trunk,Narrow Based Gait,Step- to Gait Factors Limiting Gait Function Factors Limiting Gait Function Decreased Activity Tolerance, Poor Balance,Poor Safety Awareness Stair Climbing Assessment Evaluation Level of Assist On Stairs Standby Assistance Devices Stair Climbing Assistive Devices Right Railing Technique/Endurance Stair Climbing Direction Ascend and Descend Stair Climbing Technique Step to Step Number of Steps Climbed 5 PT-Balance Assessment Sitting Balance and Reactions Static Sitting Balance Ability Normal Dynamic Sitting Balance Ability Normal Standing Balance and Reactions Static Standing Balance Ability Fair Dynamic Standing Balance Ability Fair M5 PT-IP Objective Assessments Start: 08/30/24 11:36 Freq: NEEDED Status: Active Protocol: Document 08/30/24 12:01 MB (Rec: 08/30/24 12:21 MB [id number]) Orientation Orientation/Cognition Level of Alertness Alert Orientation Name,Age,Birthday,Month,Year, Place,Situation Language Function Ability No Deficits Noted Safety Awareness Decreased Safety Awareness Memory Description No Deficits Noted Gross Range of Motion Upper Extremity ROM Impairments Defer to OT Lower Extremity ROM Assessment Within Functional Limits Strength Lower Extremity Strength Assessment Within Functional Limits Coordination Assessment Assessment Coordination Comments NT Sensation Assessment Comments Sensation Comments NT Muscle Tone Muscle Tone WNL Yes M6 PT-IP Treatment Start: 08/30/24 11:36 Freq: NEEDED Status: Active Protocol: Document 08/31/24 10:12 TS (Rec: 08/31/24 10:22 TS [id number]) Physical Therapy Treatment Education Education Provided Safety M7 PT-IP Assessment and Plan Start: 08/30/24 11:36 Freq: NEEDED Status: Active Protocol: Document 08/31/24 10:12 TS (Rec: 08/31/24 10:22 TS [id number]) PT Summary Assessment and Plan Potential Rehabilitation Potential Good Summary Impairments Balance,Bed Mobility,Transfers ,Gait,Activity Tolerance Progress Towards Goals Progressing Toward Goals Assessment Summary Balaji is making progress with his mobility. He is SBA for all bed mobility. He progressed his gait to ~60'SBA with FWW. He performs stairs x5 with signle rail CGA. His o2 desats to high 80's on RA with mobility. spo2 increases to low 90's after ~30 secs. Nursing notified of o2 saturation. PT is recommending home with assist. Goals Bed Mobility Goal Independent Transfer Goal Independent,Cane Gait Goal Independent,Cane Gait Distance 100 Other Goals Pt will ascend and descend 3 steps with right rail ascend to prepare for safe home entrance. Days to Meet Goals 5 Frequency of Treatment Frequency Of Treatment Once a Day Treatment Plan Physical Therapy Treatment Plan Bed Mobility Training,Transfer Training,Gait Training, Therapeutic Exercise,Balance Retraining,Post Op Education, Hot or Cold Pack,Neuromuscular Re-ed,Coordination Retraining ,Manual Therapy Recommendations To Nursing Amount of Assist Needed 1 Person Assist Discharge Recommendations PT Discharge Recommendations Home with Assistance Transportation Needs at Discharge Private Vehicle
--- NOTE | 2024-08-31 11:35 | PM.DS.1 ---
History of Present Illness History of Present Illness Chief complaint: Weakness, COVID+ Narrative: The patient was a 58-year-old male who presents with upper respiratory symptoms including rhinorrhea, and a cough. He was also had nausea, anorexia, and diarrhea for about 1 week. He was found to be COVID positive and hypoxemic in the emergency department. He was started on dexamethasone and remdesivir. He was DNR, this is well established. I discussed this with him in his daughter. The patient denies any fevers, or chills in the last several days but did have these about a week ago. He lives in [place] with his . 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 He does have a history of CAD and multiple stents, ventricular tachycardia, congestive heart failure, diabetes mellitus 2, hypertension, hyperlipidemia, and peripheral neuropathy as well as a AAA and aortic stenting. He denies recent chest pain or new symptoms with his legs. He does have a chronic, progressive neuropathy of his hands and feet. Discharge Providers Provider Date of admission: 08/29/24 14:48 Discharge Date: 08/31/24 Primary care physician: Lul Choi MD Consults: 08/30/24 11:34 Consult to Occupational Therapy Evaluate & Treat Comment: Physician Instructions: Evaluate and treat Consult to Physical Therapy Evaluate & Treat Comment: Physician Instructions: Evaluate and Treat Discharge provider: Dung Hagen MD Summary Hospital Course Discharge Diagnosis: 1. COVID pneumonia, present on admission and improved. 2. Acute hypoxic respiratory failure, present on admission and resolved. 3. CAD, present on admission and stable. 4. Aortic stenting for AAA, present on admission and stable. 5. DM 2, present on admission and stable. 6. HLD, present on admission and stable. 7. Diabetic neuropathy, present on admission and active. Hospital Course: Patient was a pleasant 84-year-old male who was admitted with acute COVID pneumonia and hypoxemia. He was treated with remdesivir and dexamethasone and required oxygen at 3 L and was able to turn down to room air by the day of discharge. On the day of discharge he was able to ambulate, dress himself and felt that he was at, or near baseline. He would residual cough which was much as improved and no chest pain. He was felt to be stable for discharge with close follow up. Status at Discharge Cognitive/behavioral status at discharge: oriented Functional status at discharge: independent ambulation Overall status at discharge: patient is back to baseline Time Spent with Patient Time spent: Greater than 30 minutes Exam Vital Signs (past 8 hours): - 08/31/24 04:00 08/31/24 08:00 Temperature 97.4 F L 96.7 F L Pulse Rate 52 L Respiratory Rate 16 18 Blood Pressure 139/70 120/69 Pulse Oximetry 93 93 Oxygen Flow Rate 2.5 2.5 Oxygen Delivery Method Nasal Cannula Oxygen Flow Rate 2.5 Narrative Exam Narrative: Doing well, able to ambulate. Comfortable off oxygen. Breathing comfortably, normal rate and effort. No leg edema. Objective Imaging Multiple studies:: Radiologist's impression: Chest x-ray: Radiologist's impression: No acute cardiopulmonary abnormality is seen. CT scan - chest: Radiologist's impression: No pulmonary embolus. Small pulmonary consolidations consistent with the given history of covid infection. Labs 08/31/24 05:30 08/31/24 05:30 Labs: Laboratory Results - last 24 hr 08/31/24 05:30 WBC 9.2 D RBC 3.50 L Hgb 11.6 L Hct 34.7 L MCV 99.1 MCH 33.0 MCHC 33.3 RDW 15.2 H Plt Count 272 Neut % (Auto) 82.9 H Lymph % (Auto) 8.7 L Barnwell % (Auto) 8.2 Eos % (Auto) 0.0 L Baso % (Auto) 0.2 Neut # (Auto) 7700 H Lymph # (Auto) 800 L Barnwell # (Auto) 800 Eos # (Auto) 0 Baso # (Auto) 0 Sodium 137 Potassium 4.2 Chloride 104 Carbon Dioxide 25 BUN 36 H Creatinine 0.91 Estimated GFR > 60 BUN/Creatinine Ratio 39.6 H Glucose 149 H Calcium 9.0 PFSH Medical History Osteoarthritis of left hip Recurrent UTI History of recurrent UTI (urinary tract infection) Candidal balanitis Coronary artery disease Do not resuscitate Cerebrovascular disease BPH w urinary obs/LUTS Polyneuropathy, unspecified Primary osteoarthritis involving multiple joints Mixed hyperlipidemia Essential hypertension 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 History of urinary calculi Neoplasm of uncertain behavior of prostate Mild chronic anemia BPH (benign prostatic hyperplasia) AAA (abdominal aortic aneurysm) Left carotid artery occlusion Former smoker COPD (chronic obstructive pulmonary disease) Peripheral neuropathy Surgical History H/O vasectomy H/O transurethral resection of prostate H/O lithotripsy History of surgery on arm History of colonoscopy Hx of bilateral cataract extraction Hx of cystoscopy Hx of transurethral destruction of bladder lesion Social History household members: spouse Smoking Status: Former smoker alcohol intake: former Discharge Assessment & Plan Assessment and Plan Assessment: 1. COVID pneumonia, present on admission and improved. 2. Acute hypoxic respiratory failure, present on admission and resolved. 3. CAD, present on admission and stable. 4. Aortic stenting for AAA, present on admission and stable. 5. DM 2, present on admission and stable. 6. HLD, present on admission and stable. 7. Diabetic neuropathy, present on admission and active. Plan of Treatment: He was improved, off oxygen, near baseline. He was stable for discharge home with no further medications and close follow up. Discharge Plan Discharge Plan Patient Disposition: Home Provider Discharge Comment: He was stable for discharge. He was come off from oxygen and feels much better. Discharge orders & Medications Prescriptions: New benzonatate 100 mg Capsule 100 mg PO TID PRN (Reason: Cough) Qty: 30 0RF Continued ferrous sulfate 325 mg (65 mg iron) tablet 325 mg PO DAILY aspirin 81 MG tablet,delayed release (DR/EC) 81 mg PO QDAY Qty: 0 Centrum Silver 400-250 mcg Tablet,Chewable 1 tab PO DAILY Qty: 0 metformin 1,000 mg tablet 1,000 mg PO BID Qty: 180 4RF gabapentin 300 mg capsule 600 mg PO DAILY Qty: 180 3RF fluticasone propion-salmeterol [Advair Diskus] 250-50 mcg/dose blister with device 1 inh inhalation Q12H PRN (Reason: Shortness Of Breath Or Wheezing) Qty: 60 3RF Rx Instructions: Wixela atorvastatin [Lipitor] 40 mg tablet 40 mg PO HS Qty: 90 3RF finasteride 5 mg tablet 5 mg PO QDAY Qty: 90 3RF clopidogrel [Plavix] 75 mg tablet 75 mg PO QDAY Qty: 90 3RF albuterol sulfate 90 mcg/actuation HFA aerosol inhaler 2 puff PO Q4-6H PRN (Reason: for wheezing) Qty: 18 2RF benzonatate 200 mg capsule 200 mg PO TID MDD 3 X a day PRN (Reason: cough) Qty: 30 0RF cholecalciferol (vitamin D3) 25 mcg (1,000 unit) capsule 25 mcg PO DAILY cyanocobalamin (vitamin B-12) [Vitamin B-12] 1,000 mcg tablet 1,000 mcg PO DAILY alpha lipoic acid 100 mg capsule 200 mg PO BID Jardiance 10 mg tablet 10 mg PO DAILY Disabled Parking Permit 1 ea Not Applicable DAILY Qty: 1 0RF metoprolol succinate 25 mg tablet extended release 24 hr 25 mg PO DAILY Follow up/Referrals: Lul Choi MD [Primary Care Provider] - Discharge Health Status Multidrug resistant organism: No MDRO Diet/Activity/Treatments Diet: Regular Skin/Wound/Dressing Care Report to your healthcare provider any signs of infection, such as:: chills, fever and increased pain Visit Report/Discharge Packet Instructions: [facility] for COVID-19 (Suspected or Confirmed ) Stand Alone Forms: Patient Portal/API, Stroke Signs & Symptoms Discharge Data Primary Care Provider: Lul Choi V
--- NOTE | 2024-08-31 12:30 | CM.DPNOTE ---
DCP Note TAX MANAGER PUBLIC reviewed EMR. Per provider in morning rounds pt to dc home today. Per RN, pt attempting to get a ride home. spouse also has COVID. TAX MANAGER PUBLIC met with pt briefly from outside of room due to pt's pos COVID. pt confirms that he does not have a ride home. TAX MANAGER PUBLIC gave him the number to [employer]. pt confirms he can pay for taxi once he gets home to get his wallet or spouse can pay over the phone. Denies other CM/DCP needs P: home today, transport with taxi. no identified barriers to safe dc home at this time. Cm team will continue to follow as needed TGEAN Jean
--- NOTE | 2024-08-31 12:51 | PC.NURSE ---
Pt is dressed and ready for discharge home via taxi. IV and tele have been removed. Went over d/c instructions with Pt-discussed d/c meds, time of last dose, reviewed stroke education, discussed wearing a mask when out in public until COVID symptoms have resolved and Pt stated he would make his own appointment to follow up with his PCP. Pt denied further questions and was taken out via w/c by RN to main entrance to await his taxi. All belongings were sent with Pt.
== END 2024-08-31 12:54 | disposition home or self-care (01) | DRG 177 ==
LOC: ED 11:53 → AC 14:49
PROVIDERS: Admitting Provider Hospitalist; Emergency Provider Emergency Medicine; Family Provider Internal Medicine; PCP Internal Medicine; Referring Provider Emergency Medicine; Visit Provider Hospitalist
DX: U07.1 COVID-19 (principal); J12.82 Pneumonia due to coronavirus disease 2019; J96.01 Acute respiratory failure with hypoxia; I25.10 Atherosclerotic heart disease of native coronary artery without angina pectoris; E11.40 Type 2 diabetes mellitus with diabetic neuropathy, unspecified; E78.5 Hyperlipidemia, unspecified; R19.7 Diarrhea, unspecified; I10 Essential (primary) hypertension; N40.0 Benign prostatic hyperplasia without lower urinary tract symptoms; I71.40 Abdominal aortic aneurysm, without rupture, unspecified; J44.9 Chronic obstructive pulmonary disease, unspecified; Z66 Do not resuscitate; Z95.5 Presence of coronary angioplasty implant and graft; Z87.891 Personal history of nicotine dependence; Z79.84 Long term (current) use of oral hypoglycemic drugs; Z79.02 Long term (current) use of antithrombotics/antiplatelets; Z95.818 Presence of other cardiac implants and grafts
CPT/HCPCS: 36415; 71045; 71275; 80048; 80053; 82550; 82962; 83605; 83690; 83880; 84484; 85025; 85379; 85610; 85730; 93005; 93010; 94762; 96374; 97116; 97161; 97165; 97530; 99284; 99285; J1100; J1650; Q9967

== ENCOUNTER → 2024-09-10 12:51 | Outpatient (CLI) | payer MEDICARE, OTHER, SELFPAY ==
[2024-08-29 16:00] VITALS: BMI 23.7
[2024-09-12 11:39] LABS: C difficie Toxins A and B, EIA Negative (Negative)
== END ==
PROVIDERS: Family Provider Internal Medicine; PCP Internal Medicine; Referring Provider Internal Medicine; Visit Provider Internal Medicine
DX: R19.7 Diarrhea, unspecified (principal)
CPT/HCPCS: 87324

== ENCOUNTER → 2024-09-13 10:15 | Outpatient (CLI) | payer MEDICARE, OTHER, SELFPAY ==
[2023-06-30 10:14] VITALS: BMI 23.3
[2024-08-29 16:00] VITALS: BMI 23.7
--- NOTE | 2024-09-13 10:17 | DI.CT.S_ITS ---
PROCEDURE: CT ANGIO ABDOMEN PELVIS INDICATIONS: Infrarenal abdominal aortic aneurysm, without rupt TECHNIQUE: Non-contrast 3 mm thick sections acquired from the diaphragm to the symphysis. After the administration of intravenous contrast, 2.5 mm thick sections acquired from the diaphragm to the symphysis during the arterial and venous phases. 10 mm maximum intensity projection (MIP) reformats were acquired of the arterial phase images. For radiation dose reduction, the following was used: automated exposure control. COMPARISON: [facility], CT, CT ANGIO CHEST PE PROTOCOL, 08/29/2024, 13:38. [facility], CT, CT ANGIO ABDOMEN PELVIS, 04/23/2024, 13:51. FINDINGS: Image Quality: Diagnostic. Abdominal aorta and iliac arteries: Interval placement of infrarenal bifurcated endograft excluding AAA. The AAA sac appears slightly smaller in size when compared to previous CT angiogram of 04/23/2024 measuring 5.3 cm x 5.6 cm (right/left x AP), previously 5.6 cm x 5.7 cm when measured in similar fashion. The main body and both iliac limbs appear patent. Small endoleak along the right anterior aspect of the excluded AAA sac (series 5, image 90 and series 11, image 90) compatible with a type II endoleak from retrograde flow via the LISA. Bilateral external iliac and internal iliac arteries are patent. Bilateral common femoral arteries and visualized segments of proximal SFA and profunda femoris arteries are patent. Visceral arteries: Mild fusiform dilatation of the distal celiac artery measuring upwards of 1.0 cm in greatest diameter. Branches of the celiac artery are patent without significant stenosis, aneurysmal dilatation or dissection. The SMA is patent with of mild degree of partially calcified plaque within the proximal segment without significant stenosis. Both main renal arteries are patent with a focal partially calcified plaque involving the left renal artery ostium resulting in moderate (50-69%) stenosis. OTHER: Lower Chest: Partially imaged area of consolidation involving the medial right middle lobe abutting the mediastinum corresponding to consolidation better demonstrated on prior CT angiogram of the chest from 08/29/2024. Additional patchy airspace opacities within the posterior right lower lobe appears improved compared to prior chest CT. Liver: Liver demonstrates surface nodularity suggestive of cirrhosis. No focal mass lesion. Gallbladder: No radiopaque gallstones or wall thickening. Biliary ducts: No biliary dilation. Pancreas: No focal mass lesion. No pancreatic duct dilatation. Spleen: Size is within normal limits. Adrenal Glands: No adrenal nodules. Kidneys and Ureters: Stable appearing mild to moderate bilateral hydronephrosis and hydroureter. No renal or ureteral calculi. No solid renal mass. Stomach and Bowel: Stable appearing thickening involving the rectum. Extensive colonic diverticulosis, most notably involving the sigmoid colon, without evidence of diverticulitis. Small large bowel appear normal in caliber without evidence of bowel obstruction. Peritoneum: No abnormal intraperitoneal fluid. No free air. Ventral Wall: No hernia. Abdominal Nodes: No retroperitoneal or mesenteric adenopathy by size criteria. Vessels: Small paraesophageal varices involving the distal esophagus and GE junction. PELVIS: Pelvic Organs: Unremarkable. Bladder: Urinary bladder demonstrates a bilobed appearance with mild degree of bladder wall thickening possibly related to chronic bladder outlet obstruction with associated diverticulum. Pelvic Nodes: No enlarged lymph nodes. Miscellaneous: No inguinal hernias are seen. Bones: No aggressive osseous abnormality. Severe degenerative changes throughout the lower thoracic and lumbar spine. IMPRESSION: 1. Interval stent graft repair of infrarenal AAA with slight interval decrease in size of excluded AAA sac as described above. Small type II endoleak along the right anterior aspect of the AAA sac arising from retrograde flow via the LISA. 2. Unchanged appearing thickening involving the rectum which could be related to chronic inflammatory process. Underlying malignancy is not entirely excluded and correlation with colonoscopy if not already performed is recommended. 3. Morphologic changes of the liver suggestive of cirrhosis with evidence of secondary portal hypertension including presence of small paraesophageal varices. 4. Chronic mild to moderate bilateral hydronephrosis and hydroureter and changes of the urinary bladder suggestive of chronic bladder outlet obstruction. Dictated by: Dung Lofton M.D. on 09/13/2024 at 15:07 Approved by: Dung Lofton M.D. on 09/13/2024 at 15:29
== END ==
PROVIDERS: Family Provider Internal Medicine; PCP Internal Medicine; Referring Provider Surgery; Visit Provider Surgery
DX: I71.43 Infrarenal abdominal aortic aneurysm, without rupture (principal); I97.89 Other postprocedural complications and disorders of the circulatory system, not elsewhere classified; I85.00 Esophageal varices without bleeding; N13.30 Unspecified hydronephrosis
CPT/HCPCS: 74174; Q9967

== ENCOUNTER → 2025-01-24 13:58 | Outpatient (CLI) | payer MEDICARE, OTHER, SELFPAY ==
[2024-08-29 16:00] VITALS: BMI 23.7
[2025-01-24 14:25] LABS: Hemoglobin 11.9 g/dL (13.5-17.5); Mean Corpuscular HGB Conc 33.2 % (30-36); Mean Corpuscular Hemoglobin 33.8 PG (26-34); Mean Corpuscular Volume 101.9 fL (80-100); Platelet Count 169 X10^3/uL (150-400); Red Blood Cell Count 3.53 X10^6/uL (4.5-5.9); Red Cell Distribution Width 16.1 % (11.6-14.8); White Blood Cell Count 5.7 X10^3/uL (4.5-11.0)
[2025-01-24 14:40] LABS: Hemoglobin A1C% w Est Avg Glu 5.7 % (4.0-6.0)
[2025-01-24 14:43] LABS: Aspartate Aminotransferase 58 IU/L (17-59); BUN Creatinine Ratio 24.1 (6-22); Blood Urea Nitrogen 27 mg/dL (9-20); Calcium 9.8 mg/dL (8.4-10.2); Carbon Dioxide 24 mmol/L (22-32); Chloride 107 mmol/L (98-107); Cholesterol 144 mg/dL (140-199); Estimated Glomerular Filt Rate > 60 mL/min (>60); Glucose 90 mg/dL (80-110); HDL Cholesterol 53 mg/dL (40-60); HEMOLYSIS < 15 (0-50); LDL Cholesterol Calculated 67 mg/dL (<100); Potassium 4.5 mmol/L (3.4-5.1); Sodium 140 mmol/L (137-145); Triglycerides 121 mg/dL (35-150)
[2025-01-24 17:24] LABS: Creatinine Urine Random 63.53 mg/dL
[2025-01-24 17:30] LABS: Microalbumin Urine Random 2.5 mg/dL (0-1.6)
== END ==
PROVIDERS: Family Provider Internal Medicine; PCP Internal Medicine; Referring Provider Internal Medicine; Visit Provider Internal Medicine
DX: E11.42 Type 2 diabetes mellitus with diabetic polyneuropathy (principal); I50.20 Unspecified systolic (congestive) heart failure; E78.2 Mixed hyperlipidemia
CPT/HCPCS: 36415; 80048; 80061; 82043; 82570; 83036; 84450; 85027

== ENCOUNTER → 2025-02-11 15:27 | Outpatient (CLI) | payer MEDICARE, OTHER, SELFPAY ==
[2025-02-11 07:23] VITALS: BMI 23.7
--- NOTE | 2025-02-11 15:29 | DI.RAD.S_ITS ---
PROCEDURE: XR CHEST 2V INDICATIONS: shortness of breath TECHNIQUE: 2 views of the chest were acquired. COMPARISON: [facility], , XR CHEST 1V, 08/29/2024, 12:00. FINDINGS: Surgical changes and devices: None. Lungs and pleura: Patchy consolidation of the right lower lobe. Mild right perihilar airway thickening. No pleural effusions or pneumothorax. Mediastinum: Mediastinal contours are normal. Heart size is normal. Bones and chest wall: No suspicious bony abnormalities. Soft tissues appear unremarkable. IMPRESSION: Right lower lobe pneumonia. Recommend follow up chest radiograph 4-6 weeks after treatment to document resolution of findings and/or return to baseline examination. Dictated by: Mike Sheffield M.D. on 02/11/2025 at 23:52 Approved by: Mike Sheffield M.D. on 02/11/2025 at 23:54
== END ==
PROVIDERS: Family Provider Internal Medicine; PCP Internal Medicine; Referring Provider Nurse Practitioner Family; Visit Provider Nurse Practitioner Family
DX: J18.9 Pneumonia, unspecified organism (principal); R06.02 Shortness of breath
CPT/HCPCS: 71046

== ENCOUNTER → 2025-03-04 12:54 | Outpatient (CLI) | payer MEDICARE, OTHER, SELFPAY ==
[2025-02-11 07:23] VITALS: BMI 23.7
--- NOTE | 2025-03-04 12:56 | DI.RAD.S_ITS ---
PROCEDURE: XR CHEST 2V INDICATIONS: follow up pneumonia (02/11 XR) TECHNIQUE: 2 views of the chest were acquired. COMPARISON: [facility], CR, XR CHEST 2V, 02/11/2025, 15:28. [facility], CR, XR CHEST 1V, 08/29/2024, 12:00. FINDINGS: Surgical changes and devices: None. Lungs and pleura: Lungs are clear. No pleural effusions or pneumothorax. Mediastinum: Mediastinal contours are normal. Heart size is normal. Bones and chest wall: No suspicious bony abnormalities. Soft tissues appear unremarkable. IMPRESSION: Resolution of previously seen right middle lobe pneumonia, with no acute abnormality seen at this time. Dictated by: Benigno Roland M.D. on 03/04/2025 at 21:42 Approved by: Benigno Roland M.D. on 03/04/2025 at 21:43
== END ==
PROVIDERS: Family Provider Internal Medicine; PCP Internal Medicine; Referring Provider Internal Medicine; Visit Provider Internal Medicine
DX: J18.9 Pneumonia, unspecified organism (principal)
CPT/HCPCS: 71046

== ENCOUNTER → 2025-03-17 11:32 | Outpatient (CLI) | payer MEDICARE, OTHER, SELFPAY ==
[2025-02-11 07:23] VITALS: BMI 23.7
--- NOTE | 2025-03-17 14:15 | ST.SWALLOW ---
Visit Care Team Role Provider Type Lul Choi MD Attending Provider Physician Family Provider Primary Care Provider Referring Provider Specialty: Internal Medicine Address: [address] [place] [address], [id number] Email: [email or web address] Modified Barium Swallow Study [employer] [place] Modified Barium Swallow Study Start: 03/17/25 12:40 Freq: Status: Active Protocol: Document 03/17/25 12:40 LNK (Rec: 03/17/25 14:15 LNK Desktop) Modified Barium Swallow Study Total Time Visit Start Time 12:00 Visit Stop Time 12:30 Total Visit Minutes [address] Choi Reason for Referral aspiration; dysphagia Setting Setting Outpatient Care Patient Information Identification Type Name,Picture Patient History Pt was seen for a Modified Barium Swallow Study at the referral of Dr. Choi. Pt recently had RLL pneumonia with suspicion of aspiration ( 02/11/25). MBSS ordered to determine pt's aspiration risk . Pt reported he currently has no difficulty with swallowing foods, liquids or medications . He noted that Dr Choi recommended turning his head to the left when swallowing, which pt did for a while. He said he noticed no difference in swallowing with/without head turn so he stopped the head turn. Pt's PMH includes TIA/CVA ( 2011), CHF, COPD and COVID. Subjective Observations Pt was seated in the flouroscopy chair with directions and procedures explained for him. He indicated he understood and agreed to proceed. Patient Positioning Position View Lat-A/P Imaging Lateral View Textures Administered Trials Presented Thin Liquid via Spoon (IDDSI 0 ),Thin Liquid via Cup (IDDSI 0 ),Extremely Thick Liquid via Spoon (IDDSI 4),Regular (IDDSI 7) Barium Tablet Yes The IDDSI Framework Protocol: IDDSI.1 Oral Impairment Source: The Modified Barium Swallow Impairment Profile (MBSImP??) Lip Closure No labial escape Tongue Control During Bolus Hold Escape to lateral buccal cavity/floor of mouth (FOM) Bolus Preparation/Mastication Timely & efficient chewing & mashing Bolus Transport/Lingual Motion Brisk tongue motion Oral Residue Residue collection on oral structures Location Tongue Initiation of Pharyngeal Swallow Bolus head in valleculae Additional Oral Impairment Observations *OME and DKS were observed to be WFL. *Dentition natural with many posterior teeth missing *Mastication observed with anterior munching chew pattern . *Adequate bolus formation, control and AP transition. *Velopharyngeal closure was WNL. Pharyngeal Impairment Source: The Modified Barium Swallow Impairment Profile (MBSImP??) Soft Palate Elevation No bolus between soft palate & pharyngeal wall Laryngeal Elevation Part.sup.move.thyroid cart/ part.approx.arytenoids to epiglot.petiole Anterior Hyoid Excursion No anterior movement Epiglottic Movement Partial inversion Laryngeal Vestibular Closure Incomplete; narrow column air/ contrast in laryngeal vestibule Pharyngeal Stripping Wave Present - complete Pharyngoesophageal Segment Opening Minimal distension/minimal duration; marked obstruction of flow Tongue Base Retraction Narrow column of contrast/air betwn tongue base & post. pharyngeal wall Pharyngeal Residue Collection of residue within/ on pharyngeal structures Location Diffuse (>3 areas) Additional Pharyngeal Impairment *Reduced base of tongue Observations strength and hyolaryngeal elevation/movement *Partial epiglottic inversion with poor seal of laryngeal vestibule *Laryngeal penetration observed frequently (PAS 5: penetrates larynx. contacts folds, visible laryngeal residue); no reflexive cough *SILENT emerson aspiration observed with thin liquids and secretions across all trials (PAS 8: below folds, no response or effort, tracheal residue) with HEAD FORWARD position - No reflexive cough - cued cough minimally effective in clearing tracheal residue *LEFT HEAD TURN significantly reduced aspiration risk; Right head turn not effective in reducing aspiration *C3-C5 appear to be more anterior than other cervical bones. This protrusion seems to narrow the UES and obstruct the bolus flow through the UES. This was most evident with semi soft and regular texture trials. Several swallow attempts were needed in order to clear the bolus to the esophagus. The narrow UES was seen in both lateral and AP views. The portion of bolus not swallowed was seen within pharynx above open airway HIGH ASPIRATION RISK A/P View Textures Administered Trials Presented Thin Liquid via Spoon (IDDSI 0 ) The IDDSI Framework Protocol: IDDSI.1 A/P View Observations Pharyngeal Contraction Complete Esophageal Clearance Upright Position Esophageal retention Vocal Fold Function Decrease Approxim. Right Esophageal Function Slowed Clearing,Poor Motility, Stasis,Narrowing Additional A-P Observations Thin liquid and a 13mm calibrated barium tablet used for trials Barium tablet observed to stop at the vallecula and again at the UES. several water sips were needed to clear tablet to stomach Thin barium cleared to the stomach in a timely manner Clinical Impressions Dysphagia Type Pharyngeal,Esophageal Findings *Moderate to severe pharyngeal phase dysphagia with silent aspiration of all trials in the head forward position. *Significantly less overt aspiration with the head turned to the left. *Aspiration of secretions was observed to occur frequently *All aspiration was silent - no reflexive cough; cued cough minimally effective in clearing trachea/larynx *Limited extension and duration of UES opening observed in lateral and AP views resulting in obstruction of bolus flow through UES and increasing aspiration risk Rehabilitation Potential Good Patient Appropriate for Therapy Yes: Base of tongue exercises; safe swallow/airway protection strategies Recommendations Diet Comments No diet change is recommended Aspiration Precautions Recommended Precautions Chin Tuck,Left Head Turn Treatment Plan Therapy Recommendations Outpatient Speech Therapy Recommended Referrals GI Consult Therapy Strategy Recommendations Turn Head Left,Chin Tuck, Double Swallow,No Straw Additional Recommendations/Comments Swallow therapy recommended with ST
== END ==
PROVIDERS: Family Provider Internal Medicine; PCP Internal Medicine; Referring Provider Internal Medicine; Visit Provider Internal Medicine
DX: J69.0 Pneumonitis due to inhalation of food and vomit (principal); R13.13 Dysphagia, pharyngeal phase
CPT/HCPCS: 74230; 92611

== ENCOUNTER → 2025-04-01 11:34 | Outpatient (CLI) | payer MEDICARE, OTHER, SELFPAY ==
[2025-02-11 07:23] VITALS: BMI 23.7
[2025-04-01 12:10] LABS: Estimated Glomerular Filt Rate > 60 mL/min (>60)
== END ==
PROVIDERS: Family Provider Internal Medicine; PCP Internal Medicine; Referring Provider Urology; Visit Provider Urology
DX: N40.0 Benign prostatic hyperplasia without lower urinary tract symptoms (principal)
CPT/HCPCS: 36415; 82565

== ENCOUNTER → 2025-04-05 11:06 | Outpatient (CLI) | payer MEDICARE, OTHER, SELFPAY ==
[2025-02-11 07:23] VITALS: BMI 23.7
--- NOTE | 2025-04-05 11:08 | DI.US.S_ITS ---
PROCEDURE: US CAROTID DOPPLER BI INDICATIONS: CAROTID STENOSIS TECHNIQUE: Color and pulse Doppler interrogation was performed of both carotid systems, with image documentation and velocity measurements. COMPARISON: None. FINDINGS: Stenosis calculations are based on SRU (Society of Radiologists in Ultrasound) criteria. Right side: Common carotid artery peak systolic velocity: 94.6 Internal carotid artery peak systolic velocity: 97.2 cm/sec. Internal carotid artery end diastolic velocity: 12.9 cm/sec. External carotid artery peak systolic velocity: 86.9 cm/sec. ICA/CCA peak systolic ratio: 1.07. [place] scale imaging description: Minimal atherosclerotic calcification is seen. Vertebral artery: Patent Left side: Common carotid artery peak systolic velocity: 85.6 cm/sec. External carotid artery peak systolic velocity: 199.6 cm/sec. [place] scale imaging description: Significant calcification shadows the left carotid artery bulb and the left internal carotid artery such that no flow was able to be seen on color Doppler in the left internal carotid artery. . Vertebral artery: Patent with antegrade flow. IMPRESSION: 1. In the left carotid artery, there is an adequate visualization due to overlying calcification suggestive of high-grade stenosis. Recommend CT angiogram of the neck for better characterization. 2. In the right carotid artery, there is no significant stenosis based on peak systolic velocity criteria. 3. Patent bilateral vertebral arteries. Dictated by: Marquis Soares M.D. on 04/06/2025 at 9:54 Approved by: Marquis Soares M.D. on 04/06/2025 at 10:03
--- NOTE | 2025-04-05 11:56 | DI.CT.S_ITS ---
PROCEDURE: CT IVP A/P W/WO INDICATIONS: PRIOR BLADDER CANCER TECHNIQUE: Optional 5 mm thick noncontrast images acquired from the diaphragm to the symphysis pubis. After the administration of intravenous contrast, 5 mm thick images acquired from the diaphragm to the symphysis pubis after a 10-minute delay. 2 mm thick coronal and sagittal reformats were then performed of the kidneys and ureters. For radiation dose reduction, the following was used: automated exposure control, adjustment of mA and/or kV according to patient size. COMPARISON: [facility], CT, CT ANGIO ABDOMEN PELVIS, 09/13/2024, 10:24. FINDINGS: Image quality: Diagnostic. Kidneys and Ureters: Bilateral kidneys are normal in size. Moderate bilateral hydronephrosis and hydroureter are seen extending to the level of UVJ. No obstructing stone is seen. Mild bilateral perinephric fat stranding. Finding is unchanged from prior CT angiogram study. There is normal bilateral renal enhancement. Contrast opacification of bilateral distended renal collecting systems. No contrast opacification of the ureters are noted at this time. Bladder: Bilobed appearance of urinary bladder with mild bladder wall thickening not significantly changed in appearance compared to 2023 study. No discrete bladder wall mass is noted. OTHER: Lower chest: Unremarkable. Liver: No solid mass. Gallbladder: No radiopaque gallstones or wall thickening. Biliary ducts: No biliary dilation. Pancreas: A trophic appearing pancreas. No discrete pancreatic mass or pancreatic ductal dilatation. Spleen: Size is within normal limits. Adrenal Glands: No adrenal nodules. Stomach and Bowel: There is no bowel obstruction. No gastric or small bowel wall thickening. Moderate fecal stasis in the colon is seen. Extensive sigmoid diverticulosis without CT evidence of acute diverticulitis. No abscess collection. Peritoneum: No abnormal intraperitoneal fluid. No free air. Ventral Wall: No hernia. Abdominal Nodes: No retroperitoneal or mesenteric adenopathy by size criteria. Vessels: Fusiform infrarenal abdominal aortic aneurysm is again seen measures 5.3 x 5.6 cm in largest transverse and AP dimensions unchanged from prior study. Aortal bi-iliac stent graft is again seen and show normal opacifications of the graft. Stable endoleak in right anterior aspect of aortic graft unchanged in overall appearance compared to prior study. PELVIS: Pelvic Organs: Unremarkable. Pelvic Nodes: No enlarged lymph nodes. Miscellaneous: No inguinal hernias are seen. Bones: No aggressive osseous abnormality. Chronic appearing superior endplate compression deformity at L3 level is again seen unchanged from prior study. IMPRESSION: 1. Chronic ipww-gw-bvobbane bilateral hydronephrosis and hydroureter extending to the level of UVJ. No obstructing stone is seen. No enhancing renal mass. 2. Bilobed appearance of urinary bladder with mild bladder wall thickening. No discrete bladder wall mass or intraluminal filling defect is seen. 3. Chronic fusiform infrarenal abdominal aortic aneurysm with aortal bi-iliac stent graft in place unchanged from prior study. Stable appearance of type 2 endoleak in right anterior aspect of the aneurysm also unchanged from prior study. 4. No gross abdominal or pelvic lymphadenopathy. No free fluid or free air. 5. Other chronic findings as described above. Dictated by: Shailesh Stevenson M.D. on 04/05/2025 at 20:46 Approved by: Shailesh Stevenson M.D. on 04/05/2025 at 20:59
== END ==
PROVIDERS: Family Provider Internal Medicine; PCP Internal Medicine; Referring Provider Internal Medicine; Visit Provider Surgery
DX: I65.23 Occlusion and stenosis of bilateral carotid arteries (principal); N13.30 Unspecified hydronephrosis; K57.30 Diverticulosis of large intestine without perforation or abscess without bleeding; I71.43 Infrarenal abdominal aortic aneurysm, without rupture; Z85.51 Personal history of malignant neoplasm of bladder
CPT/HCPCS: 74178; 93880; Q9967

== ENCOUNTER 2025-05-18 13:45 | Outpatient (RCR) | payer MEDICARE, OTHER, SELFPAY ==
[2025-02-11 07:23] VITALS: BMI 23.7
--- NOTE | 2025-04-07 15:56 | ST.OPIE ---
Visit Care Team Role Provider Type Lul Choi MD Attending Provider Physician Family Provider Primary Care Provider Referring Provider Specialty: Internal Medicine Address: [address] [place] [address], [id number] Email: [email or web address] Speech-Language Pathology Initial Evaluation FINANCIAL ADVISER Clinical Swallow Evaluation Start: 04/06/25 14:03 Freq: Status: Active Protocol: Document 04/06/25 14:03 MA (Rec: 04/06/25 14:04 MA Desktop) Clinical Swallow Evaluation Session Time Visit Start Time 13:45 Visit Stop Time 14:20 Total Visit Minutes 35 Visit Information Visit Number Initial Eval Plan of Care Dates 04/06/25-07/07/[address] Choi Reason for Referral aspiration; dysphagia Patient Information History Pt is an 85 year old male seen this date for swallow evaluation at the referral of Dr. Choi. Pt recently had RLL pneumonia with suspicion of aspiration (02/11/25). MBSS ordered and completed on 03/17/25 to determine pt's aspiration risk . Pt reported he currently has no difficulty with swallowing foods, liquids or medications . He noted that Dr Choi recommended turning his head to the left when swallowing, which pt did for a while. He said he noticed no difference in swallowing with/without head turn so he stopped the head turn. Pt's PMH includes TIA/CVA ( 2011), CHF, COPD and COVID. MBS results: *Moderate to severe pharyngeal phase dysphagia with silent aspiration of all trials in the head forward position. *Significantly less overt aspiration with the head turned to the left. *Aspiration of secretions was observed to occur frequently *All aspiration was silent - no reflexive cough; cued cough minimally effective in clearing trachea/larynx *Limited extension and duration of UES opening observed in lateral and AP views resulting in obstruction of bolus flow through UES and increasing aspiration risk Rehabilitation Potential Good Patient Appropriate for Therapy Yes: Base of tongue exercises; safe swallow/airway protection strategies Recommendations Diet Comments No diet change is recommended Aspiration Precautions Recommended Precautions Chin Tuck, Left Head Turn Treatment Plan Therapy Recommendations Outpatient Speech Therapy Recommended Referrals GI Consult Therapy Strategy Recommendations Turn Head Left,Chin Tuck, Double Swallow, No Straw Additional Recommendations/Comments Swallow therapy recommended with ST Subjective Pt lives with his and denies having swallowing Observations difficulties, and also reports he is not sure why or how this concern came about. ST educated Pt on MBS results and recent RLL PNA and potential causes of PNA. Reported by Patient/Caregiver Pain/Discomfort No Current Diet Regular (IDDSI 7) Type of Patient EAT-10 Questionnaire (e.g., EAT-10, MDADI, etc. ) Results The EAT-10 is a self-administered questionnaire used to assess subjective dysphagia symptoms, and a higher score suggests a greater likelihood of swallowing problems. Normal Range: A normal or healthy EAT-10 score is typically below 3. Abnormal Score: A score of 3 or more suggests potential swallowing difficulties. Pt scored a 4/40 and reported some difficulty with swallowing problem causing weight loss, swallowing solids takes extra effort, swallowing pills takes extra effort, and coughing when eating. However, Pt continues to report he believes his swallowing issues are mild. The IDDSI Framework Protocol: IDDSI.1 Objective Assessment Mental Status Alert,Responsive,Cooperative Oral Integrity WFL Dentition Within normal limits Comment OME and DKS were observed to be WFL. Dentition natural with many posterior teeth missing Mastication observed with anterior munching chew pattern Food and Liquid Trials Position During Upright (90 degrees) Assessment Liquids Trialed Thin (IDDSI 0) Solid Trials Purred (IDDSI 4),Soft & Bite-sized (IDDSI 6),Regular ( IDDSI 7) Administration Type Controlled cup sip Oral Impairment Within functional limits Oral Phase Comments Pt consumed 1 molina cracker, about 2 oz of diced peaches and a few bites of pudding with about 3 oz of thin water via cup. Pt exhibited slow rate of eating, however states this is his baseline. For molina cracker , He exhibited prolonged mastication however adequate bolus formation and control, extended ap transport. For peaches he exhibited adequate bite size and mastication with good bolus formation and control. No oral phase concerns with pudding. Thin water via cup Pt exhibited adequate sip size and rate, good oral acceptance and containment. Pharyngeal Moderately impaired Impairment Pharyngeal Phase Pt exhibited no overt s/s of aspiration with molina Comments cracker. For peaches, Pt exhibited increase in wet vocal quality post swallows, audible swallow reflex, double swallows per bolus and delayed cough x1. He required cues to turn head to the left when swallowing. No overt s/s of aspiration with pudding. He exhibited audible swallow reflex with thin water via cup, no coughing or choking, however Pt may have been silently aspirating based on MBS report findings. Fatigue/Endurance Endurance WNL Strategies Attempted Head rotation The IDDSI Framework Protocol: IDDSI.1 Findings Swallowing Function Pharyngeal phase dysphagia Severity of Swallow Moderately-severely impaired Impairment Prognosis Fair Impact on Safety and Risk for aspiration,Risk for inadequate nutrition/ Functioning hydration Recommendations Instrumental No Assessment Swallowing Treatment Yes Frequency 1x/week Duration 3 months Recommended Solids Regular (IDDSI 7) Recommended Liquids Thin (IDDSI 0) Other ST recommends regular solids and thin liquids with head Recommendations turn to the left with every swallow and safe swallowing strategies in place stated below. ST educated Pt on importance of consistence oral hygiene after meals in order to reduced aspiration PNA. ST also educated Pt on importance of swallowing therapy to prevent aspiration and potential PNA. Pt reluctant to do speech therapy d/t him reporting he has been going to so many doctors appointments, however he will talk with his family. Safety Precautions/ Remain upright (90 degrees) during all oral intake, Swallowing Needs verbal cues to use recommended strategies,Upright Recommendations position at least 30 minutes after meals,Small bites and sips when eating,Slow rate; swallow between bites, No straw,Alternate liquids and solids,Strict oral care after intake Medication As Tolerated Recommendations Discharge Home Recommendations Education Patient/Caregiver Described results of evaluation,Patient expressed Education understanding of evaluation,Patient expressed agreement with goals & treatment plans,Patient requires further education/training,Family/caregivers require further education/training Goals Short-term Goals STG 1: Pt will tolerate applications of NMES for improved swallow function as evidenced by increased toleration of least restrictive PO diet consistencies. STG 2: Pt will tolerate prescribed diet with <5% overt s/s of aspiration/dysphagia with use of compensatory swallowing strategies and minimal cues. STG 3: Pt will complete hyolaryngeal strengthening exercises for improved pharyngeal phase of swallow with minimal cueing with 90% accuracy. Long-term Goals LTG 1: Patient will consume safest and most efficient least restrictive diet with no clinical s/s of aspiration or dysphagia 100% of the time in order to meet primary nutrition/hydration needs.
--- NOTE | 2025-04-07 15:56 | ST.OPPOC ---
Physical, Occupational & Speech Therapy At [facility] Visit Care Team Role Provider Type Lul Choi MD Attending Provider Physician Family Provider Primary Care Provider Referring Provider Address: [address] [place] [address], [id number] Speech Pathology Plan of Care Plan of Care Dates 04/06/25-07/07/[address] Choi Patient History Pt is an 85 year old male seen this date for swallow evaluation at the referral of Dr. Choi. Pt recently had RLL pneumonia with suspicion of aspiration (02/11/25). MBSS ordered and completed on to determine pt's aspiration risk . Pt reported he currently has no difficulty with swallowing foods, liquids or medications . He noted that Dr Choi recommended turning his head to the left when swallowing, which pt did for a while. He said he noticed no difference in swallowing with/without head turn so he stopped the head turn. Pt's PMH includes TIA/CVA ( 2011), CHF, COPD and COVID. MBS results: *Moderate to severe pharyngeal phase dysphagia with silent aspiration of all trials in the head forward position. *Significantly less overt aspiration with the head turned to the left. *Aspiration of secretions was observed to occur frequently *All aspiration was silent - no reflexive cough; cued cough minimally effective in clearing trachea/larynx *Limited extension and duration of UES opening observed in lateral and AP views resulting in obstruction of bolus flow through UES and increasing aspiration risk Rehabilitation Potential Good Patient Appropriate for Therapy Yes: Base of tongue exercises; safe swallow/airway protection strategies Recommendations Diet Comments No diet change is recommended Aspiration Precautions Recommended Precautions Chin Tuck,Left Head Turn Treatment Plan Therapy Recommendations Outpatient Speech Therapy Recommended Referrals GI Consult Therapy Strategy Recommendations Turn Head Left,Chin Tuck, Double Swallow, No Straw Additional Recommendations/Comments Swallow therapy recommended with ST MBS Comments *Moderate to severe pharyngeal phase dysphagia with silent aspiration of all trials in the head forward position. *Significantly less overt aspiration with the head turned to the left. *Aspiration of secretions was observed to occur frequently *All aspiration was silent - no reflexive cough; cued cough minimally effective in clearing trachea/larynx *Limited extension and duration of UES opening observed in lateral and AP views resulting in obstruction of bolus flow through UES and increasing aspiration risk Recommended Referrals GI Consult Short-term Goals STG 1: Pt will tolerate applications of NMES for improved swallow function as evidenced by increased toleration of least restrictive PO diet consistencies. STG 2: Pt will tolerate prescribed diet with <5% overt s/s of aspiration/dysphagia with use of compensatory swallowing strategies and minimal cues. STG 3: Pt will complete hyolaryngeal strengthening exercises for improved pharyngeal phase of swallow with minimal cueing with 90% accuracy. Long-term Goals LTG 1: Patient will consume safest and most efficient least restrictive diet with no clinical s/s of aspiration or dysphagia 100% of the time in order to meet primary nutrition/ hydration needs. Comment: Electronically Signed by: COREY Pretty 04/07/25 1163 If you are in agreement with this Plan of Care, please return a signed and dated copy. I have reviewed this Plan of Care and certify that the skilled therapy services above are required to meet the patient?s needs. Physician Signature Date Printed Name and Credentials Clinical Instructor Signature Printed Name and Credentials
--- NOTE | 2025-04-13 14:22 | ST.OPTN ---
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 Choi. Pt recently had RLL pneumonia with suspicion of aspiration (02/11/25). MBSS ordered and completed on 03/17/25 to determine pt's aspiration risk . Pt reported he currently has no difficulty with swallowing foods, liquids or medications . He noted that Dr Choi recommended turning his head to the left when swallowing, which pt did for a while. He said he noticed no difference in swallowing with/without head turn so he stopped the head turn. Pt's PMH includes TIA/CVA ( 2011), CHF, COPD and COVID. MBS results: *Moderate to severe pharyngeal phase dysphagia with silent aspiration of all trials in the head forward position. *Significantly less overt aspiration with the head turned to the left. *Aspiration of secretions was observed to occur frequently *All aspiration was silent - no reflexive cough; cued cough minimally effective in clearing trachea/larynx *Limited extension and duration of UES opening observed in lateral and AP views resulting in obstruction of bolus flow through UES and increasing aspiration risk Rehabilitation Potential Good Patient Appropriate for Therapy Yes: Base of tongue exercises; safe swallow/airway protection strategies Recommendations Diet Comments No diet change is recommended Aspiration Precautions Recommended Precautions Chin Tuck, Left Head Turn Treatment Plan Therapy Recommendations Outpatient Speech Therapy Recommended Referrals GI Consult Therapy Strategy Recommendations Turn Head Left,Chin Tuck, Double Swallow, No Straw Additional Recommendations/Comments Swallow therapy recommended with ST Subjective Identification Type Name Observations/Patient Pt arrived on time. Pt reports occasionally coughing Presentation when eating, however no reports of swallowing difficulties at home. Objective Treatment Activities Administration of Neuromuscular Electrical Stimulation (NMES) in conjunction with PO trials and hyolaryngeal strengthening exercises Assessment Patient Response to Excellent Treatment Rehab Potential Excellent Impairments Swallow Identified Progress Towards Good Progress Goals Assessment of ST educated and introduced Pt on NMES. Pt compliant. ST Improvement also educated Pt on MBS by showing x-ray video and educating on aspiration examples. ST placed electrodes in the 3h position with Pt tolerating stim at a level 8 .0mA. Pt consumed 4 oz of applesauce and 4 oz of pudding and 4 oz of thin water via cup. ST cued Pt to utilize effortful swallow with each swallow. Pt consumed pureed solids slowly, single bites, occasional delayed double swallow, occasional cough reflex. For thin liquids via cup Pt exhibited good oral acceptance and containment, audible swallow reflex, occasional swallow reflex. ST educated Pt on safe swallowing strategies, such as turning head left when swallowing to prevent aspiration. Pt demonstrated accurately. ST educated Pt on swallow exercises, such as Isabel and effortful swallow and provided HEP and recommended Pt complete 2-3x/day 10 reps each. Pt verbalized understanding.
--- NOTE | 2025-04-20 14:13 | ST.OPTN ---
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 Choi. Pt recently had RLL pneumonia with suspicion of aspiration (02/11/25). MBSS ordered and completed on 03/17/25 to determine pt's aspiration risk . Pt reported he currently has no difficulty with swallowing foods, liquids or medications . He noted that Dr Choi recommended turning his head to the left when swallowing, which pt did for a while. He said he noticed no difference in swallowing with/without head turn so he stopped the head turn. Pt's PMH includes TIA/CVA ( 2011), CHF, COPD and COVID. MBS results: *Moderate to severe pharyngeal phase dysphagia with silent aspiration of all trials in the head forward position. *Significantly less overt aspiration with the head turned to the left. *Aspiration of secretions was observed to occur frequently *All aspiration was silent - no reflexive cough; cued cough minimally effective in clearing trachea/larynx *Limited extension and duration of UES opening observed in lateral and AP views resulting in obstruction of bolus flow through UES and increasing aspiration risk Rehabilitation Potential Good Patient Appropriate for Therapy Yes: Base of tongue exercises; safe swallow/airway protection strategies Recommendations Diet Comments No diet change is recommended Aspiration Precautions Recommended Precautions Chin Tuck, Left Head Turn Treatment Plan Therapy Recommendations Outpatient Speech Therapy Recommended Referrals GI Consult Therapy Strategy Recommendations Turn Head Left,Chin Tuck, Double Swallow, No Straw Additional Recommendations/Comments Swallow therapy recommended with ST Subjective Identification Type Name Observations/Patient Pt arrived on time. Pt reports occasionally coughing Presentation when eating, however no reports of swallowing difficulties at home. Objective Treatment Activities Administration of Neuromuscular Electrical Stimulation (NMES) in conjunction with PO trials and hyolaryngeal strengthening exercises Assessment Patient Response to Excellent Treatment Rehab Potential Excellent Impairments Swallow Identified Progress Towards Good Progress Goals Assessment of ST educated and introduced Pt on NMES. Pt compliant. ST Improvement also educated Pt on MBS by showing x-ray video and educating on aspiration examples. ST placed electrodes in the 3h position with Pt tolerating stim at a level 8 .0mA. Pt consumed 4 oz of applesauce and 4 oz of pudding and 4 oz of thin water via cup. ST cued Pt to utilize effortful swallow with each swallow. Pt consumed pureed solids slowly, single bites, occasional delayed double swallow, occasional cough reflex. For thin liquids via cup Pt exhibited good oral acceptance and containment, audible swallow reflex, occasional swallow reflex. Pt is a very slow eater and takes most of the session to finish applesauce and pudding. ST educated Pt on safe swallowing strategies, such as turning head left when swallowing to prevent aspiration . Pt demonstrated accurately. ST educated Pt on swallow exercises, such as Isabel and effortful swallow and provided HEP and recommended Pt complete 2-3x/day 10 reps each. Pt verbalized understanding.
--- NOTE | 2025-04-27 14:58 | ST.OPTN ---
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 Choi. Pt recently had RLL pneumonia with suspicion of aspiration (02/11/25). MBSS ordered and completed on 03/17/25 to determine pt's aspiration risk . Pt reported he currently has no difficulty with swallowing foods, liquids or medications . He noted that Dr Choi recommended turning his head to the left when swallowing, which pt did for a while. He said he noticed no difference in swallowing with/without head turn so he stopped the head turn. Pt's PMH includes TIA/CVA ( 2011), CHF, COPD and COVID. MBS results: *Moderate to severe pharyngeal phase dysphagia with silent aspiration of all trials in the head forward position. *Significantly less overt aspiration with the head turned to the left. *Aspiration of secretions was observed to occur frequently *All aspiration was silent - no reflexive cough; cued cough minimally effective in clearing trachea/larynx *Limited extension and duration of UES opening observed in lateral and AP views resulting in obstruction of bolus flow through UES and increasing aspiration risk Rehabilitation Potential Good Patient Appropriate for Therapy Yes: Base of tongue exercises; safe swallow/airway protection strategies Recommendations Diet Comments No diet change is recommended Aspiration Precautions Recommended Precautions Chin Tuck, Left Head Turn Treatment Plan Therapy Recommendations Outpatient Speech Therapy Recommended Referrals GI Consult Therapy Strategy Recommendations Turn Head Left,Chin Tuck, Double Swallow, No Straw Additional Recommendations/Comments Swallow therapy recommended with ST Subjective Identification Type Name Observations/Patient Pt arrived on time. Pt reports occasionally coughing Presentation when eating, however no reports of swallowing difficulties at home. He states he got a pill stuck in his throat since last seen resulting in throat burning and a little blood. He reports he is able to clear the pill while drinking water. Objective Treatment Activities Administration of Neuromuscular Electrical Stimulation (NMES) in conjunction with PO trials and hyolaryngeal strengthening exercises Assessment Patient Response to Excellent Treatment Rehab Potential Excellent Impairments Swallow Identified Progress Towards Good Progress Goals Assessment of ST educated and introduced Pt on NMES. Pt compliant. ST Improvement placed electrodes in the 3h position with Pt tolerating stim at a level 8.0mA. Pt consumed 4 oz of applesauce and 4 oz of pudding and 4 oz of thin water via cup. ST cued Pt to utilize effortful swallow with each swallow. Pt consumed pureed solids slowly, single bites, occasional delayed double swallow, occasional cough reflex. For thin liquids via cup Pt exhibited good oral acceptance and containment, audible swallow reflex, occasional swallow reflex. Pt is a very slow eater and takes most of the session to finish applesauce and pudding. Pt with slight spillage of saliva from corners of mouth that he states has been going on for about a year. ST educated Pt on safe swallowing strategies, such as turning head left when swallowing to prevent aspiration. Pt demonstrated accurately. ST educated Pt on swallow exercises, such as Isabel and effortful swallow and provided HEP and recommended Pt complete 2-3x/day 10 reps each. Pt verbalized understanding.
--- NOTE | 2025-05-03 14:06 | ST.OPTN ---
Visit Care Team Role Provider Type Lul Choi MD Attending Provider Physician Family Provider Primary Care Provider Referring Provider Address: [address] [place] [address], [id number] GANG BORE OPERATOR Treatment Note GANG BORE OPERATOR Treatment Note Start: 04/13/25 14:10 Freq: Status: Active Protocol: Document 05/03/25 14:03 MA (Rec: 05/03/25 14:06 MA Desktop) Speech Pathology Treatment Note Session Time Visit Start Time 13:45 Visit Stop Time 14:20 Total Visit Minutes 35 Visit Information Visit Number 5 Plan of Care Dates 04/06/25-07/07/25 General Information Patient History Pt is an 85 year old male seen this date for swallow evaluation at the referral of Dr. Choi. Pt recently had RLL pneumonia with suspicion of aspiration (02/11/25). MBSS ordered and completed on 03/17/25 to determine pt's aspiration risk . Pt reported he currently has no difficulty with swallowing foods, liquids or medications . He noted that Dr Choi recommended turning his head to the left when swallowing, which pt did for a while. He said he noticed no difference in swallowing with/without head turn so he stopped the head turn. Pt's PMH includes TIA/CVA ( 2011), CHF, COPD and COVID. MBS results: *Moderate to severe pharyngeal phase dysphagia with silent aspiration of all trials in the head forward position. *Significantly less overt aspiration with the head turned to the left. *Aspiration of secretions was observed to occur frequently *All aspiration was silent - no reflexive cough; cued cough minimally effective in clearing trachea/larynx *Limited extension and duration of UES opening observed in lateral and AP views resulting in obstruction of bolus flow through UES and increasing aspiration risk Rehabilitation Potential Good Patient Appropriate for Therapy Yes: Base of tongue exercises; safe swallow/airway protection strategies Recommendations Diet Comments No diet change is recommended Aspiration Precautions Recommended Precautions Chin Tuck, Left Head Turn Treatment Plan Therapy Recommendations Outpatient Speech Therapy Recommended Referrals GI Consult Therapy Strategy Recommendations Turn Head Left,Chin Tuck, Double Swallow, No Straw Additional Recommendations/Comments Swallow therapy recommended with ST Subjective Identification Type Name Observations/Patient Pt arrived on time. Pt reports occasionally coughing Presentation when eating, however no reports of swallowing difficulties at home. Objective Treatment Activities Administration of Neuromuscular Electrical Stimulation (NMES) in conjunction with PO trials and hyolaryngeal strengthening exercises Assessment Patient Response to Excellent Treatment Rehab Potential Excellent Impairments Swallow Identified Progress Towards Good Progress Goals Assessment of ST educated and introduced Pt on NMES. Pt compliant. ST Improvement placed electrodes in the 3h position with Pt tolerating stim at a level 8.0mA. Pt consumed 4 oz of applesauce and 4 oz of pudding and 4 oz of thin water via cup. ST cued Pt to utilize effortful swallow with each swallow. Pt consumed pureed solids slowly, single bites, occasional delayed double swallow, occasional cough reflex. For thin liquids via cup Pt exhibited good oral acceptance and containment, audible swallow reflex, occasional swallow reflex. Pt is a very slow eater and takes most of the session to finish applesauce and pudding. Pt with slight spillage of saliva from corners of mouth that he states has been going on for about a year. ST educated Pt on safe swallowing strategies, such as turning head left when swallowing to prevent aspiration. Pt demonstrated accurately. ST educated Pt on swallow exercises, such as Isabel and effortful swallow and provided HEP and recommended Pt complete 2-3x/day 10 reps each. Pt verbalized understanding.
--- NOTE | 2025-05-11 14:03 | ST.OPTN ---
Visit Care Team Role Provider Type Lul Choi MD Attending Provider Physician Family Provider Primary Care Provider Referring Provider Address: [address] [place] [address], [id number] REVIEW ANALYST Treatment Note REVIEW ANALYST Treatment Note Start: 04/13/25 14:10 Freq: Status: Active Protocol: Document 05/11/25 13:57 MA (Rec: 05/11/25 13:59 MA Desktop) Speech Pathology Treatment Note Session Time Visit Start Time 13:45 Visit Stop Time 14:20 Total Visit Minutes 35 Visit Information Visit Number 6 Plan of Care Dates 04/06/25-07/07/25 General Information Patient History Pt is an 85 year old male seen this date for swallow evaluation at the referral of Dr. Choi. Pt recently had RLL pneumonia with suspicion of aspiration (02/11/25). MBSS ordered and completed on 03/17/25 to determine pt's aspiration risk . Pt reported he currently has no difficulty with swallowing foods, liquids or medications . He noted that Dr Choi recommended turning his head to the left when swallowing, which pt did for a while. He said he noticed no difference in swallowing with/without head turn so he stopped the head turn. Pt's PMH includes TIA/CVA ( 2011), CHF, COPD and COVID. MBS results: *Moderate to severe pharyngeal phase dysphagia with silent aspiration of all trials in the head forward position. *Significantly less overt aspiration with the head turned to the left. *Aspiration of secretions was observed to occur frequently *All aspiration was silent - no reflexive cough; cued cough minimally effective in clearing trachea/larynx *Limited extension and duration of UES opening observed in lateral and AP views resulting in obstruction of bolus flow through UES and increasing aspiration risk Rehabilitation Potential Good Patient Appropriate for Therapy Yes: Base of tongue exercises; safe swallow/airway protection strategies Recommendations Diet Comments No diet change is recommended Aspiration Precautions Recommended Precautions Chin Tuck, Left Head Turn Treatment Plan Therapy Recommendations Outpatient Speech Therapy Recommended Referrals GI Consult Therapy Strategy Recommendations Turn Head Left,Chin Tuck, Double Swallow, No Straw Additional Recommendations/Comments Swallow therapy recommended with ST Subjective Identification Type Name Observations/Patient Pt arrived on time. Pt denies any swallow difficulties Presentation since last seen. Chief Complaint(s) Swallowing Objective Treatment Activities Administration of Neuromuscular Electrical Stimulation (NMES) in conjunction with PO trials and hyolaryngeal strengthening exercises Assessment Patient Response to Excellent Treatment Rehab Potential Excellent Impairments Swallow Identified Progress Towards Good Progress Goals Assessment of Pt compliant with NMES. ST placed electrodes in the 3h Improvement position with Pt tolerating stim at a level 8.0mA. Pt consumed 4 oz of applesauce and 4 oz of pudding and 4 oz of thin water via cup. ST cued Pt to utilize effortful swallow with each swallow. Pt consumed pureed solids slowly, single bites, occasional delayed double swallow, occasional cough reflex. For thin liquids via cup Pt exhibited good oral acceptance and containment, audible swallow reflex, occasional swallow reflex. Pt is a very slow eater and takes most of the session to finish applesauce and pudding. Pt with slight spillage of saliva from corners of mouth that he states has been going on for about a year. ST educated Pt on safe swallowing strategies, such as turning head left when swallowing to prevent aspiration. Pt demonstrated accurately. ST educated Pt on swallow exercises, such as Isabel and effortful swallow and provided HEP and recommended Pt complete 2-3x/day 10 reps each. Pt verbalized understanding. Patient/Caregiver Good Understanding
--- NOTE | 2025-05-18 14:09 | ST.OPTN ---
Visit Care Team Role Provider Type Lul Choi MD Attending Provider Physician Family Provider Primary Care Provider Referring Provider Address: [address] [place] [address], [id number] SENIOR ACCOUNTANT Treatment Note SENIOR ACCOUNTANT Treatment Note Start: 04/13/25 14:10 Freq: Status: Active Protocol: Document 05/18/25 14:07 MA (Rec: 05/18/25 14:08 MA Desktop) Speech Pathology Treatment Note Session Time Visit Start Time 13:45 Visit Stop Time 14:20 Total Visit Minutes 35 Visit Information Visit Number 7 Plan of Care Dates 04/06/25-07/07/25 General Information Patient History Pt is an 85 year old male seen this date for swallow evaluation at the referral of Dr. Choi. Pt recently had RLL pneumonia with suspicion of aspiration (02/11/25). MBSS ordered and completed on 03/17/25 to determine pt's aspiration risk . Pt reported he currently has no difficulty with swallowing foods, liquids or medications . He noted that Dr Choi recommended turning his head to the left when swallowing, which pt did for a while. He said he noticed no difference in swallowing with/without head turn so he stopped the head turn. Pt's PMH includes TIA/CVA ( 2011), CHF, COPD and COVID. MBS results: *Moderate to severe pharyngeal phase dysphagia with silent aspiration of all trials in the head forward position. *Significantly less overt aspiration with the head turned to the left. *Aspiration of secretions was observed to occur frequently *All aspiration was silent - no reflexive cough; cued cough minimally effective in clearing trachea/larynx *Limited extension and duration of UES opening observed in lateral and AP views resulting in obstruction of bolus flow through UES and increasing aspiration risk Rehabilitation Potential Good Patient Appropriate for Therapy Yes: Base of tongue exercises; safe swallow/airway protection strategies Recommendations Diet Comments No diet change is recommended Aspiration Precautions Recommended Precautions Chin Tuck, Left Head Turn Treatment Plan Therapy Recommendations Outpatient Speech Therapy Recommended Referrals GI Consult Therapy Strategy Recommendations Turn Head Left,Chin Tuck, Double Swallow, No Straw Additional Recommendations/Comments Swallow therapy recommended with ST Subjective Identification Type Name Observations/Patient Pt arrived on time. Pt denies any swallow difficulties Presentation since last seen. Chief Complaint(s) Swallowing Objective Treatment Activities Administration of Neuromuscular Electrical Stimulation (NMES) in conjunction with PO trials and hyolaryngeal strengthening exercises Assessment Patient Response to Excellent Treatment Rehab Potential Excellent Impairments Swallow Identified Progress Towards Good Progress Goals Assessment of Pt compliant with NMES. ST placed electrodes in the 3h Improvement position with Pt tolerating stim at a level 8.0mA. Pt consumed 4 oz of diced peaches , 2 molina crackers and 4 oz of pudding and 4 oz of thin water via cup. ST cued Pt to utilize effortful swallow with each swallow. Pt consumed pureed solids slowly, single bites, occasional delayed double swallow, no cough reflex. For thin liquids via cup Pt exhibited good oral acceptance and containment, audible swallow reflex, occasional swallow reflex, 1x cough reflex. Pt is a very slow eater and takes most of the session to finish trials. Pt exhibited difficulties chewing diced peaches with 1x anterior spillage. Pt with slight spillage of saliva from corners of mouth that he states has been going on for about a year. ST educated Pt on safe swallowing strategies, such as turning head left when swallowing to prevent aspiration. Pt demonstrated accurately. ST educated Pt on swallow exercises, such as Isabel and effortful swallow and provided HEP and recommended Pt complete 2-3x/day 10 reps each. Pt verbalized understanding. Patient/Caregiver Good Understanding
--- NOTE | 2025-05-18 15:00 | ST.OPTN ---
Visit Care Team Role Provider Type Lul Choi MD Attending Provider Physician Family Provider Primary Care Provider Referring Provider Address: [address] [place] [address], [id number] PLANT ENGINEERING SUPERVISOR Treatment Note PLANT ENGINEERING SUPERVISOR Treatment Note Start: 04/13/25 14:10 Freq: Status: Active Protocol: Document 05/18/25 14:07 MA (Rec: 05/18/25 14:08 MA Desktop) Speech Pathology Treatment Note Session Time Visit Start Time 13:45 Visit Stop Time 14:20 Total Visit Minutes 35 Visit Information Visit Number 7 Plan of Care Dates 04/06/25-07/07/25 General Information Patient History Pt is an 85 year old male seen this date for swallow evaluation at the referral of Dr. Choi. Pt recently had RLL pneumonia with suspicion of aspiration (02/11/25). MBSS ordered and completed on 03/17/25 to determine pt's aspiration risk . Pt reported he currently has no difficulty with swallowing foods, liquids or medications . He noted that Dr Choi recommended turning his head to the left when swallowing, which pt did for a while. He said he noticed no difference in swallowing with/without head turn so he stopped the head turn. Pt's PMH includes TIA/CVA ( 2011), CHF, COPD and COVID. MBS results: *Moderate to severe pharyngeal phase dysphagia with silent aspiration of all trials in the head forward position. *Significantly less overt aspiration with the head turned to the left. *Aspiration of secretions was observed to occur frequently *All aspiration was silent - no reflexive cough; cued cough minimally effective in clearing trachea/larynx *Limited extension and duration of UES opening observed in lateral and AP views resulting in obstruction of bolus flow through UES and increasing aspiration risk Rehabilitation Potential Good Patient Appropriate for Therapy Yes: Base of tongue exercises; safe swallow/airway protection strategies Recommendations Diet Comments No diet change is recommended Aspiration Precautions Recommended Precautions Chin Tuck, Left Head Turn Treatment Plan Therapy Recommendations Outpatient Speech Therapy Recommended Referrals GI Consult Therapy Strategy Recommendations Turn Head Left,Chin Tuck, Double Swallow, No Straw Additional Recommendations/Comments Swallow therapy recommended with ST Subjective Identification Type Name Observations/Patient Pt arrived on time. Pt denies any swallow difficulties Presentation since last seen. Pt reports he would like this session to be his last treatment day d/t him stating he is not having trouble swallowing at home. ST educated Pt on how he may not feel he is having swallowing trouble but d/t MBS it showed he had silent aspiration. Pt verbalized understanding. Chief Complaint(s) Swallowing Objective Treatment Activities Administration of Neuromuscular Electrical Stimulation (NMES) in conjunction with PO trials and hyolaryngeal strengthening exercises, education on d/c recommendations Assessment Patient Response to Excellent Treatment Rehab Potential Excellent Impairments Swallow Identified Progress Towards Good Progress,Appropriate for Discharge Goals Assessment of Pt compliant with NMES. ST placed electrodes in the 3h Improvement position with Pt tolerating stim at a level 8.0mA. Pt consumed 4 oz of diced peaches , 2 molina crackers and 4 oz of pudding and 4 oz of thin water via cup. ST cued Pt to utilize effortful swallow with each swallow. Pt consumed pureed solids slowly, single bites, occasional delayed double swallow, no cough reflex. For thin liquids via cup Pt exhibited good oral acceptance and containment, audible swallow reflex, occasional swallow reflex, 1x cough reflex. Pt is a very slow eater and takes most of the session to finish trials. Pt exhibited difficulties chewing diced peaches with 1x anterior spillage. Pt with slight spillage of saliva from corners of mouth that he states has been going on for about a year. ST educated Pt on safe swallowing strategies, such as turning head left when swallowing to prevent aspiration. Pt demonstrated accurately. ST educated Pt on d/c recommendations including continuation of swallow exercises 2-3x/day, use of safe swallowing strategies and ensuring he is brushing his teeth before meals and keeping his mouth clean. Pt verbalized understanding. Reviewed with Goals,Progress Being Made,Home Exercise Program Patient Patient/Caregiver Good Understanding
== END 2025-05-19 09:45 | disposition home or self-care (01) ==
LOC: SP 13:45
PROVIDERS: Family Provider Internal Medicine; PCP Internal Medicine; Referring Provider Internal Medicine; Visit Provider Internal Medicine
DX: R13.10 Dysphagia, unspecified (principal)
CPT/HCPCS: 92526; 92610

== ENCOUNTER → 2025-07-07 14:48 | Outpatient (CLI) | payer MEDICARE, OTHER, SELFPAY ==
[2025-02-11 07:23] VITALS: BMI 23.7
--- NOTE | 2025-07-07 14:50 | DI.RAD.S_ITS ---
PROCEDURE: XR FOOT LT MIN 3V INDICATIONS: pain great toe mcp, erythema entire foot TECHNIQUE: 3 views of the foot were acquired. COMPARISON: None. FINDINGS: Bones: Questionable avulsion fracture of the lateral head of the proximal phalanx of the 3rd toe.. Healed fracture deformities of the 2nd and 3rd metatarsal necks. No suspicious bony lesions. Small pedunculated osteochondroma versus sequela of prior healed fracture along the medial neck of the 2nd metatarsal. Bipartite tibial sesamoid. Soft tissues: No tibiotalar joint effusion. Achilles tendon appears normal. Soft tissue swelling of the forefoot without radiopaque retained foreign body or gas foci. IMPRESSION: Questionable avulsion fracture of the lateral head of the proximal phalanx of the 3rd toe. Correlate with point tenderness. Small pedunculated osteochondroma versus sequela of prior healed fracture along the medial neck of the 2nd metatarsal. Dictated by: Cosme Astorga M.D. on 07/07/2025 at 16:42 Approved by: Cosme Astorga M.D. on 07/07/2025 at 16:43
[2025-07-07 15:42] LABS: Add Manual Diff / Slide Review NO; Hematocrit 35.4 % (41-53); Hemoglobin 11.9 g/dL (13.5-17.5); Lymphocytes Absolute Auto 1200 /uL (1100-4500); Mean Corpuscular HGB Conc 33.7 % (30-36); Mean Corpuscular Hemoglobin 34.7 PG (26-34); Mean Corpuscular Volume 103.0 fL (80-100); Platelet Count 163 X10^3/uL (150-400)
[2025-07-07 16:19] LABS: Alanine Aminotransferase 40 IU/L (<50); Albumin 3.9 g/dL (3.5-5.0); Albumin Globulin Ratio 1.3 (1.0-2.8); Alkaline Phosphatase 190 U/L (38-126); Blood Urea Nitrogen 28 mg/dL (9-20); Calcium 9.6 mg/dL (8.4-10.2); Carbon Dioxide 26 mmol/L (22-32); Chloride 106 mmol/L (98-107); Estimated Glomerular Filt Rate > 60 mL/min (>60); Globulin 2.9 g/dL (1.7-4.1); Glucose 99 mg/dL (70-99); HEMOLYSIS < 15 (0-50); Potassium 4.4 mmol/L (3.4-5.1); Sodium 140 mmol/L (137-145); Total Protein 6.8 g/dL (6.3-8.2); Uric Acid 5.2 mg/dL (3.5-8.5)
== END ==
PROVIDERS: Family Provider Internal Medicine; PCP Internal Medicine; Referring Provider Internal Medicine; Visit Provider Physician Assistant
DX: M79.675 Pain in left toe(s) (principal)
CPT/HCPCS: 36415; 73630; 80053; 84550; 85025; 85651

== ENCOUNTER 2025-09-27 12:25 | Inpatient (IN) | payer MEDICARE, OTHER, SELFPAY ==
[2025-02-11 07:23] VITALS: BMI 23.7
[2025-09-27] VITALS (12 sets, daily range): BP systolic 110–149; BP diastolic 58–67; PULSE 68–87; RESP 14–28; TEMP 36.8–37.1; O2SAT 93–100; BMI 22.9
--- NOTE | 2025-09-27 12:45 | DI.RAD.S_ITS ---
PROCEDURE: XR CHEST 1V INDICATIONS: Shortness of breath TECHNIQUE: One view of the chest was acquired. COMPARISON: [facility], CR, XR CHEST 2V, 03/04/2025, 12:52. FINDINGS: Surgical changes and devices: None. Lungs and pleura: Lungs are clear. No pleural effusions or pneumothorax. Mediastinum: Mediastinal contours appear normal. Heart size is normal. Bones and chest wall: No suspicious bony lesions. Overlying soft tissues appear unremarkable. IMPRESSION: No acute cardiopulmonary abnormality is seen. Approved by: Angelina Schaefer M.D.,Ph.D. on 09/27/2025 at 13:42
--- NOTE | 2025-09-27 12:59 | ED.SOB ---
HPI - SOB/Dyspnea General Chief Complaint: Shortness of Breath/Dyspnea Stated Complaint: PC ref, low o2 sat Time Seen by Provider: 09/27/25 12:47 Source: patient and family Mode of arrival: Family Vehicle History of Present Illness HPI Narrative: Patient is sent here by primary care office, Dr. Choi, in the office today for 2 days of cough fatigue shortness of breath. States had low oxygen in the mid 80s at home. Has had brown productive sputum. Denies any sick contacts no foreign travel. History of pneumonia this past January and treated home with Augmentin. Related Data Home Medications ?Medication ?Instructions ?Recorded ?Confirmed aspirin 81 mg tablet,delayed 81 mg PO QDAY ##0 06/25/13 10/03/25 release egkoywdexlvg-ivrvecn-hlamm acid 1 tab PO DAILY #0 caps 06/25/13 10/03/25 400 mcg-lutein 250 mcg chewable tablet (Centrum Silver) ferrous sulfate 325 mg (65 mg 325 mg PO DAILY 01/23/19 10/03/25 iron) tablet cholecalciferol (vitamin D3) 25 25 mcg PO DAILY 04/08/22 10/03/25 mcg (1,000 unit) capsule cyanocobalamin (vitamin B-12) 1,000 mcg PO DAILY 04/08/22 10/03/25 1,000 mcg tablet (Vitamin B-12) alpha lipoic acid 100 mg capsule 200 mg PO BID Neuropathy 02/27/23 10/03/25 metoprolol succinate 25 mg 25 mg PO DAILY 01/15/24 10/03/25 tablet,extended release 24 hr Saccharomyces boulardii 250 mg 250 mg PO BID 09/01/24 10/03/25 capsule (Digest Probiotic (S.boulardii)) diphenhydramine 25 1 tab PO BEDTIME PRN sleep 09/01/24 10/03/25 mg-acetaminophen 500 mg tablet (Tylenol PM Extra Strength) ascorbic acid (vitamin C) 1,000 mg 1,000 mg PO DAILY 09/29/25 10/03/25 tablet loperamide 2 mg capsule (Imodium 2 mg PO Q6H PRN 09/29/25 10/03/25 A-D) Previous Rx's ?Medication ?Instructions ?Recorded Disabled Parking Permit 1 ea Not Applicable DAILY #1 ea 06/11/23 albuterol sulfate 90 mcg/actuation 2 puff PO Q4-6H PRN for wheezing 08/23/24 aerosol inhaler #18 grams metformin 1,000 mg tablet 1,000 mg PO BID #180 tabs 11/03/24 atorvastatin 40 mg tablet (Lipitor) 40 mg PO HS #90 tabs 04/25/25 finasteride 5 mg tablet 5 mg PO QDAY #90 tabs 04/25/25 empagliflozin 10 mg tablet 10 mg PO DAILY #90 tabs 06/08/25 (Jardiance) clopidogrel 75 mg tablet (Plavix) 75 mg PO QDAY #14 tabs 09/29/25 fluticasone 250 mcg-salmeterol 50 1 inh inhalation BID #60 ea 09/29/25 mcg/dose blistr powdr for inhalation (Wixela Inhub) gabapentin 300 mg capsule 600 mg (2 x 300 mg) PO BEDTIME 09/29/25 #180 caps diltiazem HCl 120 mg 120 mg PO DAILY #90 caps 10/03/25 capsule,extended release 24 hr Allergies Allergy/AdvReac Type Severity Reaction Status Date / Time fosfomycin Allergy Severe Rash Verified 10/03/25 09:34 tuberculin,PPD,multi-puncture AdvReac Severe swelling, Verified 10/03/25 09:34 (TUBERCULIN,PPD,MULTI-PUNCTURE) redness, scab ertapenem AdvReac Intermediate hallucinati Verified 10/03/25 09:34 ons Review of Systems Review of Systems Narrative: GENERAL: Negative chills, fatigue, malaise, fever, sweats. HEENT: Negative sinus pain, ear pain, sore throat RESPIRATORY: Positive dyspnea, cough CARDIOVASCULAR: Negative chest pain, palpitations GASTROINTESTINAL: Negative vomiting, nausea, abdominal pain : Negative dysuria, frequency, hematuria MUSCULOSKELETAL: Negative muscle or bony pain SKIN: Negative rash, skin lesions NEUROLOGIC: Negative weakness, numbness ROS Unobtainable: All systems reviewed & are unremarkable except as noted in HPI and below Patient History Medical History (Updated 10/03/25 @ 10:02 by Lul Choi MD) Foreign body in right main bronchus Gout Dysphagia Osteoarthritis of left hip Recurrent UTI History of recurrent UTI (urinary tract infection) Candidal balanitis Coronary artery disease Do not resuscitate Cerebrovascular disease BPH w urinary obs/LUTS Polyneuropathy, unspecified Primary osteoarthritis involving multiple joints Mixed hyperlipidemia Essential hypertension 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 History of urinary calculi Neoplasm of uncertain behavior of prostate Mild chronic anemia BPH (benign prostatic hyperplasia) AAA (abdominal aortic aneurysm) Left carotid artery occlusion Former smoker COPD (chronic obstructive pulmonary disease) Peripheral neuropathy Surgical History H/O vasectomy H/O transurethral resection of prostate H/O lithotripsy History of surgery on arm History of colonoscopy Hx of bilateral cataract extraction Hx of cystoscopy Hx of transurethral destruction of bladder lesion Social History household members: spouse alcohol intake: former Smoking Status: Former smoker tobacco type: cigarettes alcohol intake frequency: holidays/special occasions only Exam Narrative Exam Narrative: GENERAL: in no distress, not toxic not dyspneic HEAD: Normocephalic. EYES: Pupils equal round ENT: Mucous membranes moist. NECK: Trachea midline. CARDIOVASCULAR: Regular rate and rhythm RESPIRATORY: Coarse lung sounds in the bases. Speaking full sentences. Requiring supplemental oxygen. GASTROINTESTINAL: Abdomen soft, BACK: No flank tenderness. EXTREMITIES: No gross deformities. NEURO: AOx4. Clear speech SKIN: Warm and dry PSYCH: Not anxious, is cooperative Initial Vital Signs Initial Vital Signs: Vital Signs Temperature 98.8 F 09/27/25 12:40 Pulse Rate 70 09/27/25 12:40 Respiratory Rate 18 09/27/25 12:40 Blood Pressure 128/58 L 09/27/25 12:40 Pulse Oximetry 93 09/27/25 12:40 Oxygen Delivery Method Nasal Cannula 09/27/25 12:40 Oxygen Flow Rate 2 09/27/25 12:40 Course Orders Ordered: Discontinued Medications Acetaminophen (Acetaminophen 325 Mg Tablet) 650 mg PO Q6H PRN PRN Reason: Fever/Mild Pain (1-3) Last Admin: 09/28/25 11:36 Dose: 650 mg Documented By: RORY Acetaminophen (Acetaminophen 325 Mg Tablet) 650 mg PO Q4H PRN PRN Reason: Fever/Mild Pain (1-3) Albuterol (Albuterol 2.5 Mg/3 Ml Neb (Adult)) 2.5 mg INH Q4H PRN PRN Reason: for wheezing Last Admin: 09/27/25 19:35 Dose: 2.5 mg Documented By: MR Albuterol/Ipratropium (Albuterol/Ipratropium 3 Ml Ampul) 3 ml INH NOW ONE Stop: 09/27/25 13:22 Last Admin: 09/27/25 13:25 Dose: 3 ml Documented By: CANDELARIA Aspirin (Aspirin Ec 81 Mg Tablet) 81 mg PO DAILY [facility] Last Admin: 09/29/25 08:42 Dose: 81 mg Documented By: Admin: 09/28/25 10:03 Dose: 81 mg Documented By: RORY Atorvastatin Calcium (Atorvastatin 20 Mg Tablet) 40 mg PO BEDTIME [facility] Last Admin: 09/28/25 21:22 Dose: 40 mg Documented By: Admin: 09/27/25 22:04 Dose: Not Given Documented By: Clopidogrel Bisulfate (Clopidogrel 75 Mg Tablet) 75 mg PO DAILY [facility] Last Admin: 09/29/25 08:42 Dose: 75 mg Documented By: Admin: 09/28/25 10:03 Dose: 75 mg Documented By: RORY Enoxaparin Sodium (Enoxaparin 40 Mg/0.4 Ml Syringe) 40 mg SUBCUT DAILY [facility] Last Admin: 09/29/25 08:42 Dose: 40 mg Documented By: Admin: 09/28/25 10:03 Dose: 40 mg Documented By: RORY Finasteride (Finasteride 5 Mg Tablet) 5 mg PO DAILY [facility] Last Admin: 09/29/25 08:42 Dose: 5 mg Documented By: Admin: 09/28/25 10:17 Dose: 5 mg Documented By: ORRY Gabapentin (Gabapentin 300 Mg Capsule) 600 mg PO DAILY [facility] Last Admin: 09/28/25 19:27 Dose: Not Given Documented By: RORY Gabapentin (Gabapentin 600 Mg Tablet) 600 mg PO BEDTIME [facility] Last Admin: 09/28/25 21:22 Dose: 600 mg Documented By: Sodium Chloride (Normal Saline 0.9%) 1,000 mls @ 150 mls/hr IV CONT [facility] Last Infusion: 09/27/25 22:05 Dose: Infused Documented By: Admin: 09/27/25 14:16 Dose: 150 mls/hr Documented By: CITLALLI Ceftriaxone Sodium 2,000 mg/ (Sodium Chloride) 100 mls @ 200 mls/hr IV NOW ONE Stop: 09/27/25 14:51 Last Infusion: 09/27/25 16:17 Dose: Infused Documented By: Admin: 09/27/25 15:02 Dose: 200 mls/hr Documented By: RENEE Doxycycline Hyclate 100 mg/ (Sodium Chloride) 100 mls @ 100 mls/hr IV NOW ONE Stop: 09/27/25 14:51 Last Infusion: 09/27/25 22:04 Dose: Infused Documented By: Admin: 09/27/25 16:17 Dose: 100 mls/hr Documented By: RENEE Sodium Chloride (Normal Saline 0.9%) 1,000 mls @ 100 mls/hr IV CONT SERAFIN Last Admin: 09/29/25 07:24 Dose: 100 mls/hr Documented By: Infusion: 09/29/25 07:22 Dose: Infused Documented By: Admin: 09/28/25 21:22 Dose: 100 mls/hr Documented By: Infusion: 09/28/25 20:02 Dose: Infused Documented By: Admin: 09/28/25 10:02 Dose: 100 mls/hr Documented By: Infusion: 09/28/25 09:38 Dose: Infused Documented By: Admin: 09/27/25 23:38 Dose: 100 mls/hr Documented By: Infusion: 09/27/25 23:38 Dose: Infused Documented By: Admin: 09/27/25 17:39 Dose: 100 mls/hr Documented By: RORY Ceftriaxone Sodium 1,000 mg/ (Sodium Chloride) 100 mls @ 200 mls/hr IV Q24H SERAFIN Last Infusion: 09/28/25 16:59 Dose: Infused Documented By: Admin: 09/28/25 16:29 Dose: 200 mls/hr Documented By: RORY Azithromycin 500 mg/ Dextrose 250 mls @ 250 mls/hr IV Q24H SERAFIN Last Infusion: 09/28/25 17:29 Dose: Infused Documented By: Admin: 09/28/25 16:29 Dose: 250 mls/hr Documented By: RORY Insulin Human Lispro (Insulin Lispro 100 Unit/Ml 3ml Vial) 0 unit SUBCUT ACHS SERAFIN; Protocol Last Admin: 09/29/25 07:46 Dose: Not Given Documented By: Admin: 09/28/25 21:28 Dose: Not Given Documented By: Admin: 09/28/25 17:19 Dose: 1 unit Documented By: RORY Co-signed By: TAB Admin: 09/28/25 11:37 Dose: 1 unit Documented By: RORY Co-signed By: REBECCA Admin: 09/28/25 08:02 Dose: Not Given Documented By: Admin: 09/27/25 22:03 Dose: Not Given Documented By: Admin: 09/27/25 17:38 Dose: 1 unit Documented By: RORY Co-signed By: ARAM Magnesium Chloride (Magnesium Chloride 64 Mg Tablet) 128 mg PO Q8H [facility] Stop: 09/29/25 19:16 Metoprolol Succinate (Metoprolol Er 25 Mg Tablet) 25 mg PO DAILY [facility] Last Admin: 09/29/25 08:42 Dose: 25 mg Documented By: Admin: 09/28/25 10:03 Dose: 25 mg Documented By: RORY Naloxone HCl (Naloxone 0.4 Mg/Ml Vial) 0.2 mg IV Q2MIN PRN PRN Reason: Opiate Reversal Non-Formulary Medication (Empagliflozin [Jardiance]) 10 mg PO DAILY [facility] Ondansetron HCl (Ondansetron 4 Mg/2 Ml Inj) 4 mg IV Q8HR PRN PRN Reason: Nausea And Vomiting Vital Signs Vital signs: Vital Signs - 8 hr 09/27/25 12:40 09/27/25 13:03 09/27/25 13:28 Temperature 98.8 F Pulse Rate 70 72 69 Respiratory Rate 18 28 H 16 Blood Pressure 128/58 L Pulse Oximetry 93 98 95 Oxygen Delivery Method Nasal Cannula Nasal Cannula Nasal Cannula Oxygen Flow Rate 2 2 1 Fraction of Inspired Oxygen 24 MDM - SOB/Dyspnea Lab Data 09/29/25 06:50 09/29/25 06:50 Labs: Lab Results 09/27/25 09/27/25 09/27/25 Range/Units 12:00 13:15 15:20 WBC 14.5 H (4.5-11.0) X10^3/uL RBC 3.52 L (4.5-5.9) X10^6/uL Hgb 12.3 L (13.5-17.5) g/dL Hct 36.7 L (41-53) % MCV 104.1 H (80-100) fL MCH 34.9 H (26-34) PG MCHC 33.6 (30-36) % RDW 15.6 H (11.6-14.8) % Plt Count 160 (150-400) X10^3/uL Neut % (Auto) 84.6 H (50-75) % Lymph % (Auto) 6.0 L (25-40) % [place] % (Auto) 8.5 (3-14) % Eos % (Auto) 0.5 L (2-4) % Baso % (Auto) 0.4 (0-2) % Neut # (Auto) 33519 H (9001-8247) /uL Lymph # (Auto) 900 L (0030-0601) /uL [place] # (Auto) 1200 H (0-900) /uL Eos # (Auto) 100 (0-450) /uL Baso # (Auto) 100 (0-100) /uL PT 12.3 (9.4-12.5) SECONDS INR 1.1 (0.9-1.3) Sodium 140 (137-145) mmol/L Potassium 4.3 (3.4-5.1) mmol/L Chloride 106 (98-107) mmol/L Carbon Dioxide 24 (22-32) mmol/L BUN 25 H (9-20) mg/dL Creatinine 1.06 (0.66-1.25) mg/dL Estimated GFR > 60 (>60) mL/min BUN/Creatinine Ratio 23.6 H (6-22) Glucose 183 H (70-99) mg/dL Lactate 2.3 H 2.3 H (0.7-2.1) mmol/L Calcium 9.6 (8.4-10.2) mg/dL Total Bilirubin 1.7 H (0.2-1.3) mg/dL AST 65 H (17-59) IU/L ALT 51 H (<50) IU/L Alkaline Phosphatase 179 H (38-126) U/L Troponin I 0.017 (0.01-0.034) ng/mL NT-Pro-B Natriuret Pep 2190 H (<450) pg/mL Total Protein 7.0 (6.3-8.2) g/dL Albumin 4.1 (3.5-5.0) g/dL Globulin 2.9 (1.7-4.1) g/dL Albumin/Globulin Ratio 1.4 (1.0-2.8) Chlamy pneumoniae PCR Not detected (Not Detect) Adenovirus (PCR) Not detected (Not Detect) B. pertussis DNA (PCR) Not detected (Not Detect) B.parapertussis DNA PCR Not detected (Not Detecte) Coronavirus OC43 (PCR) Not detected (Not Detect) Coronavirus HKU1 (PCR) Not detected (Not Detect) Coronavirus 229E (PCR) Not detected (Not Detect) SARS-CoV-2 (PCR) Not detected (Not Detecte) Coronavirus NL63 (PCR) Not detected (Not Detect) Human Metapneumovir PCR Not detected (Not Detect) Influenza Type A (PCR) Not detected (Not Detect) Influenza Type B (PCR) Not detected (Not Detect) M. pneumoniae (PCR) Not detected (Not Detect) Parainfluenza 1 (PCR) Not detected (Not Detect) Parainfluenza 2 (PCR) Not detected (Not Detect) Parainfluenza 3 (PCR) Not detected (Not Detect) Parainfluenza 4 (PCR) Not detected (Not Detect) RSV (PCR) Not detected (Not Detect) Entero/Rhino (PCR) Not detected (Not Detect) Imaging Data Chest x-ray: Radiologist's Impression: [address] [address] XRay Report Signed Patient: Balaji Delacruz MR#: [id number] : 1940 Acct:[id number] Age/Sex: 85 / M Date of Service: 09/27/25 Loc: ED Accession Number: [id number] Procedure: XR chest 1V Ordering Provider: Kwame Mueller MD PROCEDURE: XR CHEST 1V INDICATIONS: Shortness of breath TECHNIQUE: One view of the chest was acquired. COMPARISON: [facility], , XR CHEST 2V, 03/04/2025, 12:52. FINDINGS: Surgical changes and devices: None. Lungs and pleura: Lungs are clear. No pleural effusions or pneumothorax. Mediastinum: Mediastinal contours appear normal. Heart size is normal. Bones and chest wall: No suspicious bony lesions. Overlying soft tissues appear unremarkable. IMPRESSION: No acute cardiopulmonary abnormality is seen. Approved by: Angelina Schaefer M.D.,Ph.D. on 09/27/2025 at 13:42 MDM Narrative Medical decision making narrative: Patient is sent here by primary care office, Dr. Choi, in the office today for 2 days of cough fatigue shortness of breath. States had low oxygen in the mid 80s at home. Has had brown productive sputum. Denies any sick contacts no foreign travel. History of pneumonia this past January and treated home with Augmentin MDM After history and exam, CBC CMP blood culture procalcitonin lactic acid respiratory found chest x-ray antibiotics admit EKG Differential considered: Includes but not limited to pneumonia COVID influenza rhino virus RSV Medical records reviewed: Primary care office visit today Lab Test results independently reviewed as above. Pertinent findings: WBC 14.5 hemoglobin 12.3 INR 1.1 sodium 140 potassium 4.3 BUN 25 creatinine 1.06 GFR greater than 60 lactic acid 2.3 troponin 0.017 BNP 2190, respiratory panel negative Independently reviewed EKG sinus rhythm rate [address]-elevation or depression Imaging studies independently reviewed: Chest x-ray no acute finding, CT chest no pulmonary embolism. No CHF. Likely infectious process. Foreign body seen Consultations: 2:49 p.m.. I spoke with Dr. Vincent Dwyer radiologist as well as thoracic surgeon Dr. Fadi Roper, [facility], foreign body seen in CAT scan imaging likely not source of patient's clinical pneumonia. Would not remove it right now. This can be done outpatient. No CHF. No PE. Re-evaluations: 2:02 p.m. Reviewed results with patient agrees for admission. Antibiotics have been started. 3:00 p.m.. Reviewed with the patient foreign body in the lungs can be followed up outpatient for removal. He does not wear dentures. Unknown source for the foreign body. Discussion: Appropriate for admission for community-acquired pneumonia. Patient requiring supplemental oxygen. Not requiring intubation. Airway intact. Foreign body reviewed with thoracic surgeon and radiologist. Diagnosis: Community-acquired pneumonia Discharge Plan Departure Patient Disposition: Admitted As Inpatient Clinical Impression: Community acquired pneumonia Qualifiers: Laterality: unspecified laterality Qualified Code(s): J18.9 - Pneumonia, unspecified organism Admit Date/Time: 09/27/25 15:23 Admit Provider: Nida Disla
[2025-09-27 13:03] LABS: Add Manual Diff / Slide Review NO; Hematocrit 36.7 % (41-53); Hemoglobin 12.3 g/dL (13.5-17.5); Lymphocytes Absolute Auto 900 /uL (1100-4500); Mean Corpuscular HGB Conc 33.6 % (30-36); Mean Corpuscular Hemoglobin 34.9 PG (26-34); Mean Corpuscular Volume 104.1 fL (80-100); Platelet Count 160 X10^3/uL (150-400)
[2025-09-27 13:10] LABS: INR 1.1 (0.9-1.3); Prothrombin Time 12.3 SECONDS (9.4-12.5)
[2025-09-27 13:16] LABS: Alanine Aminotransferase 51 IU/L (<50); Albumin 4.1 g/dL (3.5-5.0); Albumin Globulin Ratio 1.4 (1.0-2.8); Alkaline Phosphatase 179 U/L (38-126); Blood Urea Nitrogen 25 mg/dL (9-20); Calcium 9.6 mg/dL (8.4-10.2); Carbon Dioxide 24 mmol/L (22-32); Chloride 106 mmol/L (98-107); Estimated Glomerular Filt Rate > 60 mL/min (>60); Globulin 2.9 g/dL (1.7-4.1); Glucose 183 mg/dL (70-99); HEMOLYSIS < 15 (0-50); Potassium 4.3 mmol/L (3.4-5.1); Sodium 140 mmol/L (137-145); Total Protein 7.0 g/dL (6.3-8.2)
[2025-09-27 13:17] LABS: Lactate (Lactic Acid) 2.3 mmol/L (0.7-2.1)
[2025-09-27] MEDS: ALBUTEROL/IPRATROPIUM 3 ML AMPUL INH (13:25)
[2025-09-27 13:28] LABS: NT-proBNP (BNP-Adult 18+) 2190 pg/mL (<450); Troponin I 0.017 ng/mL (0.01-0.034)
--- NOTE | 2025-09-27 13:50 | DI.CT.S_ITS ---
PROCEDURE: CT ANGIO CHEST PE PROTOCOL INDICATIONS: Dyspnea TECHNIQUE: After the administration of intravenous contrast, 2 mm thick sections acquired from the pulmonary apices to the posterior costophrenic angles. 3-dimensional maximum intensity projection (MIP) coronal and sagittal reformats were then acquired through the thorax. For radiation dose reduction, the following was used: automated exposure control, adjustment of mA and/or kV according to patient size. COMPARISON: [facility], CT, CT IVP A/P W/WO, 04/05/2025, 12:11. [facility], CT, CT ANGIO CHEST PE PROTOCOL, 08/29/2024, 13:38. FINDINGS: Image quality: Diagnostic. Pulmonary arteries: Pulmonary arteries are normal in size, and demonstrate no intraluminal filling defects to suggest central pulmonary embolism. Lower Neck: No enlarged lymph nodes. Thyroid: No thyroid nodules which require sonographic follow up, per consensus guidelines. Axillae: No enlarged lymph nodes. Chest Wall: Unremarkable. Bones: Diffuse degenerative change. Question remote discitis/osteomyelitis involving T9-T10. Lungs and Pleura: No pneumothorax or pleural effusions. Moderate centrilobular emphysema. No focal airspace consolidation. No pulmonary edema. Minimal bibasilar dependent change. There is a radiopaque foreign body in the right lower lobe bronchus which measures approximately 10 mm x 6 mm. It has a Hounsfield measurement of 598.5. Reference axial image 93 of series 4 and coronal image 60 of series 7. There is diffuse bronchial wall thickening of the right lower lobe bronchus and its branches. There is minimal dependent change in the lung bases bilaterally without airspace pneumonia. Heart: Heart size is mildly enlarged. Severe triple-vessel coronary artery calcifications. No pericardial effusion. Thoracic Vessels: No aortic aneurysm. Mediastinum and [place]: No enlarged lymph nodes. Esophagus: No wall thickening. No hiatal hernia. Upper Abdomen: Cirrhosis, mild upper abdominal ascites. As before on the previous CT IVP, there is moderate bilateral hydronephrosis and hydroureter. On the previous study, the hydroureter extends the level of the base of the bladder. 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 IMPRESSION: 1. No acute pulmonary emboli 2. Obstructing radiopaque foreign body in the right lower lobe bronchus. 3. Right lower lobe bronchial wall thickening diffusely consistent with bronchitis. 4. No airspace pneumonia. Dependent bibasilar change. 5. Moderate centrilobular emphysema. 6. Mild cardiomegaly, severe coronary artery atherosclerotic calcifications. 7. Cirrhosis, mild ascites. 8. Chronic moderate bilateral hydronephrosis. 9. Question remote discitis/osteomyelitis at T9-T10. Comment: The presence of the foreign body in the right lower lobe bronchus was discussed with both Dr. Mueller and Dr. Hector justice at the time of dictation. Dictated by: Yair Dwyer M.D. on 09/27/2025 at 14:34 Approved by: Yair Dwyer M.D. on 09/27/2025 at 14:54
--- NOTE | 2025-09-27 13:59 | EKG_ITS ---
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
[2025-09-27] MEDS: SODIUM CHLORIDE 0.9% 1,000 ML 150 ML IV (14:16)
[2025-09-27 14:18] LABS: Coronavirus NL 63 Not Detected (Not Detect); SARS- CoV-2 Not Detected (Not Detecte)
[2025-09-27 14:35] LABS: Reflexed Lactate in 2 Hours Y
[2025-09-27] MEDS: cefTRIAXone 2,000 MG in SODIUM CHLORIDE 0.9% 100 ML 200 MG IV (15:02)
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
[2025-09-27 15:42] LABS: Lactate 2HR (Lactic Acid Rflx) 2.3 mmol/L (0.7-2.1)
[2025-09-27] MEDS: DOXYCYCLINE 100 MG in SODIUM CHLORIDE 0.9% 100 ML IV (16:17)
[2025-09-27] MEDS: INSULIN LISPRO 100 UNIT/ML 3ML VIAL SUBCUT (17:38)
[2025-09-27] MEDS: SODIUM CHLORIDE 0.9% 1,000 ML 100 ML IV ×2 (17:39→23:38)
[2025-09-27] MEDS: ALBUTEROL 2.5 MG/3 ML NEB (ADULT) INH (19:35)
[2025-09-28 06:46] LABS: Add Manual Diff / Slide Review NO; Hematocrit 33.6 % (41-53); Hemoglobin 11.4 g/dL (13.5-17.5); Lymphocytes Absolute Auto 800 /uL (1100-4500); Mean Corpuscular HGB Conc 34.0 % (30-36); Mean Corpuscular Hemoglobin 35.3 PG (26-34); Mean Corpuscular Volume 103.9 fL (80-100); Platelet Count 137 X10^3/uL (150-400)
[2025-09-28 07:07] LABS: Blood Urea Nitrogen 23 mg/dL (9-20); Calcium 9.0 mg/dL (8.4-10.2); Carbon Dioxide 24 mmol/L (22-32); Chloride 109 mmol/L (98-107); Estimated Glomerular Filt Rate > 60 mL/min (>60); Glucose 131 mg/dL (70-99); HEMOLYSIS < 15 (0-50); Potassium 4.3 mmol/L (3.4-5.1); Sodium 140 mmol/L (137-145)
[2025-09-28 08:00] VITALS: BP 135/70; PULSE 69; RESP 18; TEMP 36.8; O2SAT 98
[2025-09-28] MEDS: SODIUM CHLORIDE 0.9% 1,000 ML 100 ML IV ×2 (10:02→21:22)
[2025-09-28] MEDS: CLOPIDOGREL 75 MG TABLET PO (10:03)
[2025-09-28] MEDS: ENOXAPARIN 40 MG/0.4 ML SYRINGE SUBCUT (10:03)
[2025-09-28] MEDS: METOPROLOL ER 25 MG TABLET PO (10:03)
[2025-09-28] MEDS: ASPIRIN EC 81 MG TABLET PO (10:03)
[2025-09-28] MEDS: FINASTERIDE 5 MG TABLET PO (10:17)
[2025-09-28] MEDS: ACETAMINOPHEN 325 MG TABLET 650 MG PO (11:36)
[2025-09-28] MEDS: INSULIN LISPRO 100 UNIT/ML 3ML VIAL SUBCUT ×2 (11:37→17:19)
[2025-09-28 14:55] VITALS: BP 151/70; PULSE 63; RESP 18; TEMP 36.9; O2SAT 95
[2025-09-28] MEDS: AZITHROMYCIN 500 MG in DEXTROSE 5% IN WATER 250 ML 250 MG IV (16:29)
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
[2025-09-28 20:07] VITALS: BP 187/102; RESP 18; TEMP 36.6; O2SAT 94
[2025-09-28] MEDS: GABAPENTIN 600 MG TABLET PO (21:22)
[2025-09-28] MEDS: ATORVASTATIN 20 MG TABLET 40 MG PO (21:22)
[2025-09-29 05:41] VITALS: BP 138/92; PULSE 125; RESP 22; TEMP 36.1; O2SAT 98
[2025-09-29] MEDS: SODIUM CHLORIDE 0.9% 1,000 ML 100 ML IV (07:24)
[2025-09-29 07:37] LABS: Add Manual Diff / Slide Review NO; Hematocrit 32.8 % (41-53); Hemoglobin 11.2 g/dL (13.5-17.5); Lymphocytes Absolute Auto 1200 /uL (1100-4500); Mean Corpuscular HGB Conc 34.0 % (30-36); Mean Corpuscular Hemoglobin 35.3 PG (26-34); Mean Corpuscular Volume 103.9 fL (80-100); Platelet Count 129 X10^3/uL (150-400)
[2025-09-29 07:45] LABS: Hemoglobin A1C% w Est Avg Glu 6.1 % (4.0-6.0)
[2025-09-29 07:52] LABS: Alanine Aminotransferase 44 IU/L (<50); Albumin 3.3 g/dL (3.5-5.0); Albumin Globulin Ratio 1.1 (1.0-2.8); Alkaline Phosphatase 162 U/L (38-126); Blood Urea Nitrogen 24 mg/dL (9-20); Calcium 8.4 mg/dL (8.4-10.2); Carbon Dioxide 21 mmol/L (22-32); Chloride 110 mmol/L (98-107); Estimated Glomerular Filt Rate > 60 mL/min (>60); Globulin 2.9 g/dL (1.7-4.1); Glucose 93 mg/dL (70-99); HEMOLYSIS < 15 (0-50); Magnesium 1.2 mg/dL (1.6-2.3); Potassium 3.8 mmol/L (3.4-5.1); Sodium 139 mmol/L (137-145); Total Protein 6.2 g/dL (6.3-8.2)
[2025-09-29 08:20] LABS: Thyroid Stimulating Hormone 2.60 uIU/mL (0.47-4.68)
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
[2025-09-29 08:42] VITALS: BP 134/88
[2025-09-29] MEDS: FINASTERIDE 5 MG TABLET PO (08:42)
[2025-09-29] MEDS: METOPROLOL ER 25 MG TABLET PO (08:42)
[2025-09-29] MEDS: ENOXAPARIN 40 MG/0.4 ML SYRINGE SUBCUT (08:42)
[2025-09-29] MEDS: CLOPIDOGREL 75 MG TABLET PO (08:42)
[2025-09-29] MEDS: ASPIRIN EC 81 MG TABLET PO (08:42)
[2025-09-29 10:00] VITALS: BP 134/88; PULSE 125; RESP 17; TEMP 36.2; O2SAT 95
--- NOTE | 2025-09-29 11:41 | PM.DS.1 ---
History of Present Illness History of Present Illness Date Patient Seen: 09/27/25 Time Patient Seen: 15:23 Chief complaint: PC ref, low o2 sat Narrative: This is an 85 year old male with gout, OA, HTN, CAD, Polyneuropathy, DM2, BPH and COPD who presents with hypoxemic acute respiratory failure and apparent early pneumonia. He was 84% on room air in his PCP office. He has been coughing for 2 days. A bronchial foreign body was also noted on CT. This was discussed with thoracic surgery, Dr. Young, who recommended follow-up in his clinic for bronchoscopy. Although on admission there was concern about possible shrapnel exposure due to prior work with the [employer]. The patient and his both report that he did not have prior shrapnel exposure. His feels that the foreign body may actually be food particles (popcorn kernel) given that he has had episodes of aspiration at home. His respiratory panel is negative. Discharge Providers Provider Date of admission: 09/27/25 15:23 Discharge Date: 09/29/25 Primary care physician: Lul Choi MD Discharge provider: Kimberly De Leon MD Summary Hospital Course Discharge Diagnosis: Acute hypoxemic respiratory failure Community-acquired pneumonia Patient presented with acute hypoxemic respiratory failure in the setting of community-acquired pneumonia. He initially had a leukocytosis and an elevated lactic acid but both have resolved. Respiratory viral panel was negative. He required 2 L of oxygen initially but is now on room air. The patient has been treated with IV ceftriaxone and azithromycin with good response. He will discharge to home on oral antibiotics. Bronchial foreign body on CT scan Obstructing radiopaque 10X6 mm foreign body in the right lower lobe bronchus. On admission, there was concern about prior shrapnel exposure due to work with the [employer] at [employer]. However patient and his both report to me that this information was inaccurate. The patient has never had shrapnel exposure. The patient should follow up with Dr. Young (thoracic surgery) for bronchoscopy as an outpatient. This foreign body is not related to his current community-acquired pneumonia. Diabetes mellitus type 2 Clinically stable. Metformin held while patient was hospitalized but may be resumed at discharge. He was covered with lispro SSI while here. Elevated liver function tests AST 65, ALT 51 and total bili 1.7 on admission. Recommend follow-up LFTs at next appointment with primary care provider. Coronary artery disease Congestive heart failure Hypertension Hyperlipidemia Clinically stable. Continue metoprolol, Lipitor, Plavix, aspirin, Lipitor and alpha lipoic acid Status at Discharge Cognitive/behavioral status at discharge: oriented Functional status at discharge: independent ambulation Overall status at discharge: patient is back to baseline Time Spent with Patient Time spent: Greater than 30 minutes Exam Vital Signs (past 8 hours): - 09/29/25 05:41 09/29/25 08:42 09/29/25 08:49 Temperature 96.9 F L Pulse Rate 125 H Respiratory Rate 22 Blood Pressure 138/92 H 134/88 Pulse Oximetry 98 Oxygen Delivery Method Room Air Oxygen Flow Rate 1 09/29/25 10:00 Temperature 97.2 F L Pulse Rate 125 H Respiratory Rate 17 Blood Pressure 134/88 Pulse Oximetry 95 Oxygen Delivery Method Oxygen Flow Rate 1 Fraction of Inspired Oxygen 24 SaO2/FiO2 Ratio 391 Oxygen Delivery Method Room Air Oxygen Flow Rate 1 Narrative Exam Narrative: Alert and oriented, well nourished, well developed, no acute distress Oropharynx moist Clear to auscultation bilaterally Regular rate and rhythm no murmurs No edema Neuro grossly nonfocal Pleasant cooperative Objective Labs 09/29/25 06:50 09/29/25 06:50 Labs: Laboratory Results - last 24 hr 09/28/25 09/28/25 09/29/25 16:32 20:12 06:50 WBC 7.7 RBC 3.16 L Hgb 11.2 L Hct 32.8 L MCV 103.9 H MCH 35.3 H MCHC 34.0 RDW 16.2 H Plt Count 129 L Neut % (Auto) 67.9 Lymph % (Auto) 15.3 L [place] % (Auto) 13.0 Eos % (Auto) 2.8 Baso % (Auto) 1.0 Neut # (Auto) 5200 Lymph # (Auto) 1200 [place] # (Auto) 1000 H Eos # (Auto) 200 Baso # (Auto) 100 Sodium 139 Potassium 3.8 Chloride 110 H Carbon Dioxide 21 L BUN 24 H Creatinine 0.95 Estimated GFR > 60 BUN/Creatinine Ratio 25.3 H Glucose 93 POC Whole Bld Glucose 151 H 157 H Hemoglobin A1c 6.1 H Calcium 8.4 Magnesium 1.2 L Total Bilirubin 1.3 AST 60 H ALT 44 Alkaline Phosphatase 162 H Total Protein 6.2 L Albumin 3.3 L Globulin 2.9 Albumin/Globulin Ratio 1.1 TSH 2.60 09/29/25 07:36 WBC RBC Hgb Hct MCV MCH MCHC RDW Plt Count Neut % (Auto) Lymph % (Auto) [place] % (Auto) Eos % (Auto) Baso % (Auto) Neut # (Auto) Lymph # (Auto) [place] # (Auto) Eos # (Auto) Baso # (Auto) Sodium Potassium Chloride Carbon Dioxide BUN Creatinine Estimated GFR BUN/Creatinine Ratio Glucose POC Whole Bld Glucose 108 H Hemoglobin A1c Calcium Magnesium Total Bilirubin AST ALT Alkaline Phosphatase Total Protein Albumin Globulin Albumin/Globulin Ratio TSH PFSH Medical History AAA (abdominal aortic aneurysm) BPH (benign prostatic hyperplasia) BPH w urinary obs/LUTS Candidal balanitis Cerebrovascular disease COPD (chronic obstructive pulmonary disease) Coronary artery disease Do not resuscitate Dysphagia Essential hypertension Former smoker Gout History of malignant neoplasm of bladder History of recurrent UTI (urinary tract infection) History of urinary calculi Left carotid artery occlusion Mild chronic anemia Mixed hyperlipidemia 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 Peripheral neuropathy Polyneuropathy, unspecified Primary osteoarthritis involving multiple joints Recurrent UTI Type 2 diabetes mellitus with polyneuropathy Surgical History H/O lithotripsy H/O transurethral resection of prostate H/O vasectomy History of colonoscopy History of surgery on arm Hx of bilateral cataract extraction Hx of cystoscopy Hx of transurethral destruction of bladder lesion Social History household members: spouse Smoking Status: Former smoker alcohol intake: former Discharge Plan Discharge Plan Patient Disposition: Home Discharge orders & Medications Prescriptions: New azithromycin 500 mg tablet 500 mg PO DAILY 2 Days Qty: 2 0RF Rx Instructions: First dose on 09/30/25 cefdinir 300 mg capsule 300 mg PO BID 4 Days Qty: 8 0RF Continued ferrous sulfate 325 mg (65 mg iron) tablet 325 mg PO DAILY aspirin 81 MG tablet,delayed release (DR/EC) 81 mg PO QDAY Qty: 0 Centrum Silver 400-250 mcg Tablet,Chewable 1 tab PO DAILY Qty: 0 albuterol sulfate 90 mcg/actuation HFA aerosol inhaler 2 puff PO Q4-6H PRN (Reason: for wheezing) Qty: 18 2RF gabapentin 300 mg capsule 600 mg PO DAILY Qty: 180 3RF metformin 1,000 mg tablet 1,000 mg PO BID Qty: 180 4RF atorvastatin [Lipitor] 40 mg tablet 40 mg PO HS Qty: 90 3RF finasteride 5 mg tablet 5 mg PO QDAY Qty: 90 3RF Jardiance 10 mg tablet 10 mg PO DAILY Qty: 90 3RF fluticasone propion-salmeterol [Advair Diskus] 250-50 mcg/dose blister with device 1 inh inhalation Q12H PRN (Reason: Shortness Of Breath Or Wheezing) Qty: 60 3RF Rx Instructions: W[place]ela ascorbic acid (vitamin C) 1,000 mg tablet 500 mg PO DAILY Saccharomyces boulardii [Digest Probiotic (S.boulardii)] 250 mg capsule 250 mg PO BID diphenhydramine-acetaminophen [Tylenol PM Extra Strength] 25-500 mg tablet 1 tab PO BEDTIME PRN (Reason: sleep) loperamide [Imodium A-D] 2 mg capsule 2 mg PO Q6H cholecalciferol (vitamin D3) 25 mcg (1,000 unit) capsule 25 mcg PO DAILY cyanocobalamin (vitamin B-12) [Vitamin B-12] 1,000 mcg tablet 1,000 mcg PO DAILY alpha lipoic acid 100 mg capsule 200 mg PO BID Disabled Parking Permit 1 ea Not Applicable DAILY Qty: 1 0RF metoprolol succinate 25 mg tablet extended release 24 hr 25 mg PO DAILY clopidogrel [Plavix] 75 mg tablet 75 mg PO QDAY Qty: 14 0RF Follow up/Referrals: Lul Choi MD [Primary Care Provider, Internal Medicine] Visit Report/Discharge Packet Stand Alone Forms: Patient Portal/API, Stroke Signs & Symptoms Discharge Data Primary Care Provider: Lul Choi V
--- NOTE | 2025-09-29 12:02 | PC.NURSE ---
D/c instructions reviewed with pt and at bedside. IV removed. Pt exited via w/c with PCT to private vehicle.
== END 2025-09-29 12:08 | disposition home or self-care (01) | DRG 193 ==
LOC: ED 13:51 → AC 15:23
PROVIDERS: Admitting Provider Family Medicine; Emergency Provider Emergency Medicine; Family Provider Internal Medicine; PCP Internal Medicine; Referring Provider Emergency Medicine; Visit Provider Family Medicine
DX: J18.9 Pneumonia, unspecified organism (principal); J96.01 Acute respiratory failure with hypoxia; J44.0 Chronic obstructive pulmonary disease with (acute) lower respiratory infection; T17.528A Food in bronchus causing other injury, initial encounter; E11.9 Type 2 diabetes mellitus without complications; R79.89 Other specified abnormal findings of blood chemistry; I25.10 Atherosclerotic heart disease of native coronary artery without angina pectoris; I11.0 Hypertensive heart disease with heart failure; I50.9 Heart failure, unspecified; E78.5 Hyperlipidemia, unspecified; W44.F3XA Food entering into or through a natural orifice, initial encounter; Z79.84 Long term (current) use of oral hypoglycemic drugs; Z79.02 Long term (current) use of antithrombotics/antiplatelets; Z87.891 Personal history of nicotine dependence
CPT/HCPCS: 36415; 71045; 71275; 80048; 80053; 82962; 83036; 83605; 83735; 83880; 84443; 84484; 85025; 85610; 87040; 87633; 93005; 93010; 94640; 94760; 96365; 96367; 99285; J0696; J1650; J1815; J7030; J7050; J7060; J7613; Q9967

== ENCOUNTER → 2025-10-11 10:51 | Outpatient (CLI) | payer MEDICARE, OTHER, SELFPAY ==
[2025-09-29 14:57] VITALS: BMI 22.9
--- NOTE | 2025-10-11 10:52 | DI.RAD.S_ITS ---
PROCEDURE: XR CHEST 2V INDICATIONS: hypoxia, RLL foreign body TECHNIQUE: 2 views of the chest were acquired. COMPARISON: [facility], CR, XR CHEST 1V, 09/27/2025, 12:47. FINDINGS: Surgical changes and devices: None. Lungs and pleura: Blunting of right costophrenic angle suggestive of trace right pleural effusion. Right basilar atelectasis is also seen. No definite focal infiltrate. Mediastinum: Mediastinal contours are normal. Heart size is normal. Bones and chest wall: No suspicious bony abnormalities. Soft tissues appear unremarkable. IMPRESSION: Trace right pleural effusion and right basilar atelectasis. No definite focal infiltrate. No pneumothorax. Dictated by: Shailesh Stevenson M.D. on 10/11/2025 at 15:41 Approved by: Shailesh Stevenson M.D. on 10/11/2025 at 15:42
== END ==
PROVIDERS: Family Provider Internal Medicine; PCP Internal Medicine; Referring Provider Internal Medicine; Visit Provider Internal Medicine
DX: T17.508A Unspecified foreign body in bronchus causing other injury, initial encounter (principal); J98.11 Atelectasis
CPT/HCPCS: 71046